=== PATIENT | female | born 1960 | race Caucasian/White ===

== ENCOUNTER 2016-06-26 20:40 | Emergency (ER) | payer OTHER ==
[2016-06-27] MEDS ORDERED: DIAZEPAM INJ 10 MG/2 ML DISP.SYRIN IM ONE (00:40)
[2016-06-27] MEDS ORDERED: HYDROMORPHONE HCL INJ/PF 2 MG/ML AMPULE IM ONE ×2 (00:40→01:46)
[2016-06-27] MEDS ORDERED: OXYCODONE-ACETAMINOPHEN 5-325 MG TABLET PO ONE (03:18)
--- NOTE | 2016-06-27 03:29 | ER Document Report ---
ED General - General Chief Complaint: Back Pain Stated Complaint: FALL,LOWER BACK PAIN Notes: Patient is a pleasant 56 show female presents with complaint of lower back pain. She says that she is a history of back surgeries and degenerative disc disease. Tonight she fell onto her back and hurt her tailbone. No weakness or numbness going into legs. No loss of bowel control. No urinary retention. No fevers or recent infections. No other complaints at this time. She is followed by a neurologist for her back pain. She says she usually receives physical therapy but was recently sick with colitis and therefore missed 2 weeks of physical therapy and therefore has been having increased pain in her back as well. TRAVEL OUTSIDE OF THE [place] IN LAST 30 DAYS: No - Related Data Allergies/Adverse Reactions: morphine [Morphine] Allergy (Verified 09/19/15 22:05) Past Medical History - General Information source: Patient - Social History Smoking Status: Unknown if Ever Smoked Frequency of alcohol use: None Drug Abuse: None Family History: Reviewed & Not Pertinent Patient has suicidal ideation: No Patient has homicidal ideation: No - Past Medical History Cardiac Medical History: Reports: Hx Hypercholesterolemia, Hx Hypertension Past Surgical History: Reports: Hx Orthopedic Surgery - back surgery Review of Systems - Review of Systems Notes: My Normal Review Basic REVIEW OF SYSTEMS: CONSTITUTIONAL : Denies fever, chills, or sweats. Denies recent illness. RESPIRATORY: Denies cough, cold, or chest congestion. Denies shortness of breath, difficulty breathing, or wheezing. GASTROINTESTINAL: Denies abdominal pain. Denies nausea, vomiting, or diarrhea. Denies constipation. Last BM: GENITOURINARY: Denies difficulty urinating, painful urination, burning, frequency, or blood in urine. MUSCULOSKELETAL: Lower back pain SKIN: Denies rash or skin lesions. NEUROLOGICAL: Denies altered mental status or loss of consciousness. Denies headache. Denies weakness or paralysis or loss of use of either side. Denies problems with gait or speech. Denies sensory or motor loss. ALL OTHER SYSTEMS REVIEWED AND NEGATIVE. Physical Exam - Vital signs Vitals: Temp Pulse Resp BP Pulse Ox 98.0 F 74 14 106/68 98 06/26/16 23:10 06/26/16 23:10 06/26/16 23:10 06/26/16 23:10 06/26/16 23:10 - Notes Notes: General Appearance: Well nourished, alert, cooperative, no acute distress, moderate obvious discomfort. Vitals: reviewed, See vital signs table. Abdomen: Normal BS, soft, No rigidity, No abdominal tenderness, No guarding, no rebound, no abdominal masses, no organomegaly Extremities: strength 5/5 in all extremities, good pulses in all extremities, no swelling or tenderness in the extremities, no edema. Back: Patient has pain is easily reproducible to palpation over the lower lumbar paraspinal musculature. No step-offs or deformities to lumbar spine. Thoracic spine is nontender. Skin: warm, dry, appropriate color, no rash Neuro: speech clear, oriented x 3, normal affect, responds appropriately to questions. Patient is good strength with plantar and dorsiflexion against resistance. Good strength with movement of her lower extremity is. Distal sensation intact. Patellar reflexes are 2 out of 4 and equal bilaterally. Course - Vital Signs Vital signs: Temp Pulse Resp BP Pulse Ox 97.3 F 70 14 140/88 H 96 06/27/16 03:44 06/27/16 03:44 06/26/16 23:13 06/27/16 03:44 06/27/16 03:44 - Transfer of Care Notes: 06/27/16 07:03 Patient's pain is not completely gone but we're able to improve the pain with medications here. Her x-ray was negative. At this time a she is safe to be discharged home. She has no evidence of spinal cord impingement. I did inform her to return to ER immediately if she develops leg weakness, leg numbness, inability to urinate, or loss of bowel control. Patient agrees with plan and will be discharged home. Dictation of this chart was performed using voice recognition software; therefore, there may be some unintended grammatical errors. Discharge - Discharge Clinical Impression: Back pain Qualifiers: Back pain location: low back pain Chronicity: acute Back pain laterality: midline Sciatica presence: without sciatica Qualified Code(s): M54.5 - Low back pain Condition: Good Disposition: HOME, SELF-CARE Additional Instructions: LOW BACK PAIN: Three out of every four people will have an episode of disabling back pain during their lifetime. Most commonly the pain is due to straining of the muscles and ligaments in the low back. Usual treatment includes: (1) Rest on a firm surface. Avoid lying on your stomach. (2) Ice pack the painful area. After a few days, gentle heat may be used intermittently to relax the area, or ice packs can be continued. (3) Medication may be needed -- muscle relaxers and antiinflammatory medicines are commonly used. (4) As the back improves, exercises are prescribed to strengthen the back and abdominal muscles. Your doctor will advise you on the proper care for your back at each stage in your recovery. You may be better in a few days -- or healing may take several weeks. If new symptoms of a "herniated disc" (radiation of pain, numbness, or tingling down the back of the leg or weakness in the leg) occur, you should be re-examined. Further testing may be necessary. PAIN MEDICATION INJECTION: You have received an injection of a pain medication. You should experience significant pain relief within 45 minutes. If this injection was a narcotic -- it will impair your judgement, slow your reaction time and make you sleepy (as well as relieve your pain). Narcotics also can cause nausea. You should not drive, work with machinery, or perform any task requiring mental alertness until all effects of the medication are gone -- six to eight hours. Do not take any alcohol, or sedatives, and do not take any other medication without checking with your physician. ORAL NARCOTIC MEDICATION: You have been given a prescription for pain control. This medication is a narcotic. It's best taken with food, as nausea can result if taken on an empty stomach. Don't operate machinery or drive within six hours of taking this medication. Do not combine this medicine with alcohol, or with any medication which can cause sedation (such as cold tablets or sleeping pills) unless you get permission from the physician. Narcotics tend to cause constipation. If possible, drink plenty of fluids and eat a diet high in fiber and fruits. Please be aware that prescription narcotics also have the potential for abuse. People become addicted to these medications because of the general sense of wellbeing that they induce. This feeling along with a significant reduction in tension, anxiety, and aggression provides a stimulating seductive quality to these drugs. Once your pain is under control, we encourage you to discard your unused narcotics. ICE PACKS: Apply ice packs frequently against the painful area. Many different schedules are recommended, such as "20 minutes on, 20 minutes off" or "one hour ice, two hours rest." If you need to work, you may need to go longer between ice treatments. You should plan to have the area ice packed AT LEAST one fourth of the time. The ice should be applied over the wrap, tape, or splint, or over a layer of cloth -- not directly against the skin. Some ice bags have a built-in cloth and can be put directly on the skin. WARM PACKS: After approximately two days, apply gentle heat (such as a heating pad or hot water bottle) for about 20 to 30 minutes about every two hours -- at least four times daily. Warmth and elevation will help you make a more rapid recovery , and will ease the pain considerably. Do not use HOT heat, and never apply heat for longer than 30 minutes. The continuous heat can invisibly damage skin and muscles -- even when no burn is seen on the surface. Damaged muscles can make you MORE sore. FOLLOW-UP CARE: If you have been referred to a physician for follow-up care, call the physician s office for an appointment as you were instructed or within the next two days. If you experience worsening or a significant change in your symptoms, notify the physician immediately or return to the Emergency Department at any time for re-evaluation. Please return to the ER immediately if you develop worsening pain, fevers, leg weakness, leg numbness, loss of control of your bowels, or inability to urinate. Please call your doctor for a close follow up appointment this week. Prescriptions: Oxycodone HCl/Acetaminophen [Percocet 5-325 mg Tablet] 1 - 2 tab PO Q4H PRN #25 tablet PRN Reason: Forms: Return to Work
[2016-06-27 04:04] VITALS: BP 140/88
== END 2016-06-27 03:45 | disposition home or self-care (01) ==
LOC: ER 20:40
DX: M54.5 Low back pain (principal); M54.9 Dorsalgia, unspecified
CPT/HCPCS: 99283; 96372; 72110; J3360; J1170

== ENCOUNTER 2016-08-16 08:45 | Day surgery (SDC) | payer OTHER ==
--- NOTE | 2016-08-10 12:01 | HISTORY AND PHYSICAL E ---
History and Physical NAME: PRASANTH CASSIDY : 1960 AGE: 56Y ADMITTED: 08/16/2016 ROOM: CHIEF COMPLAINT: Abdominal pain, rectal bleeding, ischemic colitis. HISTORY: This is a 56-year-old female who has had multiple colonoscopies. She was admitted recently at [facility] and she was scheduled for colonoscopy, but this was held for some improvement. Now she is stable and presented for colon exam. SOCIAL HISTORY: She smokes 1/2 pack daily. Drinks occasional beer. PAST SURGICAL HISTORY: 1. Appendectomy. 2. Three colonoscopies, the last 2014. 3. Back surgery L4-L5. REVIEW OF SYSTEMS: HEAD, EARS, EYES, NOSE AND THROAT: Negative. RESPIRATORY: Asthma on inhaler. CARDIAC: Hypertension. ENDOCRINE: Negative. GASTROINTESTINAL: Question ischemic colitis. HEMATOLOGY/ONCOLOGY: Negative. NEUROPSYCH: Depression and anxiety. FAMILY HISTORY: Father had aneurysm in brain. Mom old age. EXAM: VITAL SIGNS: Blood pressure 130/90, pulse 80, respirations 18, temperature 98. HEAD, EARS, EYES, NOSE AND THROAT: Negative. NECK: Supple. CARDIOVASCULAR: Normal. LUNGS: Clear. ABDOMEN: Soft. NEUROLOGIC EXAM: Negative. MEDICATIONS: 1. Lisinopril. 2. Metoprolol. 3. Amitriptyline. 4. Clonazepam. 5. Albuterol. 6. Symbicort. CONCLUSION: Rectal bleeding. PLAN: Colonoscopy. DICTATING PHYSICIAN: MAINE BALLARD M.D. [id number] PHY#: [id number] ID: [id number] JOB#: [id number] ACCT: [id number] cc:LOCAL, MD Yandel BALLARD, MAINE Harris >
[2016-08-16] MEDS ORDERED: GLYCOPYRROLATE INJ 0.4 MG/2 ML VIAL ONE (09:54)
[2016-08-16] MEDS ORDERED: ONDANSETRON HCL INJ/PF 4 MG/2 ML SDV ONE (09:54)
[2016-08-16] MEDS ORDERED: PROMETHAZINE HCL INJ 25 MG/1 ML VIAL ONE (09:54)
[2016-08-16] MEDS ORDERED: NALOXONE HCL INJ/PF 0.4 MG/1 ML SDV ONE (09:54)
[2016-08-16] MEDS ORDERED: LIDOCAINE 2% JELLY 30 ML TUBE ONE (09:54)
[2016-08-16] MEDS ORDERED: EPINEPHRINE INJ 1 MG/10 ML DISP.SYRIN ONE (09:55)
[2016-08-16] MEDS ORDERED: FLUMAZENIL INJ 0.5 MG/5 ML VIAL IV ONE (09:55)
[2016-08-16] MEDS ORDERED: GLUCAGON,HUMAN RECOMB 1 MG INJ ONE (09:55)
[2016-08-16] MEDS: MIDAZOLAM 2 MG/2 ML INJ ONE ×4 (10:01→10:19)
[2016-08-16] MEDS: FENTANYL CITRATE INJ/PF 100 MCG/2 ML AMPUL ONE ×4 (10:03→10:25)
[2016-08-16 11:26] LABS: ABSOLUTE EOSINOPHILS # (AUTO) 0.1 10^3/uL (0.0-0.6); ABSOLUTE LYMPHOCYTES (AUTO) 1.3 10^3/uL (0.5-4.7); ABSOLUTE MONOCYTES (AUTO) 0.7 10^3/uL (0.1-1.4); ABSOLUTE NEUT (AUTO) 6.5 10^3/uL (1.7-8.2); BASOPHILS % (AUTO) 0.6 % (0-2); HEMATOCRIT 36.7 % (36.0-47.0); HEMOGLOBIN 12.9 g/dL (12.0-15.5); LYMPHOCYTES % (AUTO) 14.5 % (13-45); MEAN CORPUSCULAR HEMOGLOBIN 33.8 pg (27.0-33.4); MEAN CORPUSCULAR HGB CONC 35.3 g/dL (32.0-36.0); MEAN CORPUSCULAR VOLUME 96 fl (80-97); MONOCYTES % (AUTO) 8.6 % (3-13); RED BLOOD COUNT 3.83 10^6/uL (3.72-5.28); RED CELL DISTRIBUTION WIDTH 12.3 % (11.5-14.0); SEGMENTED NEUTROPHILS % (AUTO) 75.3 % (42-78); WHITE BLOOD COUNT 8.7 10^3/uL (4.0-10.5)
[2016-08-16 11:47] LABS: ALANINE AMINOTRANSFERASE 22 U/L (9-52); ALBUMIN 3.6 g/dL (3.5-5.0); ALKALINE PHOSPHATASE 82 U/L (38-126); ANION GAP 7 (5-19); ASPARTATE AMINO TRANSFERASE 24 U/L (14-36); BILIRUBIN,TOTAL 0.8 mg/dL (0.2-1.3); BLOOD UREA NITROGEN 10 mg/dL (7-20); CARBON DIOXIDE 30 mmol/L (22-30); CHLORIDE 102 mmol/L (98-107); CREATININE RESULT 0.74 mg/dL (0.52-1.25); GLUCOSE 192 mg/dL (75-110); POTASSIUM 3.4 mmol/L (3.6-5.0); TOTAL PROTEIN 6.2 g/dL (6.3-8.2)
[2016-08-16 12:15] LABS: CARCINOEMBRYONIC ANTIGEN 7.7 ng/mL (<3.0)
[2016-08-16 13:07] VITALS: BP 146/92
--- NOTE | 2016-08-16 13:51 | OPERATIVE REPORT E ---
Operative Report NAME: PRASANTH CASSIDY : 1960 AGE: 56Y DATE OF SURGERY: ROOM: HISTORY: The patient is a 56-year-old female. PREOPERATIVE DIAGNOSIS: COLON SCREENING. POSTOPERATIVE DIAGNOSES: SEVERE SIGMOID DIVERTICULOSIS, POLYP AT THE RECTAL SIGMOID JUNCTION, SMALL TO BIOPSY. OPERATION: A trial of complete colonoscopy and because of sigmoid diverticulosis. Severe large amount of solid stool keeps coming compromising the lumen. I gave her adequate sedation but the stool was too frequent and the stool was like hard balls keep coming during the procedure so we elected to stop the colonoscopy and we converted the procedure into flexible sigmoidoscopy. Patient may need future colonoscopy in the OR with anesthesia standby . SURGEON: MAINE BALLARD M.D. TISSUE REMOVED OR ALTERED: None. PROCEDURE: Rectal exam normal. Rectal sigmoid shows of polyp 2-mm benign. Sigmoid descending colon; severe diverticulosis, large amount of formed stool. PLAN: Baseline CBC, CRP and CEA, Chem profile, a plain CT scan pelvic abdomen and patient to be discharged on full liquid. DICTATING PHYSICIAN: MAINE BALLARD M.D. [id number] PHY#: [id number] ID: [id number] JOB#: [id number] ACCT: [id number] cc:MAINE BALLARD M.D. >
--- NOTE | 2016-08-17 12:08 | DISCHARGE SUMMARY E ---
Discharge Summary NAME: PRASANTH DASILVA : 1960 AGE: 56Y ADMITTED: 08/16/2016 DISCHARGED: 08/16/2016 HISTORY: Mrs. Prasanth Dasilva is a 56 years old female, presented for colon screening. The patient's colonoscopy converted into flexible sigmoidoscopy. She was admitted to [facility] recently with a question ischemic colitis, abdominal pain, constipation. She does have a history of asthma, hypertension, bronchitis, degenerative arthritis, reflux. She did have appendectomy, back surgery, multiple hand surgeries, left hand. PLAN: Patient to be discharged on full liquids. She needs to have abdominopelvic CT with no contrast. The patient may need a future colonoscopy with better prep to be scheduled in the OR with anesthesia stand-by, and she needs better prep. She may need 1 week to 10 days low residue diet, and she needs to follow a low residue diet for 10 days, then the regular prep. FINAL DIAGNOSIS: Severe diverticulosis sigmoid descending colon. No evidence of malignancies. Small benign looking polyp at rectosigmoid junction. No biopsy obtained. DICTATING PHYSICIAN: MAINE BALLARD M.D. [id number] PHY#: [id number] ID: [id number] JOB#: [id number] ACCT: [id number] cc:MAINE BALLARD M.D. >
== END 2016-08-16 12:45 | disposition home or self-care (01) ==
LOC: END 08:45
PROVIDERS: ATTEND Specialist
PROC: 0DJD8ZZ Inspection of Lower Intestinal Tract, Via Natural or Artificial Opening Endoscopic (ICD-10-PCS; principal; 2016-08-16 09:00)
DX: Z12.11 Encounter for screening for malignant neoplasm of colon (principal); K57.30 Diverticulosis of large intestine without perforation or abscess without bleeding; K62.1 Rectal polyp; I10 Essential (primary) hypertension; J45.909 Unspecified asthma, uncomplicated; F32.9 Major depressive disorder, single episode, unspecified; F41.9 Anxiety disorder, unspecified; Z79.899 Other long term (current) drug therapy; F17.210 Nicotine dependence, cigarettes, uncomplicated
CPT/HCPCS: 36415; 82378; 85025; 86140; 80053; 74176; G0104; J2250; J3010; J1610; J2405; J0171; J2310; J2550; J3490

== ENCOUNTER → 2016-10-04 | Outpatient (CLI) | payer OTHER ==
[2016-10-04 14:50] LABS: ABSOLUTE LYMPHOCYTES (AUTO) 1.6 10^3/uL (0.5-4.7); ABSOLUTE MONOCYTES (AUTO) 0.7 10^3/uL (0.1-1.4); ABSOLUTE NEUT (AUTO) 5.2 10^3/uL (1.7-8.2); BASOPHILS % (AUTO) 0.4 % (0-2); EOSINOPHILS % (AUTO) 0.1 % (0-6); HEMATOCRIT 41.6 % (36.0-47.0); HEMOGLOBIN 14.6 g/dL (12.0-15.5); HGB HCT DIFFERENCE 2.2; LYMPHOCYTES % (AUTO) 21.1 % (13-45); MEAN CORPUSCULAR HEMOGLOBIN 33.5 pg (27.0-33.4); MEAN CORPUSCULAR HGB CONC 35.1 g/dL (32.0-36.0); MEAN CORPUSCULAR VOLUME 95 fl (80-97); MONOCYTES % (AUTO) 9.9 % (3-13); RED BLOOD COUNT 4.36 10^6/uL (3.72-5.28); RED CELL DISTRIBUTION WIDTH 12.5 % (11.5-14.0); SEGMENTED NEUTROPHILS % (AUTO) 68.5 % (42-78); WHITE BLOOD COUNT 7.6 10^3/uL (4.0-10.5)
[2016-10-04 15:18] LABS: ANION GAP 9 (5-19); BLOOD UREA NITROGEN 15 mg/dL (7-20); CALCIUM 9.8 mg/dL (8.4-10.2); CARBON DIOXIDE 29 mmol/L (22-30); CHLORIDE 104 mmol/L (98-107); CREATININE RESULT 0.85 mg/dL (0.52-1.25); GLUCOSE 130 mg/dL (75-110); POTASSIUM 5.1 mmol/L (3.6-5.0); SODIUM 142.1 mmol/L (137-145)
[2016-10-04 15:46] LABS: CARCINOEMBRYONIC ANTIGEN 10.4 ng/mL (<3.0)
== END ==
LOC: OD 14:09
PROVIDERS: ATTEND Specialist
DX: K55.9 Vascular disorder of intestine, unspecified (principal); R19.7 Diarrhea, unspecified
CPT/HCPCS: 36415; 80048; 82378; 85025

== ENCOUNTER 2017-01-09 14:42 | Inpatient (IN) | payer OTHER ==
[2017-01-09] MEDS ORDERED: ONDANSETRON HCL INJ/PF 4 MG/2 ML SDV IV ONE (15:05)
[2017-01-09] MEDS ORDERED: MORPHINE SULFATE 10 MG/ML INJ IV ONE (15:05)
[2017-01-09] MEDS ORDERED: NORMAL SALINE 1000 ML 1,000 ML IV ONE (15:05)
[2017-01-09] MEDS ORDERED: HYDROMORPHONE HCL INJ/PF 2 MG/ML AMPULE IV ONE ×3 (15:09→17:50)
--- NOTE | 2017-01-09 15:12 | ER Document Report ---
ED Medical Screen (RME) - General Chief Complaint: Abdominal Pain Stated Complaint: ABDOMINAL PAIN Time Seen by Provider: 01/09/17 15:02 Information source: Patient Notes: 56-year-old female with past medical history of appendicitis and colitis who presents today with progressive left lower quadrant pain over 1 week. She states nausea with vomiting. She denies any diarrhea, blood in the stool, blood in the vomit. She denies any dysuria flank pain or fevers. Appears slightly diaphoretic and acute pain she is moaning actively. Patient will be upgraded and taken back to the emergency department. I have ordered a stat portable x-ray of the abdomen, pain and medication, and a CT scan of the abdomen and pelvis. TRAVEL OUTSIDE OF THE [place] IN LAST 30 DAYS: No - Related Data Allergies/Adverse Reactions: morphine [Morphine] Allergy (Intermediate, Verified 01/09/17 14:44) UNCONTROLLED VOMITING Past Medical History - Past Medical History Cardiac Medical History: Reports: Hx Hypercholesterolemia, Hx Hypertension Denies: Hx Coronary Artery Disease, Hx Heart Attack Pulmonary Medical History: Reports: Hx Asthma, Hx Bronchitis Denies: Hx COPD, Hx Pneumonia Neurological Medical History: Denies: Hx Cerebrovascular Accident, Hx Seizures Renal/ Medical History: Denies: Hx Peritoneal Dialysis Musculoskeltal Medical History: Reports Hx Arthritis - DEGENERATIVE ARTHRITIS BACK/HANDS Past Surgical History: Reports: Hx Orthopedic Surgery - back surgery. Denies: Hx Hysterectomy - Immunizations Hx Diphtheria, Pertussis, Tetanus Vaccination: No Physical Exam - Vital signs Vitals: Temp Pulse Resp BP Pulse Ox 97.9 F 75 28 H 112/58 L 97 01/09/17 14:45 01/09/17 14:45 01/09/17 14:45 01/09/17 14:45 01/09/17 14:45 Course - Vital Signs Vital signs: Temp Pulse Resp BP Pulse Ox 97.9 F 75 28 H 112/58 L 97 01/09/17 14:45 01/09/17 14:45 01/09/17 14:45 01/09/17 14:45 01/09/17 14:45
[2017-01-09 15:39] LABS: ABSOLUTE LYMPHOCYTES (AUTO) 1.8 10^3/uL (0.5-4.7); ABSOLUTE MONOCYTES (AUTO) 0.6 10^3/uL (0.1-1.4); ABSOLUTE NEUT (AUTO) 7.6 10^3/uL (1.7-8.2); BASOPHILS % (AUTO) 0.3 % (0-2); EOSINOPHILS % (AUTO) 0.1 % (0-6); HEMATOCRIT 42.8 % (36.0-47.0); HEMOGLOBIN 14.8 g/dL (12.0-15.5); HGB HCT DIFFERENCE 1.6; LYMPHOCYTES % (AUTO) 18.2 % (13-45); MEAN CORPUSCULAR HEMOGLOBIN 32.6 pg (27.0-33.4); MEAN CORPUSCULAR HGB CONC 34.6 g/dL (32.0-36.0); MEAN CORPUSCULAR VOLUME 94 fl (80-97); MONOCYTES % (AUTO) 5.8 % (3-13); RED BLOOD COUNT 4.53 10^6/uL (3.72-5.28); RED CELL DISTRIBUTION WIDTH 12.9 % (11.5-14.0); SEGMENTED NEUTROPHILS % (AUTO) 75.6 % (42-78)
[2017-01-09 15:51] LABS: ALANINE AMINOTRANSFERASE 33 U/L (9-52); ALBUMIN 4.1 g/dL (3.5-5.0); ALKALINE PHOSPHATASE 93 U/L (38-126); ANION GAP 11 (5-19); ASPARTATE AMINO TRANSFERASE 20 U/L (14-36); BILIRUBIN,DIRECT 0.3 mg/dL (0.0-0.4); BILIRUBIN,TOTAL 0.7 mg/dL (0.2-1.3); BLOOD UREA NITROGEN 10 mg/dL (7-20); CALCIUM 9.5 mg/dL (8.4-10.2); CARBON DIOXIDE 27 mmol/L (22-30); CHLORIDE 102 mmol/L (98-107); CREATININE RESULT 0.77 mg/dL (0.52-1.25); GLUCOSE 135 mg/dL (75-110); LIPASE 86.4 U/L (23-300); POTASSIUM 4.1 mmol/L (3.6-5.0); SODIUM 139.6 mmol/L (137-145); TOTAL PROTEIN 7.2 g/dL (6.3-8.2)
[2017-01-09] MEDS ORDERED: METOCLOPRAMIDE HCL INJ/PF 10 MG/2 ML SDV IV ONE (16:20)
--- NOTE | 2017-01-09 16:43 | RADIOLOGY REPORT (SQ) ---
EXAM DESCRIPTION: CT ABD/PELVIS WITH IV ONLY COMPLETED DATE/TIME: 01/09/2017 4:17 pm REASON FOR STUDY: PIT; abdominal pain; h/o bleeding colitis COMPARISON: 08/16/2016 and 05/30/2016 TECHNIQUE: CT scan of the abdomen and pelvis performed using helical scanning technique with dynamic intravenous contrast injection. No oral contrast. Images reviewed with lung, soft tissue, and bone windows. Reconstructed coronal and sagittal MPR images reviewed. Delayed images for evaluation of the urinary system also acquired. All images stored on PACS. All CT scanners at this facility use dose modulation, iterative reconstruction, and/or weight based d osing when appropriate to reduce radiation dose to as low as reasonably achievable (ALARA). [facility]: Dose Right [facility]: CareDose [facility]: Dose Right [facility]: Teradose 4D [facility]: [employer] CONTRAST TYPE AND DOSE: contrast/concentration: Isovue 370.00 mg/ml; Total Contrast Delivered: 100.0 ml; Total Saline Delivered: 40.0 ml RENAL FUNCTION: Creatinine 0.77 RADIATION DOSE: Up-to-date CT equipment and radiation dose reduction techniques were employed. CTDIv ol: 15.4 - 18.8 mGy. DLP: 1859 mGy-cm.. LIMITATIONS: None. FINDINGS: LOWER CHEST: No significant findings. No nodules or infiltrates. Small hiatal hernia. LIVER: Normal size. No masses. No dilated ducts. Small amount of ascites adjacent to the liver. SPLEEN: Normal size. No focal lesions. PANCREAS: No masses. No significant calcifications. No adjacent inflammation or peripancreatic fluid collections. Pancreatic duct not dilated. GALLBLADDER: No identified stones by CT criteria. No inflammatory changes to suggest cholecystitis. ADRENAL GLANDS: No significant masses or asymmetry. RIGHT KIDNEY AND URETER: No solid masses. No significant calcifications. No hydronephrosis or hyd roureter. LEFT KIDNEY AND URETER: No solid masses. No significant calcifications. No hydronephrosis or hydr oureter. AORTA AND VESSELS: No aneurysm. No dissection. Renal arteries, SMA, celiac without stenosis. RETROPERITONEUM: No retroperitoneal adenopathy, hemorrhage or masses. BOWEL AND PERITONEAL CAVITY: Sigmoid diverticulosis with the area of bowel wall thickening and some i nflammatory stranding suggesting diverticulitis. Colitis would be additional consideration. There a re some possible thick walled loops of small bowel in the left mid abdomen raising the possibility of enteritis. Inflammatory bowel disease is a consideration. APPENDIX: Normal. PELVIS: Fibroid uterus. Minimal fluid. Normal bladder. ABDOMINAL WALL: No masses. No hernias. BONES: Postoperative changes at L5-S1. OTHER: No other significant finding. IMPRESSION: 1. Sigmoid diverticulosis with findings suggesting diverticulitis. Colitis would be ad ditional consideration. No abscess. 2. Possible thick walled loops of small bowel in left mid abdomen raising the possibility of enterit is. 3. Small amount of ascites. 4. Fibroid uterus TECHNICAL DOCUMENTATION: JOB ID: [id number] Quality ID # [id number]: Final reports with documentation of one or more dose reduction techniques (e.g., Au tomated exposure control, adjustment of the mA and/or kV according to patient size, use of iterative reconstruction technique) 2010 [employer]- All Rights Reserved
--- NOTE | 2017-01-09 16:44 | RADIOLOGY REPORT (SQ) ---
EXAM DESCRIPTION: KUB/ABDOMEN (SINGLE VIEW) COMPLETED DATE/TIME: 01/09/2017 4:23 pm REASON FOR STUDY: PIT; abdominal pain/vomiting COMPARISON: None. NUMBER OF VIEWS: One view. TECHNIQUE: Supine radiographic image of the abdomen acquired. LIMITATIONS: None. FINDINGS: BOWEL GAS PATTERN: Normal bowel gas pattern. No dilated loops. CALCIFICATIONS: No suspicious calcifications. SOFT TISSUES: No gross mass or suggestion of organomegaly. HARDWARE: Postoperative changes involving the lower lumbar spine. Bilateral fallopian tube clamps. BONES: No acute fracture. No worrisome bone lesions. OTHER: No other significant finding. IMPRESSION: NO RADIOGRAPHIC EVIDENCE FOR ACUTE ABDOMINAL DISEASE. TECHNICAL DOCUMENTATION: JOB ID: [id number] [employer]- All Rights Reserved
--- NOTE | 2017-01-09 16:45 | ER Document Report ---
ED GI/ - General Mode of Arrival: Ambulatory Information source: Patient TRAVEL OUTSIDE OF THE [place] IN LAST 30 DAYS: No - HPI Similar symptoms previously: Yes <QUIRINO WOOD - Last Filed: 01/09/17 18:19> <RIYA STEELE - Last Filed: 01/09/17 23:48> - General Chief Complaint: Abdominal Pain Stated Complaint: ABDOMINAL PAIN Time Seen by Provider: 01/09/17 15:02 Notes: Patient is a 56-year-old female that presents to the emergency department today with complaints of abdominal pain. Patient states she has a history of colitis and this pain feels like her normal colitis flares. Patient states that her pain began today at 1300. Patient complains of vomiting and chills. Patient denies any diarrhea or fevers. (QUIRINO WOOD) - Related Data Allergies/Adverse Reactions: morphine [Morphine] Allergy (Intermediate, Verified 01/09/17 14:44) UNCONTROLLED VOMITING Past Medical History - General Information source: Patient - Social History Smoking Status: Unknown if Ever Smoked Cigarette use (# per day): No Frequency of alcohol use: None Drug Abuse: None Lives with: Family Family History: Reviewed & Not Pertinent Patient has suicidal ideation: No Patient has homicidal ideation: No - Past Medical History Cardiac Medical History: Reports: Hx Hypercholesterolemia, Hx Hypertension Pulmonary Medical History: Reports: Hx Asthma, Hx Bronchitis Musculoskeltal Medical History: Reports Hx Arthritis - DEGENERATIVE ARTHRITIS BACK/HANDS Past Surgical History: Reports: Hx Orthopedic Surgery - back surgery - Immunizations Hx Diphtheria, Pertussis, Tetanus Vaccination: No <QUIRINO WOOD - Last Filed: 01/09/17 18:19> Review of Systems - Review of Systems Constitutional: See HPI, Chills. denies: Fever EENT: No symptoms reported Cardiovascular: No symptoms reported Respiratory: No symptoms reported Gastrointestinal: See HPI, Abdominal pain, Vomiting. denies: Diarrhea Genitourinary: No symptoms reported Female Genitourinary: No symptoms reported Musculoskeletal: No symptoms reported Skin: No symptoms reported Hematologic/Lymphatic: No symptoms reported Neurological/Psychological: No symptoms reported -: Yes All other systems reviewed and negative <QUIRINO WOOD - Last Filed: 01/09/17 18:19> Physical Exam <QUIRINO WOOD - Last Filed: 01/09/17 18:19> <RIYA STEELE - Last Filed: 01/09/17 23:48> - Vital signs Vitals: Temp Pulse Resp BP Pulse Ox 97.9 F 75 28 H 112/58 L 97 01/09/17 14:45 01/09/17 14:45 01/09/17 14:45 01/09/17 14:45 01/09/17 14:45 - Notes Notes: Physical Exam: General: Alert, appears well. HEENT: Normocephalic. Atraumatic. PERRL. Extraocular movements intact. Oropharynx clear. Dry mucous membranes. Neck: Supple. Non-tender. Respiratory: No respiratory distress. Clear and equal breath sounds bilaterally. Cardiovascular: Regular rate and rhythm. Abdominal: Diffuse abdominal tenderness with palpation, particularly in the left lower quadrant. No distension. Normal Bowel Sounds. Back: Non-tender. No deformity or step off. Extremities: Moves all four extremities. Upper extremities: Normal inspection. Normal ROM. Lower extremities: Normal inspection. No edema. Normal ROM. Neurological: Normal cognition. AAOx4. Normal speech. Psychological: Normal affect. Normal Mood. Skin: Warm. Dry. Normal color. (QUIRINO WOOD) Course - Laboratory Result Diagrams: 01/09/17 15:19 01/09/17 15:19 <QUIRINO WOOD - Last Filed: 01/09/17 18:19> - Laboratory Result Diagrams: 01/09/17 15:19 01/09/17 15:19 - Diagnostic Test Radiology reviewed: Reports reviewed <RIYA STEELE - Last Filed: 01/09/17 23:48> - Re-evaluation Re-evalutation: 01/09/17 Patient is a 56-year-old female who comes in complaining of abdominal pain. Symptoms and CT are consistent with colitis versus diverticulitis. Patient will be admitted to the hospitalist service. Patient will continue getting IV hydration, pain medication, Cipro and Flagyl. Agrees with plan. Stable time of admission. (RIYA STEELE) - Vital Signs Vital signs: Temp Pulse Resp BP Pulse Ox 99.1 F 111 H 20 156/72 H 96 01/09/17 20:38 01/09/17 20:38 01/09/17 20:38 01/09/17 20:38 01/09/17 20:38 - Laboratory Laboratory results interpreted by me: 01/09/17 01/09/17 15:19 15:19 Glucose 135 H LDL Cholesterol Direct 118 H Discharge <QUIRINO WOOD - Last Filed: 01/09/17 18:19> - Discharge Admitting Provider: [facility] Admitted: Medical Floor <RIYA STEELE - Last Filed: 01/09/17 23:48> - Discharge Clinical Impression: Colitis Diverticulitis Qualifiers: Diverticulitis site: large intestine Diverticulitis bleeding: without bleeding Diverticulitis complication: unspecified complication status Qualified Code(s): K57.32 - Diverticulitis of large intestine without perforation or abscess without bleeding Condition: Stable Disposition: ADMITTED INPATIENT Scribe Attestation: 01/09/17 23:48 I personally performed the services described in the documentation, reviewed and edited the documentation which was dictated to the scribe in my presence, and it accurately records my words and actions. (RIYA STEELE) Scribe Documentation - Scribe Written by Kymberlyibe:: Corey Bhat, 01/09/2017 1819 acting as scribe for :: Magaly <QUIRINO WOOD - Last Filed: 01/09/17 18:19>
--- NOTE | 2017-01-09 16:48 | RADIOLOGY REPORT (SQ) ---
EXAM DESCRIPTION: CHEST SINGLE VIEW COMPLETED DATE/TIME: 01/09/2017 4:23 pm REASON FOR STUDY: ABD PAIN/VOMITING COMPARISON: None. EXAM PARAMETERS: NUMBER OF VIEWS: One view. TECHNIQUE: Single frontal radiographic view of the chest acquired. RADIATION DOSE: NA LIMITATIONS: None. FINDINGS: LUNGS AND PLEURA: No opacities, masses or pneumothorax. No pleural effusion. MEDIASTINUM AND HILAR STRUCTURES: No masses. Contour normal. HEART AND VASCULAR STRUCTURES: Heart normal in size. Normal vasculature. BONES: No acute findings. HARDWARE: None in the chest. OTHER: No other significant finding. IMPRESSION: NO ACUTE RADIOGRAPHIC FINDING IN THE CHEST. TECHNICAL DOCUMENTATION: JOB ID: [id number]
[2017-01-09] MEDS ORDERED: METRONIDAZOLE 500 MG/NS RTU 100 ML IV ONE (17:05)
[2017-01-09] MEDS ORDERED: CIPROFLOXACIN 400 MG/D5W RTU 200 ML IV ONE (17:05)
[2017-01-09 17:56] LABS: APPEARANCE,URINE CLEAR; BILIRUBIN,URINE NEGATIVE (NEGATIVE); GLUCOSE, URINE NEGATIVE (NEGATIVE); KETONES,URINE NEGATIVE (NEGATIVE); LEUKOCYTE ESTERASE,URINE NEGATIVE (NEGATIVE); NITRITE,URINE NEGATIVE (NEGATIVE); PROTEIN,URINE NEGATIVE (NEGATIVE); UROBILINOGEN,URINE NEGATIVE mg/dL (<2.0)
[2017-01-09 18:00] LABS: URINE SPECIFIC GRAVITY > 1.060
[2017-01-09] MEDS ORDERED: ACETAMINOPHEN 325 MG TABLET PO PRN (18:19)
[2017-01-09] MEDS ORDERED: ONDANSETRON HCL INJ/PF 4 MG/2 ML SDV IV PRN (18:19)
[2017-01-09] MEDS ORDERED: NORMAL SALINE 1000 ML 2,000 ML IV ONE (18:23)
[2017-01-09] MEDS ORDERED: HYDRALAZINE HCL INJ/PF 20 MG/1 ML SDV IV PRN (18:25)
[2017-01-09 18:43] LABS: PROTHROMBIN TIME 13.2 SEC (11.4-15.4)
[2017-01-09 18:44] LABS: PARTIAL THROMBOPLASTIN TIME 28.6 SEC (23.5-35.8)
[2017-01-09 18:50] LABS: URINE BARBITURATES SCREEN NEGATIVE; URINE METHADONE SCREEN NEGATIVE; URINE OPIATES LOW UNCONFIRMED POSITIVE; URINE PHENCYCLIDINE SCREEN NEGATIVE
[2017-01-09] MEDS ORDERED: NORMAL SALINE 1000 ML 3,000 ML IV ONE (18:50)
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
[2017-01-09] MEDS: FENTANYL CITRATE INJ/PF 100 MCG/2 ML AMPUL IV PRN ×2 (19:05→23:39)
[2017-01-09 19:42] LABS: CHOLESTEROL 174.47 mg/dL (0-200); Direct HDL 46 mg/dL (>40); TRIGLYCERIDES 129 mg/dL (<150)
--- NOTE | 2017-01-09 19:50 | EKG REPORT ---
SEVERITY:- BORDERLINE ECG - SINUS TACHYCARDIA PROBABLE LEFT ATRIAL ABNORMALITY : Confirmed by: Jarvis Quezada 09-Jan-2017 19:50:08
[2017-01-09 19:56] LABS: DIRECT LDL 118 mg/dL (<100)
[2017-01-09] MEDS ORDERED: KETOROLAC TROMETHAMINE INJ/PF 30 MG/1 ML SDV ONE (21:58)
[2017-01-09] MEDS: NORMAL SALINE 1000 ML 1,000 ML IV PRN (22:03)
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
[2017-01-09] MEDS: KETOROLAC TROMETHAMINE INJ/PF 30 MG/1 ML SDV IV PRN (22:04)
[2017-01-09] MEDS: HEPARIN SOD (PORCINE) 5,000 UNIT/ML 1 ML SYRINGE SUBCUT SCH (23:57)
[2017-01-09] MEDS: CIPROFLOXACIN 400 MG/D5W RTU 200 ML IV SCH (23:57)
[2017-01-09] MEDS: PANTOPRAZOLE SODIUM 40 MG VIAL IV SCH (23:58)
[2017-01-10] MEDS: METRONIDAZOLE 500 MG/NS RTU 100 ML IV SCH ×3 (01:43→12:36)
[2017-01-10] MEDS ORDERED: LACTULOSE SYRUP 20 GM/30 ML UDCUP PO ONE (01:45)
[2017-01-10] MEDS: FENTANYL CITRATE INJ/PF 100 MCG/2 ML AMPUL IV PRN ×4 (03:45→22:57)
[2017-01-10] MEDS: NORMAL SALINE 1000 ML 1,000 ML IV PRN ×2 (03:46→13:28)
[2017-01-10] MEDS: HEPARIN SOD (PORCINE) 5,000 UNIT/ML 1 ML SYRINGE SUBCUT SCH ×3 (05:38→21:58)
[2017-01-10] MEDS: KETOROLAC TROMETHAMINE INJ/PF 30 MG/1 ML SDV IV PRN ×3 (06:17→19:51)
[2017-01-10 07:20] LABS: HEMATOCRIT 38.7 % (36.0-47.0); HEMOGLOBIN 13.1 g/dL (12.0-15.5); HGB HCT DIFFERENCE 0.6; MEAN CORPUSCULAR HEMOGLOBIN 31.9 pg (27.0-33.4); MEAN CORPUSCULAR HGB CONC 33.9 g/dL (32.0-36.0); MEAN CORPUSCULAR VOLUME 94 fl (80-97); RED BLOOD COUNT 4.11 10^6/uL (3.72-5.28); RED CELL DISTRIBUTION WIDTH 13.1 % (11.5-14.0); WHITE BLOOD COUNT 13.2 10^3/uL (4.0-10.5)
[2017-01-10 07:28] LABS: ANION GAP 11 (5-19); BLOOD UREA NITROGEN 15 mg/dL (7-20); CALCIUM 8.6 mg/dL (8.4-10.2); CARBON DIOXIDE 23 mmol/L (22-30); CHLORIDE 104 mmol/L (98-107); CHOLESTEROL 116.38 mg/dL (0-200); CREATININE RESULT 0.85 mg/dL (0.52-1.25); Direct HDL 42 mg/dL (>40); GLUCOSE 131 mg/dL (75-110); POTASSIUM 4.3 mmol/L (3.6-5.0); SODIUM 137.9 mmol/L (137-145); TRIGLYCERIDES 60 mg/dL (<150)
[2017-01-10 07:38] LABS: DIRECT LDL 58 mg/dL (<100)
[2017-01-10 07:47] LABS: MAGNESIUM 1.1 mg/dL (1.6-2.3)
[2017-01-10] MEDS ORDERED: DICYCLOMINE HCL 20 MG TABLET PO PRN (07:47)
[2017-01-10 08:00] LABS: BASOPHILS % (MANUAL) 0 % (0-2); EOSINOPHILS % (MANUAL) 0 % (0-6); LYMPHOCYTES % (MANUAL) 6 % (13-45); TOTAL CELLS COUNTED 100
[2017-01-10 08:01] LABS: BAND NEUTROPHILS % (MANUAL) 35 % (3-5)
[2017-01-10 08:03] LABS: POLYCHROMASIA SLIGHT; TOXIC GRANULATION SLIGHT; TOXIC VACUOLATION PRESENT
[2017-01-10] MEDS ORDERED: PEG 3350/NA SULF,BICARB,CL/KCL 4000 ML PO ONE (09:00)
[2017-01-10] MEDS: CIPROFLOXACIN 400 MG/D5W RTU 200 ML IV SCH (09:24)
[2017-01-10] MEDS ORDERED: OXYCODONE-ACETAMINOPHEN 5-325 MG TABLET PO PRN (10:48)
[2017-01-10 11:30] LABS: PATH REVIEW PATHOLOGIST REVIEWED
[2017-01-10] MEDS: MAGNESIUM SULFATE/D5W 100 ML IV SCH ×2 (12:35→17:28)
[2017-01-10] MEDS ORDERED: (PENDING PHARMACY ID) (Ondansetron Hcl [Zofran 4 Mg Tablet] 4 MG) PO PRN (12:58)
[2017-01-10] MEDS ORDERED: (PENDING PHARMACY ID) (Trazodone Hcl [Desyrel] 100 MG) PO PRN (12:58)
[2017-01-10] MEDS ORDERED: CLONAZEPAM 1 MG TABLET PO PRN (12:58)
[2017-01-10] MEDS ORDERED: TRAZODONE HCL 50 MG TABLET PO PRN (13:13)
[2017-01-10] MEDS ORDERED: ONDANSETRON 4 MG TAB.RAPDIS PO PRN (13:14)
[2017-01-10] MEDS: PANTOPRAZOLE SODIUM 40 MG VIAL IV SCH ×2 (13:21→21:59)
[2017-01-10] MEDS ORDERED: HYDROMORPHONE HCL INJ/PF 2 MG/ML AMPULE ONE (13:25)
[2017-01-10] MEDS ORDERED: NORMAL SALINE 1000 ML 1,000 ML IV ONE (14:30)
[2017-01-10] MEDS ORDERED: HYDROMORPHONE HCL INJ/PF 2 MG/ML AMPULE IV ONE (14:30)
[2017-01-10] MEDS ORDERED: NALOXONE HCL INJ/PF 0.4 MG/1 ML SDV ONE (14:44)
[2017-01-10] MEDS ORDERED: GLUCAGON,HUMAN RECOMB 1 MG INJ ONE (14:45)
[2017-01-10] MEDS ORDERED: EPINEPHRINE INJ 1 MG/10 ML DISP.SYRIN ONE (14:45)
[2017-01-10] MEDS ORDERED: FENTANYL CITRATE INJ/PF 100 MCG/2 ML AMPUL ONE (14:45)
[2017-01-10] MEDS ORDERED: MIDAZOLAM 2 MG/2 ML INJ ONE (14:45)
[2017-01-10] MEDS ORDERED: FLUMAZENIL INJ 0.5 MG/5 ML VIAL IV ONE (14:45)
[2017-01-10] MEDS ORDERED: DICYCLOMINE HCL INJ 20 MG/2 ML AMPULE IM ONE (15:00)
--- NOTE | 2017-01-10 16:55 | RADIOLOGY REPORT (SQ) ---
EXAM DESCRIPTION: CT ABD/PELVIS ORAL ONLY COMPLETED DATE/TIME: 01/10/2017 4:03 pm REASON FOR STUDY: diverticulitis concern for perf COMPARISON: CT abdomen and pelvis with IV contrast dated 01/09/2017 TECHNIQUE: CT scan of the abdomen and pelvis performed with oral contrast and no intravenous contras t. Images reviewed with lung, soft tissue, and bone windows. Reconstructed coronal and sagittal MPR i mages reviewed. All images stored on PACS. All CT scanners at this facility use dose modulation, iterative reconstruction, and/or weight based d osing when appropriate to reduce radiation dose to as low as reasonably achievable (ALARA). [facility]: Dose Right [facility]: CareDose [facility]: Dose Right [facility]: Teradose 4D [facility]: [employer] RADIATION DOSE: Up-to-date CT equipment and radiation dose reduction techniques were employed. CTDIv ol: 14.0 mGy. DLP: 789 mGy-cm. mGy. LIMITATIONS: None. FINDINGS: LOWER CHEST: No significant findings. No nodules or infiltrates. Small hiatal hernia is i dentified. NON-CONTRASTED LIVER, SPLEEN, ADRENALS: Evaluation limited by lack of IV contrast. No identified sign ificant masses. Perihepatic and perisplenic ascitic fluid is identified. PANCREAS: No masses. No peripancreatic inflammatory changes. GALLBLADDER: No identified stones by CT criteria. No inflammatory changes to suggest cholecystitis. There is relative increased density in the gallbladder lumen consistent with vicarious excretion of I V contrast from the previous CT scan. RIGHT KIDNEY AND URETER: No suspicious masses. Assessment limited by lack of IV contrast. No signif icant calcifications. No hydronephrosis or hydroureter. LEFT KIDNEY AND URETER: No suspicious masses. Assessment limited by lack of IV contrast. No signifi cant calcifications. No hydronephrosis or hydroureter. AORTA AND RETROPERITONEUM: No aneurysm. No retroperitoneal masses or adenopathy. BOWEL AND PERITONEAL CAVITY: Again there is thickening of the lindo of the sigmoid colon with [place] us or inflammatory changes in the adjacent mesenteric fat consistent with diverticulitis. Multiple s igmoid diverticula are identified. There are multiple prominent contrast air and fluid filled proxim al small bowel loops with more normal caliber distal small bowel loops being identified. The possibi lity of a developing small bowel obstruction should be considered. Fluid filled cecum and ascending colon is identified with a prominent air-fluid level. APPENDIX: Not identified PELVIS, BLADDER, AND ABDOMINAL WALL: No abnormal pelvic masses. No abdominal wall hernias. Bladder un remarkable. Small amount of pelvic ascitic fluid is identified. Again there is some prominence of t he uterus consistent with uterine fibroids. BONES: No significant findings. Orthopedic hardware is identified in the lower lumbar spine. OTHER: No other significant finding. IMPRESSION: Findings consistent with sigmoid diverticulitis. Fluid filled cecum and ascending colon is identified with a prominent air-fluid level. There are multiple prominent contrast air and fluid filled proximal small bowel loops with more normal caliber distal small bowel loops being identified . The possibility of a developing small bowel obstruction should be considered. Intra-abdominal and pelvic ascitic fluid is noted above. Other findings as noted above TECHNICAL DOCUMENTATION: JOB ID: [id number] Quality ID # [id number]: Final reports with documentation of one or more dose reduction techniques (e.g., Au tomated exposure control, adjustment of the mA and/or kV according to patient size, use of iterative reconstruction technique) 2010 [employer]- All Rights Reserved
[2017-01-10] MEDS ORDERED: PHARMACY COMMUNICATION ORDER MC NR (17:15)
[2017-01-10] MEDS: PIPERACILLIN SODIUM/TAZOBACTAM 4.5 GM in NORMAL SALINE 100 ML IV SCH ×2 (17:21→21:57)
[2017-01-10] MEDS ORDERED: MAGNESIUM SULFATE/D5W 0 GM/0 ML RTUPB IV ONE (17:27)
[2017-01-10] MEDS ORDERED: LACTOBACILLUS ACIDOPHILUS 250 MG TAB PO SCH (18:00)
[2017-01-10] MEDS ORDERED: (PENDING PHARMACY ID) (Lactobacillus Acidophilus [Probiotic Acidophilus] 1 TAB) PO SCH (18:00)
[2017-01-10] MEDS ORDERED: MAGNESIUM SULFATE/D5W 1 GM/100 ML RTUPB IV ONE (19:09)
--- NOTE | 2017-01-10 19:19 | PDOC PROGRESS REPORT ---
Subjective Progress Note for:: 01/10/17 Subjective:: Complains of worsening abdominal pain and reports that she has yet to have a bowel movement or to pass flatus. Patient has not had a bowel movement for a week. Patient denies chest pain, shortness of breath,nausea, vomiting, fevers, diarrhea, headache, new onset weakness. Physical Exam Vital Signs: Temp Pulse Resp BP Pulse Ox 97.8 F 103 H 12 143/83 H 103 H 01/10/17 08:00 01/10/17 08:00 01/10/17 08:00 01/10/17 08:00 01/10/17 08:00 Intake & Output 01/09/17 01/10/17 01/11/17 06:59 06:59 06:59 Intake Total 0 Balance 0 Weight 93.6 kg Exam: General: A+Ox3, acutely ill appearing HEENT: AT/NC, PERRL, EOMI, oropharynx is moist, pink, no scleral icterus, no conjunctival injection Neck: No JVD, trachea midline Chest: Clear to auscultation bilaterally, no wheezes rhonchi or rales CV: Tachycardic, Regular rate and rhythm, normal S1 and S2, no murmur, rub, or gallop Abdomen: Soft, Diffusely tender to palpation, mildly distended, hypoactive bowel sounds; no rebound, no rigidity; +voluntary guarding Extremities: No cyanosis, clubbing or edema Neuro: Cranial nerves II through XII are grossly intact without focal deficits; awake alert and oriented x3 Psych: Normal mood and affect Results Laboratory Results: 01/10/17 06:50 01/10/17 06:50 01/09/17 01/09/17 01/09/17 18:55 19:10 23:15 WBC RBC Hgb Hct MCV MCH MCHC RDW Plt Count Seg Neutrophils % Lymphocytes % Monocytes % Eosinophils % Basophils % Absolute Neutrophils Absolute Lymphocytes Absolute Monocytes Absolute Eosinophils Absolute Basophils Sodium Potassium Chloride Carbon Dioxide Anion Gap BUN Creatinine Est GFR ( Amer) Est GFR (Non-Af Amer) Glucose Lactic Acid 2.1 1.8 Calcium Magnesium Triglycerides Cholesterol LDL Cholesterol Direct VLDL Cholesterol HDL Cholesterol Blood Type AB POSITIVE Antibody Screen NEGATIVE 01/10/17 01/10/17 06:50 06:50 WBC 13.2 H RBC 4.11 Hgb 13.1 Hct 38.7 MCV 94 MCH 31.9 MCHC 33.9 RDW 13.1 Plt Count 238 Seg Neutrophils % Not Reportable Lymphocytes % Not Reportable Monocytes % Not Reportable Eosinophils % Not Reportable Basophils % Not Reportable Absolute Neutrophils Not Reportable Absolute Lymphocytes Not Reportable Absolute Monocytes Not Reportable Absolute Eosinophils Not Reportable Absolute Basophils Not Reportable Sodium 137.9 Potassium 4.3 Chloride 104 Carbon Dioxide 23 Anion Gap 11 BUN 15 Creatinine 0.85 Est GFR ( Amer) > 60 Est GFR (Non-Af Amer) > 60 Glucose 131 H Lactic Acid Calcium 8.6 Magnesium 1.1 L* Triglycerides 60 Cholesterol 116.38 LDL Cholesterol Direct 58 VLDL Cholesterol 12.0 HDL Cholesterol 42 Blood Type Antibody Screen Impressions: Chest X-Ray 01/09/17 00:00 IMPRESSION: NO ACUTE RADIOGRAPHIC FINDING IN THE CHEST. Abdomen/Pelvis CT 01/09/17 15:05 IMPRESSION: 1. Sigmoid diverticulosis with findings suggesting diverticulitis. Colitis would be additional consideration. No abscess. 2. Possible thick walled loops of small bowel in left mid abdomen raising the possibility of enteritis. 3. Small amount of ascites. 4. Fibroid uterus KUB X-Ray 01/09/17 15:10 IMPRESSION: NO RADIOGRAPHIC EVIDENCE FOR ACUTE ABDOMINAL DISEASE. Assessment & Plan - Diagnosis (1) Sepsis Is this a current diagnosis for this admission?: YesPlan: Diverticulitis. Advanced patient to Zosyn (2) Diverticulitis Qualifiers: Diverticulitis site: large intestine Diverticulitis bleeding: without bleeding Diverticulitis complication: unspecified complication status Qualified Code(s): K57.32 - Diverticulitis of large intestine without perforation or abscess without bleeding Is this a current diagnosis for this admission?: YesPlan: Time, I am concerned about developing perforation and will repeat patient's CAT scan. We will give one-time dose of Dilaudid and transition patient to Zosyn. Surgery has been consulted and we appreciate their input. We will continue to monitor this patient for any worsening developments. (3) Colitis Is this a current diagnosis for this admission?: YesPlan: GI input appreciated (4) Tobacco abuse Is this a current diagnosis for this admission?: Yes (5) Dehydration Is this a current diagnosis for this admission?: YesPlan: Have requested accurate I's and O's. Give 1 L of normal saline bolus and run IV fluids at 200 mL an hour. (6) Impaired fasting blood sugar Is this a current diagnosis for this admission?: YesPlan: A1c of 5 (7) Obesity (BMI 30.0-34.9) Is this a current diagnosis for this admission?: Yes - Time Time Spent with patient: 25-34 minutes Medications reviewed and adjusted accordingly: Yes
[2017-01-10] MEDS ORDERED: CLONAZEPAM 1 MG TABLET NG PRN (19:38)
[2017-01-10] MEDS ORDERED: ACETAMINOPHEN 325 MG TABLET NG PRN (19:38)
[2017-01-10] MEDS ORDERED: OXYCODONE-ACETAMINOPHEN 5-325 MG TABLET NG PRN (19:39)
[2017-01-10] MEDS ORDERED: ONDANSETRON 4 MG TAB.RAPDIS NG PRN (19:39)
[2017-01-10] MEDS ORDERED: TRAZODONE HCL 50 MG TABLET NG PRN (19:40)
--- NOTE | 2017-01-10 19:57 | PDOC CONSULTATION ---
Consultation Consult Date: 01/10/17 History of Present Illness Admission Date/PCP: 01/09/17 18:19 History of Present Illness: This is a 56-year-old patient who was admitted on 01/09/2017 with abdominal pain nausea and vomiting. She has been having some abdominal pain for the last 1 week but it became worse on the day of admission. The pain is in the lower abdomen, constant with occasional exacerbation. She has been having a lot of nausea and occasional vomiting. She denies fever. An initial CAT scan of her abdomen showed sigmoid diverticulosis with findings suggestive of diverticulitis. There were also possible thick lindo of small bowel in the left midabdomen. A repeat CAT scan was performed today and this again showed thickening of the sigmoid colon wall with multiple diverticuli and multiple prominent air and fluid filled proximal small bowel with normal distal small bowel. She also has ascites. She was evaluated by the surgeon earlier today and no active intervention is planned. She has not had a bowel movement in 1 week though she does have irregular bowel movements even before this illness. She has a chronic history of recurrent abdominal pain that has been going on since the . She was admitted back in May 2016 with abdominal pain and a CAT scan at that time showed inflammatory changes involving the sigmoid, descending and the transverse colon. She had an attempted colonoscopy in July of this year by Dr. Price but this was incomplete due to large amount of stool and difficulty with sedation. She has been waiting for the [place] to approve a repeat colonoscopy Past Medical History Cardiac Medical History: Reports: Hyperlipidema, Hypertension Denies: Coronary Artery Disease, Myocardial Infarction Pulmonary Medical History: Reports: Asthma, Bronchitis Denies: Chronic Obstructive Pulmonary Disease (COPD), Pneumonia Neurological Medical History: Denies: Seizures Musculoskeltal Medical History: Reports: Arthritis - DEGENERATIVE ARTHRITIS BACK /HANDS Psychiatric Medical History: Reports: Depression Hematology: Denies: Anemia Past Surgical History Past Surgical History: Reports: Appendectomy, Orthopedic Surgery - back surgery , Tubal Ligation Denies: Hysterectomy Social History Lives with: Family Smoking Status: Current Every Day Smoker Cigarettes Packs Per Day: 0.5 Frequency of Alcohol Use: Occasional Hx Recreational Drug Use: No Drugs: None Hx Prescription Drug Abuse: No - Advance Directive Resuscitation Status: Full Code Family History Family History: Malignancy, Other - brain aneurysm, parkinsons Parental Family History Reviewed: No Children Family History Reviewed: NA Sibling(s) Family History Reviewed.: NA Medication/Allergy Home Medications: Albuterol Sulfate [Proair Hfa Inhalation Aerosol 8.5 gm Mdi] 2 puff IH Q6HP PRN 01/10/17 Amlodipine Besylate [Norvasc 5 mg Tablet] 5 mg PO DAILY 01/10/17 Budesonide/Formoterol Fumarate [Symbicort Hfa 160-4.5 Mcg Inhaler 6 gm] 2 puff IH Q12 01/10/17 Clonazepam [Klonopin 1 mg Tablet] 0.5 mg PO DAILY 01/10/17 Duloxetine HCl 60 mg PO DAILY 01/10/17 Lactobacillus Acidophilus [Probiotic Acidophilus] 1 tab PO BID 01/10/17 Lisinopril [Prinivil 40 mg Tablet] 40 mg PO DAILY 01/10/17 Metoprolol Tartrate [Lopressor 25 mg Tablet] 25 mg PO DAILY 01/10/17 Omeprazole 40 mg PO QHS 01/10/17 Ondansetron HCl [Zofran 4 mg Tablet] 4 mg PO Q6HP PRN 01/10/17 Trazodone HCl [Desyrel] 100 mg PO HSP PRN 01/10/17 Allergies/Adverse Reactions: morphine [Morphine] Allergy (Intermediate, Verified 01/09/17 14:44) UNCONTROLLED VOMITING Review of Systems All systems: reviewed and no additional remarkable complaints except as stated Physical Exam Vital Signs: Temp Pulse Resp BP Pulse Ox 97.8 F 94 16 125/75 90 L 01/10/17 16:13 01/10/17 16:13 01/10/17 16:13 01/10/17 16:13 01/10/17 16:13 Intake & Output 01/09/17 01/10/17 01/11/17 06:59 06:59 06:59 Intake Total 0 2400 Balance 0 2400 Weight 93.6 kg Exam: General: Patient is alert and is in some distress from nausea and abdominal pain HEENT: There is no pallor or jaundice. PERRLA. Oropharynx normal Respiratory: No chest deformity. No respiratory distress. Chest wall palpitation was unremarkable. Breath sounds were normal Cardiovascular: Heart sounds 1 and 2 normal with no murmurs. Abdominal: Not distended. Soft and some tenderness in the lower abdomen with no rebound. Liver and spleen not palpable. No ascites demonstrated. Bowel sounds active. Rectal examination was deferred. Extremities: No edema Neurological: Alert and oriented x4. Grossly nonfocal. Normal speech Skin: No significant rash Psychological: Normal affect Results Laboratory Results: 01/10/17 06:50 01/10/17 06:50 01/09/17 01/09/17 01/10/17 19:10 23:15 06:50 WBC 13.2 H RBC 4.11 Hgb 13.1 Hct 38.7 MCV 94 MCH 31.9 MCHC 33.9 RDW 13.1 Plt Count 238 Seg Neutrophils % Not Reportable Lymphocytes % Not Reportable Monocytes % Not Reportable Eosinophils % Not Reportable Basophils % Not Reportable Absolute Neutrophils Not Reportable Absolute Lymphocytes Not Reportable Absolute Monocytes Not Reportable Absolute Eosinophils Not Reportable Absolute Basophils Not Reportable Sodium Potassium Chloride Carbon Dioxide Anion Gap BUN Creatinine Est GFR ( Amer) Est GFR (Non-Af Amer) Glucose Lactic Acid 1.8 Calcium Magnesium Triglycerides Cholesterol LDL Cholesterol Direct VLDL Cholesterol HDL Cholesterol Blood Type AB POSITIVE Antibody Screen NEGATIVE 01/10/17 06:50 WBC RBC Hgb Hct MCV MCH MCHC RDW Plt Count Seg Neutrophils % Lymphocytes % Monocytes % Eosinophils % Basophils % Absolute Neutrophils Absolute Lymphocytes Absolute Monocytes Absolute Eosinophils Absolute Basophils Sodium 137.9 Potassium 4.3 Chloride 104 Carbon Dioxide 23 Anion Gap 11 BUN 15 Creatinine 0.85 Est GFR ( Amer) > 60 Est GFR (Non-Af Amer) > 60 Glucose 131 H Lactic Acid Calcium 8.6 Magnesium 1.1 L* Triglycerides 60 Cholesterol 116.38 LDL Cholesterol Direct 58 VLDL Cholesterol 12.0 HDL Cholesterol 42 Blood Type Antibody Screen Impressions: Chest X-Ray 01/09/17 00:00 IMPRESSION: NO ACUTE RADIOGRAPHIC FINDING IN THE CHEST. KUB X-Ray 01/09/17 15:10 IMPRESSION: NO RADIOGRAPHIC EVIDENCE FOR ACUTE ABDOMINAL DISEASE. Abdomen/Pelvis CT 01/10/17 00:00 IMPRESSION: Findings consistent with sigmoid diverticulitis. Fluid filled cecum and ascending colon is identified with a prominent air-fluid level. There are multiple prominent contrast air and fluid filled proximal small bowel loops with more normal caliber distal small bowel loops being identified. The possibility of a developing small bowel obstruction should be considered. Intra -abdominal and pelvic ascitic fluid is noted above. Other findings as noted above Assessment & Plan - Diagnosis (1) Abnormal abdominal CT scan Is this a current diagnosis for this admission?: YesPlan: Differential diagnosis for her abdominal pain include ischemic colitis, diverticulitis, or gastroenteritis. She is currently on antibiotics and is n.p.o. An NG tube was ordered earlier due to the distended small bowels noted on CAT scan. She should be followed up by the surgeon. She will need a colonoscopy at some point in the near future but this would be arranged as outpatient. (2) Abdominal pain in female Is this a current diagnosis for this admission?: Yes (3) Ischemic colitis Is this a current diagnosis for this admission?: Yes (4) Diverticulosis large intestine w/o perforation or abscess w/o bleeding Is this a current diagnosis for this admission?: Yes (5) Colitis Is this a current diagnosis for this admission?: Yes
[2017-01-10] MEDS: BUDESONIDE/FORMOTEROL 160-4.5 MCG 60 PUFF/6 GM MDI IH SCH (21:59)
--- NOTE | 2017-01-10 22:28 | RADIOLOGY REPORT (SQ) ---
EXAM DESCRIPTION: KUB/ABDOMEN (SINGLE VIEW) COMPLETED DATE/TIME: 01/10/2017 8:46 pm REASON FOR STUDY: Check Placement of NG Tube COMPARISON: 01/09/2017 NUMBER OF VIEWS: One view. TECHNIQUE: Supine radiographic image of the abdomen acquired. LIMITATIONS: None. FINDINGS: BOWEL GAS PATTERN: There gaseous distention of multiple loops of small and large bowel thr oughout the abdomen suggestive of obstruction versus ileus. CALCIFICATIONS: No suspicious calcifications. SOFT TISSUES: No gross mass or suggestion of organomegaly. HARDWARE: Nasogastric tube tip in subtle project over the left upper quadrant. Prior posterior lower lumbar fusion. BONES: No acute fracture. No worrisome bone lesions. OTHER: No other significant finding. IMPRESSION: Gaseous distention of multiple loops of small and large bowel throughout the abdomen sug gestive of small bowel obstruction and/or ileus. Nasogastric tube appears to be in proper location. TECHNICAL DOCUMENTATION: JOB ID: [id number]- All Rights Reserved
[2017-01-11] MEDS: PIPERACILLIN SODIUM/TAZOBACTAM 4.5 GM in NORMAL SALINE 100 ML IV SCH ×4 (02:44→22:09)
[2017-01-11] MEDS: FENTANYL CITRATE INJ/PF 100 MCG/2 ML AMPUL IV PRN ×2 (03:00→09:01)
[2017-01-11 03:01] LABS: APPEARANCE,URINE SLIGHTLY-CLOUDY; BILIRUBIN,URINE NEGATIVE (NEGATIVE); GLUCOSE, URINE NEGATIVE (NEGATIVE); KETONES,URINE NEGATIVE (NEGATIVE); LEUKOCYTE ESTERASE,URINE TRACE (NEGATIVE); NITRITE,URINE NEGATIVE (NEGATIVE); PROTEIN,URINE NEGATIVE (NEGATIVE); URINE SPECIFIC GRAVITY 1.029; UROBILINOGEN,URINE NEGATIVE mg/dL (<2.0)
[2017-01-11] MEDS: NORMAL SALINE 1000 ML 1,000 ML IV PRN (05:13)
[2017-01-11] MEDS: HEPARIN SOD (PORCINE) 5,000 UNIT/ML 1 ML SYRINGE SUBCUT SCH ×3 (05:14→22:16)
[2017-01-11 06:29] LABS: ANION GAP 9 (5-19); BLOOD UREA NITROGEN 19 mg/dL (7-20); CALCIUM 7.8 mg/dL (8.4-10.2); CARBON DIOXIDE 24 mmol/L (22-30); CHLORIDE 104 mmol/L (98-107); CREATININE RESULT 0.91 mg/dL (0.52-1.25); GLUCOSE 106 mg/dL (75-110); PHOSPHORUS 4.4 mg/dL (2.5-4.5); SODIUM 136.8 mmol/L (137-145)
[2017-01-11 06:37] LABS: HEMATOCRIT 34.7 % (36.0-47.0); HEMOGLOBIN 11.6 g/dL (12.0-15.5); HGB HCT DIFFERENCE 0.1; MEAN CORPUSCULAR HEMOGLOBIN 31.9 pg (27.0-33.4); MEAN CORPUSCULAR HGB CONC 33.3 g/dL (32.0-36.0); MEAN CORPUSCULAR VOLUME 96 fl (80-97); RED BLOOD COUNT 3.62 10^6/uL (3.72-5.28); RED CELL DISTRIBUTION WIDTH 13.1 % (11.5-14.0); WHITE BLOOD COUNT 12.6 10^3/uL (4.0-10.5)
[2017-01-11 06:49] LABS: BAND NEUTROPHILS % (MANUAL) 10 % (3-5); BASOPHILS % (MANUAL) 0 % (0-2); EOSINOPHILS % (MANUAL) 0 % (0-6); LYMPHOCYTES % (MANUAL) 5 % (13-45); RBC MORPHOLOGY COMMENT NORMO-CYTIC/CHROMIC; TOTAL CELLS COUNTED 100
[2017-01-11 07:09] LABS: MAGNESIUM 2.2 mg/dL (1.6-2.3)
[2017-01-11] MEDS ORDERED: DULOXETINE HCL 30 MG CAPSULE.DR PO SCH (10:00)
[2017-01-11] MEDS ORDERED: METOPROLOL TARTRATE 25 MG TABLET NG SCH (10:00)
--- NOTE | 2017-01-11 10:08 | Physician Advisory Note ---
Physician Advisor ProgressNote .: Pursuant to the plan for [facility], I have reviewed the medical record for this patient. Physician Advisor Statement: Please consider documentin. If attending believes pt likely has had sepsis this stay, please document the criteria by which this dx was made and whether pt likely had this at time of admission or developed it after adm. Otherwise, please document this dx was considered but has been ruled out. Details: - On day of adm, pt was afebrile, with WBC 10.0, though tachycardic & sometimes tachypneic, with lowest BP 112/58, nl plts & Cr & Bili, no AMS. Lactate was 2.1, then shortly thereafter 1.8. - On day after adm, 01/10, pt developed fever 101.3, w/tachycardia & tachypnea , mostly HTN-claude, pain level 5/5 early on then 0/5. She did have sat 90% on 2L O2 on 01/10 PM, giving P/F ratio 207, which could possibly qualify her for sepsis (or acute respiratory failure, w/increased work of breathing/somnolence? ) depending on what the cause of dropped O2 sat was felt to be. Thanks! CK
[2017-01-11] MEDS ORDERED: ONDANSETRON HCL INJ/PF 4 MG/2 ML SDV IV PRN (11:06)
[2017-01-11] MEDS ORDERED: CLONAZEPAM 1 MG TABLET NG PRN (11:10)
[2017-01-11] MEDS ORDERED: NORMAL SALINE 1000 ML 1,000 ML IV PRN (11:41)
[2017-01-11] MEDS ORDERED: LORAZEPAM INJ 2 MG/1 ML VIAL IV PRN (11:41)
--- NOTE | 2017-01-11 12:08 | RADIOLOGY REPORT (SQ) ---
EXAM DESCRIPTION: KUB/ABDOMEN (SINGLE VIEW) COMPLETED DATE/TIME: 01/11/2017 11:37 am REASON FOR STUDY: sbo v ileus COMPARISON: Plain films dated 01/10/[address] abdomen pelvis dated 01/10/2017 NUMBER OF VIEWS: One view. TECHNIQUE: Supine radiographic image of the abdomen acquired. LIMITATIONS: None. FINDINGS: BOWEL GAS PATTERN: On the current study there is some mild gaseous distension of the colon . The previously described gaseous distension of small bowel loops appears improved. Oral contrast is identified in the right colon related to the previous CT scan with oral contrast. The appearance is most consistent with an ileus. CALCIFICATIONS: No suspicious calcifications. SOFT TISSUES: No gross mass or suggestion of organomegaly. HARDWARE: NG tube is identified with its tip in the right upper quadrant presumably in the distal sto mach. Orthopedic hardware is identified in the lower lumbar spine. BONES: No acute fracture. No worrisome bone lesions. OTHER: No other significant finding. IMPRESSION: There is mild gaseous distension of the colon as noted above. Oral contrast is identifi ed in the right colon related to the previous CT scan with oral contrast. The appearance is most con sistent with an ileus. Other findings as noted above TECHNICAL DOCUMENTATION: JOB ID: [id number] [employer] All Rights Reserved
[2017-01-11] MEDS: HYDROMORPHONE HCL INJ/PF 2 MG/ML AMPULE IV PRN (12:41)
[2017-01-11] MEDS: LACTOBACILLUS ACIDOPHILUS 250 MG TAB NG SCH ×2 (12:41→18:28)
[2017-01-11] MEDS: PANTOPRAZOLE SODIUM 40 MG VIAL IV SCH ×2 (12:42→22:21)
[2017-01-11] MEDS: BUDESONIDE/FORMOTEROL 160-4.5 MCG 60 PUFF/6 GM MDI IH SCH ×2 (12:42→22:16)
--- NOTE | 2017-01-11 16:34 | PDOC PROGRESS REPORT ---
Subjective Progress Note for:: 01/11/17 Subjective:: Patient reports some flatus. Patient has not had a bowel movement for a week. Patient denies chest pain, shortness of breath,nausea, vomiting, fevers, diarrhea, headache, new onset weakness. Patient has asked that I speak with her gasket supervisor Vlad Bui and permits me to share medical information with him. He reports to me that patient has been struggling with alcoholism for the five years he has known her. Physical Exam Vital Signs: Temp Pulse Resp BP Pulse Ox 97.9 F 89 17 117/71 98 01/11/17 07:56 01/11/17 07:56 01/11/17 07:56 01/11/17 07:56 01/11/17 07:56 Intake & Output 01/10/17 01/11/17 01/12/17 06:59 06:59 06:59 Intake Total 0 4950 Output Total 200 Balance 0 4750 Weight 93.6 kg 98.7 kg Exam: General: A+Ox3, ill appearing HEENT: AT/NC, PERRL, EOMI, oropharynx is moist, pink, no scleral icterus, no conjunctival injection Neck: No JVD, trachea midline Chest: Clear to auscultation bilaterally, no wheezes rhonchi or rales CV: Tachycardic, Regular rate and rhythm, normal S1 and S2, no murmur, rub, or gallop Abdomen: Soft, Diffusely tender to palpation, non distended, hypoactive bowel sounds; no rebound, no rigidity; +voluntary guarding Extremities: No cyanosis, clubbing or edema Neuro: Cranial nerves II through XII are grossly intact without focal deficits; awake alert and oriented x3 Psych: tearful and anxious Results Laboratory Results: 01/11/17 03:54 01/11/17 03:54 01/10/17 01/10/17 01/11/17 02:45 06:50 03:54 WBC 13.2 H 12.6 H RBC 4.11 3.62 L Hgb 13.1 11.6 L Hct 38.7 34.7 L MCV 94 96 MCH 31.9 31.9 MCHC 33.9 33.3 RDW 13.1 13.1 Plt Count 238 225 Seg Neutrophils % Not Reportable Lymphocytes % Not Reportable Monocytes % Not Reportable Eosinophils % Not Reportable Basophils % Not Reportable Absolute Neutrophils Not Reportable Absolute Lymphocytes Not Reportable Absolute Monocytes Not Reportable Absolute Eosinophils Not Reportable Absolute Basophils Not Reportable Sodium Potassium Chloride Carbon Dioxide Anion Gap BUN Creatinine Est GFR ( Amer) Est GFR (Non-Af Amer) Glucose Calcium Phosphorus Magnesium Urine Color KAT Urine Appearance SLIGHTLY-CLOUDY Urine pH 5.0 Ur Specific [place] 1.029 Urine Protein NEGATIVE Urine Glucose (UA) NEGATIVE Urine Ketones NEGATIVE Urine Blood NEGATIVE Urine Nitrite NEGATIVE Ur Leukocyte Esterase TRACE H Urine WBC (Auto) 3 Urine RBC (Auto) 1 01/11/17 03:54 WBC RBC Hgb Hct MCV MCH MCHC RDW Plt Count Seg Neutrophils % Lymphocytes % Monocytes % Eosinophils % Basophils % Absolute Neutrophils Absolute Lymphocytes Absolute Monocytes Absolute Eosinophils Absolute Basophils Sodium 136.8 L Potassium 4.0 Chloride 104 Carbon Dioxide 24 Anion Gap 9 BUN 19 Creatinine 0.91 Est GFR ( Amer) > 60 Est GFR (Non-Af Amer) > 60 Glucose 106 Calcium 7.8 L Phosphorus 4.4 Magnesium 2.2 D Urine Color Urine Appearance Urine pH Ur Specific [place] Urine Protein Urine Glucose (UA) Urine Ketones Urine Blood Urine Nitrite Ur Leukocyte Esterase Urine WBC (Auto) Urine RBC (Auto) Impressions: Chest X-Ray 01/09/17 00:00 IMPRESSION: NO ACUTE RADIOGRAPHIC FINDING IN THE CHEST. Abdomen/Pelvis CT 01/10/17 00:00 IMPRESSION: Findings consistent with sigmoid diverticulitis. Fluid filled cecum and ascending colon is identified with a prominent air-fluid level. There are multiple prominent contrast air and fluid filled proximal small bowel loops with more normal caliber distal small bowel loops being identified. The possibility of a developing small bowel obstruction should be considered. Intra -abdominal and pelvic ascitic fluid is noted above. Other findings as noted above KUB X-Ray 01/10/17 17:13 IMPRESSION: Gaseous distention of multiple loops of small and large bowel throughout the abdomen suggestive of small bowel obstruction and/or ileus. Nasogastric tube appears to be in proper location. Assessment & Plan - Diagnosis (1) Sepsis Qualifiers: Sepsis type: sepsis due to unspecified organism Qualified Code(s): A41.9 - Sepsis, unspecified organism Is this a current diagnosis for this admission?: YesPlan: Patient with sepsis present on admission. 2/2 Diverticulitis. Patient on Zosyn day #2. Criteria tachycardia, 35% bands, source, and fever 101.3. (2) Diverticulitis Qualifiers: Diverticulitis site: large intestine Diverticulitis bleeding: without bleeding Diverticulitis complication: unspecified complication status Qualified Code(s): K57.32 - Diverticulitis of large intestine without perforation or abscess without bleeding Is this a current diagnosis for this admission?: YesPlan: Surgery has been consulted and we appreciate their input. We will continue to monitor this patient for any worsening developments. Continue Zosyn (3) Colitis Is this a current diagnosis for this admission?: Yes (4) Tobacco abuse Is this a current diagnosis for this admission?: YesPlan: Offer nicotine replacement Councelled less than 3 min (5) Dehydration Is this a current diagnosis for this admission?: YesPlan: Have requested accurate I's and O's. Improving (6) Impaired fasting blood sugar Is this a current diagnosis for this admission?: YesPlan: A1c of 5 (7) Obesity (BMI 30.0-34.9) Is this a current diagnosis for this admission?: Yes (8) Alcoholism /alcohol abuse Is this a current diagnosis for this admission?: YesPlan: Begin patient on banana bag daily. Continue to monitor on telemetry for arrhythmia. Ativan prn withdrawal. - Time Time Spent with patient: 25-34 minutes Medications reviewed and adjusted accordingly: Yes
--- NOTE | 2017-01-11 16:52 | PDOC CONSULTATION ---
Consultation Consult Date: 01/11/17 Consult reason:: Abdominal pain History of Present Illness Admission Date/PCP: 01/09/17 18:19 Patient complains of: Abdominal pain History of Present Illness: 56-year-old female presenting with 1 week history of intermittent nausea and vomiting followed by lower abdominal pain that began about 3 days ago the pain has progressively worsened and now it is diffuse. She has been in the hospital since Sunday on IV antibiotics with worsening of her symptoms. Patient notes that she had a small bowel movement on Sunday. She notes that she had no bowel habit changes in the last several weeks preceding the current illness. She has a history of an undefined colitis several months ago. She had an attempted colonoscopy which was aborted due to a poor prep. She has not had her follow-up colonoscopy. She does note that she has been having normal bowel movements in the several weeks preceding this current problem. Past Medical History Cardiac Medical History: Reports: Hyperlipidema, Hypertension Denies: Coronary Artery Disease, Myocardial Infarction Pulmonary Medical History: Reports: Asthma, Bronchitis Denies: Chronic Obstructive Pulmonary Disease (COPD), Pneumonia Neurological Medical History: Denies: Seizures Musculoskeltal Medical History: Reports: Arthritis - DEGENERATIVE ARTHRITIS BACK /HANDS Psychiatric Medical History: Reports: Depression Hematology: Denies: Anemia Past Surgical History Past Surgical History: Reports: Appendectomy, Orthopedic Surgery - back surgery , Tubal Ligation Denies: Hysterectomy Social History Lives with: Family Smoking Status: Current Every Day Smoker Cigarettes Packs Per Day: 0.5 Frequency of Alcohol Use: Heavy - Heavy alcohol use in the past currently down to drinking on a weekly basis. Hx Recreational Drug Use: No Drugs: None Hx Prescription Drug Abuse: No - Advance Directive Resuscitation Status: Full Code Family History Family History: Malignancy, Other - brain aneurysm, parkinsons Parental Family History Reviewed: No Children Family History Reviewed: No Sibling(s) Family History Reviewed.: No Medication/Allergy Home Medications: Albuterol Sulfate [Proair Hfa Inhalation Aerosol 8.5 gm Mdi] 2 puff IH Q6HP PRN 01/10/17 Amlodipine Besylate [Norvasc 5 mg Tablet] 5 mg PO DAILY 01/10/17 Budesonide/Formoterol Fumarate [Symbicort Hfa 160-4.5 Mcg Inhaler 6 gm] 2 puff IH Q12 01/10/17 Clonazepam [Klonopin 1 mg Tablet] 0.5 mg PO DAILY 01/10/17 Duloxetine HCl 60 mg PO DAILY 01/10/17 Lactobacillus Acidophilus [Probiotic Acidophilus] 1 tab PO BID 01/10/17 Lisinopril [Prinivil 40 mg Tablet] 40 mg PO DAILY 01/10/17 Metoprolol Tartrate [Lopressor 25 mg Tablet] 25 mg PO DAILY 01/10/17 Omeprazole 40 mg PO QHS 01/10/17 Ondansetron HCl [Zofran 4 mg Tablet] 4 mg PO Q6HP PRN 01/10/17 Trazodone HCl [Desyrel] 100 mg PO HSP PRN 01/10/17 Allergies/Adverse Reactions: morphine [Morphine] Allergy (Intermediate, Verified 01/09/17 14:44) UNCONTROLLED VOMITING Physical Exam Vital Signs: Temp Pulse Resp BP Pulse Ox 98.2 F 100 15 126/87 H 100 01/11/17 16:04 01/11/17 16:04 01/11/17 16:04 01/11/17 16:04 01/11/17 16:04 Intake & Output 01/10/17 01/11/17 01/12/17 06:59 06:59 06:59 Intake Total 0 4950 900 Output Total 200 200 Balance 0 4750 700 Weight 93.6 kg 98.7 kg General appearance: PRESENT: cooperative, mild distress Respiratory exam: PRESENT: clear to auscultation elvira Cardiovascular exam: PRESENT: tachycardia GI/Abdominal exam: PRESENT: other - Distended, diffuse abdominal tenderness with guarding and rebound especially lower abdomen. Extremities exam: PRESENT: other - No swelling. Results Laboratory Results: 01/11/17 03:54 01/11/17 03:54 01/10/17 01/11/17 01/11/17 02:45 03:54 03:54 WBC 12.6 H RBC 3.62 L Hgb 11.6 L Hct 34.7 L MCV 96 MCH 31.9 MCHC 33.3 RDW 13.1 Plt Count 225 Seg Neutrophils % Not Reportable Lymphocytes % Not Reportable Monocytes % Not Reportable Eosinophils % Not Reportable Basophils % Not Reportable Absolute Neutrophils Not Reportable Absolute Lymphocytes Not Reportable Absolute Monocytes Not Reportable Absolute Eosinophils Not Reportable Absolute Basophils Not Reportable Sodium 136.8 L Potassium 4.0 Chloride 104 Carbon Dioxide 24 Anion Gap 9 BUN 19 Creatinine 0.91 Est GFR ( Amer) > 60 Est GFR (Non-Af Amer) > 60 Glucose 106 Calcium 7.8 L Phosphorus 4.4 Magnesium 2.2 D Urine Color KAT Urine Appearance SLIGHTLY-CLOUDY Urine pH 5.0 Ur Specific [place] 1.029 Urine Protein NEGATIVE Urine Glucose (UA) NEGATIVE Urine Ketones NEGATIVE Urine Blood NEGATIVE Urine Nitrite NEGATIVE Ur Leukocyte Esterase TRACE H Urine WBC (Auto) 3 Urine RBC (Auto) 1 Impressions: Chest X-Ray 01/09/17 00:00 IMPRESSION: NO ACUTE RADIOGRAPHIC FINDING IN THE CHEST. Abdomen/Pelvis CT 01/10/17 00:00 IMPRESSION: Findings consistent with sigmoid diverticulitis. Fluid filled cecum and ascending colon is identified with a prominent air-fluid level. There are multiple prominent contrast air and fluid filled proximal small bowel loops with more normal caliber distal small bowel loops being identified. The possibility of a developing small bowel obstruction should be considered. Intra -abdominal and pelvic ascitic fluid is noted above. Other findings as noted above KUB X-Ray 01/11/17 00:00 IMPRESSION: There is mild gaseous distension of the colon as noted above. Oral contrast is identified in the right colon related to the previous CT scan with oral contrast. The appearance is most consistent with an ileus. Other findings as noted above Assessment & Plan - Diagnosis (1) Diverticulitis Qualifiers: Diverticulitis site: large intestine Diverticulitis bleeding: without bleeding Diverticulitis complication: unspecified complication status Qualified Code(s): K57.32 - Diverticulitis of large intestine without perforation or abscess without bleeding Is this a current diagnosis for this admission?: YesPlan: refractory diverticulitis of the sigmoid colon with now diffuse peritoneal signs. Patient not responding with conservative measures with worsening of her symptoms and signs. I have had a long discussion with the patient concerning continuation of conservative management versus surgery. In light of her worsening and now peritoneal signs I do recommend surgery. Will plan sigmoid colon resection with probable end colostomy. I have discussed with patient the risk and benefits of the procedure including risk of infection, bleeding, adjacent organ injury, sepsis, cardiopulmonary complications, intestinal leak. Patient understands and wishes to proceed with surgery.
[2017-01-11] MEDS ORDERED: BUPIVACAINE HCL 0.25 % INJ/PF (2.5 MG/1 ML) 30 ML VIAL ONE (17:40)
[2017-01-11] MEDS ORDERED: NORMAL SALINE 1000 ML 1,000 ML with POTASSIUM CHLORIDE 20 MEQ, MAGNESIUM SULFATE 8 MEQ,... IV SCH ×5 (18:00)
[2017-01-11] MEDS ORDERED: FENTANYL CITRATE INJ/PF 250 MCG/5 ML AMPULE ONE ×2 (18:05)
[2017-01-11] MEDS ORDERED: ACETAMINOPHEN 100 ML IV ONE (18:06)
[2017-01-11] MEDS ORDERED: HYDROMORPHONE HCL INJ/PF 2 MG/ML AMPULE ONE (18:06)
[2017-01-11] MEDS ORDERED: PROPOFOL INJ 200 MG/20 ML VIAL IV ONE (18:06)
[2017-01-11] MEDS ORDERED: MIDAZOLAM 2 MG/2 ML INJ ONE (18:06)
[2017-01-11] MEDS ORDERED: IPRATROPIUM/ALBUTEROL 0.5-2.5 MG/3 ML AMPUL NEB ONE (18:18)
[2017-01-11] MEDS ORDERED: GLUCAGON,HUMAN RECOMB 1 MG INJ ONE (19:05)
[2017-01-11] MEDS ORDERED: PROPOFOL 100 ML IV ONE (21:57)
[2017-01-11 22:10] LABS: ARTERIAL BLOOD BASE EXCESS -3.4 mmol/L; ARTERIAL BLOOD O2 SATURATION 97.5 % (94-98)
--- NOTE | 2017-01-11 22:26 | PDOC PROGRESS REPORT ---
Subjective Progress Note for:: 01/11/17 Subjective:: Intubated and sedated Physical Exam Vital Signs: Temp Pulse Resp BP Pulse Ox 98.2 F 96 15 126/87 H 99 01/11/17 17:34 01/11/17 17:34 01/11/17 17:34 01/11/17 17:34 01/11/17 17:34 Intake & Output 01/10/17 01/11/17 01/12/17 06:59 06:59 06:59 Intake Total 0 4950 3400 Output Total 200 2700 Balance 0 4750 700 Weight 93.6 kg 98.7 kg General appearance: PRESENT: no acute distress Respiratory exam: PRESENT: clear to auscultation elvira Cardiovascular exam: PRESENT: RRR GI/Abdominal exam: PRESENT: other - Soft, we distended. Ostomy viable. MATEUSZ drain output is blood-tinged. Results Laboratory Results: 01/11/17 03:54 01/11/17 03:54 01/10/17 01/11/17 01/11/17 02:45 03:54 03:54 WBC 12.6 H RBC 3.62 L Hgb 11.6 L Hct 34.7 L MCV 96 MCH 31.9 MCHC 33.3 RDW 13.1 Plt Count 225 Seg Neutrophils % Not Reportable Lymphocytes % Not Reportable Monocytes % Not Reportable Eosinophils % Not Reportable Basophils % Not Reportable Absolute Neutrophils Not Reportable Absolute Lymphocytes Not Reportable Absolute Monocytes Not Reportable Absolute Eosinophils Not Reportable Absolute Basophils Not Reportable Carbonic Acid HCO3/H2CO3 Ratio ABG pH ABG pCO2 ABG pO2 ABG HCO3 ABG O2 Saturation ABG Base Excess FiO2 Sodium 136.8 L Potassium 4.0 Chloride 104 Carbon Dioxide 24 Anion Gap 9 BUN 19 Creatinine 0.91 Est GFR ( Amer) > 60 Est GFR (Non-Af Amer) > 60 Glucose 106 Calcium 7.8 L Phosphorus 4.4 Magnesium 2.2 D Urine Color KAT Urine Appearance SLIGHTLY-CLOUDY Urine pH 5.0 Ur Specific [place] 1.029 Urine Protein NEGATIVE Urine Glucose (UA) NEGATIVE Urine Ketones NEGATIVE Urine Blood NEGATIVE Urine Nitrite NEGATIVE Ur Leukocyte Esterase TRACE H Urine WBC (Auto) 3 Urine RBC (Auto) 1 01/11/17 21:58 WBC RBC Hgb Hct MCV MCH MCHC RDW Plt Count Seg Neutrophils % Lymphocytes % Monocytes % Eosinophils % Basophils % Absolute Neutrophils Absolute Lymphocytes Absolute Monocytes Absolute Eosinophils Absolute Basophils Carbonic Acid 1.55 H HCO3/H2CO3 Ratio 15:1 ABG pH 7.28 L ABG pCO2 51.4 H ABG pO2 112.0 H ABG HCO3 23.8 ABG O2 Saturation 97.5 ABG Base Excess -3.4 FiO2 50% Sodium Potassium Chloride Carbon Dioxide Anion Gap BUN Creatinine Est GFR ( Amer) Est GFR (Non-Af Amer) Glucose Calcium Phosphorus Magnesium Urine Color Urine Appearance Urine pH Ur Specific [place] Urine Protein Urine Glucose (UA) Urine Ketones Urine Blood Urine Nitrite Ur Leukocyte Esterase Urine WBC (Auto) Urine RBC (Auto) Impressions: Chest X-Ray 01/09/17 00:00 IMPRESSION: NO ACUTE RADIOGRAPHIC FINDING IN THE CHEST. Abdomen/Pelvis CT 01/10/17 00:00 IMPRESSION: Findings consistent with sigmoid diverticulitis. Fluid filled cecum and ascending colon is identified with a prominent air-fluid level. There are multiple prominent contrast air and fluid filled proximal small bowel loops with more normal caliber distal small bowel loops being identified. The possibility of a developing small bowel obstruction should be considered. Intra -abdominal and pelvic ascitic fluid is noted above. Other findings as noted above KUB X-Ray 01/11/17 00:00 IMPRESSION: There is mild gaseous distension of the colon as noted above. Oral contrast is identified in the right colon related to the previous CT scan with oral contrast. The appearance is most consistent with an ileus. Other findings as noted above Assessment & Plan - Diagnosis (1) Diverticulitis Qualifiers: Diverticulitis site: large intestine Diverticulitis bleeding: without bleeding Diverticulitis complication: unspecified complication status Qualified Code(s): K57.32 - Diverticulitis of large intestine without perforation or abscess without bleeding Is this a current diagnosis for this admission?: Yes (2) Diverticulitis Qualifiers: Diverticulitis site: large intestine Diverticulitis complication: with perforation Is this a current diagnosis for this admission?: YesPlan: Status post abdominal cavity washout and sigmoid colectomy with end colostomy. Patient looks reasonably well postoperatively. Will keep intubated overnight. Keep patient sedated.
--- NOTE | 2017-01-11 22:27 | Operative Report ---
Operative Report DATE OF SURGERY: 01/11/17 PREOPERATIVE DIAGNOSIS: Sigmoid diverticulitis. Peritonitis. POSTOPERATIVE DIAGNOSIS: Perforated sigmoid diverticulitis. Peritonitis. Sepsis. OPERATION: Exploratory laparotomy with sigmoid colon resection with end colostomy and abdominal cavity washout. SURGEON: DANETTE BUNCH ANESTHESIA: GA TISSUE REMOVED OR ALTERED: Sigmoid colon, peritoneal cavity fluid sent for Gram stain and culture COMPLICATIONS: None ESTIMATED BLOOD LOSS: 200 cc INTRAOPERATIVE FINDINGS: Turbid fluid throughout the peritoneal cavity. Marked sigmoid colon wall thickening and inflammation consistent with diverticulitis. PROCEDURE: Informed consent was obtained. Patient was brought to the operating room and placed on the operating room table in the supine position. After satisfactory induction of general anesthesia patient's abdomen was prepped and draped in usual sterile fashion. A midline incision was made and dissection was carried down through the fascia and the peritoneal cavity entered without difficulty. There was copious amount of turbid fluid throughout the entire peritoneal cavity. Some of the fluid was swabbed for Gram stain and culture. The fluid was aspirated out. Exploratory laparotomy was performed. The liver felt smooth. The gallbladder was distended but it appeared noninflamed. The stomach wall felt normal. NG tube placement was confirmed. The small bowel had some exudate at certain portions but otherwise appeared grossly normal. The right colon appeared distended but appear grossly normal as did the transverse colon. Ascending colon appeared normal as well until the sigmoid colon was reached where the colon was markedly thickened and inflamed with thickened mesentery all consistent with diverticulitis. The amount of turbid fluid throughout the peritoneal cavity indicated perforated diverticulitis. The sigmoid colon was mobilized. the left ureter was clearly identified and protected during the dissection. At a pliable area of colon at the descending colon and the bowel was divided with a BECKI stapling device. Dissection was carried down toward the pelvis where there was a lot of inflammatory changes the dissection difficult. A posterior plane was created dissecting down to the rectum. The sigmoid colon mesentery was taken with the LigaSure along with the mesorectum using a LigaSure device. The rectum was divided just on the intraperitoneal side of the rectum using a contour stapling device. The rectal stump was marked with a short stitch on the left side and a very loosely tied longer stitch placed on the right side of this edge. The specimen was passed off the table. Pelvic bleeding points were controlled with electrocautery. Hemostasis appeared excellent at the end of the case. The left colon was mobilized to allow creation of an end colostomy in the left lower abdomen. The colostomy was matured at the very end of the case. The colostomy appeared pink. Sponge needle and instrument counts are correct. The peritoneal cavity was copiously irrigated and irrigant aspirated out. Denny-Lew drain was placed into the pelvis and brought out through separate stab incision in the patient's right lower quadrant and sutured in place. Fascia was closed with running PDS suture. Skin was loosely approximated with beth and packed in between with gauze. Patient tolerated procedure well with no apparent complications and was taken to the intensive care unit in critical condition.
--- NOTE | 2017-01-11 22:31 | RADIOLOGY REPORT (SQ) ---
EXAM DESCRIPTION: CHEST SINGLE VIEW COMPLETED DATE/TIME: 01/11/2017 10:19 pm REASON FOR STUDY: ETT placement COMPARISON: 01/09/2017 EXAM PARAMETERS: NUMBER OF VIEWS: One view TECHNIQUE: Single frontal radiograph of the chest. RADIATION DOSE: N/A LIMITATIONS: None. FINDINGS: TEMPORARY SUPPORT DEVICES:Endotracheal tube is approximately 5.2 cm from the iker. Naso gastric tube is identified with tip in side hole below the level of the diaphragm in the right left u pper quadrant. EKG leads overlie the chest. LUNGS AND PLEURA: Decreased lung volumes. There is mild atelectatic changes noted left lung base. No significant effusions. No pneumothorax. No mass lesions. No focal infiltrates. MEDIASTINUM AND HILAR STRUCTURES: No masses. Contour normal. HEART AND VASCULAR STRUCTURES: Heart normal in size. normal vascularity. Aorta normal for age. BONES: No acute findings. OTHER: No other significant finding. IMPRESSION: 1. Support tubes and lines as above. 2. Mild left lung base atelectasis. No Focal infiltrate. No pneumothorax. TECHNICAL DOCUMENTATION: JOB ID: [id number] [employer]- All Rights Reserved
[2017-01-11] MEDS ORDERED: PROPOFOL 100 ML IV PRN (22:50)
[2017-01-12] MEDS: METRONIDAZOLE 500 MG/NS RTU 100 ML IV SCH ×4 (00:06→20:57)
[2017-01-12] MEDS ORDERED: DEXTROSE 5%-WATER 250 ML with NOREPINEPHRINE BITARTRATE 4 MG IV PRN ×2 (00:54)
[2017-01-12] MEDS ORDERED: NOREPINEPHRINE BITARTRATE INJ/PF 4 MG/4 ML SDV IV ONE (00:55)
[2017-01-12] MEDS ORDERED: NOREPINEPHRINE BITARTRATE INJ/PF 4 MG/4 ML SDV IV PRN (01:00)
[2017-01-12] MEDS ORDERED: NORMAL SALINE 1000 ML 1,000 ML IV ONE ×2 (01:00→06:15)
[2017-01-12] MEDS: PROPOFOL 100 ML IV PRN ×6 (03:44→21:47)
[2017-01-12] MEDS: PIPERACILLIN SODIUM/TAZOBACTAM 4.5 GM in NORMAL SALINE 100 ML IV SCH ×4 (03:50→20:16)
[2017-01-12] MEDS: HYDROMORPHONE HCL INJ/PF 2 MG/ML AMPULE IV PRN (03:51)
[2017-01-12 04:43] LABS: HEMATOCRIT 35.7 % (36.0-47.0); HEMOGLOBIN 11.9 g/dL (12.0-15.5); MEAN CORPUSCULAR HEMOGLOBIN 32.4 pg (27.0-33.4); MEAN CORPUSCULAR HGB CONC 33.3 g/dL (32.0-36.0); MEAN CORPUSCULAR VOLUME 97 fl (80-97); RED BLOOD COUNT 3.68 10^6/uL (3.72-5.28); RED CELL DISTRIBUTION WIDTH 13.7 % (11.5-14.0); WHITE BLOOD COUNT 19.1 10^3/uL (4.0-10.5)
[2017-01-12 04:58] LABS: ANION GAP 7 (5-19); BLOOD UREA NITROGEN 16 mg/dL (7-20); CALCIUM 7.2 mg/dL (8.4-10.2); CARBON DIOXIDE 23 mmol/L (22-30); CHLORIDE 108 mmol/L (98-107); CREATININE RESULT 0.83 mg/dL (0.52-1.25); GLUCOSE 116 mg/dL (75-110); PHOSPHORUS 3.8 mg/dL (2.5-4.5); POTASSIUM 3.8 mmol/L (3.6-5.0); SODIUM 137.6 mmol/L (137-145)
[2017-01-12 04:59] LABS: BAND NEUTROPHILS % (MANUAL) 5 % (3-5); BASOPHILS % (MANUAL) 0 % (0-2); EOSINOPHILS % (MANUAL) 0 % (0-6); LYMPHOCYTES % (MANUAL) 8 % (13-45); TOTAL CELLS COUNTED 100
[2017-01-12 05:03] LABS: OVALOCYTES SLIGHT; POIKILOCYTOSIS SLIGHT; TEAR DROP CELLS SLIGHT; TOXIC GRANULATION 1+; TOXIC VACUOLATION PRESENT
[2017-01-12] MEDS: HEPARIN SOD (PORCINE) 5,000 UNIT/ML 1 ML SYRINGE SUBCUT SCH ×3 (06:00→21:00)
[2017-01-12 06:13] LABS: ARTERIAL BLOOD BASE EXCESS -3.6 mmol/L; ARTERIAL BLOOD O2 SATURATION 98.4 % (94-98)
--- NOTE | 2017-01-12 07:02 | RADIOLOGY REPORT (SQ) ---
EXAM DESCRIPTION: CHEST SINGLE VIEW COMPLETED DATE/TIME: 01/12/2017 6:53 am REASON FOR STUDY: ETT COMPARISON: 01/11/2017. EXAM PARAMETERS: NUMBER OF VIEWS: One view. TECHNIQUE: Single frontal radiographic view of the chest acquired. RADIATION DOSE: NA LIMITATIONS: None. FINDINGS: LUNGS AND PLEURA: Mild atelectasis. No infiltrates, masses or pneumothorax. No pleural ef fusion. MEDIASTINUM AND HILAR STRUCTURES: No masses. Contour normal. HEART AND VASCULAR STRUCTURES: Heart normal in size. Normal vasculature. BONES: No acute findings. HARDWARE: Stable endotracheal tube and nasogastric tube. OTHER: No other significant finding. IMPRESSION: NO CHANGE IN APPEARANCE OF THE CHEST. TECHNICAL DOCUMENTATION: JOB ID: [id number]
[2017-01-12] MEDS ORDERED: PHARMACY COMMUNICATION ORDER MC NR (07:45)
[2017-01-12] MEDS ORDERED: ACETAMINOPHEN 650 MG SUPP.RECT PR PRN (07:58)
[2017-01-12] MEDS: IPRATROPIUM/ALBUTEROL 0.5-2.5 MG/3 ML AMPUL NEB PRN (08:45)
[2017-01-12] MEDS: PANTOPRAZOLE SODIUM 40 MG VIAL IV SCH (09:44)
[2017-01-12] MEDS: BUDESONIDE/FORMOTEROL 160-4.5 MCG 60 PUFF/6 GM MDI IH SCH ×2 (09:46→20:57)
[2017-01-12] MEDS: LORAZEPAM INJ 2 MG/1 ML VIAL IV PRN ×2 (10:08→21:58)
--- NOTE | 2017-01-12 15:42 | PDOC PROGRESS REPORT ---
Subjective Progress Note for:: 01/12/17 Subjective:: Intubated and sedated. Unable to obtain review of systems secondary to this. Patient went to the OR last night for sigmoid colectomy and initiation of levophed. Physical Exam Vital Signs: Temp Pulse Resp BP Pulse Ox 98.8 F 104 H 16 93/58 L 100 01/12/17 04:00 01/11/17 21:40 01/12/17 06:04 01/12/17 06:04 01/12/17 06:04 Intake & Output 01/11/17 01/12/17 01/13/17 06:59 06:59 06:59 Intake Total 4950 6513 Output Total 200 3340 Balance 4750 3173 Weight 98.7 kg 105.4 kg Exam: General: intubated and sedated HEENT: AT/NC, PERRL, NG in place, oropharynx is moist, ETT in place, pink, no scleral icterus, no conjunctival injection Neck: No JVD, trachea midline Chest: Clear to auscultation bilaterally, no wheezes rhonchi or rales CV: Regular rate and rhythm, normal S1 and S2, no murmur, rub, or gallop Abdomen: firm, distended, absent bowel sounds;no rigidity;midline incision with packing in place colostomy in LLQ, MATEUSZ drain in RLQ with sanguinous drainage, ostomy beefy red Extremities: No cyanosis, clubbing; slight generalized edema Results Laboratory Results: 01/12/17 04:15 01/12/17 04:15 01/11/17 01/12/17 01/12/17 21:58 04:15 04:15 WBC 19.1 H RBC 3.68 L Hgb 11.9 L Hct 35.7 L MCV 97 MCH 32.4 MCHC 33.3 RDW 13.7 Plt Count 289 Seg Neutrophils % Not Reportable Lymphocytes % Not Reportable Monocytes % Not Reportable Eosinophils % Not Reportable Basophils % Not Reportable Absolute Neutrophils Not Reportable Absolute Lymphocytes Not Reportable Absolute Monocytes Not Reportable Absolute Eosinophils Not Reportable Absolute Basophils Not Reportable Carbonic Acid 1.55 H HCO3/H2CO3 Ratio 15:1 ABG pH 7.28 L ABG pCO2 51.4 H ABG pO2 112.0 H ABG HCO3 23.8 ABG O2 Saturation 97.5 ABG Base Excess -3.4 FiO2 50% Sodium 137.6 Potassium 3.8 Chloride 108 H Carbon Dioxide 23 Anion Gap 7 BUN 16 Creatinine 0.83 Est GFR ( Amer) > 60 Est GFR (Non-Af Amer) > 60 Glucose 116 H Calcium 7.2 L Phosphorus 3.8 Magnesium 2.0 01/12/17 06:02 WBC RBC Hgb Hct MCV MCH MCHC RDW Plt Count Seg Neutrophils % Lymphocytes % Monocytes % Eosinophils % Basophils % Absolute Neutrophils Absolute Lymphocytes Absolute Monocytes Absolute Eosinophils Absolute Basophils Carbonic Acid 1.28 HCO3/H2CO3 Ratio 17:1 ABG pH 7.33 L ABG pCO2 42.6 ABG pO2 128.5 H ABG HCO3 22.1 ABG O2 Saturation 98.4 H ABG Base Excess -3.6 FiO2 40% Sodium Potassium Chloride Carbon Dioxide Anion Gap BUN Creatinine Est GFR ( Amer) Est GFR (Non-Af Amer) Glucose Calcium Phosphorus Magnesium Impressions: Abdomen/Pelvis CT 01/10/17 00:00 IMPRESSION: Findings consistent with sigmoid diverticulitis. Fluid filled cecum and ascending colon is identified with a prominent air-fluid level. There are multiple prominent contrast air and fluid filled proximal small bowel loops with more normal caliber distal small bowel loops being identified. The possibility of a developing small bowel obstruction should be considered. Intra -abdominal and pelvic ascitic fluid is noted above. Other findings as noted above KUB X-Ray 01/11/17 00:00 IMPRESSION: There is mild gaseous distension of the colon as noted above. Oral contrast is identified in the right colon related to the previous CT scan with oral contrast. The appearance is most consistent with an ileus. Other findings as noted above Chest X-Ray 01/11/17 23:45 IMPRESSION: NO CHANGE IN APPEARANCE OF THE CHEST. Assessment & Plan - Diagnosis (1) Septic shock Is this a current diagnosis for this admission?: YesPlan: Secondary to perforated diverticulum. Continue levophed for a MAP of 65 or better and systolic of [address] central line and monitor CVP q4h. Continue IVF and Zosyn (2) Sepsis Qualifiers: Sepsis type: sepsis due to unspecified organism Qualified Code(s): A41.9 - Sepsis, unspecified organism Is this a current diagnosis for this admission?: YesPlan: Patient with sepsis present on admission. 2/2 Diverticulitis. Patient on Zosyn day #3 s/p partial colectomy. Criteria tachycardia, 35% bands, source, and fever 101.3. (3) Diverticulitis Qualifiers: Diverticulitis site: large intestine Diverticulitis bleeding: without bleeding Diverticulitis complication: with perforation Qualified Code (s): K57.20 - Diverticulitis of large intestine with perforation and abscess without bleeding Is this a current diagnosis for this admission?: YesPlan: Thank surgery for their participation. Continue Zosyn (4) Tobacco abuse Is this a current diagnosis for this admission?: YesPlan: Offer nicotine replacement Councelled less than 3 min (5) Dehydration Is this a current diagnosis for this admission?: YesPlan: Continues to be positive. check cvp (6) Impaired fasting blood sugar Is this a current diagnosis for this admission?: YesPlan: A1c of 5 (7) Obesity (BMI 30.0-34.9) Is this a current diagnosis for this admission?: Yes (8) Alcoholism /alcohol abuse Is this a current diagnosis for this admission?: YesPlan: Begin patient on banana bag daily. Continue to monitor on telemetry for arrhythmia. Ativan prn withdrawal. - Time Critical Time spent with patient: 35 or more minutes Medications reviewed and adjusted accordingly: Yes
[2017-01-12] MEDS ORDERED: METRONIDAZOLE 500 MG/NS RTU 100 ML IV SCH (18:00)
--- NOTE | 2017-01-12 18:47 | RADIOLOGY REPORT (SQ) ---
EXAM DESCRIPTION: CHEST SINGLE VIEW COMPLETED DATE/TIME: 01/12/2017 6:30 pm REASON FOR STUDY: central line placement COMPARISON: 01/12/2017 EXAM PARAMETERS: NUMBER OF VIEWS: One view. TECHNIQUE: Single frontal radiographic view of the chest acquired. RADIATION DOSE: NA LIMITATIONS: None. FINDINGS: LUNGS AND PLEURA: No new opacities, masses or pneumothorax. No pleural effusion. MEDIASTINUM AND HILAR STRUCTURES: No masses. Contour normal. HEART AND VASCULAR STRUCTURES: Heart stable in size. Normal vasculature. BONES: No acute findings. HARDWARE: Stable position endotracheal tube and nasogastric tube. Interval placement of left central venous catheter terminating within the upper SVC. OTHER: No other significant finding. IMPRESSION: SATISFACTORY PLACEMENT CENTRAL VENOUS CATHETER WITHOUT GROSS COMPLICATION. OTHERWISE ST ABLE APPEARANCE THE CHEST. TECHNICAL DOCUMENTATION: JOB ID: [id number]
[2017-01-12] MEDS: NORMAL SALINE 1000 ML 1,000 ML with POTASSIUM CHLORIDE 20 MEQ, MAGNESIUM SULFATE 8 MEQ,... IV SCH ×5 (18:50)
--- NOTE | 2017-01-12 20:18 | OPERATIVE REPORT E ---
Operative Report NAME: PRASANTH CASSIDY : 1960 AGE: 56Y DATE OF SURGERY: 01/12/2017 ROOM: [facility] PREOPERATIVE DIAGNOSIS: Poor veins for IV access. POSTOPERATIVE DIAGNOSIS: Poor veins for IV access. OPERATION: Placement of left subclavian vein triple-lumen catheter. SURGEON: KRISTINA WHELAN M.D. ANESTHESIA: IV sedation, local MAC. INDICATION: This is a 56-year-old female who had a previous colon resection, noted to have poor veins for IV access. DESCRIPTION OF PROCEDURE: The patient placed in Trendelenburg position while intubated and the left chest prepped and draped in the usual sterile fashion. Local anesthesia infiltrated at the left infraclavicular area. The patient also given extra propofol at this time. Next, the left subclavian vein was then punctured and guidewire passed through the needle into the superior vena cava. The needle was removed and the entry site then dilated. Next, a triple-lumen catheter was inserted through the guidewire into the superior vena cava. About 17 cm of the catheter was inserted. It was then anchored to the skin with 3-0 silk. All the 3 ports were then aspirated venous blood easily and injected saline easily. Next, a Biopatch was placed at the entry site and a sterile transparent dressing placed over the catheter. The patient tolerated the procedure well. A chest x-ray will be obtained for placement. DICTATING PHYSICIAN: KRISTINA WHELAN M.D. [id number] PHY#: [id number] ID: [id number] JOB#: [id number] ACCT: [id number] cc:KRISTINA WHELAN M.D. >
[2017-01-12] MEDS: NORMAL SALINE 1000 ML 1,000 ML IV PRN (23:26)
[2017-01-13] MEDS: PROPOFOL 100 ML IV PRN ×4 (00:32→08:53)
[2017-01-13] MEDS: PIPERACILLIN SODIUM/TAZOBACTAM 4.5 GM in NORMAL SALINE 100 ML IV SCH ×4 (02:11→20:42)
[2017-01-13] MEDS: METRONIDAZOLE 500 MG/NS RTU 100 ML IV SCH ×4 (02:43→21:22)
[2017-01-13] MEDS: NORMAL SALINE 1000 ML 1,000 ML IV PRN ×2 (04:32→12:01)
[2017-01-13 05:31] LABS: ARTERIAL BLOOD BASE EXCESS -3.9 mmol/L; ARTERIAL BLOOD O2 SATURATION 93.9 % (94-98)
[2017-01-13 05:36] LABS: HEMATOCRIT 32.2 % (36.0-47.0); HEMOGLOBIN 11.2 g/dL (12.0-15.5); HGB HCT DIFFERENCE 1.4; MEAN CORPUSCULAR HEMOGLOBIN 33.3 pg (27.0-33.4); MEAN CORPUSCULAR HGB CONC 34.6 g/dL (32.0-36.0); MEAN CORPUSCULAR VOLUME 96 fl (80-97); RED BLOOD COUNT 3.35 10^6/uL (3.72-5.28); RED CELL DISTRIBUTION WIDTH 13.3 % (11.5-14.0); WHITE BLOOD COUNT 11.4 10^3/uL (4.0-10.5)
[2017-01-13 05:50] LABS: ANION GAP 6 (5-19); BLOOD UREA NITROGEN 12 mg/dL (7-20); CALCIUM 7.2 mg/dL (8.4-10.2); CARBON DIOXIDE 19 mmol/L (22-30); CHLORIDE 113 mmol/L (98-107); CREATININE RESULT 0.71 mg/dL (0.52-1.25); GLUCOSE 75 mg/dL (75-110); MAGNESIUM 2.2 mg/dL (1.6-2.3); PHOSPHORUS 2.3 mg/dL (2.5-4.5); POTASSIUM 3.3 mmol/L (3.6-5.0); SODIUM 137.7 mmol/L (137-145); TRIGLYCERIDES 289 mg/dL (<150)
[2017-01-13 05:58] LABS: BAND NEUTROPHILS % (MANUAL) 1 % (3-5); BASOPHILS % (MANUAL) 0 % (0-2); EOSINOPHILS % (MANUAL) 2 % (0-6); LYMPHOCYTES % (MANUAL) 9 % (13-45); TOTAL CELLS COUNTED 100
[2017-01-13 05:59] LABS: RBC MORPHOLOGY COMMENT NORMO-CYTIC/CHROMIC; TOXIC GRANULATION 1+; TOXIC VACUOLATION PRESENT
[2017-01-13] MEDS: HEPARIN SOD (PORCINE) 5,000 UNIT/ML 1 ML SYRINGE SUBCUT SCH ×3 (06:30→21:24)
--- NOTE | 2017-01-13 07:00 | RADIOLOGY REPORT (SQ) ---
EXAM DESCRIPTION: CHEST SINGLE VIEW COMPLETED DATE/TIME: 01/13/2017 6:47 am REASON FOR STUDY: resp failure COMPARISON: 01/12/2017 EXAM PARAMETERS: NUMBER OF VIEWS: One view TECHNIQUE: Single frontal radiograph of the chest. RADIATION DOSE: N/A LIMITATIONS: None. FINDINGS: TEMPORARY SUPPORT DEVICES:The endotracheal tube remains in adequate position. Nasogastric tube is identified with tip in side hole below the level of the diaphragm. EKG leads overlie the ch est. Unchanged left subclavian central venous catheter. LUNGS AND PLEURA: There is increased retrocardiac opacity which could represent atelectasis, infiltra te, edema, or aspiration. Overall lung volumes are decreased. There is mild right basilar atelectas is. No pneumothorax is present. MEDIASTINUM AND HILAR STRUCTURES: No masses. Contour normal. HEART AND VASCULAR STRUCTURES: Cardiac size is stable. No significant pulmonary vascular congestion. BONES: No acute findings. OTHER: No other significant finding. IMPRESSION: 1. Support tubes and lines as above. 2. Interval development of retrocardiac opacity on the left which could represent atelectasis, infil trate, aspiration, or it edema. Correlate clinically. Mild right lung base atelectasis. Decreased lung volumes. SUPPORT DEVICE(S) IN EXPECTED LOCATIONS. TECHNICAL DOCUMENTATION: JOB ID: [id number] [employer]- All Rights Reserved
[2017-01-13] MEDS ORDERED: POTASSIUM CHLORIDE 20 MEQ/15 ML UDCUP NG ONE (07:44)
[2017-01-13] MEDS ORDERED: POTASSIUM PHOS,M-BASIC-D-BASIC 30 MMOL in NORMAL SALINE 500 ML IV ONE ×2 (07:45→09:15)
[2017-01-13] MEDS ORDERED: FUROSEMIDE INJ/PF 20 MG/2 ML SDV IV ONE (07:46)
[2017-01-13] MEDS ORDERED: LORAZEPAM INJ 2 MG/1 ML VIAL IV PRN (07:46)
[2017-01-13] MEDS ORDERED: MIDAZOLAM HCL 100 ML IV PRN (07:47)
[2017-01-13] MEDS: POTASSI CL 20 MEQ/50 ML RIDER 20 MEQ/50 ML RTUPB IV SCH ×3 (08:13→11:53)
[2017-01-13] MEDS: HYDROMORPHONE HCL INJ/PF 2 MG/ML AMPULE IV PRN ×4 (08:14→23:17)
[2017-01-13] MEDS: IPRATROPIUM/ALBUTEROL 0.5-2.5 MG/3 ML AMPUL NEB PRN ×2 (08:23→23:08)
--- NOTE | 2017-01-13 10:39 | PDOC PROGRESS REPORT ---
Subjective Progress Note for:: 01/13/17 Subjective:: Patient sedated; hemodynamically stable one on the ventilator; adequate urine output. Physical Exam Vital Signs: Temp Pulse Resp BP Pulse Ox 98.2 F 96 11 L 116/61 99 01/13/17 10:00 01/13/17 10:00 01/13/17 10:00 01/13/17 10:00 01/13/17 10:00 Intake & Output 01/12/17 01/13/17 01/14/17 06:59 06:59 06:59 Intake Total 6513 7010 Output Total 3340 7273 151 Balance 0375 5479 -620 Weight 105.4 kg 109.8 kg General appearance: PRESENT: obese, other - Dated on dipper Van and intubated GI/Abdominal exam: PRESENT: other - Pain right lower quadrant removed. Between beth removed; repacked after irrigating Ostomy examined. Somewhat receded but viable. Minimal output. Results Laboratory Results: 01/13/17 05:15 01/13/17 05:15 01/13/17 01/13/17 01/13/17 05:10 05:15 05:15 WBC 11.4 H RBC 3.35 L Hgb 11.2 L Hct 32.2 L MCV 96 MCH 33.3 MCHC 34.6 RDW 13.3 Plt Count 263 Seg Neutrophils % Not Reportable Lymphocytes % Not Reportable Monocytes % Not Reportable Eosinophils % Not Reportable Basophils % Not Reportable Absolute Neutrophils Not Reportable Absolute Lymphocytes Not Reportable Absolute Monocytes Not Reportable Absolute Eosinophils Not Reportable Absolute Basophils Not Reportable Carbonic Acid 1.07 HCO3/H2CO3 Ratio 19:1 ABG pH 7.38 ABG pCO2 35.4 ABG pO2 69.6 L ABG HCO3 20.6 ABG O2 Saturation 93.9 L ABG Base Excess -3.9 FiO2 30% Sodium 137.7 Potassium 3.3 L Chloride 113 H Carbon Dioxide 19 L Anion Gap 6 BUN 12 Creatinine 0.71 Est GFR ( Amer) > 60 Est GFR (Non-Af Amer) > 60 Glucose 75 Calcium 7.2 L Phosphorus 2.3 L Magnesium 2.2 Triglycerides 289 H Impressions: Abdomen/Pelvis CT 01/10/17 00:00 IMPRESSION: Findings consistent with sigmoid diverticulitis. Fluid filled cecum and ascending colon is identified with a prominent air-fluid level. There are multiple prominent contrast air and fluid filled proximal small bowel loops with more normal caliber distal small bowel loops being identified. The possibility of a developing small bowel obstruction should be considered. Intra -abdominal and pelvic ascitic fluid is noted above. Other findings as noted above KUB X-Ray 01/11/17 00:00 IMPRESSION: There is mild gaseous distension of the colon as noted above. Oral contrast is identified in the right colon related to the previous CT scan with oral contrast. The appearance is most consistent with an ileus. Other findings as noted above Chest X-Ray 01/13/17 06:00 IMPRESSION: 1. Support tubes and lines as above. 2. Interval development of retrocardiac opacity on the left which could represent atelectasis, infiltrate, aspiration, or it edema. Correlate clinically. Mild right lung base atelectasis. Decreased lung volumes. SUPPORT DEVICE(S) IN EXPECTED LOCATIONS. Assessment & Plan - Diagnosis (1) Diverticulosis large intestine w/o perforation or abscess w/o bleeding Is this a current diagnosis for this admission?: YesPlan: The patient is 2 days status post exploratory laparotomy, sigmoid colectomy, colostomy, Hooks's procedure for Hinchey classification 2 diverticulitis, doing better sepsis resolving, hemodynamically stable. Plan: 1. Wean; anticipate extubation 2. Start dressing changes to midline wound 3. Remove right lower quadrant drain.
[2017-01-13] MEDS: BUDESONIDE/FORMOTEROL 160-4.5 MCG 60 PUFF/6 GM MDI IH SCH ×2 (11:05→21:24)
[2017-01-13] MEDS: KETOROLAC TROMETHAMINE INJ/PF 30 MG/1 ML SDV IV PRN ×2 (12:02→17:59)
[2017-01-13] MEDS ORDERED: NORMAL SALINE 1000 ML 1,000 ML IV PRN (12:45)
[2017-01-13 15:39] LABS: PHOSPHORUS 3.6 mg/dL (2.5-4.5)
--- NOTE | 2017-01-13 15:57 | PDOC PROGRESS REPORT ---
Subjective Progress Note for:: 01/13/17 Subjective:: Intubated and sedated. Unable to obtain review of systems secondary to this. Patient has been off of pressors since yesterday. Physical Exam Vital Signs: Temp Pulse Resp BP Pulse Ox 98.5 F 84 21 H 150/81 H 97 01/13/17 07:00 01/13/17 07:00 01/13/17 07:00 01/13/17 07:00 01/13/17 07:00 Intake & Output 01/12/17 01/13/17 01/14/17 06:59 06:59 06:59 Intake Total 6513 7010 Output Total 3340 2055 30 Balance 3173 4955 -30 Weight 105.4 kg 109.8 kg Exam: General: intubated and sedated HEENT: AT/NC, PERRL, NG in place, oropharynx is moist, ETT in place, pink, no scleral icterus, no conjunctival injection Neck: No JVD, trachea midline Chest: Coarse bilaterally CV: Regular rate and rhythm, normal S1 and S2, no murmur, rub, or gallop Abdomen: soft,mildly distended, hypoactive bowel sounds;no rigidity;midline incision with packing in place colostomy in LLQ, ostomy beefy red Extremities: No cyanosis, clubbing; slight generalized edema Results Laboratory Results: 01/13/17 05:15 01/13/17 05:15 01/13/17 01/13/17 01/13/17 05:10 05:15 05:15 WBC 11.4 H RBC 3.35 L Hgb 11.2 L Hct 32.2 L MCV 96 MCH 33.3 MCHC 34.6 RDW 13.3 Plt Count 263 Seg Neutrophils % Not Reportable Lymphocytes % Not Reportable Monocytes % Not Reportable Eosinophils % Not Reportable Basophils % Not Reportable Absolute Neutrophils Not Reportable Absolute Lymphocytes Not Reportable Absolute Monocytes Not Reportable Absolute Eosinophils Not Reportable Absolute Basophils Not Reportable Carbonic Acid 1.07 HCO3/H2CO3 Ratio 19:1 ABG pH 7.38 ABG pCO2 35.4 ABG pO2 69.6 L ABG HCO3 20.6 ABG O2 Saturation 93.9 L ABG Base Excess -3.9 FiO2 30% Sodium 137.7 Potassium 3.3 L Chloride 113 H Carbon Dioxide 19 L Anion Gap 6 BUN 12 Creatinine 0.71 Est GFR ( Amer) > 60 Est GFR (Non-Af Amer) > 60 Glucose 75 Calcium 7.2 L Phosphorus 2.3 L Magnesium 2.2 Triglycerides 289 H Impressions: Abdomen/Pelvis CT 01/10/17 00:00 IMPRESSION: Findings consistent with sigmoid diverticulitis. Fluid filled cecum and ascending colon is identified with a prominent air-fluid level. There are multiple prominent contrast air and fluid filled proximal small bowel loops with more normal caliber distal small bowel loops being identified. The possibility of a developing small bowel obstruction should be considered. Intra -abdominal and pelvic ascitic fluid is noted above. Other findings as noted above KUB X-Ray 01/11/17 00:00 IMPRESSION: There is mild gaseous distension of the colon as noted above. Oral contrast is identified in the right colon related to the previous CT scan with oral contrast. The appearance is most consistent with an ileus. Other findings as noted above Chest X-Ray 01/13/17 06:00 IMPRESSION: 1. Support tubes and lines as above. 2. Interval development of retrocardiac opacity on the left which could represent atelectasis, infiltrate, aspiration, or it edema. Correlate clinically. Mild right lung base atelectasis. Decreased lung volumes. SUPPORT DEVICE(S) IN EXPECTED LOCATIONS. Assessment & Plan - Diagnosis (1) Septic shock Is this a current diagnosis for this admission?: YesPlan: Secondary to perforated diverticulum. Maintain a MAP of 65 or better and systolic of 90 of more. Off levophed Monitor CVP q4h. Continue IVF and Zosyn day #4 (2) Sepsis Qualifiers: Sepsis type: sepsis due to unspecified organism Qualified Code(s): A41.9 - Sepsis, unspecified organism Is this a current diagnosis for this admission?: YesPlan: Patient with sepsis present on admission. 2/2 Diverticulitis. Patient on Zosyn day #4 s/p partial colectomy. Criteria tachycardia, 35% bands, source, and fever 101.3. Plan for extubation today (3) Diverticulitis Qualifiers: Diverticulitis site: large intestine Diverticulitis bleeding: without bleeding Diverticulitis complication: with perforation Qualified Code (s): K57.20 - Diverticulitis of large intestine with perforation and abscess without bleeding Is this a current diagnosis for this admission?: Yes (4) Tobacco abuse Is this a current diagnosis for this admission?: YesPlan: nicotine replacement (5) Dehydration Is this a current diagnosis for this admission?: Yes (6) Impaired fasting blood sugar Is this a current diagnosis for this admission?: Yes (7) Obesity (BMI 30.0-34.9) Is this a current diagnosis for this admission?: Yes (8) Alcoholism /alcohol abuse Is this a current diagnosis for this admission?: YesPlan: Begin patient on banana bag daily. Continue to monitor on telemetry for arrhythmia. Ativan prn withdrawal. (9) Hypokalemia Is this a current diagnosis for this admission?: YesPlan: replete and recheck (10) Hypophosphatemia Is this a current diagnosis for this admission?: YesPlan: replete and recheck - Time Critical Time spent with patient: 25-34 minutes Medications reviewed and adjusted accordingly: Yes
--- NOTE | 2017-01-13 17:53 | PDOC CONSULTATION ---
Consultation Consult Date: 01/12/17 Attending physician:: FRANK BAUTISTA Consult reason:: acute resp failure History of Present Illness Admission Date/PCP: 01/09/17 18:19 History of Present Illness: 56-year-old female presenting with abdominal pain ,nausea and vomiting,she has a history of colitis and alcohol use use ,she is currently intubated and sedated after have abdominal surgery. Past Medical History Cardiac Medical History: Reports: Hyperlipidema, Hypertension Denies: Coronary Artery Disease, Myocardial Infarction Pulmonary Medical History: Reports: Asthma, Bronchitis Denies: Chronic Obstructive Pulmonary Disease (COPD), Pneumonia Neurological Medical History: Denies: Seizures Musculoskeltal Medical History: Reports: Arthritis - DEGENERATIVE ARTHRITIS BACK /HANDS Psychiatric Medical History: Reports: Depression Hematology: Denies: Anemia Past Surgical History Past Surgical History: Reports: Appendectomy, Orthopedic Surgery - back surgery , Tubal Ligation Denies: Hysterectomy Social History Information Source: [facility] Records Lives with: Family Smoking Status: Current Every Day Smoker Cigarettes Packs Per Day: 0.5 Frequency of Alcohol Use: Heavy - Heavy alcohol use in the past currently down to drinking on a weekly basis. Hx Recreational Drug Use: No Drugs: None Hx Prescription Drug Abuse: No - Advance Directive Resuscitation Status: Full Code Family History Family History: Malignancy, Other - brain aneurysm, parkinsons Parental Family History Reviewed: No Children Family History Reviewed: No Sibling(s) Family History Reviewed.: No Medication/Allergy Home Medications: Albuterol Sulfate [Proair Hfa Inhalation Aerosol 8.5 gm Mdi] 2 puff IH Q6HP PRN 01/10/17 Amlodipine Besylate [Norvasc 5 mg Tablet] 5 mg PO DAILY 01/10/17 Budesonide/Formoterol Fumarate [Symbicort Hfa 160-4.5 Mcg Inhaler 6 gm] 2 puff IH Q12 01/10/17 Clonazepam [Klonopin 1 mg Tablet] 0.5 mg PO DAILY 01/10/17 Duloxetine HCl 60 mg PO DAILY 01/10/17 Lactobacillus Acidophilus [Probiotic Acidophilus] 1 tab PO BID 01/10/17 Lisinopril [Prinivil 40 mg Tablet] 40 mg PO DAILY 01/10/17 Metoprolol Tartrate [Lopressor 25 mg Tablet] 25 mg PO DAILY 01/10/17 Omeprazole 40 mg PO QHS 01/10/17 Ondansetron HCl [Zofran 4 mg Tablet] 4 mg PO Q6HP PRN 01/10/17 Trazodone HCl [Desyrel] 100 mg PO HSP PRN 01/10/17 Allergies/Adverse Reactions: morphine [Morphine] Allergy (Intermediate, Verified 01/09/17 14:44) UNCONTROLLED VOMITING Review of Systems ROS unobtainable: Due to endotracheal tube Physical Exam Vital Signs: Temp Pulse Resp BP Pulse Ox 98.8 F 104 H 16 93/58 L 100 01/12/17 04:00 01/11/17 21:40 01/12/17 06:04 01/12/17 06:04 01/12/17 06:04 Intake & Output 01/11/17 01/12/17 01/13/17 06:59 06:59 06:59 Intake Total 4950 6513 Output Total 200 3340 Balance 4750 3173 Weight 98.7 kg 105.4 kg General appearance: PRESENT: no acute distress, disheveled, obese, well- developed Head exam: PRESENT: atraumatic, normocephalic Eye exam: PRESENT: conjunctiva pale Mouth exam: PRESENT: dry mucosa, neck supple, tongue midline, other - ET tube Neck exam: ABSENT: carotid bruit, JVD, lymphadenopathy, thyromegaly Respiratory exam: PRESENT: decreased breath sounds, prolonged expiratory phas, rhonchi, unlabored Cardiovascular exam: PRESENT: RRR, +S1, +S2 Pulses: PRESENT: normal radial pulses GI/Abdominal exam: PRESENT: other - s/p surgery Rectal exam: PRESENT: deferred Gentrourinary exam: PRESENT: indwelling catheter Musculoskeletal exam: PRESENT: normal inspection Skin exam: PRESENT: dry, warm, other - Absent index finger left hand Results Laboratory Results: 01/12/17 04:15 01/12/17 04:15 01/11/17 01/12/17 01/12/17 21:58 04:15 04:15 WBC 19.1 H RBC 3.68 L Hgb 11.9 L Hct 35.7 L MCV 97 MCH 32.4 MCHC 33.3 RDW 13.7 Plt Count 289 Seg Neutrophils % Not Reportable Lymphocytes % Not Reportable Monocytes % Not Reportable Eosinophils % Not Reportable Basophils % Not Reportable Absolute Neutrophils Not Reportable Absolute Lymphocytes Not Reportable Absolute Monocytes Not Reportable Absolute Eosinophils Not Reportable Absolute Basophils Not Reportable Carbonic Acid 1.55 H HCO3/H2CO3 Ratio 15:1 ABG pH 7.28 L ABG pCO2 51.4 H ABG pO2 112.0 H ABG HCO3 23.8 ABG O2 Saturation 97.5 ABG Base Excess -3.4 FiO2 50% Sodium 137.6 Potassium 3.8 Chloride 108 H Carbon Dioxide 23 Anion Gap 7 BUN 16 Creatinine 0.83 Est GFR ( Amer) > 60 Est GFR (Non-Af Amer) > 60 Glucose 116 H Calcium 7.2 L Phosphorus 3.8 Magnesium 2.0 01/12/17 06:02 WBC RBC Hgb Hct MCV MCH MCHC RDW Plt Count Seg Neutrophils % Lymphocytes % Monocytes % Eosinophils % Basophils % Absolute Neutrophils Absolute Lymphocytes Absolute Monocytes Absolute Eosinophils Absolute Basophils Carbonic Acid 1.28 HCO3/H2CO3 Ratio 17:1 ABG pH 7.33 L ABG pCO2 42.6 ABG pO2 128.5 H ABG HCO3 22.1 ABG O2 Saturation 98.4 H ABG Base Excess -3.6 FiO2 40% Sodium Potassium Chloride Carbon Dioxide Anion Gap BUN Creatinine Est GFR ( Amer) Est GFR (Non-Af Amer) Glucose Calcium Phosphorus Magnesium Impressions: Abdomen/Pelvis CT 01/10/17 00:00 IMPRESSION: Findings consistent with sigmoid diverticulitis. Fluid filled cecum and ascending colon is identified with a prominent air-fluid level. There are multiple prominent contrast air and fluid filled proximal small bowel loops with more normal caliber distal small bowel loops being identified. The possibility of a developing small bowel obstruction should be considered. Intra -abdominal and pelvic ascitic fluid is noted above. Other findings as noted above KUB X-Ray 01/11/17 00:00 IMPRESSION: There is mild gaseous distension of the colon as noted above. Oral contrast is identified in the right colon related to the previous CT scan with oral contrast. The appearance is most consistent with an ileus. Other findings as noted above Chest X-Ray 01/11/17 23:45 IMPRESSION: NO CHANGE IN APPEARANCE OF THE CHEST. Assessment & Plan - Diagnosis (1) Diverticulosis large intestine w/o perforation or abscess w/o bleeding Is this a current diagnosis for this admission?: Yes (2) Obesity (BMI 30.0-34.9) Is this a current diagnosis for this admission?: Yes (3) Sepsis Qualifiers: Sepsis type: Escherichia coli Qualified Code(s): A41.51 - Sepsis due to Escherichia coli [E. coli] Is this a current diagnosis for this admission?: YesPlan: gpc 2/2 blood cultures (4) Septic shock Is this a current diagnosis for this admission?: Yes - Time Critical Time spent with patient: 35 or more minutes
[2017-01-13] MEDS: NORMAL SALINE 1000 ML 1,000 ML with POTASSIUM CHLORIDE 20 MEQ, MAGNESIUM SULFATE 8 MEQ,... IV SCH ×5 (17:58)
--- NOTE | 2017-01-13 18:00 | PDOC PROGRESS REPORT ---
Subjective Progress Note for:: 01/13/17 Subjective:: intubated Physical Exam Vital Signs: Temp Pulse Resp BP Pulse Ox 98.5 F 84 21 H 150/81 H 97 01/13/17 07:00 01/13/17 07:00 01/13/17 07:00 01/13/17 07:00 01/13/17 07:00 Intake & Output 01/12/17 01/13/17 01/14/17 06:59 06:59 06:59 Intake Total 6513 7010 Output Total 3340 2055 30 Balance 3173 4955 -30 Weight 105.4 kg 109.8 kg General appearance: PRESENT: no acute distress, disheveled, obese Head exam: PRESENT: atraumatic, normocephalic Eye exam: PRESENT: conjunctiva pale Mouth exam: PRESENT: dry mucosa, neck supple, tongue midline, other Neck exam: ABSENT: carotid bruit, JVD, lymphadenopathy, thyromegaly Respiratory exam: PRESENT: decreased breath sounds, prolonged expiratory phas, rales, unlabored Cardiovascular exam: PRESENT: RRR, +S1, +S2 Pulses: PRESENT: normal radial pulses Rectal exam: PRESENT: deferred Gentrourinary exam: PRESENT: indwelling catheter Musculoskeletal exam: PRESENT: normal inspection Skin exam: PRESENT: dry, warm, other - Absent index finger left hand Results Laboratory Results: 01/13/17 05:15 01/13/17 05:15 01/13/17 01/13/17 01/13/17 05:10 05:15 05:15 WBC 11.4 H RBC 3.35 L Hgb 11.2 L Hct 32.2 L MCV 96 MCH 33.3 MCHC 34.6 RDW 13.3 Plt Count 263 Seg Neutrophils % Not Reportable Lymphocytes % Not Reportable Monocytes % Not Reportable Eosinophils % Not Reportable Basophils % Not Reportable Absolute Neutrophils Not Reportable Absolute Lymphocytes Not Reportable Absolute Monocytes Not Reportable Absolute Eosinophils Not Reportable Absolute Basophils Not Reportable Carbonic Acid 1.07 HCO3/H2CO3 Ratio 19:1 ABG pH 7.38 ABG pCO2 35.4 ABG pO2 69.6 L ABG HCO3 20.6 ABG O2 Saturation 93.9 L ABG Base Excess -3.9 FiO2 30% Sodium 137.7 Potassium 3.3 L Chloride 113 H Carbon Dioxide 19 L Anion Gap 6 BUN 12 Creatinine 0.71 Est GFR ( Amer) > 60 Est GFR (Non-Af Amer) > 60 Glucose 75 Calcium 7.2 L Phosphorus 2.3 L Magnesium 2.2 Triglycerides 289 H Impressions: Abdomen/Pelvis CT 01/10/17 00:00 IMPRESSION: Findings consistent with sigmoid diverticulitis. Fluid filled cecum and ascending colon is identified with a prominent air-fluid level. There are multiple prominent contrast air and fluid filled proximal small bowel loops with more normal caliber distal small bowel loops being identified. The possibility of a developing small bowel obstruction should be considered. Intra -abdominal and pelvic ascitic fluid is noted above. Other findings as noted above KUB X-Ray 01/11/17 00:00 IMPRESSION: There is mild gaseous distension of the colon as noted above. Oral contrast is identified in the right colon related to the previous CT scan with oral contrast. The appearance is most consistent with an ileus. Other findings as noted above Chest X-Ray 01/13/17 06:00 IMPRESSION: 1. Support tubes and lines as above. 2. Interval development of retrocardiac opacity on the left which could represent atelectasis, infiltrate, aspiration, or it edema. Correlate clinically. Mild right lung base atelectasis. Decreased lung volumes. SUPPORT DEVICE(S) IN EXPECTED LOCATIONS. Assessment & Plan - Diagnosis (1) Alcoholism /alcohol abuse Is this a current diagnosis for this admission?: YesPlan: no evidence of DT's (2) Diverticulosis large intestine w/o perforation or abscess w/o bleeding Is this a current diagnosis for this admission?: Yes (3) Obesity (BMI 30.0-34.9) Is this a current diagnosis for this admission?: Yes (4) Sepsis Qualifiers: Sepsis type: Escherichia coli Qualified Code(s): A41.51 - Sepsis due to Escherichia coli [E. coli] Is this a current diagnosis for this admission?: Yes (5) Septic shock Is this a current diagnosis for this admission?: Yes (6) Tobacco abuse Is this a current diagnosis for this admission?: Yes - Time Critical Time spent with patient: 35 or more minutes
[2017-01-13] MEDS ORDERED: METOPROLOL TARTRATE PF/INJ 5 MG/5 ML SDV IV SCH (22:00)
[2017-01-13] MEDS: LORAZEPAM INJ 2 MG/1 ML VIAL IV PRN (22:28)
[2017-01-13] MEDS: HYDRALAZINE HCL INJ/PF 20 MG/1 ML SDV IV PRN (22:41)
[2017-01-13] MEDS ORDERED: GLUCAGON,HUMAN RECOMB 1 MG INJ IM PRN (23:35)
[2017-01-13] MEDS ORDERED: DEXTROSE 40% GEL 15 GM TUBE PO PRN (23:35)
[2017-01-13] MEDS ORDERED: DEXTROSE 50%-WATER SYRINGE 25 GM/50 ML DOSE IV PRN (23:35)
[2017-01-13] MEDS ORDERED: DEXTROSE 50%-WATER SYRINGE 12.5 GM/25 ML DOSE IV PRN (23:35)
[2017-01-13] MEDS ORDERED: DEXTROSE 40% GEL 15 GM TUBE X 2 PO PRN (23:35)
[2017-01-14] MEDS: KETOROLAC TROMETHAMINE INJ/PF 30 MG/1 ML SDV IV PRN ×2 (01:40→12:57)
[2017-01-14] MEDS: LORAZEPAM INJ 2 MG/1 ML VIAL IV PRN ×6 (01:56→22:36)
[2017-01-14] MEDS: PIPERACILLIN SODIUM/TAZOBACTAM 4.5 GM in NORMAL SALINE 100 ML IV SCH ×4 (02:03→20:18)
[2017-01-14] MEDS: METRONIDAZOLE 500 MG/NS RTU 100 ML IV SCH (02:55)
[2017-01-14] MEDS: HYDRALAZINE HCL INJ/PF 20 MG/1 ML SDV IV PRN ×5 (02:56→22:35)
[2017-01-14] MEDS: HYDROMORPHONE HCL INJ/PF 2 MG/ML AMPULE IV PRN ×2 (03:26→07:24)
[2017-01-14 05:25] LABS: ARTERIAL BLOOD BASE EXCESS -6.3 mmol/L; ARTERIAL BLOOD O2 SATURATION 94.1 % (94-98)
[2017-01-14 05:34] LABS: HEMATOCRIT 32.8 % (36.0-47.0); HEMOGLOBIN 11.1 g/dL (12.0-15.5); HGB HCT DIFFERENCE 0.5; MEAN CORPUSCULAR HEMOGLOBIN 32.7 pg (27.0-33.4); MEAN CORPUSCULAR HGB CONC 33.8 g/dL (32.0-36.0); MEAN CORPUSCULAR VOLUME 97 fl (80-97); RED BLOOD COUNT 3.39 10^6/uL (3.72-5.28); RED CELL DISTRIBUTION WIDTH 13.6 % (11.5-14.0); WHITE BLOOD COUNT 12.3 10^3/uL (4.0-10.5)
[2017-01-14 05:45] LABS: ANION GAP 8 (5-19); BLOOD UREA NITROGEN 12 mg/dL (7-20); CALCIUM 7.5 mg/dL (8.4-10.2); CARBON DIOXIDE 19 mmol/L (22-30); CHLORIDE 118 mmol/L (98-107); CREATININE RESULT 0.72 mg/dL (0.52-1.25); GLUCOSE 71 mg/dL (75-110); MAGNESIUM 2.1 mg/dL (1.6-2.3); POTASSIUM 3.7 mmol/L (3.6-5.0); SODIUM 144.5 mmol/L (137-145)
[2017-01-14] MEDS: HEPARIN SOD (PORCINE) 5,000 UNIT/ML 1 ML SYRINGE SUBCUT SCH ×3 (05:50→21:43)
[2017-01-14 06:00] LABS: BAND NEUTROPHILS % (MANUAL) 4 % (3-5); BASOPHILS % (MANUAL) 0 % (0-2); EOSINOPHILS % (MANUAL) 1 % (0-6); LYMPHOCYTES % (MANUAL) 7 % (13-45); TOTAL CELLS COUNTED 100; TOXIC GRANULATION 1+
[2017-01-14 06:01] LABS: TOXIC VACUOLATION PRESENT
[2017-01-14 06:02] LABS: POIKILOCYTOSIS SLIGHT
--- NOTE | 2017-01-14 06:30 | RADIOLOGY REPORT (SQ) ---
EXAM DESCRIPTION: CHEST SINGLE VIEW COMPLETED DATE/TIME: 01/14/2017 6:19 am REASON FOR STUDY: resp failure COMPARISON: 01/13/2017 EXAM PARAMETERS: NUMBER OF VIEWS: One view. TECHNIQUE: Single frontal radiographic view of the chest acquired. RADIATION DOSE: NA LIMITATIONS: None. FINDINGS: LUNGS AND PLEURA: Patchy parenchymal opacities in both lungs of increased over the previou s study. Small effusions. MEDIASTINUM AND HILAR STRUCTURES: No masses. Contour normal. HEART AND VASCULAR STRUCTURES: Heart normal in size. Normal vasculature. BONES: No acute findings. HARDWARE: ET tube is been removed. Venous access catheter unchanged. Nasogastric tube present. OTHER: No other significant finding. IMPRESSION: Deterioration the chest with increasing bilateral parenchymal opacities. Residual support devices in expected locations. TECHNICAL DOCUMENTATION: JOB ID: [id number]
[2017-01-14] MEDS: METOPROLOL TARTRATE PF/INJ 5 MG/5 ML SDV IV PRN (07:24)
[2017-01-14] MEDS ORDERED: FUROSEMIDE INJ/PF 40 MG/4 ML SDV IV ONE (07:50)
[2017-01-14] MEDS ORDERED: NORMAL SALINE 1000 ML 1,000 ML IV PRN (07:51)
[2017-01-14] MEDS ORDERED: FENTANYL CITRATE INJ/PF 100 MCG/2 ML AMPUL IV PRN (08:46)
[2017-01-14] MEDS ORDERED: VANCOMYCIN HCL 0 MG in DEXTROSE 5%-WATER 250 ML IV NR (09:00)
[2017-01-14] MEDS: BUDESONIDE/FORMOTEROL 160-4.5 MCG 60 PUFF/6 GM MDI IH SCH ×2 (09:39→21:45)
[2017-01-14] MEDS: POTASSI CL 20 MEQ/D5-1/2NS 1L 1,000 ML IV PRN (09:47)
[2017-01-14] MEDS ORDERED: VANCOMYCIN HCL 1,000 MG in DEXTROSE 5%-WATER 250 ML IV ONE (10:30)
--- NOTE | 2017-01-14 10:39 | PDOC PROGRESS REPORT ---
Subjective Progress Note for:: 01/14/17 Subjective:: Patient is a hospital day 5, postoperative day 3, remains in the ICU, tolerated extubation, altered mentation likely due to elements of alcohol withdrawal, and multiple medications. No hemodynamic events overnight. Nasogastric drainage minimal Physical Exam Vital Signs: Temp Pulse Resp BP Pulse Ox 100.1 F 104 H 21 H 177/96 H 97 01/14/17 07:46 01/14/17 08:00 01/14/17 10:00 01/14/17 09:36 01/14/17 10:00 Intake & Output 01/13/17 01/14/17 01/15/17 06:59 06:59 06:59 Intake Total 7010 4125 Output Total 2055 2520 415 Balance 4955 1605 -415 Weight 109.8 kg 111.5 kg General appearance: PRESENT: other - Very drowsy follows limited commands eyes closed. GI/Abdominal exam: PRESENT: other - Abdomen a little less distended, ileostomy appliance bag removed, ileostomy viable but receded; digitalized with pinky finger and the aperture is snug but I was able to get past the fascia. Midline incision with open areas repacked no foul smell. Results Laboratory Results: 01/14/17 05:10 01/14/17 05:10 01/13/17 01/14/17 01/14/17 14:50 05:05 05:10 WBC RBC Hgb Hct MCV MCH MCHC RDW Plt Count Seg Neutrophils % Lymphocytes % Monocytes % Eosinophils % Basophils % Absolute Neutrophils Absolute Lymphocytes Absolute Monocytes Absolute Eosinophils Absolute Basophils Carbonic Acid 1.04 L HCO3/H2CO3 Ratio 17:1 ABG pH 7.35 ABG pCO2 34.6 L ABG pO2 72.7 L ABG HCO3 18.5 L ABG O2 Saturation 94.1 ABG Base Excess -6.3 FiO2 2 LITERS Sodium 144.5 Potassium 4.0 3.7 Chloride 118 H Carbon Dioxide 19 L Anion Gap 8 BUN 12 Creatinine 0.72 Est GFR ( Amer) > 60 Est GFR (Non-Af Amer) > 60 Glucose 71 L Lactic Acid Calcium 7.5 L Phosphorus 3.6 Magnesium 2.1 01/14/17 01/14/17 05:10 08:58 WBC 12.3 H RBC 3.39 L Hgb 11.1 L Hct 32.8 L MCV 97 MCH 32.7 MCHC 33.8 RDW 13.6 Plt Count 290 Seg Neutrophils % Not Reportable Lymphocytes % Not Reportable Monocytes % Not Reportable Eosinophils % Not Reportable Basophils % Not Reportable Absolute Neutrophils Not Reportable Absolute Lymphocytes Not Reportable Absolute Monocytes Not Reportable Absolute Eosinophils Not Reportable Absolute Basophils Not Reportable Carbonic Acid HCO3/H2CO3 Ratio ABG pH ABG pCO2 ABG pO2 ABG HCO3 ABG O2 Saturation ABG Base Excess FiO2 Sodium Potassium Chloride Carbon Dioxide Anion Gap BUN Creatinine Est GFR ( Amer) Est GFR (Non-Af Amer) Glucose Lactic Acid 0.5 L Calcium Phosphorus Magnesium 01/14/17 05:10 NT-Pro-B Natriuret Pep 550 Impressions: Abdomen/Pelvis CT 01/10/17 00:00 IMPRESSION: Findings consistent with sigmoid diverticulitis. Fluid filled cecum and ascending colon is identified with a prominent air-fluid level. There are multiple prominent contrast air and fluid filled proximal small bowel loops with more normal caliber distal small bowel loops being identified. The possibility of a developing small bowel obstruction should be considered. Intra -abdominal and pelvic ascitic fluid is noted above. Other findings as noted above KUB X-Ray 01/11/17 00:00 IMPRESSION: There is mild gaseous distension of the colon as noted above. Oral contrast is identified in the right colon related to the previous CT scan with oral contrast. The appearance is most consistent with an ileus. Other findings as noted above Chest X-Ray 01/14/17 06:00 IMPRESSION: Deterioration the chest with increasing bilateral parenchymal opacities. Residual support devices in expected locations. Assessment & Plan - Diagnosis (1) Diverticulosis large intestine w/o perforation or abscess w/o bleeding Is this a current diagnosis for this admission?: YesPlan: Postoperative day 3 exploratory laparotomy, sigmoid colectomy, diverting colostomy Hooks's procedure for perforated diverticulitis disease, path pathology report pending, status post extubation, doing well hemodynamically Plan: 1. Need to improve level of awakeness. May need Narcan 2. Anticipate getting up and out of bed if patient stable; also consider removing nasogastric tube. Await resolution of ileus 3. Need to stimulate pulmonary toilet. Will need to stay in the unit until prior to her neurologic function improved.
[2017-01-14] MEDS: METOPROLOL TARTRATE PF/INJ 5 MG/5 ML SDV IV SCH ×3 (11:58→23:36)
[2017-01-14] MEDS: METOCLOPRAMIDE HCL INJ/PF 10 MG/2 ML SDV IV SCH ×3 (12:03→23:37)
--- NOTE | 2017-01-14 13:00 | PDOC PROGRESS REPORT ---
Subjective Progress Note for:: 01/14/17 Subjective:: iCONFUSED Physical Exam Vital Signs: Temp Pulse Resp BP Pulse Ox 100.1 F 104 H 21 H 177/96 H 97 01/14/17 07:46 01/14/17 08:00 01/14/17 10:00 01/14/17 09:36 01/14/17 10:00 Intake & Output 01/13/17 01/14/17 01/15/17 06:59 06:59 06:59 Intake Total 7010 4125 Output Total 2055 2520 2250 Balance 4955 1605 -2250 Weight 109.8 kg 111.5 kg General appearance: PRESENT: no acute distress, disheveled, morbidly obese, well -developed Head exam: PRESENT: atraumatic, normocephalic Eye exam: PRESENT: conjunctiva pale, EOMI Mouth exam: PRESENT: dry mucosa, neck supple, tongue midline Neck exam: ABSENT: carotid bruit, JVD, lymphadenopathy, thyromegaly Respiratory exam: PRESENT: decreased breath sounds, prolonged expiratory phas, rales, rhonchi, unlabored Cardiovascular exam: PRESENT: RRR, +S1, +S2 Pulses: PRESENT: normal radial pulses GI/Abdominal exam: PRESENT: normal bowel sounds, soft. ABSENT: distended, guarding, mass, organolmegaly, rebound, tenderness Rectal exam: PRESENT: deferred Gentrourinary exam: PRESENT: indwelling catheter Neurological exam: PRESENT: awake Focused psych exam: PRESENT: delusional Skin exam: PRESENT: dry, warm, other - Absent index finger left hand Results Laboratory Results: 01/14/17 05:10 01/14/17 05:10 01/13/17 01/14/17 01/14/17 14:50 05:05 05:10 WBC RBC Hgb Hct MCV MCH MCHC RDW Plt Count Seg Neutrophils % Lymphocytes % Monocytes % Eosinophils % Basophils % Absolute Neutrophils Absolute Lymphocytes Absolute Monocytes Absolute Eosinophils Absolute Basophils Carbonic Acid 1.04 L HCO3/H2CO3 Ratio 17:1 ABG pH 7.35 ABG pCO2 34.6 L ABG pO2 72.7 L ABG HCO3 18.5 L ABG O2 Saturation 94.1 ABG Base Excess -6.3 FiO2 2 LITERS Sodium 144.5 Potassium 4.0 3.7 Chloride 118 H Carbon Dioxide 19 L Anion Gap 8 BUN 12 Creatinine 0.72 Est GFR ( Amer) > 60 Est GFR (Non-Af Amer) > 60 Glucose 71 L Lactic Acid Calcium 7.5 L Phosphorus 3.6 Magnesium 2.1 01/14/17 01/14/17 05:10 08:58 WBC 12.3 H RBC 3.39 L Hgb 11.1 L Hct 32.8 L MCV 97 MCH 32.7 MCHC 33.8 RDW 13.6 Plt Count 290 Seg Neutrophils % Not Reportable Lymphocytes % Not Reportable Monocytes % Not Reportable Eosinophils % Not Reportable Basophils % Not Reportable Absolute Neutrophils Not Reportable Absolute Lymphocytes Not Reportable Absolute Monocytes Not Reportable Absolute Eosinophils Not Reportable Absolute Basophils Not Reportable Carbonic Acid HCO3/H2CO3 Ratio ABG pH ABG pCO2 ABG pO2 ABG HCO3 ABG O2 Saturation ABG Base Excess FiO2 Sodium Potassium Chloride Carbon Dioxide Anion Gap BUN Creatinine Est GFR ( Amer) Est GFR (Non-Af Amer) Glucose Lactic Acid 0.5 L Calcium Phosphorus Magnesium 01/14/17 05:10 NT-Pro-B Natriuret Pep 550 Impressions: Abdomen/Pelvis CT 01/10/17 00:00 IMPRESSION: Findings consistent with sigmoid diverticulitis. Fluid filled cecum and ascending colon is identified with a prominent air-fluid level. There are multiple prominent contrast air and fluid filled proximal small bowel loops with more normal caliber distal small bowel loops being identified. The possibility of a developing small bowel obstruction should be considered. Intra -abdominal and pelvic ascitic fluid is noted above. Other findings as noted above KUB X-Ray 01/11/17 00:00 IMPRESSION: There is mild gaseous distension of the colon as noted above. Oral contrast is identified in the right colon related to the previous CT scan with oral contrast. The appearance is most consistent with an ileus. Other findings as noted above Chest X-Ray 01/14/17 06:00 IMPRESSION: Deterioration the chest with increasing bilateral parenchymal opacities. Residual support devices in expected locations. Assessment & Plan - Diagnosis (1) Alcoholism /alcohol abuse Is this a current diagnosis for this admission?: Yes (2) Diverticulosis large intestine w/o perforation or abscess w/o bleeding Is this a current diagnosis for this admission?: Yes (3) Obesity (BMI 30.0-34.9) Is this a current diagnosis for this admission?: Yes (4) Sepsis Qualifiers: Sepsis type: Escherichia coli Qualified Code(s): A41.51 - Sepsis due to Escherichia coli [E. coli] Is this a current diagnosis for this admission?: No (5) Septic shock Is this a current diagnosis for this admission?: No (6) Tobacco abuse Is this a current diagnosis for this admission?: Yes - Plan Summary Plan Summary: C/W 14.5L POS FLUID BALANCE/72HRS LASIX INITIATED PER PCP
[2017-01-14] MEDS: FUROSEMIDE INJ/PF 40 MG/4 ML SDV IV SCH ×2 (13:44→21:42)
[2017-01-14] MEDS: IPRATROPIUM/ALBUTEROL 0.5-2.5 MG/3 ML AMPUL NEB SCH ×2 (13:51→20:46)
--- NOTE | 2017-01-14 14:47 | PDOC PROGRESS REPORT ---
Subjective Progress Note for:: 01/14/17 Subjective:: Patient seen earlier today on morning rounds. Patient is confused. Unable to obtain review of systems secondary to encephalopathy. Physical Exam Vital Signs: Temp Pulse Resp BP Pulse Ox 99.1 F 101 H 20 177/96 H 98 01/14/17 12:00 01/14/17 13:51 01/14/17 13:51 01/14/17 09:36 01/14/17 13:51 Intake & Output 01/13/17 01/14/17 01/15/17 06:59 06:59 06:59 Intake Total 7010 4125 Output Total 2055 2520 2425 Balance 4955 1605 -2425 Weight 109.8 kg 111.5 kg Exam: General: withdraws to painful stimuli and localizes to pain, but simply moans and writhes HEENT: AT/NC, PERRL, NG in place, oropharynx is moist, pink, no scleral icterus , no conjunctival injection Neck: No JVD, trachea midline Chest: Rales and rhonchi bilaterally CV: Regular rate and rhythm, normal S1 and S2, no murmur, rub, or gallop Abdomen: soft,mildly distended, active bowel sounds;no rigidity;midline incision with packing in place colostomy in LLQ, ostomy pink and well perfused Extremities: No cyanosis, clubbing; generalized edema Neuro: Withdraws to and localizes painful stimuli, moves all extremities 1 Results Laboratory Results: 01/14/17 05:10 01/14/17 05:10 01/13/17 01/14/17 01/14/17 14:50 05:05 05:10 WBC RBC Hgb Hct MCV MCH MCHC RDW Plt Count Seg Neutrophils % Lymphocytes % Monocytes % Eosinophils % Basophils % Absolute Neutrophils Absolute Lymphocytes Absolute Monocytes Absolute Eosinophils Absolute Basophils Carbonic Acid 1.04 L HCO3/H2CO3 Ratio 17:1 ABG pH 7.35 ABG pCO2 34.6 L ABG pO2 72.7 L ABG HCO3 18.5 L ABG O2 Saturation 94.1 ABG Base Excess -6.3 FiO2 2 LITERS Sodium 144.5 Potassium 4.0 3.7 Chloride 118 H Carbon Dioxide 19 L Anion Gap 8 BUN 12 Creatinine 0.72 Est GFR ( Amer) > 60 Est GFR (Non-Af Amer) > 60 Glucose 71 L Lactic Acid Calcium 7.5 L Phosphorus 3.6 Magnesium 2.1 01/14/17 01/14/17 05:10 08:58 WBC 12.3 H RBC 3.39 L Hgb 11.1 L Hct 32.8 L MCV 97 MCH 32.7 MCHC 33.8 RDW 13.6 Plt Count 290 Seg Neutrophils % Not Reportable Lymphocytes % Not Reportable Monocytes % Not Reportable Eosinophils % Not Reportable Basophils % Not Reportable Absolute Neutrophils Not Reportable Absolute Lymphocytes Not Reportable Absolute Monocytes Not Reportable Absolute Eosinophils Not Reportable Absolute Basophils Not Reportable Carbonic Acid HCO3/H2CO3 Ratio ABG pH ABG pCO2 ABG pO2 ABG HCO3 ABG O2 Saturation ABG Base Excess FiO2 Sodium Potassium Chloride Carbon Dioxide Anion Gap BUN Creatinine Est GFR ( Amer) Est GFR (Non-Af Amer) Glucose Lactic Acid 0.5 L Calcium Phosphorus Magnesium 01/14/17 05:10 NT-Pro-B Natriuret Pep 550 Impressions: Abdomen/Pelvis CT 01/10/17 00:00 IMPRESSION: Findings consistent with sigmoid diverticulitis. Fluid filled cecum and ascending colon is identified with a prominent air-fluid level. There are multiple prominent contrast air and fluid filled proximal small bowel loops with more normal caliber distal small bowel loops being identified. The possibility of a developing small bowel obstruction should be considered. Intra -abdominal and pelvic ascitic fluid is noted above. Other findings as noted above KUB X-Ray 01/11/17 00:00 IMPRESSION: There is mild gaseous distension of the colon as noted above. Oral contrast is identified in the right colon related to the previous CT scan with oral contrast. The appearance is most consistent with an ileus. Other findings as noted above Chest X-Ray 01/14/17 06:00 IMPRESSION: Deterioration the chest with increasing bilateral parenchymal opacities. Residual support devices in expected locations. Assessment & Plan - Diagnosis (1) Septic shock Is this a current diagnosis for this admission?: YesPlan: Improved. Secondary to perforated diverticulum. Maintain a MAP of 65 or better and systolic of 90 of more. Off levophed Monitor CVP q4h. Continue IVF and Zosyn day #5 (2) Sepsis Qualifiers: Sepsis type: sepsis due to unspecified organism Qualified Code(s): A41.9 - Sepsis, unspecified organism Is this a current diagnosis for this admission?: NoPlan: Patient with sepsis present on admission. 2/2 Diverticulitis. Patient on day #4 s/p partial colectomy. Criteria tachycardia, 35% bands, source, and fever 101.3. Patient with GNR in peritoneal fluid (3) Diverticulitis Qualifiers: Diverticulitis site: large intestine Diverticulitis bleeding: without bleeding Diverticulitis complication: with perforation Qualified Code (s): K57.20 - Diverticulitis of large intestine with perforation and abscess without bleeding Is this a current diagnosis for this admission?: Yes (4) Tobacco abuse Is this a current diagnosis for this admission?: YesPlan: nicotine replacement (5) Impaired fasting blood sugar Is this a current diagnosis for this admission?: Yes (6) Alcoholism /alcohol abuse Is this a current diagnosis for this admission?: Yes (7) Hypokalemia Is this a current diagnosis for this admission?: Yes (8) Hypophosphatemia Is this a current diagnosis for this admission?: Yes (9) Obesity (BMI 30.0-34.9) Is this a current diagnosis for this admission?: Yes (10) Volume overload Qualifiers: Hypervolemia type: other Qualified Code(s): E87.79 - Other fluid overload Is this a current diagnosis for this admission?: YesPlan: Iatrogenic volume overload. Patient has received over 14 L in the last 72 hours. Begin Lasix 40 mg IV every 8. (11) Encephalopathy acute Is this a current diagnosis for this admission?: YesPlan: Obtain CT of the head. Most likely secondary to sepsis and possibly also alcohol withdrawal. - Time Time Spent with patient: 35 or more minutes Medications reviewed and adjusted accordingly: Yes - Plan Summary Plan Summary: Total time spent with patient including patient education, physical examination , discussion with consultants, and formulation of plan was 42 minutes of critical care time.
--- NOTE | 2017-01-14 15:37 | RADIOLOGY REPORT (SQ) ---
EXAM DESCRIPTION: CT HEAD WITHOUT COMPLETED DATE/TIME: 01/14/2017 3:24 pm REASON FOR STUDY: acute encephalopathy COMPARISON: None. TECHNIQUE: Axial images acquired through the brain without intravenous contrast. Images reviewed wi th bone, brain and subdural windows. Images stored on PACS. All CT scanners at this facility use dose modulation, iterative reconstruction, and/or weight based d osing when appropriate to reduce radiation dose to as low as reasonably achievable (ALARA). [facility]: Dose Right [facility]: CareDose [facility]: Dose Right [facility]: Teradose 4D [facility]: Smart BackType RADIATION DOSE: Up-to-date CT equipment and radiation dose reduction techniques were employed. CTDIv ol: 59.9 mGy. DLP: 2326 mGy-cm. mGy. LIMITATIONS: None. FINDINGS: VENTRICLES: Normal size and contour. CEREBRUM: No masses. No hemorrhage. No midline shift. Normal coombs/white matter differentiation. N o evidence for acute infarction. CEREBELLUM: There is a 3.4 x 3.1 cm extra-axial mass right parietal lobe which as minimal associated mass effect and adjacent vasogenic edema presumably representing a meningioma. No additional masses identified. No hemorrhage. No additional alteration of density. No evidence for acute infarction. EXTRAAXIAL SPACES: No fluid collections. No masses. ORBITS AND GLOBE: No intra- or extraconal masses. Normal contour of globe without masses. CALVARIUM: No fracture. PARANASAL SINUSES: No fluid or mucosal thickening. SOFT TISSUES: No mass or hematoma. OTHER: No other significant finding. IMPRESSION: 3.4 CM PARTIALLY CALCIFIED EXTRA-AXIAL MASS RIGHT PARIETAL LOBE WITH ADJACENT VASOGENIC EDEMA. THIS PRESUMABLY REPRESENTS A MENINGIOMA AND IS LIKELY CHRONIC. CORRELATE WITH CLINICAL HISTO RY ANY PRIOR BRAIN IMAGING IF AVAILABLE. NEUROSURGICAL CONSULTATION IS RECOMMENDED. NO HEMORRHAGE OR LARGE TERRITORY INFARCTION IDENTIFIED. TECHNICAL DOCUMENTATION: JOB ID: [id number] Quality ID # [id number]: Final reports with documentation of one or more dose reduction techniques (e.g., Au tomated exposure control, adjustment of the mA and/or kV according to patient size, use of iterative reconstruction technique) 2010 [employer]- All Rights Reserved
[2017-01-14] MEDS ORDERED: DEXAMETHASONE SOD PHOS INJ 10 MG/1 ML VIAL IV ONE (16:30)
[2017-01-14] MEDS: LABETALOL HCL INJ 20 MG/4 ML DISP.SYRIN IV PRN (16:32)
[2017-01-14] MEDS ORDERED: LORAZEPAM INJ 2 MG/1 ML VIAL IV ONE ×2 (17:00→18:30)
[2017-01-14] MEDS: NORMAL SALINE 1000 ML 1,000 ML with POTASSIUM CHLORIDE 20 MEQ, MAGNESIUM SULFATE 8 MEQ,... IV SCH ×5 (17:34)
[2017-01-14] MEDS: VANCOMYCIN HCL 1,000 MG in DEXTROSE 5%-WATER 250 ML IV SCH (17:46)
[2017-01-14] MEDS ORDERED: HALOPERIDOL LACTATE INJ 5 MG/1 ML VIAL IV PRN (18:18)
[2017-01-14] MEDS ORDERED: LEVALBUTEROL HCL NEB 1.25 MG/3 ML AMPUL NEB PRN (18:18)
[2017-01-14] MEDS ORDERED: HYDROMORPHONE HCL INJ/PF 2 MG/ML AMPULE IV ONE (18:18)
[2017-01-14] MEDS ORDERED: HYDROMORPHONE HCL INJ/PF 2 MG/ML AMPULE ONE (18:26)
[2017-01-14] MEDS ORDERED: LEVALBUTEROL HCL NEB 1.25 MG/3 ML AMPUL NEB ONE (18:32)
--- NOTE | 2017-01-14 18:34 | Progress Note ---
Provider Note Provider Note: Discussed patient with [facility] neurosurgery MAL Childers who agrees with decadron and repeat CT scan. Will follow clinically. Labetolol added for sbp>180.
[2017-01-14] MEDS: FENTANYL CITRATE INJ/PF 100 MCG/2 ML AMPUL IV PRN ×2 (20:17→23:54)
[2017-01-14] MEDS: DEXAMETHASONE SOD PHOS INJ 10 MG/1 ML VIAL IV SCH (21:44)
[2017-01-15] MEDS: VANCOMYCIN HCL 1,000 MG in DEXTROSE 5%-WATER 250 ML IV SCH ×3 (01:02→17:21)
[2017-01-15] MEDS ORDERED: HYDROMORPHONE HCL INJ/PF 2 MG/ML AMPULE IV ONE ×2 (01:15→09:00)
[2017-01-15] MEDS: IPRATROPIUM/ALBUTEROL 0.5-2.5 MG/3 ML AMPUL NEB SCH ×4 (02:29→20:42)
[2017-01-15] MEDS: PIPERACILLIN SODIUM/TAZOBACTAM 4.5 GM in NORMAL SALINE 100 ML IV SCH ×4 (02:44→20:33)
[2017-01-15] MEDS: HYDRALAZINE HCL INJ/PF 20 MG/1 ML SDV IV PRN ×4 (03:16→20:34)
[2017-01-15] MEDS: LORAZEPAM INJ 2 MG/1 ML VIAL IV PRN ×7 (03:35→20:34)
[2017-01-15 05:31] LABS: HEMATOCRIT 32.8 % (36.0-47.0); HEMOGLOBIN 11.2 g/dL (12.0-15.5); HGB HCT DIFFERENCE 0.8; MEAN CORPUSCULAR HEMOGLOBIN 32.6 pg (27.0-33.4); MEAN CORPUSCULAR VOLUME 96 fl (80-97); RED BLOOD COUNT 3.43 10^6/uL (3.72-5.28); RED CELL DISTRIBUTION WIDTH 13.6 % (11.5-14.0); WHITE BLOOD COUNT 10.2 10^3/uL (4.0-10.5)
[2017-01-15 05:32] LABS: ARTERIAL BLOOD BASE EXCESS -1.5 mmol/L; ARTERIAL BLOOD O2 SATURATION 93.6 % (94-98)
[2017-01-15 05:54] LABS: ANION GAP 9 (5-19); BAND NEUTROPHILS % (MANUAL) 3 % (3-5); BASOPHILS % (MANUAL) 0 % (0-2); BLOOD UREA NITROGEN 16 mg/dL (7-20); CALCIUM 7.5 mg/dL (8.4-10.2); CARBON DIOXIDE 22 mmol/L (22-30); CHLORIDE 114 mmol/L (98-107); CREATININE RESULT 0.71 mg/dL (0.52-1.25); EOSINOPHILS % (MANUAL) 0 % (0-6); GLUCOSE 136 mg/dL (75-110); LYMPHOCYTES % (MANUAL) 4 % (13-45); MAGNESIUM 1.8 mg/dL (1.6-2.3); POTASSIUM 3.9 mmol/L (3.6-5.0); SODIUM 145.2 mmol/L (137-145); TOTAL CELLS COUNTED 100
[2017-01-15 05:55] LABS: RBC MORPHOLOGY COMMENT NORMO-CYTIC/CHROMIC
[2017-01-15] MEDS: METOCLOPRAMIDE HCL INJ/PF 10 MG/2 ML SDV IV SCH ×3 (06:03→17:22)
[2017-01-15] MEDS: FUROSEMIDE INJ/PF 40 MG/4 ML SDV IV SCH (06:03)
[2017-01-15] MEDS: METOPROLOL TARTRATE PF/INJ 5 MG/5 ML SDV IV SCH ×3 (06:03→17:25)
[2017-01-15] MEDS: DEXAMETHASONE SOD PHOS INJ 10 MG/1 ML VIAL IV SCH (06:03)
[2017-01-15] MEDS: HEPARIN SOD (PORCINE) 5,000 UNIT/ML 1 ML SYRINGE SUBCUT SCH ×3 (06:04→22:32)
[2017-01-15] MEDS: FENTANYL CITRATE INJ/PF 100 MCG/2 ML AMPUL IV PRN (06:22)
[2017-01-15] MEDS: POTASSI CL 20 MEQ/D5-1/2NS 1L 1,000 ML IV PRN (06:54)
--- NOTE | 2017-01-15 07:02 | RADIOLOGY REPORT (SQ) ---
EXAM DESCRIPTION: CT HEAD WITHOUT COMPLETED DATE/TIME: 01/15/2017 5:43 am REASON FOR STUDY: f/u edema COMPARISON: 01/14/2017 TECHNIQUE: Axial images acquired through the brain without intravenous contrast. Images reviewed wi th bone, brain and subdural windows. Images stored on PACS. All CT scanners at this facility use dose modulation, iterative reconstruction, and/or weight based d osing when appropriate to reduce radiation dose to as low as reasonably achievable (ALARA). [facility]: Dose Right [facility]: CareDose [facility]: Dose Right [facility]: Teradose 4D [facility]: Smart [employer] RADIATION DOSE: Up-to-date CT equipment and radiation dose reduction techniques were employed. CTDIv ol: 64.6 mGy. DLP: 2535 mGy-cm. mGy. LIMITATIONS: Excessive patient motion in the scanner. FINDINGS: There is no evidence of acute infarct, hemorrhage or extra-axial fluid collection. Partia lly calcified right parietal extra-axial mass is unchanged. IMPRESSION: Technical limitations. Right parietal meningioma. No obvious significant interval zabala ge. TECHNICAL DOCUMENTATION: JOB ID: [id number] Quality ID # [id number]: Final reports with documentation of one or more dose reduction techniques (e.g., Au tomated exposure control, adjustment of the mA and/or kV according to patient size, use of iterative reconstruction technique) 2010 [employer]- All Rights Reserved
--- NOTE | 2017-01-15 07:08 | RADIOLOGY REPORT (SQ) ---
EXAM DESCRIPTION: CHEST SINGLE VIEW COMPLETED DATE/TIME: 01/15/2017 5:54 am REASON FOR STUDY: resp failure COMPARISON: 01/14/2017 NUMBER OF VIEWS: One view. TECHNIQUE: Single frontal radiographic image of the chest acquired. LIMITATIONS: None. FINDINGS: LUNGS AND PLEURA: Improved aeration in the right lower lobe. Persistent primarily interst itial pattern in the upper lobes. No large effusions. MEDIASTINUM AND HEART: Stable heart size and mediastinal structures. BONY STRUCTURES: No acute findings. HARDWARE: Unchanged position of left-sided central line. Interval removal of nasogastric tube. OTHER: No other significant finding. IMPRESSION: Both interval removal of nasogastric tube. Improved aeration right lower lobe. TECHNICAL DOCUMENTATION: JOB ID: [id number]
[2017-01-15] MEDS: LABETALOL HCL INJ 20 MG/4 ML DISP.SYRIN IV PRN ×3 (08:23→18:36)
[2017-01-15] MEDS ORDERED: PHARMACY COMMUNICATION ORDER MC NR (08:30)
[2017-01-15] MEDS ORDERED: LORAZEPAM INJ 2 MG/1 ML VIAL ONE (08:36)
[2017-01-15] MEDS: DIPHENHYDRAMINE HCL 50 MG/ML VIAL IV PRN ×3 (08:46→20:34)
[2017-01-15] MEDS ORDERED: HALOPERIDOL LACTATE INJ 5 MG/1 ML VIAL IV ONE (09:00)
[2017-01-15] MEDS ORDERED: LORAZEPAM INJ 2 MG/1 ML VIAL IV ONE (09:00)
[2017-01-15] MEDS ORDERED: OLANZAPINE INJ/PF 10 MG SDV IM ONE (09:30)
[2017-01-15 09:35] LABS: CREATININE RESULT 0.66 mg/dL (0.52-1.25)
[2017-01-15] MEDS: FENTANYL 25 MCG/HR PATCH.TD72 TD SCH (09:36)
[2017-01-15] MEDS: BUDESONIDE/FORMOTEROL 160-4.5 MCG 60 PUFF/6 GM MDI IH SCH ×2 (10:29→22:33)
--- NOTE | 2017-01-15 11:08 | RADIOLOGY REPORT (SQ) ---
EXAM DESCRIPTION: KUB/ABDOMEN (SINGLE VIEW) COMPLETED DATE/TIME: 01/15/2017 10:42 am REASON FOR STUDY: NG placement COMPARISON: 01/11/2017. NUMBER OF VIEWS: One view. TECHNIQUE: Supine radiographic image of the abdomen acquired. LIMITATIONS: None. FINDINGS: BOWEL GAS PATTERN: Mild bowel dilation, incompletely visualized residual contrast. CALCIFICATIONS: No suspicious calcifications. SOFT TISSUES: No gross mass or suggestion of organomegaly. HARDWARE: Tip of the nasogastric tube in the stomach. Hardware in the lumbar spine. Midline skin st aples. BONES: No acute fracture. No worrisome bone lesions. OTHER: No other significant finding. IMPRESSION: TIP OF THE NASOGASTRIC TUBE IN THE STOMACH. TECHNICAL DOCUMENTATION: JOB ID: [id number] [employer]- All Rights Reserved
--- NOTE | 2017-01-15 12:27 | PDOC PROGRESS REPORT ---
Subjective Progress Note for:: 01/15/17 Subjective:: No acute events overnight. Patient continues to moan and writhe when touched anywhere, but localizes to pain. She is able to answer some simple questions appropriately. Admits to pain in her abdomen. Physical Exam Vital Signs: Temp Pulse Resp BP Pulse Ox 99.0 F 106 H 21 H 156/92 H 94 01/15/17 05:54 01/15/17 05:54 01/15/17 06:00 01/15/17 05:54 01/15/17 06:00 Intake & Output 01/14/17 01/15/17 01/16/17 06:59 06:59 06:59 Intake Total 4125 2630 Output Total 2520 6980 Balance 1605 -4350 Weight 111.5 kg 106 kg Exam: General: moans and writhes HEENT: AT/NC, PERRL, oropharynx is dry, pink, no scleral icterus, no conjunctival injection Neck: No JVD, trachea midline Chest: CTAB CV: Regular rate and rhythm, normal S1 and S2, no murmur, rub, or gallop Abdomen: soft,mildly distended, diffusely TTP, active bowel sounds;no rigidity; midline incision with packing in place colostomy in LLQ, ostomy pink and well perfused Extremities: No cyanosis, clubbing; generalized edema Neuro: Withdraws to and localizes painful stimuli, moves all extremities; follows some commands Results Laboratory Results: 01/15/17 05:15 01/15/17 05:15 01/14/17 01/15/17 01/15/17 08:58 05:10 05:15 WBC RBC Hgb Hct MCV MCH MCHC RDW Plt Count Seg Neutrophils % Lymphocytes % Monocytes % Eosinophils % Basophils % Absolute Neutrophils Absolute Lymphocytes Absolute Monocytes Absolute Eosinophils Absolute Basophils Carbonic Acid 0.92 L HCO3/H2CO3 Ratio 23:1 ABG pH 7.46 H ABG pCO2 30.7 L ABG pO2 63.1 L ABG HCO3 21.5 ABG O2 Saturation 93.6 L ABG Base Excess -1.5 FiO2 ROOM AIR Sodium 145.2 H Potassium 3.9 Chloride 114 H Carbon Dioxide 22 Anion Gap 9 BUN 16 Creatinine 0.71 Est GFR ( Amer) > 60 Est GFR (Non-Af Amer) > 60 Glucose 136 H Lactic Acid 0.5 L Calcium 7.5 L Magnesium 1.8 01/15/17 05:15 WBC 10.2 RBC 3.43 L Hgb 11.2 L Hct 32.8 L MCV 96 MCH 32.6 MCHC 34.0 RDW 13.6 Plt Count 353 Seg Neutrophils % Not Reportable Lymphocytes % Not Reportable Monocytes % Not Reportable Eosinophils % Not Reportable Basophils % Not Reportable Absolute Neutrophils Not Reportable Absolute Lymphocytes Not Reportable Absolute Monocytes Not Reportable Absolute Eosinophils Not Reportable Absolute Basophils Not Reportable Carbonic Acid HCO3/H2CO3 Ratio ABG pH ABG pCO2 ABG pO2 ABG HCO3 ABG O2 Saturation ABG Base Excess FiO2 Sodium Potassium Chloride Carbon Dioxide Anion Gap BUN Creatinine Est GFR ( Amer) Est GFR (Non-Af Amer) Glucose Lactic Acid Calcium Magnesium 01/14/17 05:10 NT-Pro-B Natriuret Pep 550 Impressions: Abdomen/Pelvis CT 01/10/17 00:00 IMPRESSION: Findings consistent with sigmoid diverticulitis. Fluid filled cecum and ascending colon is identified with a prominent air-fluid level. There are multiple prominent contrast air and fluid filled proximal small bowel loops with more normal caliber distal small bowel loops being identified. The possibility of a developing small bowel obstruction should be considered. Intra -abdominal and pelvic ascitic fluid is noted above. Other findings as noted above KUB X-Ray 01/11/17 00:00 IMPRESSION: There is mild gaseous distension of the colon as noted above. Oral contrast is identified in the right colon related to the previous CT scan with oral contrast. The appearance is most consistent with an ileus. Other findings as noted above Chest X-Ray 01/15/17 06:00 IMPRESSION: Both interval removal of nasogastric tube. Improved aeration right lower lobe. Head CT 01/15/17 06:00 IMPRESSION: Technical limitations. Right parietal meningioma. No obvious significant interval change. Assessment & Plan - Diagnosis (1) Encephalopathy acute Is this a current diagnosis for this admission?: YesPlan: CT of the head reveals meningioma with mild associated edema. Do not believe this is because of the patient's encephalopathy. Patient has suffered with this meningioma for so long that it is now calcified. Most likely secondary to sepsis, alcohol withdrawal, and underlying untreated bipolar. (2) Alcohol withdrawal delirium Is this a current diagnosis for this admission?: YesPlan: Patient suffering from alcohol withrawal with likely underlying bipolar depression. Continue prn Ativan and banana bag. (3) Septic shock Is this a current diagnosis for this admission?: YesPlan: Improved. Secondary to perforated diverticulum. Maintain a MAP of 65 or better and systolic of 90 of more. Off levophed Monitor CVP q4h. Continue IVF and Zosyn day #6 (4) Sepsis Qualifiers: Sepsis type: Escherichia coli Qualified Code(s): A41.51 - Sepsis due to Escherichia coli [E. coli] Is this a current diagnosis for this admission?: NoPlan: Patient with sepsis present on admission. 2/2 Diverticulitis. Patient on Zosyn day #6 s/p partial colectomy. Criteria tachycardia, 35% bands, source, and fever 101.3. Patient with E.Coli in peritoneal fluid. On Zosyn day #6. Patient also has bacteremia with gram positive cocci. Continue vancomycin until this has been identified. (5) Diverticulitis Qualifiers: Diverticulitis site: large intestine Diverticulitis bleeding: without bleeding Diverticulitis complication: with perforation Qualified Code (s): K57.20 - Diverticulitis of large intestine with perforation and abscess without bleeding Is this a current diagnosis for this admission?: Yes (6) Impaired fasting blood sugar Is this a current diagnosis for this admission?: Yes (7) Alcoholism /alcohol abuse Is this a current diagnosis for this admission?: YesPlan: Begin patient on banana bag daily. Continue to monitor on telemetry for arrhythmia. Ativan prn withdrawal. (8) Hypokalemia Is this a current diagnosis for this admission?: YesPlan: Improved (9) Hypophosphatemia Is this a current diagnosis for this admission?: Yes (10) Obesity (BMI 30.0-34.9) Is this a current diagnosis for this admission?: Yes (11) Volume overload Qualifiers: Hypervolemia type: other Qualified Code(s): E87.79 - Other fluid overload Is this a current diagnosis for this admission?: YesPlan: improved (12) Meningioma Is this a current diagnosis for this admission?: YesPlan: Stop Decadron. Patient will need to follow as an outpatient with neurosurgery if this is felt to be symptomatic. (13) Tobacco abuse Is this a current diagnosis for this admission?: YesPlan: nicotine replacement - Time Time Spent with patient: 25-34 minutes Medications reviewed and adjusted accordingly: Yes - Inpatient Certification Based on my medical assessment, after consideration of the patient's comorbidities, presenting symptoms, or acuity I expect that the services needed warrant INPATIENT care.: Yes I certify that my determination is in accordance with my understanding of Medicare's requirements for reasonable and necessary INPATIENT services [42 CFR 412.3e].: Yes Medical Necessity: Need for IV Antibiotics Post Hospital Care: D/C Shank Threader Documentation
[2017-01-15] MEDS: HALOPERIDOL LACTATE INJ 5 MG/1 ML VIAL IV PRN ×2 (13:06→18:10)
--- NOTE | 2017-01-15 14:27 | RADIOLOGY REPORT (SQ) ---
EXAM DESCRIPTION: CT ABD/PELVIS ORAL ONLY COMPLETED DATE/TIME: 01/15/2017 2:00 pm REASON FOR STUDY: increased abdominal pain COMPARISON: 01/10/2017 TECHNIQUE: CT scan of the abdomen and pelvis performed with oral contrast and no intravenous contras t. Images reviewed with lung, soft tissue, and bone windows. Reconstructed coronal and sagittal MPR i mages reviewed. All images stored on PACS. All CT scanners at this facility use dose modulation, iterative reconstruction, and/or weight based d osing when appropriate to reduce radiation dose to as low as reasonably achievable (ALARA). [facility]: Dose Right [facility]: CareDose [facility]: Dose Right [facility]: Teradose 4D [facility]: [employer] RADIATION DOSE: Up-to-date CT equipment and radiation dose reduction techniques were employed. CTDIv ol: 26.4 mGy. DLP: 1540 mGy-cm.mGy. LIMITATIONS: Motion. Patient positioning. Artifact lower lumbar surgery. FINDINGS: Since the study 5 days prior, there has been ventral laparotomy and diverting colostomy in the left lower quadrant. Sigmoid staple line appears intact. Small amount of free fluid in the pel vis measuring less than 10 HU. No organized fluid collection. Gas fluid levels within loops of smal l bowel to left of midline upper limits normal in caliber. There is contrast throughout the colon. There is a nasogastric tube in the stomach. There is a Robert catheter in the urinary bladder. Small bilateral pleural effusions. Appearance is otherwise unchanged. IMPRESSION: Postoperative ileus. Small-bowel obstruction considered less likely. Follow-up is vijay mmended. TECHNICAL DOCUMENTATION: JOB ID: [id number] Quality ID # [id number]: Final reports with documentation of one or more dose reduction techniques (e.g., Au tomated exposure control, adjustment of the mA and/or kV according to patient size, use of iterative reconstruction technique) 2010 [employer]- All Rights Reserved
--- NOTE | 2017-01-15 14:49 | PDOC PROGRESS REPORT ---
Subjective Progress Note for:: 01/15/17 Subjective:: CONFUSED Physical Exam Vital Signs: Temp Pulse Resp BP Pulse Ox 99.0 F 106 H 21 H 156/92 H 94 01/15/17 05:54 01/15/17 05:54 01/15/17 06:00 01/15/17 05:54 01/15/17 06:00 Intake & Output 01/14/17 01/15/17 01/16/17 06:59 06:59 06:59 Intake Total 4125 2630 Output Total 2527 6980 375 Balance 9235 -4350 -375 Weight 111.5 kg 106 kg General appearance: PRESENT: disheveled, mild distress, morbidly obese, well- developed Head exam: PRESENT: atraumatic, normocephalic Eye exam: PRESENT: conjunctiva pale, EOMI Mouth exam: PRESENT: dry mucosa, neck supple, tongue midline Neck exam: ABSENT: carotid bruit, JVD, lymphadenopathy, thyromegaly Respiratory exam: PRESENT: decreased breath sounds, prolonged expiratory phas, rhonchi, symmetrical, unlabored Cardiovascular exam: PRESENT: RRR, +S1, +S2 Pulses: PRESENT: normal radial pulses GI/Abdominal exam: PRESENT: other - ostomy Rectal exam: PRESENT: deferred Gentrourinary exam: PRESENT: indwelling catheter Musculoskeletal exam: PRESENT: normal inspection Neurological exam: PRESENT: awake Psychiatric exam: PRESENT: agitated, anxious Skin exam: PRESENT: dry, warm, other - Absent index finger left hand Results Laboratory Results: 01/15/17 05:15 01/15/17 05:15 01/14/17 01/15/17 01/15/17 08:58 05:10 05:15 WBC RBC Hgb Hct MCV MCH MCHC RDW Plt Count Seg Neutrophils % Lymphocytes % Monocytes % Eosinophils % Basophils % Absolute Neutrophils Absolute Lymphocytes Absolute Monocytes Absolute Eosinophils Absolute Basophils Carbonic Acid 0.92 L HCO3/H2CO3 Ratio 23:1 ABG pH 7.46 H ABG pCO2 30.7 L ABG pO2 63.1 L ABG HCO3 21.5 ABG O2 Saturation 93.6 L ABG Base Excess -1.5 FiO2 ROOM AIR Sodium 145.2 H Potassium 3.9 Chloride 114 H Carbon Dioxide 22 Anion Gap 9 BUN 16 Creatinine 0.71 Est GFR ( Amer) > 60 Est GFR (Non-Af Amer) > 60 Glucose 136 H Lactic Acid 0.5 L Calcium 7.5 L Magnesium 1.8 01/15/17 05:15 WBC 10.2 RBC 3.43 L Hgb 11.2 L Hct 32.8 L MCV 96 MCH 32.6 MCHC 34.0 RDW 13.6 Plt Count 353 Seg Neutrophils % Not Reportable Lymphocytes % Not Reportable Monocytes % Not Reportable Eosinophils % Not Reportable Basophils % Not Reportable Absolute Neutrophils Not Reportable Absolute Lymphocytes Not Reportable Absolute Monocytes Not Reportable Absolute Eosinophils Not Reportable Absolute Basophils Not Reportable Carbonic Acid HCO3/H2CO3 Ratio ABG pH ABG pCO2 ABG pO2 ABG HCO3 ABG O2 Saturation ABG Base Excess FiO2 Sodium Potassium Chloride Carbon Dioxide Anion Gap BUN Creatinine Est GFR ( Amer) Est GFR (Non-Af Amer) Glucose Lactic Acid Calcium Magnesium 01/14/17 05:10 NT-Pro-B Natriuret Pep 550 Impressions: Abdomen/Pelvis CT 01/10/17 00:00 IMPRESSION: Findings consistent with sigmoid diverticulitis. Fluid filled cecum and ascending colon is identified with a prominent air-fluid level. There are multiple prominent contrast air and fluid filled proximal small bowel loops with more normal caliber distal small bowel loops being identified. The possibility of a developing small bowel obstruction should be considered. Intra -abdominal and pelvic ascitic fluid is noted above. Other findings as noted above KUB X-Ray 01/11/17 00:00 IMPRESSION: There is mild gaseous distension of the colon as noted above. Oral contrast is identified in the right colon related to the previous CT scan with oral contrast. The appearance is most consistent with an ileus. Other findings as noted above Chest X-Ray 01/15/17 06:00 IMPRESSION: Both interval removal of nasogastric tube. Improved aeration right lower lobe. Head CT 01/15/17 06:00 IMPRESSION: Technical limitations. Right parietal meningioma. No obvious significant interval change. Assessment & Plan - Diagnosis (1) Alcoholism /alcohol abuse Is this a current diagnosis for this admission?: Yes (2) Diverticulosis large intestine w/o perforation or abscess w/o bleeding Is this a current diagnosis for this admission?: Yes (3) Obesity (BMI 30.0-34.9) Is this a current diagnosis for this admission?: Yes (4) Sepsis Qualifiers: Sepsis type: Escherichia coli Qualified Code(s): A41.51 - Sepsis due to Escherichia coli [E. coli] Is this a current diagnosis for this admission?: No (5) Tobacco abuse Is this a current diagnosis for this admission?: Yes (6) Septic shock Is this a current diagnosis for this admission?: No - Time Critical Time spent with patient: 25-34 minutes
[2017-01-15] MEDS: NORMAL SALINE 1000 ML 1,000 ML with POTASSIUM CHLORIDE 20 MEQ, MAGNESIUM SULFATE 8 MEQ,... IV SCH ×5 (17:20)
[2017-01-15] MEDS ORDERED: LACTULOSE SYRUP 20 GM/30 ML UDCUP NG ONE (18:14)
[2017-01-15] MEDS ORDERED: FUROSEMIDE INJ/PF 20 MG/2 ML SDV IV ONE (18:14)
--- NOTE | 2017-01-15 19:46 | PDOC PROGRESS REPORT ---
Subjective Subjective:: Patient is awake, restrained and confused, non responsive Physical Exam Vital Signs: Temp Pulse Resp BP Pulse Ox 100.4 F 96 25 H 187/99 H 93 01/15/17 18:00 01/15/17 14:14 01/15/17 19:03 01/15/17 19:03 01/15/17 19:03 Intake & Output 01/14/17 01/15/17 01/16/17 06:59 06:59 06:59 Intake Total 4125 2630 1910 Output Total 2523 9693 1675 Balance 1605 -4350 235 Weight 111.5 kg 106 kg Respiratory exam: PRESENT: wheezes Cardiovascular exam: PRESENT: tachycardia GI/Abdominal exam: PRESENT: distended, soft, other - colostomy is pink with stools in colostomy bag; midline incision is clean, dry, and intact Results Laboratory Results: 01/15/17 05:15 01/15/17 09:15 01/15/17 01/15/17 01/15/17 05:10 05:15 05:15 WBC 10.2 RBC 3.43 L Hgb 11.2 L Hct 32.8 L MCV 96 MCH 32.6 MCHC 34.0 RDW 13.6 Plt Count 353 Seg Neutrophils % Not Reportable Lymphocytes % Not Reportable Monocytes % Not Reportable Eosinophils % Not Reportable Basophils % Not Reportable Absolute Neutrophils Not Reportable Absolute Lymphocytes Not Reportable Absolute Monocytes Not Reportable Absolute Eosinophils Not Reportable Absolute Basophils Not Reportable Carbonic Acid 0.92 L HCO3/H2CO3 Ratio 23:1 ABG pH 7.46 H ABG pCO2 30.7 L ABG pO2 63.1 L ABG HCO3 21.5 ABG O2 Saturation 93.6 L ABG Base Excess -1.5 FiO2 ROOM AIR Sodium 145.2 H Potassium 3.9 Chloride 114 H Carbon Dioxide 22 Anion Gap 9 BUN 16 Creatinine 0.71 Est GFR ( Amer) > 60 Est GFR (Non-Af Amer) > 60 Glucose 136 H Calcium 7.5 L Magnesium 1.8 01/15/17 09:15 WBC RBC Hgb Hct MCV MCH MCHC RDW Plt Count Seg Neutrophils % Lymphocytes % Monocytes % Eosinophils % Basophils % Absolute Neutrophils Absolute Lymphocytes Absolute Monocytes Absolute Eosinophils Absolute Basophils Carbonic Acid HCO3/H2CO3 Ratio ABG pH ABG pCO2 ABG pO2 ABG HCO3 ABG O2 Saturation ABG Base Excess FiO2 Sodium Potassium Chloride Carbon Dioxide Anion Gap BUN Creatinine 0.66 Est GFR ( Amer) > 60 Est GFR (Non-Af Amer) > 60 Glucose Calcium Magnesium 01/11/17 19:12 Peritoneum Gram Stain - Final 01/11/17 19:12 Peritoneum Wound Culture - Final Escherichia Coli Bacteroides Fragilis Strep Constel(Viridans Strep) 01/14/17 05:10 NT-Pro-B Natriuret Pep 550 Impressions: Abdomen/Pelvis CT 01/15/17 00:00 IMPRESSION: Postoperative ileus. Small-bowel obstruction considered less likely. Follow-up is recommended. Chest X-Ray 01/15/17 06:00 IMPRESSION: Both interval removal of nasogastric tube. Improved aeration right lower lobe. Head CT 01/15/17 06:00 IMPRESSION: Technical limitations. Right parietal meningioma. No obvious significant interval change. KUB X-Ray 01/15/17 10:25 IMPRESSION: TIP OF THE NASOGASTRIC TUBE IN THE STOMACH. Assessment & Plan - Diagnosis (2) Diverticulitis Qualifiers: Diverticulitis site: large intestine Diverticulitis bleeding: without bleeding Diverticulitis complication: with perforation Qualified Code (s): K57.20 - Diverticulitis of large intestine with perforation and abscess without bleeding Is this a current diagnosis for this admission?: Yes - Plan Summary Plan Summary: Assessment: POD #4 after exploratory laparotomy, Hooks's pouch Colostomy working with stools and gas in the bag CT scan A/P shows contrast throughout the colon as per return of bowel function after surgery Plan: remove NGT advance diet to clear liquids tonight and regular diet in AM Primary service can change to oral all suitable medications
[2017-01-15] MEDS: METOPROLOL TARTRATE PF/INJ 5 MG/5 ML SDV IV PRN (20:33)
[2017-01-15 21:23] LABS: ANION GAP 7 (5-19); BLOOD UREA NITROGEN 17 mg/dL (7-20); CALCIUM 7.5 mg/dL (8.4-10.2); CARBON DIOXIDE 25 mmol/L (22-30); CHLORIDE 111 mmol/L (98-107); CREATININE RESULT 0.67 mg/dL (0.52-1.25); GLUCOSE 126 mg/dL (75-110); POTASSIUM 3.4 mmol/L (3.6-5.0); SODIUM 143.4 mmol/L (137-145)
[2017-01-15] MEDS ORDERED: ENALAPRILAT DIHYDRATE INJ/PF 2.5 MG/2 ML SDV IV ONE (21:24)
--- NOTE | 2017-01-15 21:30 | RADIOLOGY REPORT (SQ) ---
EXAM DESCRIPTION: CHEST SINGLE VIEW COMPLETED DATE/TIME: 01/15/2017 9:13 pm REASON FOR STUDY: Respiratory Distress COMPARISON: 01/15/2017 EXAM PARAMETERS: NUMBER OF VIEWS: One view. TECHNIQUE: Single frontal radiographic view of the chest acquired. RADIATION DOSE: NA LIMITATIONS: None. FINDINGS: LUNGS AND PLEURA: Parenchymal opacities predominantly upper lobe without improvement. MEDIASTINUM AND HILAR STRUCTURES: No masses. Contour normal. HEART AND VASCULAR STRUCTURES: Heart normal in size. Normal vasculature. BONES: No acute findings. HARDWARE: Nasogastric tube tip below the hemidiaphragm. Venous access catheter unchanged. OTHER: No other significant finding. IMPRESSION: Stable appearance of the parenchymal opacities. No further improvement. TECHNICAL DOCUMENTATION: JOB ID: [id number]
[2017-01-15 21:31] LABS: ARTERIAL BLOOD BASE EXCESS 4.7 mmol/L; ARTERIAL BLOOD O2 SATURATION 94.4 % (94-98)
[2017-01-15 22:56] LABS: CREATINE KINASE MB 0.6 ng/mL (<4.55); TROPONIN I 0.09 ng/mL
[2017-01-16] MEDS: METOPROLOL TARTRATE PF/INJ 5 MG/5 ML SDV IV SCH ×4 (00:14→17:30)
[2017-01-16] MEDS: METOCLOPRAMIDE HCL INJ/PF 10 MG/2 ML SDV IV SCH ×2 (00:14→06:01)
[2017-01-16] MEDS: LABETALOL HCL INJ 20 MG/4 ML DISP.SYRIN IV PRN ×2 (00:15→20:31)
[2017-01-16] MEDS: HYDRALAZINE HCL INJ/PF 20 MG/1 ML SDV IV PRN ×3 (00:15→20:33)
[2017-01-16] MEDS: POTASSI CL 20 MEQ/D5-1/2NS 1L 1,000 ML IV PRN ×2 (01:45→15:42)
[2017-01-16] MEDS: VANCOMYCIN HCL 1,000 MG in DEXTROSE 5%-WATER 250 ML IV SCH ×3 (01:47→17:30)
[2017-01-16] MEDS: IPRATROPIUM/ALBUTEROL 0.5-2.5 MG/3 ML AMPUL NEB SCH ×2 (02:07→08:34)
[2017-01-16] MEDS ORDERED: HYDROMORPHONE HCL INJ/PF 2 MG/ML AMPULE IV ONE (02:15)
[2017-01-16] MEDS: PIPERACILLIN SODIUM/TAZOBACTAM 4.5 GM in NORMAL SALINE 100 ML IV SCH ×4 (04:00→20:31)
[2017-01-16 04:32] LABS: HEMATOCRIT 31.9 % (36.0-47.0); HGB HCT DIFFERENCE 1.1; MEAN CORPUSCULAR HEMOGLOBIN 32.8 pg (27.0-33.4); MEAN CORPUSCULAR HGB CONC 34.4 g/dL (32.0-36.0); MEAN CORPUSCULAR VOLUME 95 fl (80-97); RED BLOOD COUNT 3.34 10^6/uL (3.72-5.28); RED CELL DISTRIBUTION WIDTH 13.8 % (11.5-14.0); WHITE BLOOD COUNT 14.1 10^3/uL (4.0-10.5)
[2017-01-16 04:38] LABS: ANION GAP 6 (5-19); BLOOD UREA NITROGEN 17 mg/dL (7-20); CALCIUM 7.5 mg/dL (8.4-10.2); CARBON DIOXIDE 26 mmol/L (22-30); CHLORIDE 111 mmol/L (98-107); CREATINE KINASE 160 U/L (30-135); CREATININE RESULT 0.77 mg/dL (0.52-1.25); GLUCOSE 144 mg/dL (75-110); MAGNESIUM 1.8 mg/dL (1.6-2.3); PHOSPHORUS 3.1 mg/dL (2.5-4.5); POTASSIUM 3.4 mmol/L (3.6-5.0); SODIUM 143.3 mmol/L (137-145)
[2017-01-16 04:45] LABS: PREALBUMIN 8.2 mg/dL (17.6-36.0)
[2017-01-16 04:46] LABS: CREATINE KINASE MB 0.49 ng/mL (<4.55); TROPONIN I 0.082 ng/mL
[2017-01-16 04:50] LABS: BAND NEUTROPHILS % (MANUAL) 4 % (3-5); BASOPHILS % (MANUAL) 0 % (0-2); EOSINOPHILS % (MANUAL) 1 % (0-6); LYMPHOCYTES % (MANUAL) 14 % (13-45); TOTAL CELLS COUNTED 100
[2017-01-16 04:51] LABS: RBC MORPHOLOGY COMMENT NORMO-CYTIC/CHROMIC
[2017-01-16 04:53] LABS: TOXIC GRANULATION 1+; TOXIC VACUOLATION PRESENT
[2017-01-16] MEDS: HEPARIN SOD (PORCINE) 5,000 UNIT/ML 1 ML SYRINGE SUBCUT SCH ×3 (06:01→21:31)
--- NOTE | 2017-01-16 06:39 | RADIOLOGY REPORT (SQ) ---
EXAM DESCRIPTION: CHEST SINGLE VIEW COMPLETED DATE/TIME: 01/16/2017 6:23 am REASON FOR STUDY: pna COMPARISON: Chest x-ray 01/15/2017 EXAM PARAMETERS: NUMBER OF VIEWS: One view TECHNIQUE: Single frontal radiograph of the chest. RADIATION DOSE: N/A LIMITATIONS: None. FINDINGS: TEMPORARY SUPPORT DEVICES: NG tube courses below the left gilmar-diaphragm in to the stomac h. Central venous access catheter tip is in expected location. LUNGS AND PLEURA: Persistent bilateral airspace opacities. There are small bilateral pleural effusio ns. No pneumothorax. MEDIASTINUM AND HILAR STRUCTURES: Stable. HEART AND VASCULAR STRUCTURES: The heart is upper normal limit in size. No overt vascular congestion . BONES: No acute findings. IMPRESSION: Persistent bilateral airspace opacities. Small bilateral pleural effusions. TECHNICAL DOCUMENTATION: JOB ID: [id number] [place]-[id number] 2010 [employer]- All Rights Reserved
[2017-01-16] MEDS: POTASSIUM CHLORIDE 20 MEQ/50 ML RTU IV SCH ×2 (07:46→09:05)
[2017-01-16] MEDS ORDERED: ACETAMINOPHEN 325 MG TABLET PO PRN (08:47)
--- NOTE | 2017-01-16 09:02 | PDOC PROGRESS REPORT ---
Subjective Progress Note for:: 01/16/17 Subjective:: Nursing reports the patient has had complaints of abdominal pain and elevated blood pressures overnight. Patient has been encephalopathic per nursing staff and has not been able to pass bedside swallow evaluation. Patient is very slow to answer questions for me as well and when she does has poor vocal quality. She denies pain at the time of my visit. She denies shortness of breath. Physical Exam Vital Signs: Temp Pulse Resp BP Pulse Ox 98.4 F 90 23 H 175/107 H 96 01/16/17 00:00 01/16/17 07:43 01/16/17 08:34 01/16/17 08:34 01/16/17 08:34 Intake & Output 01/15/17 01/16/17 01/17/17 06:59 06:59 06:59 Intake Total 2630 3462 Output Total 6980 3960 75 Balance -4350 -498 -75 Weight 106 kg 106.5 kg GENERAL: No acute distress, somnolent but arousable HEENT: Conjunctiva clear, nonicteric, moist mucous membranes, no JVD, midline trachea RESPIRATORY: Faint wheezes in right lung field, good air excursion CARDIAC: Regular rate and rhythm, no murmurs/gallops/rubs ABDOMEN: Soft, left lower quadrant ostomy with good output EXTREMETIES: No edema, cyanosis, clubbing NEUROLOGIC: Oriented to person only, CN's grossly intact, no focal deficits SKIN: midline abdominal incision with some beth intact and some removed with partial wound dehiscence Results Laboratory Results: 01/16/17 04:05 01/16/17 04:05 01/15/17 01/15/17 01/15/17 09:15 20:53 21:01 WBC RBC Hgb Hct MCV MCH MCHC RDW Plt Count Seg Neutrophils % Lymphocytes % Monocytes % Eosinophils % Basophils % Absolute Neutrophils Absolute Lymphocytes Absolute Monocytes Absolute Eosinophils Absolute Basophils Carbonic Acid 1.01 L HCO3/H2CO3 Ratio 26:1 ABG pH 7.53 H ABG pCO2 33.5 L ABG pO2 63.0 L ABG HCO3 27.2 H ABG O2 Saturation 94.4 ABG Base Excess 4.7 FiO2 ROOM AIR Sodium 143.4 Potassium 3.4 L Chloride 111 H Carbon Dioxide 25 Anion Gap 7 BUN 17 Creatinine 0.66 0.67 Est GFR ( Amer) > 60 > 60 Est GFR (Non-Af Amer) > 60 > 60 Glucose 126 H Calcium 7.5 L Phosphorus Magnesium Ammonia Prealbumin 01/16/17 01/16/17 01/16/17 04:05 04:05 04:05 WBC 14.1 H RBC 3.34 L Hgb 11.0 L Hct 31.9 L MCV 95 MCH 32.8 MCHC 34.4 RDW 13.8 Plt Count 385 Seg Neutrophils % Not Reportable Lymphocytes % Not Reportable Monocytes % Not Reportable Eosinophils % Not Reportable Basophils % Not Reportable Absolute Neutrophils Not Reportable Absolute Lymphocytes Not Reportable Absolute Monocytes Not Reportable Absolute Eosinophils Not Reportable Absolute Basophils Not Reportable Carbonic Acid HCO3/H2CO3 Ratio ABG pH ABG pCO2 ABG pO2 ABG HCO3 ABG O2 Saturation ABG Base Excess FiO2 Sodium 143.3 Potassium 3.4 L Chloride 111 H Carbon Dioxide 26 Anion Gap 6 BUN 17 Creatinine 0.77 Est GFR ( Amer) > 60 Est GFR (Non-Af Amer) > 60 Glucose 144 H Calcium 7.5 L Phosphorus 3.1 Magnesium 1.8 Ammonia 11.2 Prealbumin 8.2 L 01/11/17 19:12 Peritoneum Gram Stain - Final 01/11/17 19:12 Peritoneum Wound Culture - Final Escherichia Coli Bacteroides Fragilis Strep Constel(Viridans Strep) 01/14/17 01/15/17 01/15/17 05:10 22:07 22:07 Creatine Kinase 171 H CK-MB (CK-2) 0.60 Troponin I 0.090 NT-Pro-B Natriuret Pep 550 01/16/17 01/16/17 04:05 04:05 Creatine Kinase 160 H CK-MB (CK-2) 0.49 Troponin I 0.082 NT-Pro-B Natriuret Pep 4470 H Impressions: Abdomen/Pelvis CT 01/15/17 00:00 IMPRESSION: Postoperative ileus. Small-bowel obstruction considered less likely. Follow-up is recommended. Head CT 01/15/17 06:00 IMPRESSION: Technical limitations. Right parietal meningioma. No obvious significant interval change. KUB X-Ray 01/15/17 10:25 IMPRESSION: TIP OF THE NASOGASTRIC TUBE IN THE STOMACH. Chest X-Ray 01/16/17 06:00 IMPRESSION: Persistent bilateral airspace opacities. Small bilateral pleural effusions. Assessment & Plan - Diagnosis (1) Septic shock Is this a current diagnosis for this admission?: YesPlan: Blood pressure stable off pressors. Afebrile. Persistent mild leukocytosis. Continue empiric IV Zosyn and IV vancomycin. (2) Pneumonia Qualifiers: Laterality: bilateral Is this a current diagnosis for this admission?: YesPlan: Likely bacterial. High probability of gram-negative organism. Continue IV Zosyn and IV vancomycin. Sputum culture not obtained. (3) Diverticulosis large intestine w/o perforation or abscess w/o bleeding Is this a current diagnosis for this admission?: YesPlan: Status post exploratory laparotomy with sigmoid colon resection and end colostomy on 01/11/2017. Surgery managing. Clear liquid diet ordered yesterday however patient has not been able to pass swallow evaluation. Continue IV fluids. (4) Hypertension Is this a current diagnosis for this admission?: YesPlan: Continue scheduled IV Lopressor. As needed IV hydralazine and as needed IV labetalol. Resume outpatient medications once patient able to take oral intake (5) Alcoholism /alcohol abuse Is this a current diagnosis for this admission?: YesPlan: Patient is out of acute alcohol withdrawal at this time. Start IV thiamine given encephalopathy. (6) Encephalopathy acute Is this a current diagnosis for this admission?: YesPlan: Start IV thiamine. Speech therapy to evaluate prior to initiating oral intake. Minimize neuroactive medications (discontinue Benadryl, ipratropium, Haldol. Decrease Ativan to 1 mg every 4 hours as needed). N.p.o. for now. IV fluids. (7) Hypokalemia Is this a current diagnosis for this admission?: YesPlan: Replace as needed. (8) Volume overload Qualifiers: Hypervolemia type: other Qualified Code(s): E87.79 - Other fluid overload Is this a current diagnosis for this admission?: YesPlan: Patient now euvolemic. (9) Generalized weakness Is this a current diagnosis for this admission?: YesPlan: Likely secondary to acute illness. Head CT negative for acute process. Physical therapy to evaluate. Patient will likely need rehab. (10) Respiratory failure Is this a current diagnosis for this admission?: YesPlan: Now stable on nasal cannula oxygen. Wean off as tolerated. (11) COPD (chronic obstructive pulmonary disease) Is this a current diagnosis for this admission?: YesPlan: Continue Symbicort. Scheduled and as needed albuterol. - Time Time Spent with patient: 35 or more minutes Anticipated discharge: Acute Rehab
[2017-01-16] MEDS: BUDESONIDE/FORMOTEROL 160-4.5 MCG 60 PUFF/6 GM MDI IH SCH ×2 (09:07→21:32)
[2017-01-16] MEDS: THIAMINE HCL 100 MG in NORMAL SALINE 50 ML IV SCH (10:40)
[2017-01-16 11:00] LABS: CREATINE KINASE MB 1.45 ng/mL (<4.55); TROPONIN I 0.043 ng/mL
[2017-01-16] MEDS: KETOROLAC TROMETHAMINE INJ/PF 30 MG/1 ML SDV IV PRN ×2 (11:11→20:32)
[2017-01-16] MEDS ORDERED: AMLODIPINE BESYLATE 5 MG TABLET PO ONE (12:00)
[2017-01-16] MEDS: ALBUTEROL SULFATE 0.083% NEB 2.5 MG/3 ML AMPUL NEB PRN (12:10)
[2017-01-16] MEDS: ALBUTEROL SULFATE 0.083% NEB 2.5 MG/3 ML AMPUL NEB SCH ×2 (14:18→20:14)
[2017-01-16] MEDS: HYDROMORPHONE HCL INJ/PF 2 MG/ML AMPULE IV PRN ×3 (14:27→21:32)
--- NOTE | 2017-01-16 19:14 | PDOC PROGRESS REPORT ---
Subjective Progress Note for:: 01/16/17 Subjective:: Patient is awake, less confused, responsive Physical Exam Vital Signs: Temp Pulse Resp BP Pulse Ox 98.2 F 108 H 20 175/99 H 93 01/16/17 16:00 01/16/17 14:18 01/16/17 18:00 01/16/17 17:34 01/16/17 18:00 Intake & Output 01/15/17 01/16/17 01/17/17 06:59 06:59 06:59 Intake Total 2630 3462 1623 Output Total 6912 3960 1215 Balance -4350 -798 408 Weight 106 kg 106.5 kg GI/Abdominal exam: PRESENT: normal bowel sounds, soft, other - wound clean, packing present in between beth; colostomy pink, working with stools in the colostomy bag Results Laboratory Results: 01/16/17 04:05 01/16/17 04:05 01/15/17 01/15/17 01/15/17 05:15 20:53 21:01 WBC 10.2 RBC 3.43 L Hgb 11.2 L Hct 32.8 L MCV 96 MCH 32.6 MCHC 34.0 RDW 13.6 Plt Count 353 Seg Neutrophils % Lymphocytes % Monocytes % Eosinophils % Basophils % Absolute Neutrophils Absolute Lymphocytes Absolute Monocytes Absolute Eosinophils Absolute Basophils Carbonic Acid 1.01 L HCO3/H2CO3 Ratio 26:1 ABG pH 7.53 H ABG pCO2 33.5 L ABG pO2 63.0 L ABG HCO3 27.2 H ABG O2 Saturation 94.4 ABG Base Excess 4.7 FiO2 ROOM AIR Sodium 143.4 Potassium 3.4 L Chloride 111 H Carbon Dioxide 25 Anion Gap 7 BUN 17 Creatinine 0.67 Est GFR ( Amer) > 60 Est GFR (Non-Af Amer) > 60 Glucose 126 H Calcium 7.5 L Phosphorus Magnesium Ammonia Prealbumin 01/16/17 01/16/17 01/16/17 04:05 04:05 04:05 WBC 14.1 H RBC 3.34 L Hgb 11.0 L Hct 31.9 L MCV 95 MCH 32.8 MCHC 34.4 RDW 13.8 Plt Count 385 Seg Neutrophils % Not Reportable Lymphocytes % Not Reportable Monocytes % Not Reportable Eosinophils % Not Reportable Basophils % Not Reportable Absolute Neutrophils Not Reportable Absolute Lymphocytes Not Reportable Absolute Monocytes Not Reportable Absolute Eosinophils Not Reportable Absolute Basophils Not Reportable Carbonic Acid HCO3/H2CO3 Ratio ABG pH ABG pCO2 ABG pO2 ABG HCO3 ABG O2 Saturation ABG Base Excess FiO2 Sodium 143.3 Potassium 3.4 L Chloride 111 H Carbon Dioxide 26 Anion Gap 6 BUN 17 Creatinine 0.77 Est GFR ( Amer) > 60 Est GFR (Non-Af Amer) > 60 Glucose 144 H Calcium 7.5 L Phosphorus 3.1 Magnesium 1.8 Ammonia 11.2 Prealbumin 8.2 L 01/14/17 01/15/17 01/15/17 05:10 22:07 22:07 Creatine Kinase 171 H CK-MB (CK-2) 0.60 Troponin I 0.090 NT-Pro-B Natriuret Pep 550 01/16/17 01/16/17 01/16/17 04:05 04:05 10:10 Creatine Kinase 160 H 277 H CK-MB (CK-2) 0.49 Troponin I 0.082 NT-Pro-B Natriuret Pep 4470 H 01/16/17 10:10 Creatine Kinase CK-MB (CK-2) 1.45 Troponin I 0.043 NT-Pro-B Natriuret Pep Impressions: Abdomen/Pelvis CT 01/15/17 00:00 IMPRESSION: Postoperative ileus. Small-bowel obstruction considered less likely. Follow-up is recommended. Head CT 01/15/17 06:00 IMPRESSION: Technical limitations. Right parietal meningioma. No obvious significant interval change. KUB X-Ray 01/15/17 10:25 IMPRESSION: TIP OF THE NASOGASTRIC TUBE IN THE STOMACH. Chest X-Ray 01/16/17 06:00 IMPRESSION: Persistent bilateral airspace opacities. Small bilateral pleural effusions. Assessment & Plan - Diagnosis (2) Diverticulitis Qualifiers: Diverticulitis site: large intestine Diverticulitis bleeding: without bleeding Diverticulitis complication: with perforation Qualified Code (s): K57.20 - Diverticulitis of large intestine with perforation and abscess without bleeding Is this a current diagnosis for this admission?: Yes - Plan Summary Plan Summary: A/ POD#5 after sigmoidectomy, colostomy for perforated sigmoid diverticulitis Mental status improved Patient has passed the swallowing test Abdomen soft, colostomy working P/ No General Surgery issues identified Advance diet as tolerated by our viewpoint wet-to-dry dressing changes of abdominal wound
[2017-01-17] MEDS: METOPROLOL TARTRATE PF/INJ 5 MG/5 ML SDV IV SCH ×2 (00:43→06:06)
[2017-01-17] MEDS: VANCOMYCIN HCL 1,000 MG in DEXTROSE 5%-WATER 250 ML IV SCH ×3 (01:41→17:13)
[2017-01-17] MEDS: HYDROMORPHONE HCL INJ/PF 2 MG/ML AMPULE IV PRN ×6 (01:41→23:38)
[2017-01-17] MEDS: PIPERACILLIN SODIUM/TAZOBACTAM 4.5 GM in NORMAL SALINE 100 ML IV SCH ×2 (03:22→08:44)
[2017-01-17] MEDS: POTASSI CL 20 MEQ/D5-1/2NS 1L 1,000 ML IV PRN (03:22)
[2017-01-17 04:47] LABS: HEMATOCRIT 32.1 % (36.0-47.0); HEMOGLOBIN 10.7 g/dL (12.0-15.5); MEAN CORPUSCULAR HEMOGLOBIN 31.7 pg (27.0-33.4); MEAN CORPUSCULAR HGB CONC 33.2 g/dL (32.0-36.0); MEAN CORPUSCULAR VOLUME 96 fl (80-97); RED BLOOD COUNT 3.36 10^6/uL (3.72-5.28); RED CELL DISTRIBUTION WIDTH 13.8 % (11.5-14.0); WHITE BLOOD COUNT 15.5 10^3/uL (4.0-10.5)
[2017-01-17 05:07] LABS: ANION GAP 7 (5-19); BLOOD UREA NITROGEN 14 mg/dL (7-20); CALCIUM 7.6 mg/dL (8.4-10.2); CARBON DIOXIDE 25 mmol/L (22-30); CHLORIDE 108 mmol/L (98-107); CREATININE RESULT 0.67 mg/dL (0.52-1.25); GLUCOSE 120 mg/dL (75-110); MAGNESIUM 1.6 mg/dL (1.6-2.3); POTASSIUM 3.7 mmol/L (3.6-5.0); SODIUM 139.5 mmol/L (137-145)
[2017-01-17 05:08] LABS: BAND NEUTROPHILS % (MANUAL) 4 % (3-5); BASOPHILS % (MANUAL) 0 % (0-2); EOSINOPHILS % (MANUAL) 3 % (0-6); LYMPHOCYTES % (MANUAL) 12 % (13-45); TOTAL CELLS COUNTED 100
[2017-01-17 05:09] LABS: RBC MORPHOLOGY COMMENT NORMO-CYTIC/CHROMIC; TOXIC GRANULATION 1+; TOXIC VACUOLATION PRESENT
[2017-01-17 05:25] LABS: ARTERIAL BLOOD BASE EXCESS 2.8 mmol/L; ARTERIAL BLOOD O2 SATURATION 96.5 % (94-98)
[2017-01-17] MEDS: HEPARIN SOD (PORCINE) 5,000 UNIT/ML 1 ML SYRINGE SUBCUT SCH ×3 (06:05→22:03)
--- NOTE | 2017-01-17 06:51 | RADIOLOGY REPORT (SQ) ---
EXAM DESCRIPTION: CHEST SINGLE VIEW COMPLETED DATE/TIME: 01/17/2017 4:45 am REASON FOR STUDY: pna COMPARISON: 01/16/2017. EXAM PARAMETERS: NUMBER OF VIEWS: One view. TECHNIQUE: Single frontal radiographic view of the chest acquired. RADIATION DOSE: NA LIMITATIONS: None. FINDINGS: LUNGS AND PLEURA: Moderate mixed interstitial and airspace opacities of both lung rhoades, left more than right with upper lobe predominance. MEDIASTINUM AND HILAR STRUCTURES: No masses. Contour normal. HEART AND VASCULAR STRUCTURES: Heart normal in size. Normal vasculature. BONES: No acute findings. HARDWARE: Left subclavian central line tip at the cavoatrial junction. OTHER: No other significant finding. IMPRESSION: No significant interval change. TECHNICAL DOCUMENTATION: JOB ID: [id number]
[2017-01-17] MEDS ORDERED: POTASSI CL 20 MEQ/D5-1/2NS 1L 1,000 ML IV PRN (08:26)
--- NOTE | 2017-01-17 08:32 | PDOC PROGRESS REPORT ---
Subjective Progress Note for:: 01/17/17 Subjective:: Patient is more alert and responsive today. She is oriented to person and place but not year. She has chronic back pain and has had prior back surgeries. Her blood pressure remains elevated. She denies abdominal pain. She has had low-grade fevers. Physical Exam Vital Signs: Temp Pulse Resp BP Pulse Ox 98.1 F 91 22 H 174/104 H 95 01/17/17 04:00 01/17/17 07:41 01/17/17 07:35 01/17/17 07:35 01/17/17 07:35 Intake & Output 01/16/17 01/17/17 01/18/17 06:59 06:59 06:59 Intake Total 3462 3358 Output Total 3960 1775 Balance -498 1583 Weight 106.5 kg 107.2 kg GENERAL: No acute distress, somnolent but arousable HEENT: Conjunctiva clear, nonicteric, moist mucous membranes, no JVD, midline trachea RESPIRATORY: Faint wheezes in right lung field, good air excursion CARDIAC: Regular rate and rhythm, no murmurs/gallops/rubs ABDOMEN: Soft, left lower quadrant ostomy with good output EXTREMETIES: No edema, cyanosis, clubbing NEUROLOGIC: Oriented to person and place only, CN's grossly intact, no focal deficits SKIN: midline abdominal incision with some beth intact and some removed with partial wound dehiscence Results Laboratory Results: 01/17/17 04:30 01/17/17 04:30 01/15/17 01/17/17 01/17/17 05:15 04:30 04:30 WBC 10.2 15.5 H RBC 3.43 L 3.36 L Hgb 11.2 L 10.7 L Hct 32.8 L 32.1 L MCV 96 96 MCH 32.6 31.7 MCHC 34.0 33.2 RDW 13.6 13.8 Plt Count 353 362 Seg Neutrophils % Not Reportable Lymphocytes % Not Reportable Monocytes % Not Reportable Eosinophils % Not Reportable Basophils % Not Reportable Absolute Neutrophils Not Reportable Absolute Lymphocytes Not Reportable Absolute Monocytes Not Reportable Absolute Eosinophils Not Reportable Absolute Basophils Not Reportable Carbonic Acid HCO3/H2CO3 Ratio ABG pH ABG pCO2 ABG pO2 ABG HCO3 ABG O2 Saturation ABG Base Excess FiO2 Sodium 139.5 Potassium 3.7 Chloride 108 H Carbon Dioxide 25 Anion Gap 7 BUN 14 Creatinine 0.67 Est GFR ( Amer) > 60 Est GFR (Non-Af Amer) > 60 Glucose 120 H Calcium 7.6 L Magnesium 1.6 01/17/17 05:15 WBC RBC Hgb Hct MCV MCH MCHC RDW Plt Count Seg Neutrophils % Lymphocytes % Monocytes % Eosinophils % Basophils % Absolute Neutrophils Absolute Lymphocytes Absolute Monocytes Absolute Eosinophils Absolute Basophils Carbonic Acid 1.24 HCO3/H2CO3 Ratio 21:1 ABG pH 7.44 ABG pCO2 41.1 ABG pO2 83.1 ABG HCO3 27.2 H ABG O2 Saturation 96.5 ABG Base Excess 2.8 FiO2 4LNC Sodium Potassium Chloride Carbon Dioxide Anion Gap BUN Creatinine Est GFR ( Amer) Est GFR (Non-Af Amer) Glucose Calcium Magnesium 01/14/17 01/15/17 01/15/17 05:10 22:07 22:07 Creatine Kinase 171 H CK-MB (CK-2) 0.60 Troponin I 0.090 NT-Pro-B Natriuret Pep 550 01/16/17 01/16/17 01/16/17 04:05 04:05 10:10 Creatine Kinase 160 H 277 H CK-MB (CK-2) 0.49 Troponin I 0.082 NT-Pro-B Natriuret Pep 4470 H 01/16/17 10:10 Creatine Kinase CK-MB (CK-2) 1.45 Troponin I 0.043 NT-Pro-B Natriuret Pep Impressions: Abdomen/Pelvis CT 01/15/17 00:00 IMPRESSION: Postoperative ileus. Small-bowel obstruction considered less likely. Follow-up is recommended. Head CT 01/15/17 06:00 IMPRESSION: Technical limitations. Right parietal meningioma. No obvious significant interval change. KUB X-Ray 01/15/17 10:25 IMPRESSION: TIP OF THE NASOGASTRIC TUBE IN THE STOMACH. Chest X-Ray 01/17/17 06:00 IMPRESSION: No significant interval change. Assessment & Plan - Diagnosis (1) Septic shock Is this a current diagnosis for this admission?: YesPlan: Blood pressure stable off pressors. White blood count increasing. Low-grade fevers. Continue empiric IV Zosyn and IV vancomycin. Start IV Levaquin for atypical coverage of bilateral pneumonia. (2) Pneumonia Qualifiers: Laterality: bilateral Is this a current diagnosis for this admission?: YesPlan: Likely bacterial. High probability of gram-negative organism. Continue IV Zosyn and IV vancomycin. And IV Levaquin. Check Legionella antigen. Sputum culture not obtained. (3) Diverticulosis large intestine w/o perforation or abscess w/o bleeding Is this a current diagnosis for this admission?: YesPlan: Status post exploratory laparotomy with sigmoid colon resection and end colostomy on 01/11/2017. Surgery managing. Liquid diet. Decrease IV fluids. (4) Hypertension Is this a current diagnosis for this admission?: YesPlan: As needed IV hydralazine and as needed IV labetalol. Restarted outpatient doses of Norvasc 5 mg daily and lisinopril 40 mg daily. Pain contributing. (5) Alcoholism /alcohol abuse Is this a current diagnosis for this admission?: YesPlan: Patient is out of acute alcohol withdrawal at this time. Continue IV thiamine given encephalopathy. (6) Encephalopathy acute Is this a current diagnosis for this admission?: YesPlan: Improved. Continue IV thiamine. Minimize neuroactive medications ( discontinued Benadryl, ipratropium, Haldol. Decreased Ativan to 1 mg every 4 hours as needed). (7) Hypokalemia Is this a current diagnosis for this admission?: Yes (8) Volume overload Qualifiers: Hypervolemia type: other Qualified Code(s): E87.79 - Other fluid overload Is this a current diagnosis for this admission?: Yes (9) Generalized weakness Is this a current diagnosis for this admission?: YesPlan: Likely secondary to acute illness. Head CT negative for acute process. Physical therapy to evaluate. Patient will likely need rehab. (10) Respiratory failure Is this a current diagnosis for this admission?: YesPlan: Now stable on nasal cannula oxygen. Wean off as tolerated. (11) COPD (chronic obstructive pulmonary disease) Is this a current diagnosis for this admission?: YesPlan: Continue Symbicort. Scheduled and as needed albuterol. - Time Time Spent with patient: 35 or more minutes Anticipated discharge: Acute Rehab
[2017-01-17] MEDS: ALBUTEROL SULFATE 0.083% NEB 2.5 MG/3 ML AMPUL NEB SCH ×3 (08:37→20:42)
[2017-01-17] MEDS: LABETALOL HCL INJ 20 MG/4 ML DISP.SYRIN IV PRN ×2 (08:43→18:11)
[2017-01-17] MEDS ORDERED: AMLODIPINE BESYLATE 5 MG TABLET PO SCH (10:00)
[2017-01-17] MEDS ORDERED: LISINOPRIL 10 MG TABLET PO SCH (10:00)
[2017-01-17] MEDS: THIAMINE HCL 100 MG in NORMAL SALINE 50 ML IV SCH (10:07)
[2017-01-17] MEDS: LEVOFLOXACIN 750 MG/D5W RTU 750 MG/150 ML RTUPB IV SCH (10:07)
[2017-01-17] MEDS: BUDESONIDE/FORMOTEROL 160-4.5 MCG 60 PUFF/6 GM MDI IH SCH ×2 (10:09→22:04)
--- NOTE | 2017-01-17 15:51 | PDOC PROGRESS REPORT ---
Subjective Progress Note for:: 01/17/17 Subjective:: Patient is awake, better responsive, denies appetite or abdominal pain Physical Exam Vital Signs: Temp Pulse Resp BP Pulse Ox 98.3 F 118 H 22 H 143/82 H 99 01/17/17 12:00 01/17/17 13:44 01/17/17 13:44 01/17/17 12:00 01/17/17 12:00 Intake & Output 01/16/17 01/17/17 01/18/17 06:59 06:59 06:59 Intake Total 3462 3358 Output Total 3960 1775 225 Balance -498 1583 -225 Weight 106.5 kg 107.2 kg Respiratory exam: PRESENT: clear to auscultation elvira Cardiovascular exam: PRESENT: RRR GI/Abdominal exam: PRESENT: normal bowel sounds, soft, other - wound clean, granulating Results Laboratory Results: 01/17/17 04:30 01/17/17 04:30 01/17/17 01/17/17 01/17/17 04:30 04:30 05:15 WBC 15.5 H RBC 3.36 L Hgb 10.7 L Hct 32.1 L MCV 96 MCH 31.7 MCHC 33.2 RDW 13.8 Plt Count 362 Seg Neutrophils % Not Reportable Lymphocytes % Not Reportable Monocytes % Not Reportable Eosinophils % Not Reportable Basophils % Not Reportable Absolute Neutrophils Not Reportable Absolute Lymphocytes Not Reportable Absolute Monocytes Not Reportable Absolute Eosinophils Not Reportable Absolute Basophils Not Reportable Carbonic Acid 1.24 HCO3/H2CO3 Ratio 21:1 ABG pH 7.44 ABG pCO2 41.1 ABG pO2 83.1 ABG HCO3 27.2 H ABG O2 Saturation 96.5 ABG Base Excess 2.8 FiO2 4LNC Sodium 139.5 Potassium 3.7 Chloride 108 H Carbon Dioxide 25 Anion Gap 7 BUN 14 Creatinine 0.67 Est GFR ( Amer) > 60 Est GFR (Non-Af Amer) > 60 Glucose 120 H Calcium 7.6 L Magnesium 1.6 01/14/17 01/15/17 01/15/17 05:10 22:07 22:07 Creatine Kinase 171 H CK-MB (CK-2) 0.60 Troponin I 0.090 NT-Pro-B Natriuret Pep 550 01/16/17 01/16/17 01/16/17 04:05 04:05 10:10 Creatine Kinase 160 H 277 H CK-MB (CK-2) 0.49 Troponin I 0.082 NT-Pro-B Natriuret Pep 4470 H 01/16/17 10:10 Creatine Kinase CK-MB (CK-2) 1.45 Troponin I 0.043 NT-Pro-B Natriuret Pep Impressions: Abdomen/Pelvis CT 01/15/17 00:00 IMPRESSION: Postoperative ileus. Small-bowel obstruction considered less likely. Follow-up is recommended. Head CT 01/15/17 06:00 IMPRESSION: Technical limitations. Right parietal meningioma. No obvious significant interval change. KUB X-Ray 01/15/17 10:25 IMPRESSION: TIP OF THE NASOGASTRIC TUBE IN THE STOMACH. Chest X-Ray 01/17/17 06:00 IMPRESSION: No significant interval change. Assessment & Plan - Diagnosis (2) Diverticulitis Qualifiers: Diverticulitis site: large intestine Diverticulitis bleeding: without bleeding Diverticulitis complication: with perforation Qualified Code (s): K57.20 - Diverticulitis of large intestine with perforation and abscess without bleeding Is this a current diagnosis for this admission?: Yes - Plan Summary Plan Summary: A/ s/p colostomy and sigmoidectomy for perforated diverticulitis, POD #6 improved mental status Poor appetite Abdominal wound clean P/ No General Surgery issues identified. CPM
[2017-01-17] MEDS: HYDRALAZINE HCL INJ/PF 20 MG/1 ML SDV IV PRN (17:13)
[2017-01-17] MEDS: KETOROLAC TROMETHAMINE INJ/PF 30 MG/1 ML SDV IV PRN (17:15)
[2017-01-17] MEDS: ALBUTEROL SULFATE 0.083% NEB 2.5 MG/3 ML AMPUL NEB PRN (17:35)
--- NOTE | 2017-01-17 18:18 | PDOC PROGRESS REPORT ---
Subjective Progress Note for:: 01/16/17 Subjective:: Lethargic Physical Exam Vital Signs: Temp Pulse Resp BP Pulse Ox 98.4 F 90 19 125/83 98 01/16/17 00:00 01/16/17 07:43 01/16/17 06:04 01/16/17 06:04 01/16/17 06:04 Intake & Output 01/15/17 01/16/17 01/17/17 06:59 06:59 06:59 Intake Total 2630 3462 Output Total 6909 3960 Balance -4350 -498 Weight 106 kg 106.5 kg General appearance: PRESENT: disheveled, mild distress, morbidly obese, well- developed Head exam: PRESENT: atraumatic, normocephalic Eye exam: PRESENT: conjunctiva pale, EOMI Mouth exam: PRESENT: dry mucosa, neck supple Neck exam: ABSENT: carotid bruit, JVD, lymphadenopathy, thyromegaly Respiratory exam: PRESENT: decreased breath sounds, prolonged expiratory phas, rales, rhonchi, symmetrical, unlabored Cardiovascular exam: PRESENT: RRR, +S1, +S2 Pulses: PRESENT: normal radial pulses GI/Abdominal exam: PRESENT: normal bowel sounds, soft. ABSENT: distended, guarding, mass, organolmegaly, rebound, tenderness Rectal exam: PRESENT: deferred Gentrourinary exam: PRESENT: indwelling catheter Extremities exam: PRESENT: +1 edema Skin exam: PRESENT: dry, warm, other - Absent index finger left hand Results Laboratory Results: 01/16/17 04:05 01/16/17 04:05 01/15/17 01/15/17 01/15/17 09:15 20:53 21:01 WBC RBC Hgb Hct MCV MCH MCHC RDW Plt Count Seg Neutrophils % Lymphocytes % Monocytes % Eosinophils % Basophils % Absolute Neutrophils Absolute Lymphocytes Absolute Monocytes Absolute Eosinophils Absolute Basophils Carbonic Acid 1.01 L HCO3/H2CO3 Ratio 26:1 ABG pH 7.53 H ABG pCO2 33.5 L ABG pO2 63.0 L ABG HCO3 27.2 H ABG O2 Saturation 94.4 ABG Base Excess 4.7 FiO2 ROOM AIR Sodium 143.4 Potassium 3.4 L Chloride 111 H Carbon Dioxide 25 Anion Gap 7 BUN 17 Creatinine 0.66 0.67 Est GFR ( Amer) > 60 > 60 Est GFR (Non-Af Amer) > 60 > 60 Glucose 126 H Calcium 7.5 L Phosphorus Magnesium Ammonia Prealbumin 01/16/17 01/16/17 01/16/17 04:05 04:05 04:05 WBC 14.1 H RBC 3.34 L Hgb 11.0 L Hct 31.9 L MCV 95 MCH 32.8 MCHC 34.4 RDW 13.8 Plt Count 385 Seg Neutrophils % Not Reportable Lymphocytes % Not Reportable Monocytes % Not Reportable Eosinophils % Not Reportable Basophils % Not Reportable Absolute Neutrophils Not Reportable Absolute Lymphocytes Not Reportable Absolute Monocytes Not Reportable Absolute Eosinophils Not Reportable Absolute Basophils Not Reportable Carbonic Acid HCO3/H2CO3 Ratio ABG pH ABG pCO2 ABG pO2 ABG HCO3 ABG O2 Saturation ABG Base Excess FiO2 Sodium 143.3 Potassium 3.4 L Chloride 111 H Carbon Dioxide 26 Anion Gap 6 BUN 17 Creatinine 0.77 Est GFR ( Amer) > 60 Est GFR (Non-Af Amer) > 60 Glucose 144 H Calcium 7.5 L Phosphorus 3.1 Magnesium 1.8 Ammonia 11.2 Prealbumin 8.2 L 01/11/17 19:12 Peritoneum Gram Stain - Final 01/11/17 19:12 Peritoneum Wound Culture - Final Escherichia Coli Bacteroides Fragilis Strep Constel(Viridans Strep) 01/14/17 01/15/17 01/15/17 05:10 22:07 22:07 Creatine Kinase 171 H CK-MB (CK-2) 0.60 Troponin I 0.090 NT-Pro-B Natriuret Pep 550 01/16/17 01/16/17 04:05 04:05 Creatine Kinase 160 H CK-MB (CK-2) 0.49 Troponin I 0.082 NT-Pro-B Natriuret Pep 4470 H Impressions: Abdomen/Pelvis CT 01/15/17 00:00 IMPRESSION: Postoperative ileus. Small-bowel obstruction considered less likely. Follow-up is recommended. Head CT 01/15/17 06:00 IMPRESSION: Technical limitations. Right parietal meningioma. No obvious significant interval change. KUB X-Ray 01/15/17 10:25 IMPRESSION: TIP OF THE NASOGASTRIC TUBE IN THE STOMACH. Chest X-Ray 01/16/17 06:00 IMPRESSION: Persistent bilateral airspace opacities. Small bilateral pleural effusions. Assessment & Plan - Diagnosis (1) Alcoholism /alcohol abuse Is this a current diagnosis for this admission?: Yes (2) Diverticulosis large intestine w/o perforation or abscess w/o bleeding Is this a current diagnosis for this admission?: Yes (3) Obesity (BMI 30.0-34.9) Is this a current diagnosis for this admission?: Yes (4) Sepsis Qualifiers: Sepsis type: Escherichia coli Qualified Code(s): A41.51 - Sepsis due to Escherichia coli [E. coli] Is this a current diagnosis for this admission?: No (5) Tobacco abuse Is this a current diagnosis for this admission?: Yes (6) Septic shock Is this a current diagnosis for this admission?: No - Time Critical Time spent with patient: 25-34 minutes
--- NOTE | 2017-01-17 18:20 | PDOC PROGRESS REPORT ---
Subjective Progress Note for:: 01/17/17 Subjective:: Unchanged,Lethargic Physical Exam Vital Signs: Temp Pulse Resp BP Pulse Ox 98.1 F 91 22 H 174/104 H 95 01/17/17 04:00 01/17/17 07:41 01/17/17 07:35 01/17/17 07:35 01/17/17 07:35 Intake & Output 01/16/17 01/17/17 01/18/17 06:59 06:59 06:59 Intake Total 3462 3358 Output Total 3960 1775 Balance -498 1583 Weight 106.5 kg 107.2 kg General appearance: PRESENT: no acute distress, disheveled, morbidly obese, well -developed Head exam: PRESENT: atraumatic, normocephalic Eye exam: PRESENT: conjunctiva pale, EOMI Mouth exam: PRESENT: dry mucosa, neck supple, tongue midline Neck exam: ABSENT: carotid bruit, JVD, lymphadenopathy, thyromegaly Respiratory exam: PRESENT: decreased breath sounds, prolonged expiratory phas, rales, rhonchi, symmetrical, unlabored Cardiovascular exam: PRESENT: RRR, +S1, +S2 Pulses: PRESENT: normal radial pulses GI/Abdominal exam: PRESENT: normal bowel sounds, soft. ABSENT: distended, guarding, mass, organolmegaly, rebound, tenderness Rectal exam: PRESENT: deferred Gentrourinary exam: PRESENT: indwelling catheter Extremities exam: PRESENT: +1 edema Neurological exam: PRESENT: awake Skin exam: PRESENT: dry, warm, other - Absent index finger left hand Results Laboratory Results: 01/17/17 04:30 01/17/17 04:30 01/15/17 01/17/17 01/17/17 05:15 04:30 04:30 WBC 10.2 15.5 H RBC 3.43 L 3.36 L Hgb 11.2 L 10.7 L Hct 32.8 L 32.1 L MCV 96 96 MCH 32.6 31.7 MCHC 34.0 33.2 RDW 13.6 13.8 Plt Count 353 362 Seg Neutrophils % Not Reportable Lymphocytes % Not Reportable Monocytes % Not Reportable Eosinophils % Not Reportable Basophils % Not Reportable Absolute Neutrophils Not Reportable Absolute Lymphocytes Not Reportable Absolute Monocytes Not Reportable Absolute Eosinophils Not Reportable Absolute Basophils Not Reportable Carbonic Acid HCO3/H2CO3 Ratio ABG pH ABG pCO2 ABG pO2 ABG HCO3 ABG O2 Saturation ABG Base Excess FiO2 Sodium 139.5 Potassium 3.7 Chloride 108 H Carbon Dioxide 25 Anion Gap 7 BUN 14 Creatinine 0.67 Est GFR ( Amer) > 60 Est GFR (Non-Af Amer) > 60 Glucose 120 H Calcium 7.6 L Magnesium 1.6 01/17/17 05:15 WBC RBC Hgb Hct MCV MCH MCHC RDW Plt Count Seg Neutrophils % Lymphocytes % Monocytes % Eosinophils % Basophils % Absolute Neutrophils Absolute Lymphocytes Absolute Monocytes Absolute Eosinophils Absolute Basophils Carbonic Acid 1.24 HCO3/H2CO3 Ratio 21:1 ABG pH 7.44 ABG pCO2 41.1 ABG pO2 83.1 ABG HCO3 27.2 H ABG O2 Saturation 96.5 ABG Base Excess 2.8 FiO2 4LNC Sodium Potassium Chloride Carbon Dioxide Anion Gap BUN Creatinine Est GFR ( Amer) Est GFR (Non-Af Amer) Glucose Calcium Magnesium 01/14/17 01/15/17 01/15/17 05:10 22:07 22:07 Creatine Kinase 171 H CK-MB (CK-2) 0.60 Troponin I 0.090 NT-Pro-B Natriuret Pep 550 01/16/17 01/16/17 01/16/17 04:05 04:05 10:10 Creatine Kinase 160 H 277 H CK-MB (CK-2) 0.49 Troponin I 0.082 NT-Pro-B Natriuret Pep 4470 H 01/16/17 10:10 Creatine Kinase CK-MB (CK-2) 1.45 Troponin I 0.043 NT-Pro-B Natriuret Pep Impressions: Abdomen/Pelvis CT 01/15/17 00:00 IMPRESSION: Postoperative ileus. Small-bowel obstruction considered less likely. Follow-up is recommended. Head CT 01/15/17 06:00 IMPRESSION: Technical limitations. Right parietal meningioma. No obvious significant interval change. KUB X-Ray 01/15/17 10:25 IMPRESSION: TIP OF THE NASOGASTRIC TUBE IN THE STOMACH. Chest X-Ray 01/17/17 06:00 IMPRESSION: No significant interval change. Assessment & Plan - Diagnosis (1) Alcoholism /alcohol abuse Is this a current diagnosis for this admission?: Yes (2) Diverticulosis large intestine w/o perforation or abscess w/o bleeding Is this a current diagnosis for this admission?: Yes (3) Obesity (BMI 30.0-34.9) Is this a current diagnosis for this admission?: Yes (4) Sepsis Qualifiers: Sepsis type: Escherichia coli Qualified Code(s): A41.51 - Sepsis due to Escherichia coli [E. coli] Is this a current diagnosis for this admission?: No (5) Tobacco abuse Is this a current diagnosis for this admission?: Yes (6) Septic shock Is this a current diagnosis for this admission?: Yes - Time Critical Time spent with patient: 25-34 minutes
[2017-01-17] MEDS: LORAZEPAM INJ 2 MG/1 ML VIAL IV PRN (22:03)
[2017-01-18] MEDS: VANCOMYCIN HCL 1,000 MG in DEXTROSE 5%-WATER 250 ML IV SCH (02:06)
[2017-01-18 04:13] LABS: ARTERIAL BLOOD O2 SATURATION 96.7 % (94-98)
[2017-01-18 04:25] LABS: ANION GAP 7 (5-19); BLOOD UREA NITROGEN 15 mg/dL (7-20); CALCIUM 7.7 mg/dL (8.4-10.2); CARBON DIOXIDE 26 mmol/L (22-30); CHLORIDE 104 mmol/L (98-107); CREATININE RESULT 1.27 mg/dL (0.52-1.25); GLUCOSE 112 mg/dL (75-110); MAGNESIUM 1.4 mg/dL (1.6-2.3); POTASSIUM 3.5 mmol/L (3.6-5.0); SODIUM 137.4 mmol/L (137-145)
[2017-01-18 04:30] LABS: HEMATOCRIT 29.5 % (36.0-47.0); HEMOGLOBIN 9.8 g/dL (12.0-15.5); HGB HCT DIFFERENCE -0.1; MEAN CORPUSCULAR HEMOGLOBIN 31.6 pg (27.0-33.4); MEAN CORPUSCULAR HGB CONC 33.2 g/dL (32.0-36.0); MEAN CORPUSCULAR VOLUME 95 fl (80-97); RED CELL DISTRIBUTION WIDTH 13.6 % (11.5-14.0); WHITE BLOOD COUNT 14.7 10^3/uL (4.0-10.5)
[2017-01-18] MEDS: KETOROLAC TROMETHAMINE INJ/PF 30 MG/1 ML SDV IV PRN ×3 (04:44→23:21)
[2017-01-18 04:49] LABS: BASOPHILS % (MANUAL) 0 % (0-2); EOSINOPHILS % (MANUAL) 3 % (0-6); LYMPHOCYTES % (MANUAL) 7 % (13-45); TOTAL CELLS COUNTED 100
[2017-01-18 04:51] LABS: BURR CELLS SLIGHT; OVALOCYTES SLIGHT; POIKILOCYTOSIS SLIGHT; TOXIC GRANULATION SLIGHT; TOXIC VACUOLATION PRESENT
[2017-01-18] MEDS: HEPARIN SOD (PORCINE) 5,000 UNIT/ML 1 ML SYRINGE SUBCUT SCH ×3 (05:11→21:15)
[2017-01-18] MEDS: HYDRALAZINE HCL INJ/PF 20 MG/1 ML SDV IV PRN (06:05)
[2017-01-18] MEDS: HYDROMORPHONE HCL INJ/PF 2 MG/ML AMPULE IV PRN ×3 (06:49→21:09)
--- NOTE | 2017-01-18 07:22 | RADIOLOGY REPORT (SQ) ---
EXAM DESCRIPTION: CHEST SINGLE VIEW COMPLETED DATE/TIME: 01/18/2017 6:30 am REASON FOR STUDY: PNA COMPARISON: 01/17/2017. EXAM PARAMETERS: NUMBER OF VIEWS: One view. TECHNIQUE: Single frontal radiographic view of the chest acquired. RADIATION DOSE: NA LIMITATIONS: None. FINDINGS: LUNGS AND PLEURA: Moderate interstitial markings. MEDIASTINUM AND HILAR STRUCTURES: No masses. Contour normal. HEART AND VASCULAR STRUCTURES: Heart normal in size. Normal vasculature. BONES: No acute findings. HARDWARE: Adequate appearing left subclavian central line. OTHER: No other significant finding. IMPRESSION: No significant interval change. TECHNICAL DOCUMENTATION: JOB ID: [id number]
[2017-01-18] MEDS ORDERED: POTASSI CL 20 MEQ/D5-1/2NS 1L 1,000 ML IV PRN (07:29)
[2017-01-18] MEDS: ALBUTEROL SULFATE 0.083% NEB 2.5 MG/3 ML AMPUL NEB SCH (07:56)
[2017-01-18] MEDS ORDERED: MAGNESIUM SULFATE/D5W 100 ML IV ONE (08:00)
[2017-01-18] MEDS ORDERED: POTASSI CL 20 MEQ/50 ML RIDER 50 ML IV ONE (08:00)
[2017-01-18] MEDS ORDERED: ACETAMINOPHEN SOLN 325 MG/10.15 ML UDCUP NG PRN (08:14)
[2017-01-18] MEDS ORDERED: ACETAMINOPHEN 325 MG TABLET PO PRN (08:28)
--- NOTE | 2017-01-18 08:30 | PDOC PROGRESS REPORT ---
Subjective Progress Note for:: 01/18/17 Subjective:: Patient is completely alert and appropriate today. She wants something to drink. She is having some mild abdominal pain. She denies fever, chills, chest pain, shortness of breath, nausea, vomiting. Physical Exam Vital Signs: Temp Pulse Resp BP Pulse Ox 97.5 F 112 H 20 149/79 H 97 01/18/17 08:00 01/18/17 08:00 01/18/17 08:00 01/18/17 08:00 01/18/17 08:00 Intake & Output 01/17/17 01/18/17 01/19/17 06:59 06:59 06:59 Intake Total 3358 2514 Output Total 1775 1430 Balance 1583 1084 Weight 107.2 kg 106.6 kg GENERAL: No acute distress HEENT: Conjunctiva clear, nonicteric, moist mucous membranes, no JVD, midline trachea RESPIRATORY: Clear to auscultation bilaterally CARDIAC: Regular rate and rhythm, no murmurs/gallops/rubs ABDOMEN: Soft, left lower quadrant ostomy with good output EXTREMETIES: No edema, cyanosis, clubbing NEUROLOGIC: Alert, oriented to person, place, time, CN's grossly intact, no focal deficits SKIN: midline abdominal incision with some beth intact and some removed with partial wound dehiscence Results Laboratory Results: 01/18/17 04:05 01/18/17 04:05 01/18/17 01/18/17 01/18/17 04:05 04:05 04:05 WBC 14.7 H RBC 3.10 L Hgb 9.8 L Hct 29.5 L MCV 95 MCH 31.6 MCHC 33.2 RDW 13.6 Plt Count 311 Seg Neutrophils % Not Reportable Lymphocytes % Not Reportable Monocytes % Not Reportable Eosinophils % Not Reportable Basophils % Not Reportable Absolute Neutrophils Not Reportable Absolute Lymphocytes Not Reportable Absolute Monocytes Not Reportable Absolute Eosinophils Not Reportable Absolute Basophils Not Reportable Carbonic Acid 1.09 HCO3/H2CO3 Ratio 24:1 ABG pH 7.48 H ABG pCO2 36.1 ABG pO2 80.8 ABG HCO3 26.5 H ABG O2 Saturation 96.7 ABG Base Excess 3.0 FiO2 2L Sodium 137.4 Potassium 3.5 L Chloride 104 Carbon Dioxide 26 Anion Gap 7 BUN 15 Creatinine 1.27 H Est GFR ( Amer) 53 L Est GFR (Non-Af Amer) 44 L Glucose 112 H Calcium 7.7 L Magnesium 1.4 L 01/14/17 01/15/17 01/15/17 05:10 22:07 22:07 Creatine Kinase 171 H CK-MB (CK-2) 0.60 Troponin I 0.090 NT-Pro-B Natriuret Pep 550 01/16/17 01/16/17 01/16/17 04:05 04:05 10:10 Creatine Kinase 160 H 277 H CK-MB (CK-2) 0.49 Troponin I 0.082 NT-Pro-B Natriuret Pep 4470 H 01/16/17 10:10 Creatine Kinase CK-MB (CK-2) 1.45 Troponin I 0.043 NT-Pro-B Natriuret Pep Impressions: Abdomen/Pelvis CT 01/15/17 00:00 IMPRESSION: Postoperative ileus. Small-bowel obstruction considered less likely. Follow-up is recommended. Head CT 01/15/17 06:00 IMPRESSION: Technical limitations. Right parietal meningioma. No obvious significant interval change. KUB X-Ray 01/15/17 10:25 IMPRESSION: TIP OF THE NASOGASTRIC TUBE IN THE STOMACH. Chest X-Ray 01/18/17 06:00 IMPRESSION: No significant interval change. Assessment & Plan - Diagnosis (1) Septic shock Is this a current diagnosis for this admission?: YesPlan: Blood pressure stable off pressors. White blood count increasing. Low-grade fevers. Continue empiric IV Zosyn, IV vancomycin, IV Levaquin for atypical coverage of bilateral pneumonia. (2) Pneumonia Qualifiers: Laterality: bilateral Is this a current diagnosis for this admission?: YesPlan: Likely bacterial. High probability of gram-negative organism. Continue IV Zosyn, IV vancomycin, IV Levaquin. Check Legionella antigen. Sputum culture not obtained. (3) Diverticulosis large intestine w/o perforation or abscess w/o bleeding Is this a current diagnosis for this admission?: YesPlan: Status post exploratory laparotomy with sigmoid colon resection and end colostomy on 01/11/2017. Surgery managing. Full liquid diet. IV fluids. (4) Hypertension Is this a current diagnosis for this admission?: YesPlan: As needed IV hydralazine and as needed IV labetalol. Discontinue lisinopril secondary to acute kidney injury. Increase Norvasc to 5 mg twice daily. (5) Alcoholism /alcohol abuse Is this a current diagnosis for this admission?: YesPlan: Patient is out of acute alcohol withdrawal at this time. Continue thiamine given encephalopathy. (6) Encephalopathy acute Is this a current diagnosis for this admission?: YesPlan: Resolved. (7) Hypokalemia Is this a current diagnosis for this admission?: YesPlan: Replace as needed. (8) Volume overload Qualifiers: Hypervolemia type: other Qualified Code(s): E87.79 - Other fluid overload Is this a current diagnosis for this admission?: Yes (9) Generalized weakness Is this a current diagnosis for this admission?: YesPlan: Likely secondary to acute illness. Head CT negative for acute process. Physical therapy to evaluate. Patient will likely need rehab. (10) Respiratory failure Is this a current diagnosis for this admission?: YesPlan: Now stable on nasal cannula oxygen. Wean off as tolerated. Dr. Obando of pulmonary medicine following. (11) COPD (chronic obstructive pulmonary disease) Is this a current diagnosis for this admission?: YesPlan: Continue Symbicort. As needed albuterol. (12) Acute kidney injury Is this a current diagnosis for this admission?: YesPlan: Discontinue lisinopril. Increase IV fluid to 100 mL/h. - Time Time Spent with patient: 35 or more minutes
[2017-01-18] MEDS: MAGNESIUM SULFATE/D5W 100 ML IV SCH ×2 (08:58→09:40)
--- NOTE | 2017-01-18 09:33 | PDOC PROGRESS REPORT ---
Subjective Progress Note for:: 01/18/17 Subjective:: Awake, alert, responds appropriately. Physical Exam Vital Signs: Temp Pulse Resp BP Pulse Ox 97.5 F 102 H 20 149/79 H 97 01/18/17 08:00 01/18/17 08:00 01/18/17 08:00 01/18/17 08:00 01/18/17 08:00 Intake & Output 01/17/17 01/18/17 01/19/17 06:59 06:59 06:59 Intake Total 3358 2514 Output Total 1775 1430 Balance 1583 1084 Weight 107.2 kg 106.6 kg General appearance: PRESENT: no acute distress, cooperative Respiratory exam: PRESENT: clear to auscultation elvira Cardiovascular exam: PRESENT: tachycardia - 100 GI/Abdominal exam: PRESENT: other - Soft, nondistended, minimal tenderness. Ostomy slightly congested. No output in the bag. Ostomy digitalized and a stool palpable. Skin exam: PRESENT: other - anasarca Results Laboratory Results: 01/18/17 04:05 01/18/17 04:05 01/18/17 01/18/17 01/18/17 04:05 04:05 04:05 WBC 14.7 H RBC 3.10 L Hgb 9.8 L Hct 29.5 L MCV 95 MCH 31.6 MCHC 33.2 RDW 13.6 Plt Count 311 Seg Neutrophils % Not Reportable Lymphocytes % Not Reportable Monocytes % Not Reportable Eosinophils % Not Reportable Basophils % Not Reportable Absolute Neutrophils Not Reportable Absolute Lymphocytes Not Reportable Absolute Monocytes Not Reportable Absolute Eosinophils Not Reportable Absolute Basophils Not Reportable Carbonic Acid 1.09 HCO3/H2CO3 Ratio 24:1 ABG pH 7.48 H ABG pCO2 36.1 ABG pO2 80.8 ABG HCO3 26.5 H ABG O2 Saturation 96.7 ABG Base Excess 3.0 FiO2 2L Sodium 137.4 Potassium 3.5 L Chloride 104 Carbon Dioxide 26 Anion Gap 7 BUN 15 Creatinine 1.27 H Est GFR ( Amer) 53 L Est GFR (Non-Af Amer) 44 L Glucose 112 H Calcium 7.7 L Magnesium 1.4 L 01/14/17 01/15/17 01/15/17 05:10 22:07 22:07 Creatine Kinase 171 H CK-MB (CK-2) 0.60 Troponin I 0.090 NT-Pro-B Natriuret Pep 550 01/16/17 01/16/17 01/16/17 04:05 04:05 10:10 Creatine Kinase 160 H 277 H CK-MB (CK-2) 0.49 Troponin I 0.082 NT-Pro-B Natriuret Pep 4470 H 01/16/17 10:10 Creatine Kinase CK-MB (CK-2) 1.45 Troponin I 0.043 NT-Pro-B Natriuret Pep Impressions: Abdomen/Pelvis CT 01/15/17 00:00 IMPRESSION: Postoperative ileus. Small-bowel obstruction considered less likely. Follow-up is recommended. Head CT 01/15/17 06:00 IMPRESSION: Technical limitations. Right parietal meningioma. No obvious significant interval change. KUB X-Ray 01/15/17 10:25 IMPRESSION: TIP OF THE NASOGASTRIC TUBE IN THE STOMACH. Chest X-Ray 01/18/17 06:00 IMPRESSION: No significant interval change. Assessment & Plan - Diagnosis (1) Diverticulitis Qualifiers: Diverticulitis site: large intestine Diverticulitis bleeding: without bleeding Diverticulitis complication: with perforation Qualified Code (s): K57.20 - Diverticulitis of large intestine with perforation and abscess without bleeding Is this a current diagnosis for this admission?: YesPlan: Status post sigmoid colectomy with end colostomy. Mental status appears improved. Would be appropriate time for her diuresis however she has doubled her creatinine from yesterday. We will stop her vancomycin. She was started on NORMA inhibitor yesterday which has been stopped. Will get nephrology consultation. Will get patient out of bed. Await bowel function. (2) Diverticulitis Qualifiers: Diverticulitis site: large intestine Diverticulitis complication: with perforation Is this a current diagnosis for this admission?: Yes
[2017-01-18] MEDS ORDERED: NORMAL SALINE 1000 ML 1,000 ML IV PRN (09:35)
[2017-01-18] MEDS ORDERED: AMLODIPINE BESYLATE 5 MG TABLET NG SCH (10:00)
[2017-01-18] MEDS: LEVOFLOXACIN 750 MG/D5W RTU 750 MG/150 ML RTUPB IV SCH (10:09)
[2017-01-18] MEDS: BUDESONIDE/FORMOTEROL 160-4.5 MCG 60 PUFF/6 GM MDI IH SCH ×2 (10:18→21:21)
[2017-01-18] MEDS: THIAMINE HCL 100 MG TABLET PO SCH (10:18)
[2017-01-18] MEDS: FENTANYL 25 MCG/HR PATCH.TD72 TD SCH (10:27)
[2017-01-18] MEDS: PIPERACILLIN SODIUM/TAZOBACTAM 3.375 GM in NORMAL SALINE 100 ML IV SCH ×3 (12:04→23:21)
--- NOTE | 2017-01-18 14:40 | PDOC PROGRESS REPORT ---
Subjective Progress Note for:: 01/18/17 Subjective:: Lethargic but far more lucid than she has been in the recent past Physical Exam Vital Signs: Temp Pulse Resp BP Pulse Ox 97.5 F 112 H 20 149/79 H 97 01/18/17 08:00 01/18/17 08:00 01/18/17 08:00 01/18/17 08:00 01/18/17 08:00 Intake & Output 01/17/17 01/18/17 01/19/17 06:59 06:59 06:59 Intake Total 3358 2514 Output Total 1775 1430 Balance 1583 1084 Weight 107.2 kg 106.6 kg General appearance: PRESENT: no acute distress, cooperative, disheveled, morbidly obese, well-developed Head exam: PRESENT: atraumatic, normocephalic Eye exam: PRESENT: conjunctiva pale, EOMI Mouth exam: PRESENT: dry mucosa, neck supple, tongue midline Neck exam: ABSENT: carotid bruit, JVD, lymphadenopathy, thyromegaly Respiratory exam: PRESENT: decreased breath sounds, prolonged expiratory phas, rales, rhonchi, symmetrical - Both bases, unlabored Cardiovascular exam: PRESENT: RRR, +S1, +S2 Pulses: PRESENT: normal radial pulses GI/Abdominal exam: PRESENT: diminished bowel sounds, other - Status post surgery , ostomy Neurological exam: PRESENT: awake Psychiatric exam: PRESENT: flat affect Skin exam: PRESENT: dry, warm, other - Absent index finger left hand Results Laboratory Results: 01/18/17 04:05 01/18/17 04:05 01/18/17 01/18/17 01/18/17 04:05 04:05 04:05 WBC 14.7 H RBC 3.10 L Hgb 9.8 L Hct 29.5 L MCV 95 MCH 31.6 MCHC 33.2 RDW 13.6 Plt Count 311 Seg Neutrophils % Not Reportable Lymphocytes % Not Reportable Monocytes % Not Reportable Eosinophils % Not Reportable Basophils % Not Reportable Absolute Neutrophils Not Reportable Absolute Lymphocytes Not Reportable Absolute Monocytes Not Reportable Absolute Eosinophils Not Reportable Absolute Basophils Not Reportable Carbonic Acid 1.09 HCO3/H2CO3 Ratio 24:1 ABG pH 7.48 H ABG pCO2 36.1 ABG pO2 80.8 ABG HCO3 26.5 H ABG O2 Saturation 96.7 ABG Base Excess 3.0 FiO2 2L Sodium 137.4 Potassium 3.5 L Chloride 104 Carbon Dioxide 26 Anion Gap 7 BUN 15 Creatinine 1.27 H Est GFR ( Amer) 53 L Est GFR (Non-Af Amer) 44 L Glucose 112 H Calcium 7.7 L Magnesium 1.4 L 01/14/17 01/15/17 01/15/17 05:10 22:07 22:07 Creatine Kinase 171 H CK-MB (CK-2) 0.60 Troponin I 0.090 NT-Pro-B Natriuret Pep 550 01/16/17 01/16/17 01/16/17 04:05 04:05 10:10 Creatine Kinase 160 H 277 H CK-MB (CK-2) 0.49 Troponin I 0.082 NT-Pro-B Natriuret Pep 4470 H 01/16/17 10:10 Creatine Kinase CK-MB (CK-2) 1.45 Troponin I 0.043 NT-Pro-B Natriuret Pep Impressions: Abdomen/Pelvis CT 01/15/17 00:00 IMPRESSION: Postoperative ileus. Small-bowel obstruction considered less likely. Follow-up is recommended. Head CT 01/15/17 06:00 IMPRESSION: Technical limitations. Right parietal meningioma. No obvious significant interval change. KUB X-Ray 01/15/17 10:25 IMPRESSION: TIP OF THE NASOGASTRIC TUBE IN THE STOMACH. Chest X-Ray 01/18/17 06:00 IMPRESSION: No significant interval change. Assessment & Plan - Diagnosis (1) Alcoholism /alcohol abuse Is this a current diagnosis for this admission?: Yes (2) Diverticulosis large intestine w/o perforation or abscess w/o bleeding Is this a current diagnosis for this admission?: Yes (3) Obesity (BMI 30.0-34.9) Is this a current diagnosis for this admission?: Yes (4) Sepsis Qualifiers: Sepsis type: Escherichia coli Qualified Code(s): A41.51 - Sepsis due to Escherichia coli [E. coli] Is this a current diagnosis for this admission?: No (5) Tobacco abuse Is this a current diagnosis for this admission?: Yes (6) Septic shock Is this a current diagnosis for this admission?: No - Time Critical Time spent with patient: 25-34 minutes
[2017-01-18] MEDS: MAG HYDROX/AL HYDROX/SIMETH SUSP 30 ML UDCUP PO PRN (15:19)
--- NOTE | 2017-01-18 21:07 | PDOC CONSULTATION ---
Consultation Consult Date: 01/18/17 Consult reason:: SWATI History of Present Illness Admission Date/PCP: 01/09/17 18:19 History of Present Illness: 56-year-old female presenting with abdominal pain ,nausea and vomiting, diagnosed with perforated diverticulitis and underwent Sigmoid colectomy with colostomy, on the . Noted to have doubling creatinine as of today. Non oliguric with high colostomy output. Taking in liquids. Had fever with chills yesterday and apparently no more today. Note current antibiotics and also note that Vanc,Lisinopril was stopped. Patient has noted increasing edema, And shortness of breath with exertion. She denies any history of chest pains.No preceding history of CKD. Past Medical History Cardiac Medical History: Reports: Hyperlipidemia, Hypertension-primary Denies: Coronary Artery Disease, Myocardial Infarction Pulmonary Medical History: Reports: Asthma, Bronchitis Denies: Chronic Obstructive Pulmonary Disease (COPD), Pneumonia Neurological Medical History: Denies: Seizures GI Medical History: Reports: Gastroesophageal Reflux Disease Musculoskeltal Medical History: Reports: Arthritis - DEGENERATIVE ARTHRITIS BACK /HANDS Psychiatric Medical History: Reports: Depression, Tobacco Dependency Past Surgical History Past Surgical History: Reports: Appendectomy, Orthopedic Surgery - back surgery , Tubal Ligation Denies: Hysterectomy Social History Lives with: Family Smoking Status: Current Every Day Smoker Cigarettes Packs Per Day: 0.5 Frequency of Alcohol Use: Heavy - Heavy alcohol use in the past currently down to drinking on a weekly basis. Hx Recreational Drug Use: No Drugs: None Hx Prescription Drug Abuse: No - Advance Directive Resuscitation Status: Full Code Family History Parental Family History Reviewed: Yes - negative for ckd Children Family History Reviewed: Yes Sibling(s) Family History Reviewed.: Yes Medication/Allergy Home Medications: Albuterol Sulfate [Proair Hfa Inhalation Aerosol 8.5 gm Mdi] 2 puff IH Q6HP PRN 01/10/17 Amlodipine Besylate [Norvasc 5 mg Tablet] 5 mg PO DAILY 01/10/17 Budesonide/Formoterol Fumarate [Symbicort Hfa 160-4.5 Mcg Inhaler 6 gm] 2 puff IH Q12 01/10/17 Clonazepam [Klonopin 1 mg Tablet] 0.5 mg PO DAILY 01/10/17 Duloxetine HCl 60 mg PO DAILY 01/10/17 Lactobacillus Acidophilus [Probiotic Acidophilus] 1 tab PO BID 01/10/17 Lisinopril [Prinivil 40 mg Tablet] 40 mg PO DAILY 01/10/17 Metoprolol Tartrate [Lopressor 25 mg Tablet] 25 mg PO DAILY 01/10/17 Omeprazole 40 mg PO QHS 01/10/17 Ondansetron HCl [Zofran 4 mg Tablet] 4 mg PO Q6HP PRN 01/10/17 Trazodone HCl [Desyrel] 100 mg PO HSP PRN 01/10/17 Allergies/Adverse Reactions: morphine [Morphine] Allergy (Intermediate, Verified 01/09/17 14:44) UNCONTROLLED VOMITING Review of Systems Constitutional: PRESENT: fatigue, fever(s), weakness. ABSENT: headache(s), night sweats Nose, Mouth, and Throat: ABSENT: mouth pain, sore throat Cardiovascular: PRESENT: dyspnea on exertion, edema. ABSENT: chest pain, orthropnea, palpitations Respiratory: PRESENT: dyspnea. ABSENT: hemoptysis Gastrointestinal: PRESENT: abdominal pain, diarrhea. ABSENT: coffee ground emesis, constipation, dysphagia, heartburn, hematemesis, hematochezia, melena, nausea, vomiting Genitourinary: ABSENT: difficulty urinating, dysuria, hematuria Integumentary: ABSENT: lesions, pruritus, rash Neurological: ABSENT: abnormal speech, confusion, convulsions, focal weakness, frequent falls Psychiatric: PRESENT: anxiety. ABSENT: depression Hematologic/Lymphatic: ABSENT: easy bruising, lymphadenopathy Physical Exam Vital Signs: Temp Pulse Resp BP Pulse Ox 97.4 F 93 17 131/72 H 100 01/18/17 20:00 01/18/17 20:00 01/18/17 20:00 01/18/17 20:00 01/18/17 20:00 Intake & Output 01/17/17 01/18/17 01/19/17 06:59 06:59 06:59 Intake Total 3358 8694 260 Output Total 1775 1430 Balance 1583 1084 260 Weight 107.2 kg 106.6 kg 109.4 kg General appearance: PRESENT: no acute distress Eye exam: PRESENT: conjunctiva pink, EOMI, PERRLA Ear exam: PRESENT: normal external ear exam Mouth exam: PRESENT: moist, neck supple Respiratory exam: PRESENT: clear to auscultation elvira, crackles. ABSENT: rhonchi Cardiovascular exam: PRESENT: +S1, +S2 GI/Abdominal exam: PRESENT: hypoactive bowel sounds, soft, tenderness Extremities exam: PRESENT: +2 edema Neurological exam: PRESENT: alert, awake, oriented to person, oriented to place Skin exam: ABSENT: erythema, mottled, rash Results Laboratory Results: 01/18/17 04:05 01/18/17 04:05 01/18/17 01/18/17 01/18/17 04:05 04:05 04:05 WBC 14.7 H RBC 3.10 L Hgb 9.8 L Hct 29.5 L MCV 95 MCH 31.6 MCHC 33.2 RDW 13.6 Plt Count 311 Seg Neutrophils % Not Reportable Lymphocytes % Not Reportable Monocytes % Not Reportable Eosinophils % Not Reportable Basophils % Not Reportable Absolute Neutrophils Not Reportable Absolute Lymphocytes Not Reportable Absolute Monocytes Not Reportable Absolute Eosinophils Not Reportable Absolute Basophils Not Reportable Carbonic Acid 1.09 HCO3/H2CO3 Ratio 24:1 ABG pH 7.48 H ABG pCO2 36.1 ABG pO2 80.8 ABG HCO3 26.5 H ABG O2 Saturation 96.7 ABG Base Excess 3.0 FiO2 2L Sodium 137.4 Potassium 3.5 L Chloride 104 Carbon Dioxide 26 Anion Gap 7 BUN 15 Creatinine 1.27 H Est GFR ( Amer) 53 L Est GFR (Non-Af Amer) 44 L Glucose 112 H Calcium 7.7 L Magnesium 1.4 L 01/17/17 09:00 Catheterized Urine Legionella Urinary Antigen - Final 01/14/17 01/15/17 01/15/17 05:10 22:07 22:07 Creatine Kinase 171 H CK-MB (CK-2) 0.60 Troponin I 0.090 NT-Pro-B Natriuret Pep 550 01/16/17 01/16/17 01/16/17 04:05 04:05 10:10 Creatine Kinase 160 H 277 H CK-MB (CK-2) 0.49 Troponin I 0.082 NT-Pro-B Natriuret Pep 4470 H 01/16/17 10:10 Creatine Kinase CK-MB (CK-2) 1.45 Troponin I 0.043 NT-Pro-B Natriuret Pep Impressions: Abdomen/Pelvis CT 01/15/17 00:00 IMPRESSION: Postoperative ileus. Small-bowel obstruction considered less likely. Follow-up is recommended. Head CT 01/15/17 06:00 IMPRESSION: Technical limitations. Right parietal meningioma. No obvious significant interval change. KUB X-Ray 01/15/17 10:25 IMPRESSION: TIP OF THE NASOGASTRIC TUBE IN THE STOMACH. Chest X-Ray 01/18/17 06:00 IMPRESSION: No significant interval change. Assessment & Plan - Diagnosis (1) Acute kidney injury Is this a current diagnosis for this admission?: YesPlan: Nonoliguric currently. Differentials includes possibly early sepsis, early heart failure, drug-induced including possible interstitial nephritis.Patient is got fluid overload both peripheral and central. Discontinue IV fluids and start Lasix. Discussed with patient and the treating nurse. Get renal ultrasound and follow-up. (2) Diverticulosis large intestine w/o perforation or abscess w/o bleeding Is this a current diagnosis for this admission?: YesPlan: Status post sigmoid colectomy with colostomy. High output colostomy. (3) Hypertension Is this a current diagnosis for this admission?: YesPlan: Stable at the moment. However noted earlier drop. Watch carefully. (4) Hypokalemia Is this a current diagnosis for this admission?: YesPlan: On replacements. Currently stable. Monitor. (5) Sepsis Qualifiers: Sepsis type: Escherichia coli Qualified Code(s): A41.51 - Sepsis due to Escherichia coli [E. coli] Is this a current diagnosis for this admission?: YesPlan: Status post surgery for diverticulitis with perforation/abscess.Hemodynamically stable. (6) Anemia Plan: Monitor. (7) Hypomagnesemia Plan: Monitor as low normal.
[2017-01-18] MEDS ORDERED: AMLODIPINE BESYLATE 5 MG TABLET PO SCH (22:00)
[2017-01-18] MEDS ORDERED: FUROSEMIDE INJ/PF 20 MG/2 ML SDV IV SCH (22:00)
[2017-01-18] MEDS: HYDRALAZINE HCL 25 MG TABLET PO SCH (23:21)
[2017-01-19] MEDS: HYDROMORPHONE HCL INJ/PF 2 MG/ML AMPULE IV PRN ×4 (04:00→20:51)
[2017-01-19 05:04] LABS: ALANINE AMINOTRANSFERASE 45 U/L (9-52); ALKALINE PHOSPHATASE 79 U/L (38-126); ANION GAP 7 (5-19); ASPARTATE AMINO TRANSFERASE 54 U/L (14-36); BILIRUBIN,DIRECT 0.6 mg/dL (0.0-0.4); BILIRUBIN,TOTAL 0.7 mg/dL (0.2-1.3); BLOOD UREA NITROGEN 22 mg/dL (7-20); CALCIUM 7.5 mg/dL (8.4-10.2); CARBON DIOXIDE 24 mmol/L (22-30); CHLORIDE 105 mmol/L (98-107); GLUCOSE 91 mg/dL (75-110); MAGNESIUM 1.9 mg/dL (1.6-2.3); POTASSIUM 3.6 mmol/L (3.6-5.0); SODIUM 135.9 mmol/L (137-145); TOTAL PROTEIN 4.6 g/dL (6.3-8.2)
[2017-01-19 05:46] LABS: HEMATOCRIT 26.7 % (36.0-47.0); HEMOGLOBIN 9.1 g/dL (12.0-15.5); HGB HCT DIFFERENCE 0.6; MEAN CORPUSCULAR HEMOGLOBIN 32.6 pg (27.0-33.4); MEAN CORPUSCULAR HGB CONC 34.1 g/dL (32.0-36.0); MEAN CORPUSCULAR VOLUME 96 fl (80-97); RED BLOOD COUNT 2.79 10^6/uL (3.72-5.28); RED CELL DISTRIBUTION WIDTH 13.5 % (11.5-14.0); WHITE BLOOD COUNT 10.6 10^3/uL (4.0-10.5)
[2017-01-19] MEDS: PIPERACILLIN SODIUM/TAZOBACTAM 3.375 GM in NORMAL SALINE 100 ML IV SCH (05:59)
[2017-01-19] MEDS: HYDRALAZINE HCL 25 MG TABLET PO SCH ×3 (05:59→21:56)
[2017-01-19] MEDS: HEPARIN SOD (PORCINE) 5,000 UNIT/ML 1 ML SYRINGE SUBCUT SCH ×3 (05:59→21:56)
[2017-01-19 06:17] LABS: ARTERIAL BLOOD BASE EXCESS -0.8 mmol/L; ARTERIAL BLOOD O2 SATURATION 97.6 % (94-98)
[2017-01-19 06:22] LABS: BASOPHILS % (MANUAL) 0 % (0-2); EOSINOPHILS % (MANUAL) 1 % (0-6); LYMPHOCYTES % (MANUAL) 8 % (13-45); TOTAL CELLS COUNTED 100
[2017-01-19 06:25] LABS: ANISOCYTOSIS SLIGHT; TOXIC GRANULATION 1+; TOXIC VACUOLATION PRESENT
[2017-01-19] MEDS: ALBUTEROL SULFATE HFA (90 MCG/PUFF) 200 PUFF/8.5 GM MDI IH PRN ×2 (07:28→17:03)
--- NOTE | 2017-01-19 08:24 | RADIOLOGY REPORT (SQ) ---
EXAM DESCRIPTION: CHEST SINGLE VIEW COMPLETED DATE/TIME: 01/19/2017 7:47 am REASON FOR STUDY: pna COMPARISON: 01/18/2017. EXAM PARAMETERS: NUMBER OF VIEWS: One view. TECHNIQUE: Single frontal radiographic view of the chest acquired. RADIATION DOSE: NA LIMITATIONS: None. FINDINGS: LUNGS AND PLEURA: Diffuse parenchymal opacities unchanged. No pleural effusion. No pneum othorax. MEDIASTINUM AND HILAR STRUCTURES: No masses. Contour normal. HEART AND VASCULAR STRUCTURES: Heart normal in size. Normal vasculature. BONES: No acute findings. HARDWARE: Central line. OTHER: No other significant finding. IMPRESSION: NO CHANGE IN APPEARANCE OF THE CHEST. TECHNICAL DOCUMENTATION: JOB ID: [id number]
[2017-01-19] MEDS: THIAMINE HCL 100 MG TABLET PO SCH (09:19)
[2017-01-19] MEDS: LEVOFLOXACIN 750 MG/D5W RTU 750 MG/150 ML RTUPB IV SCH (09:20)
[2017-01-19] MEDS: BUDESONIDE/FORMOTEROL 160-4.5 MCG 60 PUFF/6 GM MDI IH SCH ×2 (09:42→21:56)
--- NOTE | 2017-01-19 09:57 | RADIOLOGY REPORT (SQ) ---
EXAM DESCRIPTION: U/S RETROPERITON LTD COMPLETED DATE/TIME: 01/19/2017 9:04 am REASON FOR STUDY: veronique COMPARISON: None. TECHNIQUE: Dynamic and static grayscale images acquired of the kidneys and recorded on PACS. Additio nal selected color Doppler and spectral images recorded. LIMITATIONS: None. FINDINGS: RIGHT KIDNEY: Normal size. Normal echogenicity. No solid or suspicious masses. No h ydronephrosis. No calcifications. LEFT KIDNEY: Normal size. Normal echogenicity. No solid or suspicious masses. No hydronephrosi s. No calcifications. BLADDER: Unable to evaluate due to surgical bandages. OTHER FINDINGS: No other significant finding. IMPRESSION: NORMAL RENAL ULTRASOUND. TECHNICAL DOCUMENTATION: JOB ID: [id number] [employer]- All Rights Reserved
[2017-01-19] MEDS: FUROSEMIDE INJ/PF 20 MG/2 ML SDV IV SCH ×2 (10:44→21:56)
[2017-01-19] MEDS ORDERED: FERROUS SULFATE 325 MG TABLET PO ONE (12:00)
--- NOTE | 2017-01-19 12:22 | PROGRESS NOTE E ---
Progress Note NAME: PRASANTH CASSIDY : 1960 AGE: 56Y DATE: 01/19/2017 ROOM: 409 SUBJECTIVE: The patient is status post colon resection with end sigmoid colostomy. Colostomy appears to be functioning well. However, patient's renal function appears to be getting worse. Her creatinine this morning is 2.90 from 1.27 yesterday, BUN 22 to 15 from yesterday. Her white count is down to 10.6 from 14.7 yesterday. OBJECTIVE: Her abdomen is soft and nontender, and the incision site is healing well. PLAN: We will advance her diet to soft as tolerated as discussed with Dr. De La Torre. Patient was just seen by Nephrology. DICTATING PHYSICIAN: KRISTINA WHELAN M.D. [id number] BETYY#: [id number] ID: [id number] JOB#: [id number] ACCT: [id number] cc: > MTDD
[2017-01-19 12:44] LABS: APPEARANCE,URINE CLOUDY; BILIRUBIN,URINE NEGATIVE (NEGATIVE); GLUCOSE, URINE 50 mg/dL (NEGATIVE); KETONES,URINE NEGATIVE (NEGATIVE); LEUKOCYTE ESTERASE,URINE TRACE (NEGATIVE); NITRITE,URINE NEGATIVE (NEGATIVE); PROTEIN,URINE 100 mg/dL (NEGATIVE); URINE SPECIFIC GRAVITY 1.009; UROBILINOGEN,URINE NEGATIVE mg/dL (<2.0)
--- NOTE | 2017-01-19 13:17 | RADIOLOGY REPORT (SQ) ---
EXAM DESCRIPTION: VENOUS UNILATERAL LOWER COMPLETED DATE/TIME: 01/19/2017 12:32 pm REASON FOR STUDY: right leg swelling more than left. COMPARISON: None. TECHNIQUE: Dynamic and static coombs scale and color images acquired of the right leg venous system. S elected spectral images acquired with additional compression and augmentation maneuvers. The contrala teral common femoral vein and saphenofemoral junction were also imaged. Images stored on PACS. LIMITATIONS: None. FINDINGS: COMMON FEMORAL: Normal phasicity, compression and augmentation. No visualized echogenic ma terial on coombs scale. No defects on color images. FEMORAL: Normal compression and augmentation. No visualized echogenic material on coombs scale. No defe cts on color images. POPLITEAL: Normal compression, augmentation. No visualized echogenic material on coombs scale. No defec ts on color images. CALF VESSELS: Normal compression, augmentation. No visualized echogenic material on coombs scale. No de fects on color images. GSV and SSV: Normal compression, augmentation. No visualized echogenic material on coombs scale. No def ects on color images. ANY DEEP VENOUS INSUFFICIENCY: Not evaluated. ANY EVIDENCE OF POPLITEAL CYST: No. OTHER: No other significant finding. CONTRALATERAL COMMON FEMORAL VEIN AND SAPHENOFEMORAL JUNCTION: Normal phasicity, compression and augmentation. No visualized echogenic material on coombs scale. No de fects on color images. IMPRESSION: NO EVIDENCE DVT OR SVT IN THE RIGHT LEG. TECHNICAL DOCUMENTATION: JOB ID: [id number] [employer]- All Rights Reserved
[2017-01-20] MEDS: HYDROMORPHONE HCL INJ/PF 2 MG/ML AMPULE IV PRN ×5 (00:24→20:42)
[2017-01-20] MEDS: HEPARIN SOD (PORCINE) 5,000 UNIT/ML 1 ML SYRINGE SUBCUT SCH ×3 (05:23→21:10)
[2017-01-20] MEDS: HYDRALAZINE HCL 25 MG TABLET PO SCH ×3 (05:23→21:10)
[2017-01-20 06:57] LABS: HEMATOCRIT 25.8 % (36.0-47.0); HEMOGLOBIN 8.9 g/dL (12.0-15.5); HGB HCT DIFFERENCE 0.9; MEAN CORPUSCULAR HEMOGLOBIN 32.5 pg (27.0-33.4); MEAN CORPUSCULAR HGB CONC 34.3 g/dL (32.0-36.0); MEAN CORPUSCULAR VOLUME 95 fl (80-97); RED BLOOD COUNT 2.72 10^6/uL (3.72-5.28); RED CELL DISTRIBUTION WIDTH 13.9 % (11.5-14.0); WHITE BLOOD COUNT 11.1 10^3/uL (4.0-10.5)
[2017-01-20 07:14] LABS: ANION GAP 9 (5-19); BLOOD UREA NITROGEN 26 mg/dL (7-20); CALCIUM 7.9 mg/dL (8.4-10.2); CARBON DIOXIDE 21 mmol/L (22-30); CHLORIDE 103 mmol/L (98-107); GLUCOSE 83 mg/dL (75-110); POTASSIUM 4.3 mmol/L (3.6-5.0); SODIUM 133.3 mmol/L (137-145)
[2017-01-20 07:22] LABS: BASOPHILS % (MANUAL) 0 % (0-2); EOSINOPHILS % (MANUAL) 0 % (0-6); LYMPHOCYTES % (MANUAL) 10 % (13-45); TOTAL CELLS COUNTED 100
[2017-01-20 07:23] LABS: POLYCHROMASIA SLIGHT
--- NOTE | 2017-01-20 08:57 | PDOC PROGRESS REPORT ---
Subjective Progress Note for:: 01/20/17 Subjective:: fEELING BETTER Physical Exam Vital Signs: Temp Pulse Resp BP Pulse Ox 98.8 F 112 H 20 145/72 H 96 01/20/17 03:35 01/20/17 03:35 01/20/17 03:35 01/20/17 03:35 01/20/17 03:35 Intake & Output 01/19/17 01/20/17 01/21/17 06:59 06:59 06:59 Intake Total 1240 690 Output Total 200 300 Balance 1040 390 Weight 110.4 kg 110.4 kg GI/Abdominal exam: PRESENT: tenderness Results Laboratory Results: 01/20/17 06:00 01/20/17 06:00 01/19/17 01/19/17 01/19/17 04:34 04:34 12:04 WBC RBC Hgb Hct MCV MCH MCHC RDW Plt Count Seg Neutrophils % Lymphocytes % Monocytes % Eosinophils % Basophils % Absolute Neutrophils Absolute Lymphocytes Absolute Monocytes Absolute Eosinophils Absolute Basophils Sodium Potassium Chloride Carbon Dioxide Anion Gap BUN Creatinine Est GFR ( Amer) Est GFR (Non-Af Amer) Glucose Calcium Iron 24.5 L TIBC 177 L % Saturation 14 Transferrin 100 L Ferritin 184.00 Vitamin B12 900.0 Folate 17.70 Urine Color YELLOW Urine Appearance CLOUDY Urine pH 6.0 Ur Specific [place] 1.009 Urine Protein 100 H Urine Glucose (UA) 50 H Urine Ketones NEGATIVE Urine Blood MODERATE H Urine Nitrite NEGATIVE Ur Leukocyte Esterase TRACE H Urine WBC (Auto) 28 Urine RBC (Auto) >182 01/20/17 01/20/17 06:00 06:00 WBC 11.1 H RBC 2.72 L Hgb 8.9 L Hct 25.8 L MCV 95 MCH 32.5 MCHC 34.3 RDW 13.9 Plt Count 334 Seg Neutrophils % Not Reportable Lymphocytes % Not Reportable Monocytes % Not Reportable Eosinophils % Not Reportable Basophils % Not Reportable Absolute Neutrophils Not Reportable Absolute Lymphocytes Not Reportable Absolute Monocytes Not Reportable Absolute Eosinophils Not Reportable Absolute Basophils Not Reportable Sodium 133.3 L Potassium 4.3 Chloride 103 Carbon Dioxide 21 L Anion Gap 9 BUN 26 H Creatinine 4.40 H Est GFR ( Amer) 13 L Est GFR (Non-Af Amer) 10 L Glucose 83 Calcium 7.9 L Iron TIBC % Saturation Transferrin Ferritin Vitamin B12 Folate Urine Color Urine Appearance Urine pH Ur Specific [place] Urine Protein Urine Glucose (UA) Urine Ketones Urine Blood Urine Nitrite Ur Leukocyte Esterase Urine WBC (Auto) Urine RBC (Auto) 01/14/17 01/15/17 01/15/17 05:10 22:07 22:07 Creatine Kinase 171 H CK-MB (CK-2) 0.60 Troponin I 0.090 NT-Pro-B Natriuret Pep 550 01/16/17 01/16/17 01/16/17 04:05 04:05 10:10 Creatine Kinase 160 H 277 H CK-MB (CK-2) 0.49 Troponin I 0.082 NT-Pro-B Natriuret Pep 4470 H 01/16/17 10:10 Creatine Kinase CK-MB (CK-2) 1.45 Troponin I 0.043 NT-Pro-B Natriuret Pep Impressions: Abdomen/Pelvis CT 01/15/17 00:00 IMPRESSION: Postoperative ileus. Small-bowel obstruction considered less likely. Follow-up is recommended. Head CT 01/15/17 06:00 IMPRESSION: Technical limitations. Right parietal meningioma. No obvious significant interval change. KUB X-Ray 01/15/17 10:25 IMPRESSION: TIP OF THE NASOGASTRIC TUBE IN THE STOMACH. Renal Ultrasound 01/19/17 00:00 IMPRESSION: NORMAL RENAL ULTRASOUND. Venous Doppler Study 01/19/17 00:00 IMPRESSION: NO EVIDENCE DVT OR SVT IN THE RIGHT LEG. Chest X-Ray 01/19/17 06:00 IMPRESSION: NO CHANGE IN APPEARANCE OF THE CHEST. Assessment & Plan - Plan Summary Plan Summary: S/P LEFT COLON RESECTION Ilesus resolving Advance diet
--- NOTE | 2017-01-20 10:09 | PDOC PROGRESS REPORT ---
Subjective Progress Note for:: 01/19/17 Subjective:: awake responsive Physical Exam Vital Signs: Temp Pulse Resp BP Pulse Ox 98.6 F 105 H 18 142/77 H 100 01/20/17 07:26 01/20/17 07:26 01/20/17 07:26 01/20/17 07:26 01/20/17 07:26 Intake & Output 01/19/17 01/20/17 01/21/17 06:59 06:59 06:59 Intake Total 1240 690 Output Total 200 300 Balance 1040 390 Weight 110.4 kg 110.4 kg General appearance: PRESENT: no acute distress, cooperative, disheveled, obese Head exam: PRESENT: atraumatic, normocephalic Eye exam: PRESENT: conjunctiva pale, EOMI Mouth exam: PRESENT: dry mucosa, neck supple, tongue midline Neck exam: ABSENT: carotid bruit, JVD, lymphadenopathy, thyromegaly Respiratory exam: PRESENT: decreased breath sounds, prolonged expiratory phas, rhonchi Cardiovascular exam: PRESENT: RRR, +S1, +S2 Pulses: PRESENT: normal radial pulses GI/Abdominal exam: PRESENT: other - s/p surgery,ostomy Rectal exam: PRESENT: deferred Musculoskeletal exam: PRESENT: normal inspection Neurological exam: PRESENT: alert, awake Psychiatric exam: PRESENT: anxious, normal mood Skin exam: PRESENT: dry, warm Results Laboratory Results: 01/20/17 06:00 01/20/17 06:00 01/19/17 01/19/17 01/20/17 04:34 12:04 06:00 WBC RBC Hgb Hct MCV MCH MCHC RDW Plt Count Seg Neutrophils % Lymphocytes % Monocytes % Eosinophils % Basophils % Absolute Neutrophils Absolute Lymphocytes Absolute Monocytes Absolute Eosinophils Absolute Basophils Sodium 133.3 L Potassium 4.3 Chloride 103 Carbon Dioxide 21 L Anion Gap 9 BUN 26 H Creatinine 4.40 H Est GFR ( Amer) 13 L Est GFR (Non-Af Amer) 10 L Glucose 83 Calcium 7.9 L Transferrin 100 L Urine Color YELLOW Urine Appearance CLOUDY Urine pH 6.0 Ur Specific [place] 1.009 Urine Protein 100 H Urine Glucose (UA) 50 H Urine Ketones NEGATIVE Urine Blood MODERATE H Urine Nitrite NEGATIVE Ur Leukocyte Esterase TRACE H Urine WBC (Auto) 28 Urine RBC (Auto) >182 01/20/17 06:00 WBC 11.1 H RBC 2.72 L Hgb 8.9 L Hct 25.8 L MCV 95 MCH 32.5 MCHC 34.3 RDW 13.9 Plt Count 334 Seg Neutrophils % Not Reportable Lymphocytes % Not Reportable Monocytes % Not Reportable Eosinophils % Not Reportable Basophils % Not Reportable Absolute Neutrophils Not Reportable Absolute Lymphocytes Not Reportable Absolute Monocytes Not Reportable Absolute Eosinophils Not Reportable Absolute Basophils Not Reportable Sodium Potassium Chloride Carbon Dioxide Anion Gap BUN Creatinine Est GFR ( Amer) Est GFR (Non-Af Amer) Glucose Calcium Transferrin Urine Color Urine Appearance Urine pH Ur Specific [place] Urine Protein Urine Glucose (UA) Urine Ketones Urine Blood Urine Nitrite Ur Leukocyte Esterase Urine WBC (Auto) Urine RBC (Auto) 01/14/17 01/15/17 01/15/17 05:10 22:07 22:07 Creatine Kinase 171 H CK-MB (CK-2) 0.60 Troponin I 0.090 NT-Pro-B Natriuret Pep 550 01/16/17 01/16/17 01/16/17 04:05 04:05 10:10 Creatine Kinase 160 H 277 H CK-MB (CK-2) 0.49 Troponin I 0.082 NT-Pro-B Natriuret Pep 4470 H 01/16/17 10:10 Creatine Kinase CK-MB (CK-2) 1.45 Troponin I 0.043 NT-Pro-B Natriuret Pep Impressions: Abdomen/Pelvis CT 01/15/17 00:00 IMPRESSION: Postoperative ileus. Small-bowel obstruction considered less likely. Follow-up is recommended. Head CT 01/15/17 06:00 IMPRESSION: Technical limitations. Right parietal meningioma. No obvious significant interval change. KUB X-Ray 01/15/17 10:25 IMPRESSION: TIP OF THE NASOGASTRIC TUBE IN THE STOMACH. Renal Ultrasound 01/19/17 00:00 IMPRESSION: NORMAL RENAL ULTRASOUND. Venous Doppler Study 01/19/17 00:00 IMPRESSION: NO EVIDENCE DVT OR SVT IN THE RIGHT LEG. Chest X-Ray 01/19/17 06:00 IMPRESSION: NO CHANGE IN APPEARANCE OF THE CHEST. Assessment & Plan - Diagnosis (1) Diverticulosis large intestine w/o perforation or abscess w/o bleeding Is this a current diagnosis for this admission?: Yes (2) Obesity (BMI 30.0-34.9) Is this a current diagnosis for this admission?: Yes (3) Sepsis Qualifiers: Sepsis type: Escherichia coli Qualified Code(s): A41.51 - Sepsis due to Escherichia coli [E. coli] Is this a current diagnosis for this admission?: Yes (4) Septic shock Is this a current diagnosis for this admission?: Yes
[2017-01-20] MEDS: FERROUS SULFATE 325 MG TABLET PO SCH (10:22)
[2017-01-20] MEDS: THIAMINE HCL 100 MG TABLET PO SCH (10:23)
[2017-01-20] MEDS: LEVOFLOXACIN 750 MG/D5W RTU 750 MG/150 ML RTUPB IV SCH (10:23)
[2017-01-20] MEDS: FUROSEMIDE INJ/PF 20 MG/2 ML SDV IV SCH ×3 (10:24→22:48)
[2017-01-20] MEDS: BUDESONIDE/FORMOTEROL 160-4.5 MCG 60 PUFF/6 GM MDI IH SCH ×2 (10:28→21:10)
--- NOTE | 2017-01-20 13:43 | PDOC PROGRESS REPORT ---
Subjective Progress Note for:: 01/19/17 Subjective:: Patient is completely alert and appropriate today. She has no particular complaints. She denies fever, chills, chest pain, shortness of breath, nausea, vomiting. Physical Exam Vital Signs: Temp Pulse Resp BP Pulse Ox 98.2 F 95 16 133/72 H 99 01/19/17 07:43 01/19/17 09:47 01/19/17 09:47 01/19/17 07:43 01/19/17 09:47 Intake & Output 01/18/17 01/19/17 01/20/17 06:59 06:59 06:59 Intake Total 2514 1240 Output Total 1430 200 Balance 1084 1040 Weight 106.6 kg 110.4 kg GENERAL: No acute distress HEENT: Conjunctiva clear, nonicteric, moist mucous membranes, no JVD, midline trachea RESPIRATORY: Clear to auscultation bilaterally CARDIAC: Regular rate and rhythm, no murmurs/gallops/rubs ABDOMEN: Soft, left lower quadrant ostomy with good output EXTREMETIES: 2+ edema NEUROLOGIC: Alert, oriented to person, place, time, CN's grossly intact, no focal deficits Results Laboratory Results: 01/19/17 04:34 01/19/17 04:34 01/19/17 01/19/17 01/19/17 04:34 04:34 04:34 WBC 10.6 H RBC 2.79 L Hgb 9.1 L Hct 26.7 L MCV 96 MCH 32.6 MCHC 34.1 RDW 13.5 Plt Count 287 Seg Neutrophils % Not Reportable Lymphocytes % Not Reportable Monocytes % Not Reportable Eosinophils % Not Reportable Basophils % Not Reportable Absolute Neutrophils Not Reportable Absolute Lymphocytes Not Reportable Absolute Monocytes Not Reportable Absolute Eosinophils Not Reportable Absolute Basophils Not Reportable Retic Count (auto) 1.57 Absolute Retic 0.041 Carbonic Acid HCO3/H2CO3 Ratio ABG pH ABG pCO2 ABG pO2 ABG HCO3 ABG O2 Saturation ABG Base Excess FiO2 Sodium 135.9 L Potassium 3.6 Chloride 105 Carbon Dioxide 24 Anion Gap 7 BUN 22 H Creatinine 2.90 H Est GFR ( Amer) 20 L Est GFR (Non-Af Amer) 17 L Glucose 91 Calcium 7.5 L Magnesium 1.9 Iron TIBC % Saturation Ferritin Total Bilirubin 0.7 AST 54 H ALT 45 Alkaline Phosphatase 79 Total Protein 4.6 L Albumin 2.0 L Vitamin B12 Folate 01/19/17 01/19/17 04:34 06:03 WBC RBC Hgb Hct MCV MCH MCHC RDW Plt Count Seg Neutrophils % Lymphocytes % Monocytes % Eosinophils % Basophils % Absolute Neutrophils Absolute Lymphocytes Absolute Monocytes Absolute Eosinophils Absolute Basophils Retic Count (auto) Absolute Retic Carbonic Acid 1.18 HCO3/H2CO3 Ratio 20:1 ABG pH 7.40 ABG pCO2 39.2 ABG pO2 99.5 ABG HCO3 23.8 ABG O2 Saturation 97.6 ABG Base Excess -0.8 FiO2 28% Sodium Potassium Chloride Carbon Dioxide Anion Gap BUN Creatinine Est GFR ( Amer) Est GFR (Non-Af Amer) Glucose Calcium Magnesium Iron 24.5 L TIBC 177 L % Saturation 14 Ferritin 184.00 Total Bilirubin AST ALT Alkaline Phosphatase Total Protein Albumin Vitamin B12 900.0 Folate 17.70 01/17/17 09:00 Catheterized Urine Legionella Urinary Antigen - Final 01/14/17 01/15/17 01/15/17 05:10 22:07 22:07 Creatine Kinase 171 H CK-MB (CK-2) 0.60 Troponin I 0.090 NT-Pro-B Natriuret Pep 550 01/16/17 01/16/17 01/16/17 04:05 04:05 10:10 Creatine Kinase 160 H 277 H CK-MB (CK-2) 0.49 Troponin I 0.082 NT-Pro-B Natriuret Pep 4470 H 01/16/17 10:10 Creatine Kinase CK-MB (CK-2) 1.45 Troponin I 0.043 NT-Pro-B Natriuret Pep Impressions: Abdomen/Pelvis CT 01/15/17 00:00 IMPRESSION: Postoperative ileus. Small-bowel obstruction considered less likely. Follow-up is recommended. Head CT 01/15/17 06:00 IMPRESSION: Technical limitations. Right parietal meningioma. No obvious significant interval change. KUB X-Ray 01/15/17 10:25 IMPRESSION: TIP OF THE NASOGASTRIC TUBE IN THE STOMACH. Renal Ultrasound 01/19/17 00:00 IMPRESSION: NORMAL RENAL ULTRASOUND. Chest X-Ray 01/19/17 06:00 IMPRESSION: NO CHANGE IN APPEARANCE OF THE CHEST. Assessment & Plan - Diagnosis (1) Acute kidney injury Is this a current diagnosis for this admission?: YesPlan: Discontinued lisinopril and vancomycin. Discontinue Zosyn. Renal ultrasound unremarkable. Nephrology following and started IV Lasix. (2) Septic shock Is this a current diagnosis for this admission?: YesPlan: Blood pressure stable. Afebrile. Continue IV Levaquin for atypical coverage of bilateral pneumonia. (3) Pneumonia Qualifiers: Laterality: bilateral Is this a current diagnosis for this admission?: YesPlan: Likely bacterial. High probability of gram-negative organism. Continue IV Levaquin. Legionella antigen negative. Zosyn and vancomycin discontinued secondary to worsening renal function. (4) Diverticulosis large intestine w/o perforation or abscess w/o bleeding Is this a current diagnosis for this admission?: YesPlan: Status post exploratory laparotomy with sigmoid colon resection and end colostomy on 01/11/2017. Surgery managing. Diet advanced to regular consistency. (5) Hypertension Is this a current diagnosis for this admission?: YesPlan: As needed IV hydralazine and as needed IV labetalol. Discontinued lisinopril secondary to acute kidney injury. Increased Norvasc to 5 mg twice daily. Started on hydralazine 25 mg every [address] Cohen of nephrology. (6) Alcoholism /alcohol abuse Is this a current diagnosis for this admission?: YesPlan: Patient is out of acute alcohol withdrawal at this time. Continue thiamine given encephalopathy. (7) Encephalopathy acute Is this a current diagnosis for this admission?: YesPlan: Resolved. (8) Hypokalemia Is this a current diagnosis for this admission?: Yes (9) Volume overload Qualifiers: Hypervolemia type: other Qualified Code(s): E87.79 - Other fluid overload Is this a current diagnosis for this admission?: YesPlan: Started on Lasix 10 mg every 12 hours by nephrology. (10) Generalized weakness Is this a current diagnosis for this admission?: YesPlan: Likely secondary to acute illness. Head CT negative for acute process. Physical therapy to evaluate. Patient will likely need rehab however she is [facility] and this will have to be approved by the [place] first. (11) Respiratory failure Is this a current diagnosis for this admission?: YesPlan: Now stable on nasal cannula oxygen. Wean off as tolerated. Dr. Obando of pulmonary medicine following. (12) COPD (chronic obstructive pulmonary disease) Is this a current diagnosis for this admission?: YesPlan: Continue Symbicort. As needed albuterol. (13) Iron deficiency anemia Is this a current diagnosis for this admission?: YesPlan: Start iron supplementation. - Time Time Spent with patient: 35 or more minutes
--- NOTE | 2017-01-20 13:48 | PDOC PROGRESS REPORT ---
Subjective Progress Note for:: 01/20/17 Subjective:: Patient has no specific complaints and is feeling generally better every day. Unfortunately she has only had 400 mL of urine output over the past 24 hours. She denies fever, chills, chest pain, shortness of breath, nausea, vomiting, abdominal pain. Physical Exam Vital Signs: Temp Pulse Resp BP Pulse Ox 98.6 F 105 H 18 142/77 H 100 01/20/17 07:26 01/20/17 07:26 01/20/17 07:26 01/20/17 07:26 01/20/17 07:26 Intake & Output 01/19/17 01/20/17 01/21/17 06:59 06:59 06:59 Intake Total 1240 690 Output Total 200 300 Balance 1040 390 Weight 110.4 kg 110.4 kg GENERAL: No acute distress HEENT: Conjunctiva clear, nonicteric, moist mucous membranes, no JVD, midline trachea RESPIRATORY: Clear to auscultation bilaterally CARDIAC: Regular rate and rhythm, no murmurs/gallops/rubs ABDOMEN: Soft, left lower quadrant ostomy with good output EXTREMETIES: 2+ edema NEUROLOGIC: Alert, oriented to person, place, time, CN's grossly intact, no focal deficits Results Laboratory Results: 01/20/17 06:00 01/20/17 06:00 01/19/17 01/20/17 01/20/17 04:34 06:00 06:00 WBC 11.1 H RBC 2.72 L Hgb 8.9 L Hct 25.8 L MCV 95 MCH 32.5 MCHC 34.3 RDW 13.9 Plt Count 334 Seg Neutrophils % Not Reportable Lymphocytes % Not Reportable Monocytes % Not Reportable Eosinophils % Not Reportable Basophils % Not Reportable Absolute Neutrophils Not Reportable Absolute Lymphocytes Not Reportable Absolute Monocytes Not Reportable Absolute Eosinophils Not Reportable Absolute Basophils Not Reportable Sodium 133.3 L Potassium 4.3 Chloride 103 Carbon Dioxide 21 L Anion Gap 9 BUN 26 H Creatinine 4.40 H Est GFR ( Amer) 13 L Est GFR (Non-Af Amer) 10 L Glucose 83 Calcium 7.9 L Transferrin 100 L 01/14/17 01/15/17 01/15/17 05:10 22:07 22:07 Creatine Kinase 171 H CK-MB (CK-2) 0.60 Troponin I 0.090 NT-Pro-B Natriuret Pep 550 01/16/17 01/16/17 01/16/17 04:05 04:05 10:10 Creatine Kinase 160 H 277 H CK-MB (CK-2) 0.49 Troponin I 0.082 NT-Pro-B Natriuret Pep 4470 H 01/16/17 10:10 Creatine Kinase CK-MB (CK-2) 1.45 Troponin I 0.043 NT-Pro-B Natriuret Pep Impressions: Abdomen/Pelvis CT 01/15/17 00:00 IMPRESSION: Postoperative ileus. Small-bowel obstruction considered less likely. Follow-up is recommended. Head CT 01/15/17 06:00 IMPRESSION: Technical limitations. Right parietal meningioma. No obvious significant interval change. KUB X-Ray 01/15/17 10:25 IMPRESSION: TIP OF THE NASOGASTRIC TUBE IN THE STOMACH. Renal Ultrasound 01/19/17 00:00 IMPRESSION: NORMAL RENAL ULTRASOUND. Venous Doppler Study 01/19/17 00:00 IMPRESSION: NO EVIDENCE DVT OR SVT IN THE RIGHT LEG. Chest X-Ray 01/19/17 06:00 IMPRESSION: NO CHANGE IN APPEARANCE OF THE CHEST. Assessment & Plan - Diagnosis (1) Acute kidney injury Is this a current diagnosis for this admission?: YesPlan: Discontinued lisinopril, vancomycin, and Zosyn. Renal ultrasound unremarkable. Nephrology following and started IV Lasix. Patient is quite edematous and has worsening renal function so I would like to increase Lasix to 40 mg IV every 12 hours. (2) Septic shock Is this a current diagnosis for this admission?: YesPlan: Blood pressure stable. Afebrile. Discontinue IV Levaquin secondary to worsening renal function. (3) Pneumonia Qualifiers: Laterality: bilateral Is this a current diagnosis for this admission?: YesPlan: Likely bacterial. High probability of gram-negative organism. Discontinue IV Levaquin secondary to worsening renal function. Start doxycycline 100 mg twice daily. Legionella antigen negative. Zosyn and vancomycin discontinued secondary to worsening renal function. (4) Diverticulosis large intestine w/o perforation or abscess w/o bleeding Is this a current diagnosis for this admission?: YesPlan: Status post exploratory laparotomy with sigmoid colon resection and end colostomy on 01/11/2017. Surgery managing. Diet advanced to regular consistency. (5) Hypertension Is this a current diagnosis for this admission?: YesPlan: As needed IV hydralazine and as needed IV labetalol. Discontinued lisinopril secondary to acute kidney injury. Increased Norvasc to 5 mg twice daily. Started on hydralazine 25 mg every [address] Cohen of nephrology. (6) Alcoholism /alcohol abuse Is this a current diagnosis for this admission?: YesPlan: Patient is out of acute alcohol withdrawal at this time. Continue thiamine given encephalopathy. (7) Encephalopathy acute Is this a current diagnosis for this admission?: YesPlan: Resolved. (8) Hypokalemia Is this a current diagnosis for this admission?: Yes (9) Volume overload Qualifiers: Hypervolemia type: other Qualified Code(s): E87.79 - Other fluid overload Is this a current diagnosis for this admission?: YesPlan: Increase Lasix (10) Generalized weakness Is this a current diagnosis for this admission?: YesPlan: Likely secondary to acute illness. Head CT negative for acute process. Physical therapy to evaluate. Patient will likely need rehab however she is a [place] patient and this will have to be approved by the [place] first. (11) Respiratory failure Is this a current diagnosis for this admission?: Yes (12) COPD (chronic obstructive pulmonary disease) Is this a current diagnosis for this admission?: Yes (13) Iron deficiency anemia Is this a current diagnosis for this admission?: Yes - Time Time Spent with patient: 35 or more minutes
[2017-01-20] MEDS: DOXYCYCLINE HYCLATE 100 MG TABLET PO SCH (21:10)
[2017-01-21] MEDS: HYDROMORPHONE HCL INJ/PF 2 MG/ML AMPULE IV PRN ×5 (01:19→23:21)
[2017-01-21] MEDS: LORAZEPAM INJ 2 MG/1 ML VIAL IV PRN (02:20)
[2017-01-21] MEDS: HEPARIN SOD (PORCINE) 5,000 UNIT/ML 1 ML SYRINGE SUBCUT SCH ×3 (06:10→22:56)
[2017-01-21] MEDS: HYDRALAZINE HCL 25 MG TABLET PO SCH ×3 (06:10→22:56)
[2017-01-21 06:16] LABS: HEMATOCRIT 24.5 % (36.0-47.0); HEMOGLOBIN 8.6 g/dL (12.0-15.5); HGB HCT DIFFERENCE 1.3; MEAN CORPUSCULAR HEMOGLOBIN 32.9 pg (27.0-33.4); MEAN CORPUSCULAR HGB CONC 35.1 g/dL (32.0-36.0); MEAN CORPUSCULAR VOLUME 94 fl (80-97); RED BLOOD COUNT 2.61 10^6/uL (3.72-5.28); RED CELL DISTRIBUTION WIDTH 13.7 % (11.5-14.0); WHITE BLOOD COUNT 9.9 10^3/uL (4.0-10.5)
[2017-01-21 06:20] LABS: ANION GAP 10 (5-19); BLOOD UREA NITROGEN 32 mg/dL (7-20); CARBON DIOXIDE 21 mmol/L (22-30); CHLORIDE 102 mmol/L (98-107); CREATININE RESULT 5.69 mg/dL (0.52-1.25); GLUCOSE 88 mg/dL (75-110); POTASSIUM 3.9 mmol/L (3.6-5.0)
[2017-01-21 06:37] LABS: BAND NEUTROPHILS % (MANUAL) 2 % (3-5); BASOPHILS % (MANUAL) 0 % (0-2); EOSINOPHILS % (MANUAL) 1 % (0-6); LYMPHOCYTES % (MANUAL) 7 % (13-45); TOTAL CELLS COUNTED 100
[2017-01-21 06:39] LABS: TOXIC GRANULATION SLIGHT; TOXIC VACUOLATION PRESENT
[2017-01-21 06:41] LABS: POLYCHROMASIA SLIGHT
--- NOTE | 2017-01-21 08:01 | RADIOLOGY REPORT (SQ) ---
EXAM DESCRIPTION: CHEST SINGLE VIEW COMPLETED DATE/TIME: 01/21/2017 7:39 am REASON FOR STUDY: PNA COMPARISON: 01/19/2017. EXAM PARAMETERS: NUMBER OF VIEWS: One view. TECHNIQUE: Single frontal radiographic view of the chest acquired. RADIATION DOSE: NA LIMITATIONS: None. FINDINGS: LUNGS AND PLEURA: Mild -moderate mixed interstitial and airspace opacity with lower lobe p redominance. MEDIASTINUM AND HILAR STRUCTURES: No masses. Contour normal. HEART AND VASCULAR STRUCTURES: Heart normal in size. Normal vasculature. BONES: No acute findings. HARDWARE: Left subclavian central line tip at the junction of the proximal left brachiocephalic vein and SVC. OTHER: No other significant finding. IMPRESSION: No significant interval change. TECHNICAL DOCUMENTATION: JOB ID: [id number]
[2017-01-21] MEDS ORDERED: FUROSEMIDE INJ/PF 20 MG/2 ML SDV IV SCH (08:10)
--- NOTE | 2017-01-21 08:24 | PDOC PROGRESS REPORT ---
Subjective Progress Note for:: 01/21/17 Subjective:: Patient has no specific complaints and is feeling generally better every day. Unfortunately she has only had 500 mL of urine output over the past 24 hours. She would like a NicoDerm patch as she is having cravings to smoke. She denies fever, chills, chest pain, shortness of breath, nausea, vomiting, abdominal pain. Physical Exam Vital Signs: Temp Pulse Resp BP Pulse Ox 98.5 F 107 H 21 H 145/81 H 97 01/21/17 00:00 01/21/17 06:00 01/21/17 00:00 01/21/17 06:00 01/21/17 00:00 Intake & Output 01/20/17 01/21/17 01/22/17 06:59 06:59 06:59 Intake Total 690 990 Output Total 300 550 Balance 390 440 Weight 110.4 kg GENERAL: No acute distress HEENT: Conjunctiva clear, nonicteric, moist mucous membranes, no JVD, midline trachea RESPIRATORY: Clear to auscultation bilaterally CARDIAC: Regular rate and rhythm, no murmurs/gallops/rubs ABDOMEN: Soft, left lower quadrant ostomy with good output EXTREMETIES: 2+ edema NEUROLOGIC: Alert, oriented to person, place, time, CN's grossly intact, no focal deficits Results Laboratory Results: 01/21/17 06:00 01/21/17 06:00 01/21/17 01/21/17 06:00 06:00 WBC 9.9 RBC 2.61 L Hgb 8.6 L Hct 24.5 L MCV 94 MCH 32.9 MCHC 35.1 RDW 13.7 Plt Count 386 Seg Neutrophils % Not Reportable Lymphocytes % Not Reportable Monocytes % Not Reportable Eosinophils % Not Reportable Basophils % Not Reportable Absolute Neutrophils Not Reportable Absolute Lymphocytes Not Reportable Absolute Monocytes Not Reportable Absolute Eosinophils Not Reportable Absolute Basophils Not Reportable Sodium 133.0 L Potassium 3.9 Chloride 102 Carbon Dioxide 21 L Anion Gap 10 BUN 32 H Creatinine 5.69 H Est GFR ( Amer) 9 L Est GFR (Non-Af Amer) 8 L Glucose 88 Calcium 8.0 L 01/14/17 01/15/17 01/15/17 05:10 22:07 22:07 Creatine Kinase 171 H CK-MB (CK-2) 0.60 Troponin I 0.090 NT-Pro-B Natriuret Pep 550 01/16/17 01/16/17 01/16/17 04:05 04:05 10:10 Creatine Kinase 160 H 277 H CK-MB (CK-2) 0.49 Troponin I 0.082 NT-Pro-B Natriuret Pep 4470 H 01/16/17 10:10 Creatine Kinase CK-MB (CK-2) 1.45 Troponin I 0.043 NT-Pro-B Natriuret Pep Impressions: Abdomen/Pelvis CT 01/15/17 00:00 IMPRESSION: Postoperative ileus. Small-bowel obstruction considered less likely. Follow-up is recommended. Head CT 01/15/17 06:00 IMPRESSION: Technical limitations. Right parietal meningioma. No obvious significant interval change. KUB X-Ray 01/15/17 10:25 IMPRESSION: TIP OF THE NASOGASTRIC TUBE IN THE STOMACH. Renal Ultrasound 01/19/17 00:00 IMPRESSION: NORMAL RENAL ULTRASOUND. Venous Doppler Study 01/19/17 00:00 IMPRESSION: NO EVIDENCE DVT OR SVT IN THE RIGHT LEG. Chest X-Ray 01/21/17 06:00 IMPRESSION: No significant interval change. Assessment & Plan - Diagnosis (1) Acute kidney injury Is this a current diagnosis for this admission?: YesPlan: Discontinued lisinopril, vancomycin, and Zosyn. Renal ultrasound unremarkable. Dr. Cohen of nephrology following. He is not complaint evaluation officer this weekend so I have discussed the case with Dr. Sotero Cannon of nephrology at [facility]. He states that there is no need for emergent hemodialysis today. He has advised increasing Lasix to 160 mg IV every [address] Cohen will be back tomorrow for reevaluation. (2) Septic shock Is this a current diagnosis for this admission?: Yes (3) Pneumonia Qualifiers: Laterality: bilateral Is this a current diagnosis for this admission?: YesPlan: Likely bacterial. High probability of gram-negative organism. Discontinued IV Levaquin secondary to worsening renal function. Continue doxycycline 100 mg twice daily. Legionella antigen negative. Zosyn and vancomycin discontinued secondary to worsening renal function. (4) Diverticulosis large intestine w/o perforation or abscess w/o bleeding Is this a current diagnosis for this admission?: YesPlan: Status post exploratory laparotomy with sigmoid colon resection and end colostomy on 01/11/2017. Surgery managing. Diet advanced to regular consistency. (5) Hypertension Is this a current diagnosis for this admission?: YesPlan: As needed IV hydralazine and as needed IV labetalol. Discontinued lisinopril secondary to acute kidney injury. Increased Norvasc to 5 mg twice daily. Started on hydralazine 25 mg every [address] Cohen of nephrology. (6) Alcoholism /alcohol abuse Is this a current diagnosis for this admission?: YesPlan: Patient is out of acute alcohol withdrawal at this time. Continue thiamine given encephalopathy. (7) Encephalopathy acute Is this a current diagnosis for this admission?: YesPlan: Resolved. (8) Hypokalemia Is this a current diagnosis for this admission?: Yes (9) Volume overload Qualifiers: Hypervolemia type: other Qualified Code(s): E87.79 - Other fluid overload Is this a current diagnosis for this admission?: Yes (10) Generalized weakness Is this a current diagnosis for this admission?: YesPlan: Likely secondary to acute illness. Head CT negative for acute process. Physical therapy to evaluate. Patient will likely need rehab however she [facility] and this will have to be approved by the [place] first. (11) Respiratory failure Is this a current diagnosis for this admission?: Yes (12) COPD (chronic obstructive pulmonary disease) Is this a current diagnosis for this admission?: YesPlan: Continue Symbicort. As needed albuterol. (13) Iron deficiency anemia Is this a current diagnosis for this admission?: YesPlan: Continue iron supplementation. (14) Tobacco abuse Is this a current diagnosis for this admission?: YesPlan: Start nicotine patch - Time Time Spent with patient: 35 or more minutes
[2017-01-21] MEDS: FERROUS SULFATE 325 MG TABLET PO SCH (09:13)
[2017-01-21] MEDS: DOXYCYCLINE HYCLATE 100 MG TABLET PO SCH ×2 (09:14→22:55)
[2017-01-21] MEDS: FENTANYL 25 MCG/HR PATCH.TD72 TD SCH (09:14)
[2017-01-21] MEDS: THIAMINE HCL 100 MG TABLET PO SCH (09:14)
[2017-01-21] MEDS: BUDESONIDE/FORMOTEROL 160-4.5 MCG 60 PUFF/6 GM MDI IH SCH ×2 (09:16→22:55)
[2017-01-21] MEDS: NICOTINE 14 MG/24 HR PATCH.TD24 TD SCH (11:44)
[2017-01-21] MEDS: FUROSEMIDE INJ/PF 100 MG/10 ML SDV IV SCH ×2 (11:45→17:16)
--- NOTE | 2017-01-21 13:50 | PDOC PROGRESS REPORT ---
Subjective Progress Note for:: 01/21/17 Subjective:: feeling better Physical Exam Vital Signs: Temp Pulse Resp BP Pulse Ox 98.3 F 104 H 16 147/77 H 99 01/21/17 12:00 01/21/17 12:00 01/21/17 12:00 01/21/17 12:00 01/21/17 12:00 Intake & Output 01/20/17 01/21/17 01/22/17 06:59 06:59 06:59 Intake Total 690 990 Output Total 300 550 Balance 390 440 Weight 110.4 kg Results Laboratory Results: 01/21/17 06:00 01/21/17 06:00 01/21/17 01/21/17 06:00 06:00 WBC 9.9 RBC 2.61 L Hgb 8.6 L Hct 24.5 L MCV 94 MCH 32.9 MCHC 35.1 RDW 13.7 Plt Count 386 Seg Neutrophils % Not Reportable Lymphocytes % Not Reportable Monocytes % Not Reportable Eosinophils % Not Reportable Basophils % Not Reportable Absolute Neutrophils Not Reportable Absolute Lymphocytes Not Reportable Absolute Monocytes Not Reportable Absolute Eosinophils Not Reportable Absolute Basophils Not Reportable Sodium 133.0 L Potassium 3.9 Chloride 102 Carbon Dioxide 21 L Anion Gap 10 BUN 32 H Creatinine 5.69 H Est GFR ( Amer) 9 L Est GFR (Non-Af Amer) 8 L Glucose 88 Calcium 8.0 L 01/19/17 12:04 Robert Catheter Urine Culture - Final NO GROWTH 2 DAYS 01/14/17 01/15/17 01/15/17 05:10 22:07 22:07 Creatine Kinase 171 H CK-MB (CK-2) 0.60 Troponin I 0.090 NT-Pro-B Natriuret Pep 550 01/16/17 01/16/17 01/16/17 04:05 04:05 10:10 Creatine Kinase 160 H 277 H CK-MB (CK-2) 0.49 Troponin I 0.082 NT-Pro-B Natriuret Pep 4470 H 01/16/17 10:10 Creatine Kinase CK-MB (CK-2) 1.45 Troponin I 0.043 NT-Pro-B Natriuret Pep Impressions: Abdomen/Pelvis CT 01/15/17 00:00 IMPRESSION: Postoperative ileus. Small-bowel obstruction considered less likely. Follow-up is recommended. Head CT 01/15/17 06:00 IMPRESSION: Technical limitations. Right parietal meningioma. No obvious significant interval change. KUB X-Ray 01/15/17 10:25 IMPRESSION: TIP OF THE NASOGASTRIC TUBE IN THE STOMACH. Renal Ultrasound 01/19/17 00:00 IMPRESSION: NORMAL RENAL ULTRASOUND. Venous Doppler Study 01/19/17 00:00 IMPRESSION: NO EVIDENCE DVT OR SVT IN THE RIGHT LEG. Chest X-Ray 01/21/17 06:00 IMPRESSION: No significant interval change. Assessment & Plan - Plan Summary Plan Summary: Ileus resolving diet as tolerated Ambulate
[2017-01-22] MEDS: HYDRALAZINE HCL 25 MG TABLET PO SCH ×2 (05:28→16:21)
[2017-01-22] MEDS: HEPARIN SOD (PORCINE) 5,000 UNIT/ML 1 ML SYRINGE SUBCUT SCH ×2 (05:28→16:28)
[2017-01-22 05:50] LABS: HEMATOCRIT 25.3 % (36.0-47.0); HEMOGLOBIN 8.8 g/dL (12.0-15.5); HGB HCT DIFFERENCE 1.1; MEAN CORPUSCULAR HEMOGLOBIN 32.9 pg (27.0-33.4); MEAN CORPUSCULAR HGB CONC 34.6 g/dL (32.0-36.0); MEAN CORPUSCULAR VOLUME 95 fl (80-97); RED BLOOD COUNT 2.66 10^6/uL (3.72-5.28); RED CELL DISTRIBUTION WIDTH 13.6 % (11.5-14.0)
[2017-01-22 05:55] LABS: ANION GAP 10 (5-19); BLOOD UREA NITROGEN 33 mg/dL (7-20); CALCIUM 7.9 mg/dL (8.4-10.2); CARBON DIOXIDE 21 mmol/L (22-30); CHLORIDE 101 mmol/L (98-107); CREATININE RESULT 7.02 mg/dL (0.52-1.25); GLUCOSE 85 mg/dL (75-110); PHOSPHORUS 6.3 mg/dL (2.5-4.5); POTASSIUM 4.2 mmol/L (3.6-5.0); SODIUM 132.1 mmol/L (137-145)
[2017-01-22 06:35] LABS: BAND NEUTROPHILS % (MANUAL) 2 % (3-5); BASOPHILS % (MANUAL) 0 % (0-2); EOSINOPHILS % (MANUAL) 0 % (0-6); LYMPHOCYTES % (MANUAL) 14 % (13-45); TOTAL CELLS COUNTED 100
[2017-01-22 06:37] LABS: HYPOCHROMASIA SLIGHT; TOXIC GRANULATION 1+
[2017-01-22] MEDS: HYDROMORPHONE HCL INJ/PF 2 MG/ML AMPULE IV PRN ×3 (06:51→16:22)
--- NOTE | 2017-01-22 08:52 | PDOC PROGRESS REPORT ---
Subjective Progress Note for:: 01/22/17 Subjective:: Patient feels somewhat tired but does not have shortness of breath. Denies fever, chills, chest pain, nausea, vomiting. Physical Exam Vital Signs: Temp Pulse Resp BP Pulse Ox 98.1 F 98 17 139/65 H 100 01/22/17 04:00 01/22/17 04:00 01/22/17 04:00 01/22/17 04:00 01/22/17 04:00 Intake & Output 01/21/17 01/22/17 01/23/17 06:59 06:59 06:59 Intake Total 990 149 Output Total 550 800 Balance 440 -651 Weight 114.5 kg GENERAL: No acute distress HEENT: Conjunctiva clear, nonicteric, moist mucous membranes, no JVD, midline trachea RESPIRATORY: Clear to auscultation bilaterally CARDIAC: Regular rate and rhythm, no murmurs/gallops/rubs ABDOMEN: Soft, left lower quadrant ostomy with good output EXTREMETIES: 2+ edema NEUROLOGIC: Alert, oriented to person, place, time, CN's grossly intact, no focal deficits Results Laboratory Results: 01/22/17 05:28 01/22/17 05:28 01/22/17 01/22/17 05:28 05:28 WBC 8.0 RBC 2.66 L Hgb 8.8 L Hct 25.3 L MCV 95 MCH 32.9 MCHC 34.6 RDW 13.6 Plt Count 405 Seg Neutrophils % Not Reportable Lymphocytes % Not Reportable Monocytes % Not Reportable Eosinophils % Not Reportable Basophils % Not Reportable Absolute Neutrophils Not Reportable Absolute Lymphocytes Not Reportable Absolute Monocytes Not Reportable Absolute Eosinophils Not Reportable Absolute Basophils Not Reportable Sodium 132.1 L Potassium 4.2 Chloride 101 Carbon Dioxide 21 L Anion Gap 10 BUN 33 H Creatinine 7.02 H Est GFR ( Amer) 7 L Est GFR (Non-Af Amer) 6 L Glucose 85 Calcium 7.9 L Phosphorus 6.3 H 01/19/17 12:04 Robert Catheter Urine Culture - Final NO GROWTH 2 DAYS 01/14/17 01/15/17 01/15/17 05:10 22:07 22:07 Creatine Kinase 171 H CK-MB (CK-2) 0.60 Troponin I 0.090 NT-Pro-B Natriuret Pep 550 01/16/17 01/16/17 01/16/17 04:05 04:05 10:10 Creatine Kinase 160 H 277 H CK-MB (CK-2) 0.49 Troponin I 0.082 NT-Pro-B Natriuret Pep 4470 H 01/16/17 10:10 Creatine Kinase CK-MB (CK-2) 1.45 Troponin I 0.043 NT-Pro-B Natriuret Pep Impressions: Abdomen/Pelvis CT 01/15/17 00:00 IMPRESSION: Postoperative ileus. Small-bowel obstruction considered less likely. Follow-up is recommended. Head CT 01/15/17 06:00 IMPRESSION: Technical limitations. Right parietal meningioma. No obvious significant interval change. KUB X-Ray 01/15/17 10:25 IMPRESSION: TIP OF THE NASOGASTRIC TUBE IN THE STOMACH. Renal Ultrasound 01/19/17 00:00 IMPRESSION: NORMAL RENAL ULTRASOUND. Venous Doppler Study 01/19/17 00:00 IMPRESSION: NO EVIDENCE DVT OR SVT IN THE RIGHT LEG. Chest X-Ray 01/21/17 06:00 IMPRESSION: No significant interval change. Assessment & Plan - Diagnosis (1) Acute kidney injury Is this a current diagnosis for this admission?: YesPlan: Discontinued lisinopril, vancomycin, and Zosyn. Renal ultrasound unremarkable. Dr. oChen of nephrology following. Continue Lasix to 160 mg IV every 12 hours. Case discussed with Dr. Cohen of nephrology. We will consult surgery to place dialysis catheter. Dr. Cohen will evaluate patient and consider Lasix drip. (2) Septic shock Is this a current diagnosis for this admission?: Yes (3) Pneumonia Qualifiers: Laterality: bilateral Is this a current diagnosis for this admission?: YesPlan: Likely bacterial. High probability of gram-negative organism. Discontinued IV Levaquin secondary to worsening renal function. Continue doxycycline 100 mg twice daily. Legionella antigen negative. Zosyn and vancomycin discontinued secondary to worsening renal function. (4) Diverticulosis large intestine w/o perforation or abscess w/o bleeding Is this a current diagnosis for this admission?: YesPlan: Status post exploratory laparotomy with sigmoid colon resection and end colostomy on 01/11/2017. Surgery managing. Diet advanced to regular consistency. (5) Hypertension Is this a current diagnosis for this admission?: Yes (6) Alcoholism /alcohol abuse Is this a current diagnosis for this admission?: Yes (7) Encephalopathy acute Is this a current diagnosis for this admission?: Yes (8) Hypokalemia Is this a current diagnosis for this admission?: Yes (9) Volume overload Qualifiers: Hypervolemia type: other Qualified Code(s): E87.79 - Other fluid overload Is this a current diagnosis for this admission?: Yes (10) Generalized weakness Is this a current diagnosis for this admission?: Yes (11) Respiratory failure Is this a current diagnosis for this admission?: Yes (12) COPD (chronic obstructive pulmonary disease) Is this a current diagnosis for this admission?: Yes (13) Iron deficiency anemia Is this a current diagnosis for this admission?: Yes (14) Tobacco abuse Is this a current diagnosis for this admission?: Yes - Time Time Spent with patient: 35 or more minutes
[2017-01-22] MEDS: NICOTINE 14 MG/24 HR PATCH.TD24 TD SCH (09:10)
[2017-01-22] MEDS: FERROUS SULFATE 325 MG TABLET PO SCH (09:10)
[2017-01-22] MEDS: THIAMINE HCL 100 MG TABLET PO SCH (09:11)
[2017-01-22] MEDS: DOXYCYCLINE HYCLATE 100 MG TABLET PO SCH (09:11)
[2017-01-22] MEDS: BUDESONIDE/FORMOTEROL 160-4.5 MCG 60 PUFF/6 GM MDI IH SCH (09:11)
[2017-01-22] MEDS: FUROSEMIDE INJ/PF 100 MG/10 ML SDV IV SCH (09:12)
[2017-01-22] MEDS: MAG HYDROX/AL HYDROX/SIMETH SUSP 30 ML UDCUP PO PRN (11:35)
[2017-01-22] MEDS ORDERED: NORMAL SALINE 250 ML with FUROSEMIDE 250 MG IV PRN ×2 (13:12)
--- NOTE | 2017-01-22 13:53 | PDOC PROGRESS REPORT ---
Subjective Progress Note for:: 01/22/17 Subjective:: Patient is now 11 days status post border laparotomy sigmoid colectomy colostomy for complicated diverticulitis. She is on the floor, tolerating a diet, so awake alert and oriented. Physical Exam Vital Signs: Temp Pulse Resp BP Pulse Ox 98.1 F 105 H 18 149/84 H 97 01/22/17 07:33 01/22/17 07:33 01/22/17 07:33 01/22/17 07:33 01/22/17 07:33 Intake & Output 01/21/17 01/22/17 01/23/17 06:59 06:59 06:59 Intake Total 990 149 Output Total 550 800 Balance 440 -651 Weight 114.5 kg General appearance: PRESENT: no acute distress GI/Abdominal exam: PRESENT: other - All dressings removed. Midline open areas between beth clean with minimal granulation tissue. Drains out. Ostomy putting out a fair amount of stool. Subclavian central line erythema Results Laboratory Results: 01/22/17 05:28 01/22/17 05:28 01/22/17 01/22/17 05:28 05:28 WBC 8.0 RBC 2.66 L Hgb 8.8 L Hct 25.3 L MCV 95 MCH 32.9 MCHC 34.6 RDW 13.6 Plt Count 405 Seg Neutrophils % Not Reportable Lymphocytes % Not Reportable Monocytes % Not Reportable Eosinophils % Not Reportable Basophils % Not Reportable Absolute Neutrophils Not Reportable Absolute Lymphocytes Not Reportable Absolute Monocytes Not Reportable Absolute Eosinophils Not Reportable Absolute Basophils Not Reportable Sodium 132.1 L Potassium 4.2 Chloride 101 Carbon Dioxide 21 L Anion Gap 10 BUN 33 H Creatinine 7.02 H Est GFR ( Amer) 7 L Est GFR (Non-Af Amer) 6 L Glucose 85 Calcium 7.9 L Phosphorus 6.3 H 01/19/17 12:04 Robert Catheter Urine Culture - Final NO GROWTH 2 DAYS 01/14/17 01/15/17 01/15/17 05:10 22:07 22:07 Creatine Kinase 171 H CK-MB (CK-2) 0.60 Troponin I 0.090 NT-Pro-B Natriuret Pep 550 01/16/17 01/16/17 01/16/17 04:05 04:05 10:10 Creatine Kinase 160 H 277 H CK-MB (CK-2) 0.49 Troponin I 0.082 NT-Pro-B Natriuret Pep 4470 H 01/16/17 10:10 Creatine Kinase CK-MB (CK-2) 1.45 Troponin I 0.043 NT-Pro-B Natriuret Pep Impressions: Abdomen/Pelvis CT 01/15/17 00:00 IMPRESSION: Postoperative ileus. Small-bowel obstruction considered less likely. Follow-up is recommended. Head CT 01/15/17 06:00 IMPRESSION: Technical limitations. Right parietal meningioma. No obvious significant interval change. KUB X-Ray 01/15/17 10:25 IMPRESSION: TIP OF THE NASOGASTRIC TUBE IN THE STOMACH. Renal Ultrasound 01/19/17 00:00 IMPRESSION: NORMAL RENAL ULTRASOUND. Venous Doppler Study 01/19/17 00:00 IMPRESSION: NO EVIDENCE DVT OR SVT IN THE RIGHT LEG. Chest X-Ray 01/21/17 06:00 IMPRESSION: No significant interval change. Assessment & Plan - Diagnosis (1) Diverticulosis large intestine w/o perforation or abscess w/o bleeding Is this a current diagnosis for this admission?: YesPlan: Patient is 11 days status post exploratory laparotomy, sigmoid colectomy colostomy Hooks's procedure for complicated diverticulitis. Patient recovering nicely tolerating a diet, with good ostomy function Recommendations plan: 1. Suggest getting rid of left subclavian central line as it is been 10 days. 2. We will plan to place a try analysis catheter right neck for intravenous access and dialysis access as well 3. We will switch her to pain medication.
--- NOTE | 2017-01-22 14:37 | PDOC PROGRESS REPORT ---
Subjective Progress Note for:: 01/22/17 Subjective:: awake responsive c/o pain from catherter Physical Exam Vital Signs: Temp Pulse Resp BP Pulse Ox 98.1 F 98 17 139/65 H 100 01/22/17 04:00 01/22/17 04:00 01/22/17 04:00 01/22/17 04:00 01/22/17 04:00 Intake & Output 01/21/17 01/22/17 01/23/17 06:59 06:59 06:59 Intake Total 990 149 Output Total 550 800 Balance 440 -651 Weight 114.5 kg General appearance: PRESENT: no acute distress, cooperative, disheveled, obese, well-developed Head exam: PRESENT: atraumatic, normocephalic Eye exam: PRESENT: conjunctiva pale, EOMI Mouth exam: PRESENT: dry mucosa, neck supple, tongue midline Neck exam: ABSENT: carotid bruit, JVD, lymphadenopathy, thyromegaly Respiratory exam: PRESENT: decreased breath sounds, prolonged expiratory phas, rhonchi, symmetrical, unlabored Cardiovascular exam: PRESENT: RRR, +S1, +S2 Pulses: PRESENT: normal radial pulses GI/Abdominal exam: PRESENT: normal bowel sounds, soft. ABSENT: distended, guarding, mass, organolmegaly, rebound, tenderness Rectal exam: PRESENT: deferred Gentrourinary exam: PRESENT: indwelling catheter Musculoskeletal exam: PRESENT: normal inspection Neurological exam: PRESENT: alert, awake Psychiatric exam: PRESENT: normal mood Skin exam: PRESENT: dry, warm Results Laboratory Results: 01/22/17 05:28 01/22/17 05:28 01/22/17 01/22/17 05:28 05:28 WBC 8.0 RBC 2.66 L Hgb 8.8 L Hct 25.3 L MCV 95 MCH 32.9 MCHC 34.6 RDW 13.6 Plt Count 405 Seg Neutrophils % Not Reportable Lymphocytes % Not Reportable Monocytes % Not Reportable Eosinophils % Not Reportable Basophils % Not Reportable Absolute Neutrophils Not Reportable Absolute Lymphocytes Not Reportable Absolute Monocytes Not Reportable Absolute Eosinophils Not Reportable Absolute Basophils Not Reportable Sodium 132.1 L Potassium 4.2 Chloride 101 Carbon Dioxide 21 L Anion Gap 10 BUN 33 H Creatinine 7.02 H Est GFR ( Amer) 7 L Est GFR (Non-Af Amer) 6 L Glucose 85 Calcium 7.9 L Phosphorus 6.3 H 01/19/17 12:04 Robert Catheter Urine Culture - Final NO GROWTH 2 DAYS 01/14/17 01/15/17 01/15/17 05:10 22:07 22:07 Creatine Kinase 171 H CK-MB (CK-2) 0.60 Troponin I 0.090 NT-Pro-B Natriuret Pep 550 01/16/17 01/16/17 01/16/17 04:05 04:05 10:10 Creatine Kinase 160 H 277 H CK-MB (CK-2) 0.49 Troponin I 0.082 NT-Pro-B Natriuret Pep 4470 H 01/16/17 10:10 Creatine Kinase CK-MB (CK-2) 1.45 Troponin I 0.043 NT-Pro-B Natriuret Pep Impressions: Abdomen/Pelvis CT 01/15/17 00:00 IMPRESSION: Postoperative ileus. Small-bowel obstruction considered less likely. Follow-up is recommended. Head CT 01/15/17 06:00 IMPRESSION: Technical limitations. Right parietal meningioma. No obvious significant interval change. KUB X-Ray 01/15/17 10:25 IMPRESSION: TIP OF THE NASOGASTRIC TUBE IN THE STOMACH. Renal Ultrasound 01/19/17 00:00 IMPRESSION: NORMAL RENAL ULTRASOUND. Venous Doppler Study 01/19/17 00:00 IMPRESSION: NO EVIDENCE DVT OR SVT IN THE RIGHT LEG. Chest X-Ray 01/21/17 06:00 IMPRESSION: No significant interval change. Assessment & Plan - Diagnosis (1) Diverticulosis large intestine w/o perforation or abscess w/o bleeding Is this a current diagnosis for this admission?: Yes (2) Obesity (BMI 30.0-34.9) Is this a current diagnosis for this admission?: Yes (3) Sepsis Qualifiers: Sepsis type: Escherichia coli Qualified Code(s): A41.51 - Sepsis due to Escherichia coli [E. coli] Is this a current diagnosis for this admission?: Yes (4) Septic shock Is this a current diagnosis for this admission?: Yes (5) COPD (chronic obstructive pulmonary disease) Is this a current diagnosis for this admission?: Yes (6) Tobacco abuse Is this a current diagnosis for this admission?: Yes
[2017-01-22] MEDS ORDERED: LIDOCAINE 1% INJ-PF (10 MG/ML) 30 ML SDV INJ PRN (16:00)
[2017-01-22] MEDS ORDERED: HEPARIN SOD (PORCINE) 1,000 UNIT/ML 10 ML VIAL IV PRN (16:00)
--- NOTE | 2017-01-22 16:01 | PDOC PROGRESS REPORT ---
Subjective Progress Note for:: 01/22/17 Subjective:: Patient was seen earlier today.She mentions that she had some shortness of breath and worsening edema couple of days ago but seems to have improved overnight. She has had a Robert catheter removed and she walks to the bathroom.Denies any severe shortness of breath or chest pains.She has had dropping urine output over the last couple of days. Accordingly Lasix dose has been increased with partial benefit.She denies any history of nausea vomiting. No complaints of any fever chills. Physical Exam Vital Signs: Temp Pulse Resp BP Pulse Ox 98.8 F 104 H 18 157/80 H 100 01/22/17 11:27 01/22/17 11:27 01/22/17 11:27 01/22/17 11:27 01/22/17 11:27 Intake & Output 01/21/17 01/22/17 01/23/17 06:59 06:59 06:59 Intake Total 990 149 Output Total 550 800 Balance 440 -651 Weight 114.5 kg General appearance: PRESENT: no acute distress Respiratory exam: PRESENT: clear to auscultation levira. ABSENT: crackles, rhonchi Cardiovascular exam: PRESENT: +S1, +S2 GI/Abdominal exam: PRESENT: hypoactive bowel sounds, normal bowel sounds, soft, tenderness. ABSENT: distended Extremities exam: PRESENT: +1 edema Neurological exam: PRESENT: alert, awake, oriented to person, oriented to place , oriented to time Skin exam: ABSENT: erythema, mottled, rash Results Laboratory Results: 01/22/17 05:28 01/22/17 05:28 01/22/17 01/22/17 05:28 05:28 WBC 8.0 RBC 2.66 L Hgb 8.8 L Hct 25.3 L MCV 95 MCH 32.9 MCHC 34.6 RDW 13.6 Plt Count 405 Seg Neutrophils % Not Reportable Lymphocytes % Not Reportable Monocytes % Not Reportable Eosinophils % Not Reportable Basophils % Not Reportable Absolute Neutrophils Not Reportable Absolute Lymphocytes Not Reportable Absolute Monocytes Not Reportable Absolute Eosinophils Not Reportable Absolute Basophils Not Reportable Sodium 132.1 L Potassium 4.2 Chloride 101 Carbon Dioxide 21 L Anion Gap 10 BUN 33 H Creatinine 7.02 H Est GFR ( Amer) 7 L Est GFR (Non-Af Amer) 6 L Glucose 85 Calcium 7.9 L Phosphorus 6.3 H 01/14/17 01/15/17 01/15/17 05:10 22:07 22:07 Creatine Kinase 171 H CK-MB (CK-2) 0.60 Troponin I 0.090 NT-Pro-B Natriuret Pep 550 01/16/17 01/16/17 01/16/17 04:05 04:05 10:10 Creatine Kinase 160 H 277 H CK-MB (CK-2) 0.49 Troponin I 0.082 NT-Pro-B Natriuret Pep 4470 H 01/16/17 10:10 Creatine Kinase CK-MB (CK-2) 1.45 Troponin I 0.043 NT-Pro-B Natriuret Pep Impressions: Abdomen/Pelvis CT 01/15/17 00:00 IMPRESSION: Postoperative ileus. Small-bowel obstruction considered less likely. Follow-up is recommended. Head CT 01/15/17 06:00 IMPRESSION: Technical limitations. Right parietal meningioma. No obvious significant interval change. KUB X-Ray 01/15/17 10:25 IMPRESSION: TIP OF THE NASOGASTRIC TUBE IN THE STOMACH. Renal Ultrasound 01/19/17 00:00 IMPRESSION: NORMAL RENAL ULTRASOUND. Venous Doppler Study 01/19/17 00:00 IMPRESSION: NO EVIDENCE DVT OR SVT IN THE RIGHT LEG. Chest X-Ray 01/21/17 06:00 IMPRESSION: No significant interval change. Assessment & Plan - Diagnosis (1) Acute kidney injury Is this a current diagnosis for this admission?: YesPlan: Nonoliguric currently. She has been dropping her urine output 2 days on Sunday and Sunday but with increasing Lasix this seems to be a benefit.No signs of central fluid overload.No signs of uremia. Elect lites are stable. I am going to continue on the Lasix bolus followed by infusions and see if we can get her to shed some of fluid that she has. No acute indications for renal replacements today. However discussed with Dr. De La Torre about the possibility of having to intervene with renal replacements in the next couple of days. Advised to get a temporary dialysis catheter in the groin. (2) Diverticulosis large intestine w/o perforation or abscess w/o bleeding Is this a current diagnosis for this admission?: YesPlan: Status post sigmoid colectomy with colostomy. High output colostomy. (3) Hypertension Is this a current diagnosis for this admission?: YesPlan: Stable at the moment. (4) Hypokalemia Is this a current diagnosis for this admission?: YesPlan: Currently stable. Monitor. (5) Sepsis Qualifiers: Sepsis type: Escherichia coli Qualified Code(s): A41.51 - Sepsis due to Escherichia coli [E. coli] Is this a current diagnosis for this admission?: Yes (6) Anemia Plan: Monitor.
--- NOTE | 2017-01-22 17:51 | Operative Report ---
Nonrecallable Operative Report DATE OF SURGERY: 01/22/17 PREOPERATIVE DIAGNOSIS: Acute renal failure POSTOPERATIVE DIAGNOSIS: Same OPERATION: 1. Focused ultrasound of the right neck to ultrasound directed insertion of dialysis catheter right internal jugular vein SURGEON: FRANK MARTE ANESTHESIA: Local TISSUE REMOVED OR ALTERED: None COMPLICATIONS: None ESTIMATED BLOOD LOSS: Scant INTRAOPERATIVE FINDINGS: See below PROCEDURE: Informed consent was obtained. The patient was placed in Trendelenburg the right neck and chest wall were exposed, and prepped and draped in a sterile fashion. Surgical plan and surgical timeout discussed. The right neck was anesthetized with 1% lidocaine without epinephrine. Using the variable frequency linear transducer, real time, a 18-gauge needle and wire were threaded into the right internal jugular vein. The tract was dilated up using the medium and large dilators, then to try dialysis catheter was threaded over the wire. It was threaded into its hub. There is excellent aspiration and flush. There was excellent aspiration and flush of saline through all 3 lumens. The catheter was affixed to the skin with a Biopatch and 2-0 silk suture; sterile dressing applied. At the conclusion of catheter insertion, all 3 lumens were loaded with concentrated heparin, approximately 1000 U/cc. The patient tolerated the procedure well. There were no complications. Portable upright chest x-ray pending at time of dictation.
--- NOTE | 2017-01-22 19:10 | RADIOLOGY REPORT (SQ) ---
EXAM DESCRIPTION: CHEST SINGLE VIEW COMPLETED DATE/TIME: 01/22/2017 6:21 pm REASON FOR STUDY: s/p right IJ catheter placment COMPARISON: 01/21/2017 EXAM PARAMETERS: NUMBER OF VIEWS: One view. TECHNIQUE: Single frontal radiographic view of the chest acquired. RADIATION DOSE: NA LIMITATIONS: None. FINDINGS: LUNGS AND PLEURA: The previously described mixed interstitial and alveolar opacity predomi nately in the right lower lobe appears essentially unchanged MEDIASTINUM AND HILAR STRUCTURES: No masses. Contour normal. HEART AND VASCULAR STRUCTURES: Heart normal in size. Normal vasculature. BONES: No acute findings. HARDWARE: Dual lumen central line is identified with its tip at the approximate junction of SVC and r ight atrium. Left-sided central line is unchanged in position. OTHER: No other significant finding. IMPRESSION: No significant interval change. Findings as noted above TECHNICAL DOCUMENTATION: JOB ID: [id number]
[2017-01-22] MEDS: OXYCODONE-ACETAMINOPHEN 5-325 MG TABLET PO PRN (20:39)
[2017-01-22] MEDS ORDERED: DIAZEPAM 5 MG TABLET PO SCH (22:00)
[2017-01-23] MEDS: DOXYCYCLINE HYCLATE 100 MG TABLET PO SCH ×3 (00:03→22:47)
[2017-01-23] MEDS: HYDRALAZINE HCL 25 MG TABLET PO SCH ×4 (00:04→22:48)
[2017-01-23] MEDS: BUDESONIDE/FORMOTEROL 160-4.5 MCG 60 PUFF/6 GM MDI IH SCH ×3 (00:04→22:47)
[2017-01-23] MEDS: ALBUMIN HUMAN 50 ML IV SCH ×4 (00:04→22:48)
[2017-01-23] MEDS: OXYCODONE-ACETAMINOPHEN 5-325 MG TABLET PO PRN ×3 (04:48→20:32)
[2017-01-23 05:29] LABS: HEMATOCRIT 23.7 % (36.0-47.0); HEMOGLOBIN 8.5 g/dL (12.0-15.5); HGB HCT DIFFERENCE 1.8; MEAN CORPUSCULAR HEMOGLOBIN 33.2 pg (27.0-33.4); MEAN CORPUSCULAR HGB CONC 35.8 g/dL (32.0-36.0); MEAN CORPUSCULAR VOLUME 93 fl (80-97); RED BLOOD COUNT 2.55 10^6/uL (3.72-5.28); RED CELL DISTRIBUTION WIDTH 13.5 % (11.5-14.0); WHITE BLOOD COUNT 6.9 10^3/uL (4.0-10.5)
[2017-01-23 05:32] LABS: ANION GAP 15 (5-19); BLOOD UREA NITROGEN 34 mg/dL (7-20); CALCIUM 7.7 mg/dL (8.4-10.2); CARBON DIOXIDE 17 mmol/L (22-30); CHLORIDE 100 mmol/L (98-107); CREATININE RESULT 7.68 mg/dL (0.52-1.25); GLUCOSE 85 mg/dL (75-110); POTASSIUM 3.9 mmol/L (3.6-5.0); SODIUM 132.2 mmol/L (137-145)
[2017-01-23 06:09] LABS: BASOPHILS % (MANUAL) 0 % (0-2); EOSINOPHILS % (MANUAL) 0 % (0-6); LYMPHOCYTES % (MANUAL) 11 % (13-45); TOTAL CELLS COUNTED 100
[2017-01-23 06:13] LABS: RBC MORPHOLOGY COMMENT NORMO-CYTIC/CHROMIC; TOXIC GRANULATION SLIGHT
[2017-01-23 06:15] LABS: PLATELET CLUMPS PRESENT
[2017-01-23] MEDS: NICOTINE 14 MG/24 HR PATCH.TD24 TD SCH (09:05)
[2017-01-23] MEDS: HYDROMORPHONE HCL INJ/PF 2 MG/ML AMPULE IV PRN (09:06)
[2017-01-23] MEDS: FERROUS SULFATE 325 MG TABLET PO SCH (09:06)
[2017-01-23] MEDS: THIAMINE HCL 100 MG TABLET PO SCH (09:06)
[2017-01-23] MEDS: ONDANSETRON HCL INJ/PF 4 MG/2 ML SDV IV PRN (13:59)
--- NOTE | 2017-01-23 15:26 | PDOC PROGRESS REPORT ---
Subjective Progress Note for:: 01/23/17 Subjective:: The patient was seen this morning. Pain well until this morning when she complains of some nausea. She is not able to eat Jell-O she has been given for breakfast had a scope with no worsening. She had been moving some yesterday with help of physical therapy and felt good after that. No history of any fever chills. Labs were reviewed with the patient which shows relatively stable numbers. However heartening to see that she has made more urine since I saw her yesterday morning. Post right IJ catheter placed yesterday by Dr. Pruett. Blood tenderness around the catheter or if she lays on the right side. Not complaining of any severe pain or swelling around the catheter site. Physical Exam Vital Signs: Temp Pulse Resp BP Pulse Ox 98.3 F 97 18 164/87 H 99 01/23/17 11:28 01/23/17 11:28 01/23/17 11:28 01/23/17 11:28 01/23/17 11:28 Intake & Output 01/22/17 01/23/17 01/24/17 06:59 06:59 06:59 Intake Total 149 1706 Output Total 800 1800 Balance -651 -94 Weight 114.5 kg 113.6 kg General appearance: PRESENT: no acute distress Respiratory exam: PRESENT: clear to auscultation elvira. ABSENT: crackles, rhonchi Cardiovascular exam: PRESENT: +S1, +S2 GI/Abdominal exam: PRESENT: hypoactive bowel sounds, normal bowel sounds, soft, tenderness. ABSENT: distended Extremities exam: PRESENT: +1 edema Neurological exam: PRESENT: alert, awake, oriented to person, oriented to place , oriented to time Skin exam: ABSENT: cyanosis, erythema, mottled Results Laboratory Results: 01/23/17 04:55 01/23/17 04:55 01/23/17 01/23/17 04:55 04:55 WBC 6.9 RBC 2.55 L Hgb 8.5 L Hct 23.7 L MCV 93 MCH 33.2 MCHC 35.8 RDW 13.5 Plt Count 425 Seg Neutrophils % Not Reportable Lymphocytes % Not Reportable Monocytes % Not Reportable Eosinophils % Not Reportable Basophils % Not Reportable Absolute Neutrophils Not Reportable Absolute Lymphocytes Not Reportable Absolute Monocytes Not Reportable Absolute Eosinophils Not Reportable Absolute Basophils Not Reportable Sodium 132.2 L Potassium 3.9 Chloride 100 Carbon Dioxide 17 L Anion Gap 15 BUN 34 H Creatinine 7.68 H Est GFR ( Amer) 7 L Est GFR (Non-Af Amer) 5 L Glucose 85 Calcium 7.7 L 01/14/17 01/15/17 01/15/17 05:10 22:07 22:07 Creatine Kinase 171 H CK-MB (CK-2) 0.60 Troponin I 0.090 NT-Pro-B Natriuret Pep 550 01/16/17 01/16/17 01/16/17 04:05 04:05 10:10 Creatine Kinase 160 H 277 H CK-MB (CK-2) 0.49 Troponin I 0.082 NT-Pro-B Natriuret Pep 4470 H 01/16/17 10:10 Creatine Kinase CK-MB (CK-2) 1.45 Troponin I 0.043 NT-Pro-B Natriuret Pep Impressions: Abdomen/Pelvis CT 01/15/17 00:00 IMPRESSION: Postoperative ileus. Small-bowel obstruction considered less likely. Follow-up is recommended. Head CT 01/15/17 06:00 IMPRESSION: Technical limitations. Right parietal meningioma. No obvious significant interval change. KUB X-Ray 01/15/17 10:25 IMPRESSION: TIP OF THE NASOGASTRIC TUBE IN THE STOMACH. Renal Ultrasound 01/19/17 00:00 IMPRESSION: NORMAL RENAL ULTRASOUND. Venous Doppler Study 01/19/17 00:00 IMPRESSION: NO EVIDENCE DVT OR SVT IN THE RIGHT LEG. Chest X-Ray 01/22/17 17:48 IMPRESSION: No significant interval change. Findings as noted above Assessment & Plan - Diagnosis (1) Acute kidney injury Is this a current diagnosis for this admission?: YesPlan: Please been making more urine progressively since we have adjusted her diuretics. She does not show any signs of overt congestive heart failure. No signs of uremia. Electrolytes are stable. I am going to continue on the Lasix infusions and see if we can get her to shed some of fluid that she has. No acute indications for renal replacements today. Continue on this and make a decision whether she would need dialysis tomorrow again. Labs and medications were reviewed with the patient (2) Diverticulosis large intestine w/o perforation or abscess w/o bleeding Is this a current diagnosis for this admission?: YesPlan: Status post sigmoid colectomy with colostomy. Working colostomy with less of output. (3) Hypertension Is this a current diagnosis for this admission?: YesPlan: Relatively uncontrolled at the moment. Monitor response to fluid removal (4) Hypokalemia Is this a current diagnosis for this admission?: YesPlan: Currently stable. Monitor. (5) Sepsis Qualifiers: Sepsis type: Escherichia coli Qualified Code(s): A41.51 - Sepsis due to Escherichia coli [E. coli] Is this a current diagnosis for this admission?: YesPlan: Status post surgery for diverticulitis with perforation/abscess.Hemodynamically stable. (6) Anemia Plan: Monitor. Iron deficiency. Will plan to administer IV iron today. This with her about iron infusion and the potential complications . Willing to proceed (7) Hypomagnesemia Plan: Monitor as low normal.
--- NOTE | 2017-01-23 17:30 | PDOC PROGRESS REPORT ---
Subjective Progress Note for:: 01/23/17 Subjective:: awake responsive c/o pain all over Physical Exam Vital Signs: Temp Pulse Resp BP Pulse Ox 98.2 F 95 18 163/79 H 98 01/23/17 07:25 01/23/17 07:25 01/23/17 07:25 01/23/17 07:25 01/23/17 07:25 Intake & Output 01/22/17 01/23/17 01/24/17 06:59 06:59 06:59 Intake Total 149 1706 Output Total 800 1800 Balance -651 -94 Weight 114.5 kg 113.6 kg General appearance: PRESENT: cooperative, disheveled, mild distress, obese, well -developed Head exam: PRESENT: atraumatic, normocephalic Eye exam: PRESENT: conjunctiva pale, EOMI Mouth exam: PRESENT: dry mucosa, neck supple, tongue midline Neck exam: ABSENT: carotid bruit, JVD, lymphadenopathy, thyromegaly Respiratory exam: PRESENT: decreased breath sounds, prolonged expiratory phas, rhonchi, symmetrical, unlabored Cardiovascular exam: PRESENT: RRR, +S1, +S2 Pulses: PRESENT: normal radial pulses GI/Abdominal exam: PRESENT: normal bowel sounds, soft. ABSENT: distended, guarding, mass, organolmegaly, rebound, tenderness Rectal exam: PRESENT: deferred Musculoskeletal exam: PRESENT: normal inspection Neurological exam: PRESENT: alert, awake Psychiatric exam: PRESENT: anxious Skin exam: PRESENT: dry, warm Results Laboratory Results: 01/23/17 04:55 01/23/17 04:55 01/23/17 01/23/17 04:55 04:55 WBC 6.9 RBC 2.55 L Hgb 8.5 L Hct 23.7 L MCV 93 MCH 33.2 MCHC 35.8 RDW 13.5 Plt Count 425 Seg Neutrophils % Not Reportable Lymphocytes % Not Reportable Monocytes % Not Reportable Eosinophils % Not Reportable Basophils % Not Reportable Absolute Neutrophils Not Reportable Absolute Lymphocytes Not Reportable Absolute Monocytes Not Reportable Absolute Eosinophils Not Reportable Absolute Basophils Not Reportable Sodium 132.2 L Potassium 3.9 Chloride 100 Carbon Dioxide 17 L Anion Gap 15 BUN 34 H Creatinine 7.68 H Est GFR ( Amer) 7 L Est GFR (Non-Af Amer) 5 L Glucose 85 Calcium 7.7 L 01/14/17 01/15/17 01/15/17 05:10 22:07 22:07 Creatine Kinase 171 H CK-MB (CK-2) 0.60 Troponin I 0.090 NT-Pro-B Natriuret Pep 550 01/16/17 01/16/17 01/16/17 04:05 04:05 10:10 Creatine Kinase 160 H 277 H CK-MB (CK-2) 0.49 Troponin I 0.082 NT-Pro-B Natriuret Pep 4470 H 01/16/17 10:10 Creatine Kinase CK-MB (CK-2) 1.45 Troponin I 0.043 NT-Pro-B Natriuret Pep Impressions: Abdomen/Pelvis CT 01/15/17 00:00 IMPRESSION: Postoperative ileus. Small-bowel obstruction considered less likely. Follow-up is recommended. Head CT 01/15/17 06:00 IMPRESSION: Technical limitations. Right parietal meningioma. No obvious significant interval change. KUB X-Ray 01/15/17 10:25 IMPRESSION: TIP OF THE NASOGASTRIC TUBE IN THE STOMACH. Renal Ultrasound 01/19/17 00:00 IMPRESSION: NORMAL RENAL ULTRASOUND. Venous Doppler Study 01/19/17 00:00 IMPRESSION: NO EVIDENCE DVT OR SVT IN THE RIGHT LEG. Chest X-Ray 01/22/17 17:48 IMPRESSION: No significant interval change. Findings as noted above Assessment & Plan - Diagnosis (1) Diverticulosis large intestine w/o perforation or abscess w/o bleeding Is this a current diagnosis for this admission?: Yes (2) Obesity (BMI 30.0-34.9) Is this a current diagnosis for this admission?: Yes (3) Sepsis Qualifiers: Sepsis type: Escherichia coli Qualified Code(s): A41.51 - Sepsis due to Escherichia coli [E. coli] Is this a current diagnosis for this admission?: Yes (4) Septic shock Is this a current diagnosis for this admission?: Yes (5) COPD (chronic obstructive pulmonary disease) Is this a current diagnosis for this admission?: Yes (6) Tobacco abuse Is this a current diagnosis for this admission?: Yes
--- NOTE | 2017-01-23 17:49 | PDOC PROGRESS REPORT ---
Subjective Progress Note for:: 01/23/17 Subjective:: Patient seen with nurse at bedside. Patient requests that I call her sister Jamila. Patient reports that Percocet makes her too nauseated, and would like to continue Dilaudid. She would like to continue to receive IV Dilaudid and IV Ativan. This request was denied. Physical Exam Vital Signs: Temp Pulse Resp BP Pulse Ox 98.5 F 94 18 135/65 H 98 01/23/17 04:00 01/23/17 07:00 01/23/17 04:00 01/23/17 04:00 01/23/17 04:00 Intake & Output 01/22/17 01/23/17 01/24/17 06:59 06:59 06:59 Intake Total 149 1706 Output Total 800 1800 Balance -651 -94 Weight 114.5 kg 113.6 kg Exam: GENERAL: No acute distress, A+Ox3 HEENT: Conjunctiva clear, nonicteric, moist mucous membranes, no JVD, midline trachea RESPIRATORY: Clear to auscultation bilaterally CARDIAC: Regular rate and rhythm, no murmurs/gallops/rubs ABDOMEN: Soft, left lower quadrant ostomy with good output, appropriately mildly tender to palpation, active bowel sounds, no rebound, no rigidity, no guarding EXTREMETIES: 4+ edema bilateral lower extremities, cyanosis, no clubbing NEUROLOGIC: Alert, oriented to person, place, time, CN's grossly intact, no focal deficits Results Laboratory Results: 01/23/17 04:55 01/23/17 04:55 01/23/17 01/23/17 04:55 04:55 WBC 6.9 RBC 2.55 L Hgb 8.5 L Hct 23.7 L MCV 93 MCH 33.2 MCHC 35.8 RDW 13.5 Plt Count 425 Seg Neutrophils % Not Reportable Lymphocytes % Not Reportable Monocytes % Not Reportable Eosinophils % Not Reportable Basophils % Not Reportable Absolute Neutrophils Not Reportable Absolute Lymphocytes Not Reportable Absolute Monocytes Not Reportable Absolute Eosinophils Not Reportable Absolute Basophils Not Reportable Sodium 132.2 L Potassium 3.9 Chloride 100 Carbon Dioxide 17 L Anion Gap 15 BUN 34 H Creatinine 7.68 H Est GFR ( Amer) 7 L Est GFR (Non-Af Amer) 5 L Glucose 85 Calcium 7.7 L 01/14/17 01/15/17 01/15/17 05:10 22:07 22:07 Creatine Kinase 171 H CK-MB (CK-2) 0.60 Troponin I 0.090 NT-Pro-B Natriuret Pep 550 01/16/17 01/16/17 01/16/17 04:05 04:05 10:10 Creatine Kinase 160 H 277 H CK-MB (CK-2) 0.49 Troponin I 0.082 NT-Pro-B Natriuret Pep 4470 H 01/16/17 10:10 Creatine Kinase CK-MB (CK-2) 1.45 Troponin I 0.043 NT-Pro-B Natriuret Pep Impressions: Abdomen/Pelvis CT 01/15/17 00:00 IMPRESSION: Postoperative ileus. Small-bowel obstruction considered less likely. Follow-up is recommended. Head CT 01/15/17 06:00 IMPRESSION: Technical limitations. Right parietal meningioma. No obvious significant interval change. KUB X-Ray 01/15/17 10:25 IMPRESSION: TIP OF THE NASOGASTRIC TUBE IN THE STOMACH. Renal Ultrasound 01/19/17 00:00 IMPRESSION: NORMAL RENAL ULTRASOUND. Venous Doppler Study 01/19/17 00:00 IMPRESSION: NO EVIDENCE DVT OR SVT IN THE RIGHT LEG. Chest X-Ray 01/22/17 17:48 IMPRESSION: No significant interval change. Findings as noted above Assessment & Plan - Diagnosis (1) ARF (acute renal failure) Qualifiers: Acute renal failure type: with acute tubular necrosis Qualified Code (s): N17.0 - Acute kidney failure with tubular necrosis Is this a current diagnosis for this admission?: YesPlan: Appreciate nephrology input Likely secondary to ATN. Patient's creatinine continues to rise mildly although not appreciably. Her urine output however has improved. No plans for dialysis today. Patient is quite grossly volume overloaded. (2) Encephalopathy acute Is this a current diagnosis for this admission?: YesPlan: Now resolved. Patient is back to baseline a and O 3. CT of the head reveals meningioma with mild associated edema. Do not believe this is because of the patient's encephalopathy. Patient has suffered with this meningioma for so long that it is now calcified. Most likely secondary to sepsis, alcohol withdrawal, and underlying untreated bipolar. (3) Alcohol withdrawal delirium Is this a current diagnosis for this admission?: Yes (4) Septic shock Is this a current diagnosis for this admission?: YesPlan: Improved. Secondary to perforated diverticulum. (5) Sepsis Qualifiers: Sepsis type: Escherichia coli Qualified Code(s): A41.51 - Sepsis due to Escherichia coli [E. coli] Is this a current diagnosis for this admission?: YesPlan: Patient with sepsis present on admission. 2/2 Diverticulitis. s/p partial colectomy. Criteria On admission tachycardia, 35% bands, source, and fever 101.3. Patient with E.Coli in peritoneal fluid. Patient has been treated and transitioned to doxycycline. (6) Diverticulitis Qualifiers: Diverticulitis site: large intestine Diverticulitis bleeding: without bleeding Diverticulitis complication: with perforation Qualified Code (s): K57.20 - Diverticulitis of large intestine with perforation and abscess without bleeding Is this a current diagnosis for this admission?: YesPlan: Thank surgery for their participation. (7) Impaired fasting blood sugar Is this a current diagnosis for this admission?: Yes (8) Alcoholism /alcohol abuse Is this a current diagnosis for this admission?: YesPlan: Continue oral thiamine and folic acid. Patient as well as side window for acute withdrawal. (9) Hypokalemia Is this a current diagnosis for this admission?: Yes (10) Hypophosphatemia Is this a current diagnosis for this admission?: Yes (11) Meningioma Is this a current diagnosis for this admission?: YesPlan: Patient will need to follow as an outpatient with neurosurgery if this is felt to be symptomatic. (12) Tobacco abuse Is this a current diagnosis for this admission?: YesPlan: nicotine replacement (13) Obesity (BMI 30.0-34.9) Is this a current diagnosis for this admission?: Yes (14) COPD (chronic obstructive pulmonary disease) Qualifiers: COPD type: unspecified COPD Qualified Code(s): J44.9 - Chronic obstructive pulmonary disease, unspecified Is this a current diagnosis for this admission?: YesPlan: Continue as needed nebulized treatments. (15) Hypertension Qualifiers: Hypertension type: unspecified Qualified Code(s): I10 - Essential ( primary) hypertension Is this a current diagnosis for this admission?: YesPlan: Add Norvasc 5 mg p.o. nightly. Continue hydralazine 25 mg p.o. 3 times daily. - Time Time Spent with patient: 25-34 minutes Medications reviewed and adjusted accordingly: Yes - Inpatient Certification Based on my medical assessment, after consideration of the patient's comorbidities, presenting symptoms, or acuity I expect that the services needed warrant INPATIENT care.: Yes I certify that my determination is in accordance with my understanding of Medicare's requirements for reasonable and necessary INPATIENT services [42 CFR 412.3e].: Yes Medical Necessity: Need For Continuous Telemetry Monitoring, Risk of Complication if Not Cared For in Hospital Post Hospital Care: D/C Occupational Therapy Instructor Documentation
[2017-01-23] MEDS ORDERED: FERUMOXYTOL 510 MG in NORMAL SALINE 100 ML IV ONE (18:00)
[2017-01-23] MEDS ORDERED: PHARMACY COMMUNICATION ORDER MC SCH (18:00)
[2017-01-23] MEDS: MAG HYDROX/AL HYDROX/SIMETH SUSP 30 ML UDCUP PO PRN (18:23)
--- NOTE | 2017-01-23 18:54 | PROGRESS NOTE E ---
Progress Note NAME: PRASANTH CASSIDY : 1960 AGE: 56Y DATE: 01/23/2017 ROOM: 409 SUBJECTIVE: Denies any pains and the colostomy is functioning well. There is urine output somehow increased in the past 24 hours and appears to have at least 800 mL. Her BUN and creatinine appears to have stabilized though they are still elevated. ASSESSMENT/PLAN: Patient is coming along well and the database programmer analyst is still deciding on whether patient needs dialysis or not at this time. DICTATING PHYSICIAN: KRISTINA WHELAN M.D. [id number] PHY#: [id number] ID: [id number] JOB#: [id number] ACCT: [id number] cc: >
[2017-01-23] MEDS ORDERED: AMLODIPINE BESYLATE 5 MG TABLET PO SCH (22:00)
[2017-01-23] MEDS: METOCLOPRAMIDE HCL INJ/PF 10 MG/2 ML SDV IV SCH (22:48)
[2017-01-24] MEDS: OXYCODONE-ACETAMINOPHEN 5-325 MG TABLET PO PRN ×2 (04:00→11:49)
[2017-01-24 04:37] LABS: ANION GAP 13 (5-19); BLOOD UREA NITROGEN 38 mg/dL (7-20); CARBON DIOXIDE 20 mmol/L (22-30); CHLORIDE 100 mmol/L (98-107); CREATININE RESULT 9.09 mg/dL (0.52-1.25); GLUCOSE 82 mg/dL (75-110); MAGNESIUM 1.4 mg/dL (1.6-2.3); POTASSIUM 3.8 mmol/L (3.6-5.0); SODIUM 133.3 mmol/L (137-145)
[2017-01-24 04:38] LABS: HEMATOCRIT 23.4 % (36.0-47.0); HEMOGLOBIN 8.3 g/dL (12.0-15.5); HGB HCT DIFFERENCE 1.5; MEAN CORPUSCULAR HEMOGLOBIN 32.7 pg (27.0-33.4); MEAN CORPUSCULAR HGB CONC 35.4 g/dL (32.0-36.0); MEAN CORPUSCULAR VOLUME 92 fl (80-97); RED BLOOD COUNT 2.53 10^6/uL (3.72-5.28); RED CELL DISTRIBUTION WIDTH 13.7 % (11.5-14.0); WHITE BLOOD COUNT 6.9 10^3/uL (4.0-10.5)
[2017-01-24 05:08] LABS: BAND NEUTROPHILS % (MANUAL) 1 % (3-5); BASOPHILS % (MANUAL) 1 % (0-2); EOSINOPHILS % (MANUAL) 4 % (0-6); LYMPHOCYTES % (MANUAL) 15 % (13-45); TOTAL CELLS COUNTED 100
[2017-01-24 05:09] LABS: RBC MORPHOLOGY COMMENT NORMO-CYTIC/CHROMIC; TOXIC GRANULATION SLIGHT
[2017-01-24] MEDS: HYDRALAZINE HCL 25 MG TABLET PO SCH ×2 (07:32→14:59)
[2017-01-24] MEDS: ALBUMIN HUMAN 50 ML IV SCH ×2 (07:32→15:00)
[2017-01-24] MEDS ORDERED: MAGNESIUM SULFATE INJ 8 MEQ/2 ML IV ONE (08:16)
[2017-01-24] MEDS ORDERED: MAGNESIUM SULFATE/D5W 1 GM/100 ML RTUPB IV ONE (08:30)
[2017-01-24] MEDS: METOCLOPRAMIDE HCL INJ/PF 10 MG/2 ML SDV IV SCH ×3 (08:55→16:46)
[2017-01-24] MEDS: THIAMINE HCL 100 MG TABLET PO SCH (10:11)
[2017-01-24] MEDS: DOXYCYCLINE HYCLATE 100 MG TABLET PO SCH (10:11)
[2017-01-24] MEDS: NICOTINE 14 MG/24 HR PATCH.TD24 TD SCH (10:11)
[2017-01-24] MEDS: FUROSEMIDE INJ/PF 20 MG/2 ML SDV IV SCH (10:12)
[2017-01-24] MEDS: BUDESONIDE/FORMOTEROL 160-4.5 MCG 60 PUFF/6 GM MDI IH SCH (10:12)
--- NOTE | 2017-01-24 13:08 | PROGRESS NOTE E ---
Progress Note NAME: PRASANTH CASSIDY : 1960 AGE: 56Y DATE: 01/24/2017 ROOM: 409 SUBJECTIVE: Patient remains afebrile; however, her kidney functions apparently remain the same. Dr. Cohen is apparently starting to start her on hemodialysis and hopefully on an urgent basis. DICTATING PHYSICIAN: KRISTINA WHELAN M.D. [id number] PHY#: [id number] ID: [id number] JOB#: [id number] ACCT: [id number] cc: >
[2017-01-24] MEDS ORDERED: HEPARIN SOD (PORCINE) 1,000 UNIT/ML 10 ML VIAL IV PRN (13:29)
[2017-01-24] MEDS ORDERED: EPOETIN ALFA 10,000 UNIT in SYRINGE, DISPOSABLE, 1 EACH IV PRN (15:00)
--- NOTE | 2017-01-24 16:11 | PDOC PROGRESS REPORT ---
Subjective Progress Note for:: 01/24/17 Subjective:: Patient seen in the hospital today. She feels rather sickly. She states she had a rough night. She still has some shortness of breath. Chest pains. No history of any fever chills. Appetite is slowly better this morning. Labs were reviewed with the patient which shows worsening renal numbers. However she has had a good urine output of approximately thousand 1500 cc on the current diuretic regimen . medications were reviewed. Physical Exam Vital Signs: Temp Pulse Resp BP Pulse Ox 98.6 F 115 H 17 166/81 H 97 01/24/17 11:18 01/24/17 14:00 01/24/17 11:18 01/24/17 11:18 01/24/17 11:18 Intake & Output 01/23/17 01/24/17 01/25/17 06:59 06:59 06:59 Intake Total 1706 1332 Output Total 1800 1550 Balance -94 -218 Weight 113.6 kg 113.6 kg General appearance: PRESENT: no acute distress Respiratory exam: PRESENT: clear to auscultation elvira. ABSENT: crackles, rhonchi , stridor Cardiovascular exam: PRESENT: +S1, +S2 GI/Abdominal exam: PRESENT: normal bowel sounds, soft, tenderness. ABSENT: distended Extremities exam: PRESENT: +1 edema Neurological exam: PRESENT: awake, oriented to person, oriented to place Results Laboratory Results: 01/24/17 04:11 01/24/17 04:11 01/24/17 01/24/17 04:11 04:11 WBC 6.9 RBC 2.53 L Hgb 8.3 L Hct 23.4 L MCV 92 MCH 32.7 MCHC 35.4 RDW 13.7 Plt Count 423 Seg Neutrophils % Not Reportable Lymphocytes % Not Reportable Monocytes % Not Reportable Eosinophils % Not Reportable Basophils % Not Reportable Absolute Neutrophils Not Reportable Absolute Lymphocytes Not Reportable Absolute Monocytes Not Reportable Absolute Eosinophils Not Reportable Absolute Basophils Not Reportable Sodium 133.3 L Potassium 3.8 Chloride 100 Carbon Dioxide 20 L Anion Gap 13 BUN 38 H Creatinine 9.09 H Est GFR ( Amer) 5 L Est GFR (Non-Af Amer) 4 L Glucose 82 Calcium 8.0 L Magnesium 1.4 L 01/14/17 01/15/17 01/15/17 05:10 22:07 22:07 Creatine Kinase 171 H CK-MB (CK-2) 0.60 Troponin I 0.090 NT-Pro-B Natriuret Pep 550 01/16/17 01/16/17 01/16/17 04:05 04:05 10:10 Creatine Kinase 160 H 277 H CK-MB (CK-2) 0.49 Troponin I 0.082 NT-Pro-B Natriuret Pep 4470 H 01/16/17 10:10 Creatine Kinase CK-MB (CK-2) 1.45 Troponin I 0.043 NT-Pro-B Natriuret Pep Impressions: Abdomen/Pelvis CT 01/15/17 00:00 IMPRESSION: Postoperative ileus. Small-bowel obstruction considered less likely. Follow-up is recommended. Head CT 01/15/17 06:00 IMPRESSION: Technical limitations. Right parietal meningioma. No obvious significant interval change. KUB X-Ray 01/15/17 10:25 IMPRESSION: TIP OF THE NASOGASTRIC TUBE IN THE STOMACH. Renal Ultrasound 01/19/17 00:00 IMPRESSION: NORMAL RENAL ULTRASOUND. Venous Doppler Study 01/19/17 00:00 IMPRESSION: NO EVIDENCE DVT OR SVT IN THE RIGHT LEG. Chest X-Ray 01/22/17 17:48 IMPRESSION: No significant interval change. Findings as noted above Assessment & Plan - Diagnosis (1) Acute kidney injury Is this a current diagnosis for this admission?: YesPlan: Looks to be an early uremia. In spite of her urine output her renal numbers have gotten much higher and the creatinine today is 9+. After discussions with the patient I have decided to initiate her on hemodialysis. I went through the procedure and its complications including infections, hypotension some very rare causes of cardiac arrest. Has a working right IJ catheter and will use that for dialysis today. Patient questions were answered to her satisfaction. Orders have been placed for initiation of hemodialysis with Luz the treating nurse. (2) Diverticulosis large intestine w/o perforation or abscess w/o bleeding Is this a current diagnosis for this admission?: YesPlan: Status post sigmoid colectomy with colostomy. Working colostomy with less of output. (3) Hypokalemia Is this a current diagnosis for this admission?: Yes (4) Hypertension Is this a current diagnosis for this admission?: YesPlan: Relatively uncontrolled at the moment. Monitor response to fluid removal (5) Sepsis Qualifiers: Sepsis type: Escherichia coli Qualified Code(s): A41.51 - Sepsis due to Escherichia coli [E. coli] Is this a current diagnosis for this admission?: YesPlan: Status post surgery for diverticulitis with perforation/abscess.Hemodynamically stable. (6) Anemia Plan: Status post IV iron yesterday. Today she is going to get erythropoietin 10,000 units on dialysis. Monitor.
--- NOTE | 2017-01-24 19:00 | PDOC PROGRESS REPORT ---
Subjective Progress Note for:: 01/24/17 Subjective:: Patient seen with dialysis nurse at bedside. Patient requests that I call her sister Jamila. Patient is receiving her first session of dialysis today. They report that they were only able to Remove 1 L of IV fluids. Patient denies chest pain, shortness of breath, abdominal pain, nausea, vomiting , fevers, chills, diarrhea, constipation, headache, new onset weakness. Physical Exam Vital Signs: Temp Pulse Resp BP Pulse Ox 98.6 F 93 17 148/79 H 100 01/24/17 03:38 01/24/17 07:00 01/24/17 03:38 01/24/17 03:38 01/24/17 03:38 Intake & Output 01/23/17 01/24/17 01/25/17 06:59 06:59 06:59 Intake Total 1706 1332 Output Total 1800 1550 Balance -94 -218 Weight 113.6 kg 113.6 kg Exam: GENERAL: No acute distress, A+Ox3 HEENT: Conjunctiva clear, nonicteric, moist mucous membranes, no JVD, midline trachea RESPIRATORY: Clear to auscultation bilaterally CARDIAC: Regular rate and rhythm, no murmurs/gallops/rubs ABDOMEN: Soft, left lower quadrant ostomy with good output, appropriately mildly tender to palpation, active bowel sounds, no rebound, no rigidity, no guarding EXTREMETIES: 2+ edema bilateral lower extremities, cyanosis, no clubbing NEUROLOGIC: Alert, oriented to person, place, time, CN's grossly intact, no focal deficits Results Laboratory Results: 01/24/17 04:11 01/24/17 04:11 01/24/17 01/24/17 04:11 04:11 WBC 6.9 RBC 2.53 L Hgb 8.3 L Hct 23.4 L MCV 92 MCH 32.7 MCHC 35.4 RDW 13.7 Plt Count 423 Seg Neutrophils % Not Reportable Lymphocytes % Not Reportable Monocytes % Not Reportable Eosinophils % Not Reportable Basophils % Not Reportable Absolute Neutrophils Not Reportable Absolute Lymphocytes Not Reportable Absolute Monocytes Not Reportable Absolute Eosinophils Not Reportable Absolute Basophils Not Reportable Sodium 133.3 L Potassium 3.8 Chloride 100 Carbon Dioxide 20 L Anion Gap 13 BUN 38 H Creatinine 9.09 H Est GFR ( Amer) 5 L Est GFR (Non-Af Amer) 4 L Glucose 82 Calcium 8.0 L Magnesium 1.4 L 01/14/17 01/15/17 01/15/17 05:10 22:07 22:07 Creatine Kinase 171 H CK-MB (CK-2) 0.60 Troponin I 0.090 NT-Pro-B Natriuret Pep 550 01/16/17 01/16/17 01/16/17 04:05 04:05 10:10 Creatine Kinase 160 H 277 H CK-MB (CK-2) 0.49 Troponin I 0.082 NT-Pro-B Natriuret Pep 4470 H 01/16/17 10:10 Creatine Kinase CK-MB (CK-2) 1.45 Troponin I 0.043 NT-Pro-B Natriuret Pep Impressions: Abdomen/Pelvis CT 01/15/17 00:00 IMPRESSION: Postoperative ileus. Small-bowel obstruction considered less likely. Follow-up is recommended. Head CT 01/15/17 06:00 IMPRESSION: Technical limitations. Right parietal meningioma. No obvious significant interval change. KUB X-Ray 01/15/17 10:25 IMPRESSION: TIP OF THE NASOGASTRIC TUBE IN THE STOMACH. Renal Ultrasound 01/19/17 00:00 IMPRESSION: NORMAL RENAL ULTRASOUND. Venous Doppler Study 01/19/17 00:00 IMPRESSION: NO EVIDENCE DVT OR SVT IN THE RIGHT LEG. Chest X-Ray 01/22/17 17:48 IMPRESSION: No significant interval change. Findings as noted above Assessment & Plan - Diagnosis (1) ARF (acute renal failure) Qualifiers: Acute renal failure type: with acute tubular necrosis Qualified Code (s): N17.0 - Acute kidney failure with tubular necrosis Is this a current diagnosis for this admission?: YesPlan: Appreciate nephrology input Likely secondary to ATN. Patient's creatinine continues to rise. Her urine output however has improved. Dialysis today. Patient is quite grossly volume overloaded. (2) Encephalopathy acute Is this a current diagnosis for this admission?: YesPlan: Now resolved. Patient is back to baseline a and O 3. CT of the head reveals meningioma with mild associated edema. Do not believe this is because of the patient's encephalopathy. Patient has suffered with this meningioma for so long that it is now calcified. Most likely secondary to sepsis, alcohol withdrawal, and underlying untreated bipolar. (3) Alcohol withdrawal delirium Is this a current diagnosis for this admission?: YesPlan: resolved (4) Septic shock Is this a current diagnosis for this admission?: YesPlan: Improved. Secondary to perforated diverticulum. (5) Sepsis Qualifiers: Sepsis type: Escherichia coli Qualified Code(s): A41.51 - Sepsis due to Escherichia coli [E. coli] Is this a current diagnosis for this admission?: YesPlan: Patient with sepsis present on admission. 2/2 Diverticulitis. s/p partial colectomy. Criteria On admission tachycardia, 35% bands, source, and fever 101.3. Patient with E.Coli in peritoneal fluid. Patient has been treated and transitioned to doxycycline. (6) Diverticulitis Qualifiers: Diverticulitis site: large intestine Diverticulitis bleeding: without bleeding Diverticulitis complication: with perforation Qualified Code (s): K57.20 - Diverticulitis of large intestine with perforation and abscess without bleeding Is this a current diagnosis for this admission?: Yes (7) Impaired fasting blood sugar Is this a current diagnosis for this admission?: Yes (8) Alcoholism /alcohol abuse Is this a current diagnosis for this admission?: YesPlan: Continue oral thiamine and folic acid. Patient as well as side window for acute withdrawal. (9) Hypokalemia Is this a current diagnosis for this admission?: Yes (10) Hypophosphatemia Is this a current diagnosis for this admission?: Yes (11) Meningioma Is this a current diagnosis for this admission?: Yes (12) Tobacco abuse Is this a current diagnosis for this admission?: Yes (13) Obesity (BMI 30.0-34.9) Is this a current diagnosis for this admission?: Yes (14) COPD (chronic obstructive pulmonary disease) Qualifiers: COPD type: unspecified COPD Qualified Code(s): J44.9 - Chronic obstructive pulmonary disease, unspecified Is this a current diagnosis for this admission?: Yes (15) Hypertension Qualifiers: Hypertension type: unspecified Qualified Code(s): I10 - Essential ( primary) hypertension Is this a current diagnosis for this admission?: YesPlan: Add Norvasc 5 mg p.o. nightly. Continue hydralazine 25 mg p.o. 3 times daily. Add IV hydralazine as needed - Time Time Spent with patient: 25-34 minutes Medications reviewed and adjusted accordingly: Yes - Is
[2017-01-24] MEDS: HYDROMORPHONE HCL 2 MG TABLET PO PRN (19:58)
[2017-01-25] MEDS: FUROSEMIDE INJ/PF 20 MG/2 ML SDV IV SCH ×3 (00:03→21:40)
[2017-01-25] MEDS: METOCLOPRAMIDE HCL INJ/PF 10 MG/2 ML SDV IV SCH ×3 (00:03→11:40)
[2017-01-25] MEDS: OXYCODONE-ACETAMINOPHEN 5-325 MG TABLET PO PRN (00:06)
[2017-01-25] MEDS: DOXYCYCLINE HYCLATE 100 MG TABLET PO SCH ×2 (00:13→11:40)
[2017-01-25] MEDS: BUDESONIDE/FORMOTEROL 160-4.5 MCG 60 PUFF/6 GM MDI IH SCH ×3 (00:13→21:40)
[2017-01-25] MEDS: HYDRALAZINE HCL 25 MG TABLET PO SCH ×4 (00:13→21:40)
[2017-01-25] MEDS: HYDROMORPHONE HCL 2 MG TABLET PO PRN ×3 (05:02→20:28)
[2017-01-25] MEDS: MAG HYDROX/AL HYDROX/SIMETH SUSP 30 ML UDCUP PO PRN (05:06)
[2017-01-25 06:13] LABS: HEMATOCRIT 24.3 % (36.0-47.0); HEMOGLOBIN 8.6 g/dL (12.0-15.5); HGB HCT DIFFERENCE 1.5; MEAN CORPUSCULAR HEMOGLOBIN 33.1 pg (27.0-33.4); MEAN CORPUSCULAR HGB CONC 35.3 g/dL (32.0-36.0); MEAN CORPUSCULAR VOLUME 94 fl (80-97); RED BLOOD COUNT 2.59 10^6/uL (3.72-5.28); RED CELL DISTRIBUTION WIDTH 13.6 % (11.5-14.0); WHITE BLOOD COUNT 6.8 10^3/uL (4.0-10.5)
[2017-01-25 06:33] LABS: ANION GAP 11 (5-19); BLOOD UREA NITROGEN 28 mg/dL (7-20); CALCIUM 7.8 mg/dL (8.4-10.2); CARBON DIOXIDE 24 mmol/L (22-30); CHLORIDE 99 mmol/L (98-107); CREATINE KINASE 31 U/L (30-135); CREATININE RESULT 6.73 mg/dL (0.52-1.25); GLUCOSE 89 mg/dL (75-110); MAGNESIUM 1.4 mg/dL (1.6-2.3); POTASSIUM 3.7 mmol/L (3.6-5.0); SODIUM 134.3 mmol/L (137-145)
[2017-01-25] MEDS: ONDANSETRON HCL INJ/PF 4 MG/2 ML SDV IV PRN (06:45)
[2017-01-25] MEDS ORDERED: MAGNESIUM OXIDE 400 MG TABLET PO ONE (07:40)
--- NOTE | 2017-01-25 09:17 | PDOC PROGRESS REPORT ---
Subjective Progress Note for:: 01/25/17 Subjective:: Tolerating diet well. No complaints. Physical Exam Vital Signs: Temp Pulse Resp BP Pulse Ox 98.5 F 101 H 16 165/75 H 96 01/25/17 07:33 01/25/17 07:33 01/25/17 07:33 01/25/17 07:33 01/25/17 07:33 Intake & Output 01/24/17 01/25/17 01/26/17 06:59 06:59 06:59 Intake Total 1332 880 Output Total 1550 3150 Balance -218 -2270 Weight 113.6 kg 113.6 kg General appearance: PRESENT: no acute distress, cooperative Respiratory exam: PRESENT: clear to auscultation elvira Cardiovascular exam: PRESENT: RRR GI/Abdominal exam: PRESENT: other - Soft, nondistended, nontender to palpation. Ostomy functioning well. Extremities exam: PRESENT: other - Diffuse edema Results Laboratory Results: 01/25/17 05:02 01/25/17 05:02 01/25/17 01/25/17 05:02 05:02 WBC 6.8 RBC 2.59 L Hgb 8.6 L Hct 24.3 L MCV 94 MCH 33.1 MCHC 35.3 RDW 13.6 Plt Count 438 Sodium 134.3 L Potassium 3.7 Chloride 99 Carbon Dioxide 24 Anion Gap 11 BUN 28 H Creatinine 6.73 H Est GFR ( Amer) 8 L Est GFR (Non-Af Amer) 6 L Glucose 89 Calcium 7.8 L Magnesium 1.4 L 01/14/17 01/15/17 01/15/17 05:10 22:07 22:07 Creatine Kinase 171 H CK-MB (CK-2) 0.60 Troponin I 0.090 NT-Pro-B Natriuret Pep 550 01/16/17 01/16/17 01/16/17 04:05 04:05 10:10 Creatine Kinase 160 H 277 H CK-MB (CK-2) 0.49 Troponin I 0.082 NT-Pro-B Natriuret Pep 4470 H 01/16/17 01/25/17 10:10 05:02 Creatine Kinase 31 CK-MB (CK-2) 1.45 Troponin I 0.043 NT-Pro-B Natriuret Pep Impressions: Abdomen/Pelvis CT 01/15/17 00:00 IMPRESSION: Postoperative ileus. Small-bowel obstruction considered less likely. Follow-up is recommended. Head CT 01/15/17 06:00 IMPRESSION: Technical limitations. Right parietal meningioma. No obvious significant interval change. KUB X-Ray 01/15/17 10:25 IMPRESSION: TIP OF THE NASOGASTRIC TUBE IN THE STOMACH. Renal Ultrasound 01/19/17 00:00 IMPRESSION: NORMAL RENAL ULTRASOUND. Venous Doppler Study 01/19/17 00:00 IMPRESSION: NO EVIDENCE DVT OR SVT IN THE RIGHT LEG. Chest X-Ray 01/22/17 17:48 IMPRESSION: No significant interval change. Findings as noted above Assessment & Plan - Diagnosis (1) Diverticulitis Qualifiers: Diverticulitis site: large intestine Diverticulitis bleeding: without bleeding Diverticulitis complication: with perforation Qualified Code (s): K57.20 - Diverticulitis of large intestine with perforation and abscess without bleeding Is this a current diagnosis for this admission?: Yes (2) Diverticulitis Qualifiers: Diverticulitis site: large intestine Diverticulitis complication: with perforation Is this a current diagnosis for this admission?: YesPlan: Status post sigmoid colon resection with colostomy. Complicated by acute renal failure. Creatinine appears to be coming down. Defer to nephrology management. Otherwise patient looks good.
[2017-01-25] MEDS: NICOTINE 14 MG/24 HR PATCH.TD24 TD SCH (10:01)
[2017-01-25] MEDS: THIAMINE HCL 100 MG TABLET PO SCH (10:01)
[2017-01-25] MEDS: MAGNESIUM OXIDE 400 MG TABLET PO SCH ×3 (10:01→17:49)
[2017-01-25] MEDS: CARVEDILOL 3.125 MG TABLET PO SCH ×2 (11:34→21:40)
--- NOTE | 2017-01-25 13:15 | PDOC PROGRESS REPORT ---
Subjective Progress Note for:: 01/25/17 Subjective:: Patient was lying in bed this morning complaining of abdominal pain due to the colostomy. Patient is producing stool into her bag.. She has no other complaints. She denies chest pain, shortness of breath, nausea and has not vomited recently. Magnesium levels were also low but she has no complaints of palpitations or muscle cramps. Physical Exam Vital Signs: Temp Pulse Resp BP Pulse Ox 97.9 F 101 H 16 185/85 H 100 01/25/17 12:00 01/25/17 12:00 01/25/17 12:00 01/25/17 12:00 01/25/17 12:00 Intake & Output 01/24/17 01/25/17 01/26/17 06:59 06:59 06:59 Intake Total 1332 880 Output Total 1550 3150 Balance -218 -2270 Weight 113.6 kg 113.6 kg General appearance: PRESENT: mild distress - due to pain, well-developed, well- nourished Head exam: PRESENT: atraumatic, normocephalic Mouth exam: PRESENT: moist, neck supple Neck exam: PRESENT: full ROM. ABSENT: JVD Respiratory exam: PRESENT: clear to auscultation elvira. ABSENT: accessory muscle use, chest wall tenderness, crackles, rales, rhonchi, tachypnea, wheezes Cardiovascular exam: PRESENT: +S1, +S2, tachycardia Vascular exam: PRESENT: normal capillary refill GI/Abdominal exam: PRESENT: normal bowel sounds, soft, tenderness. ABSENT: distended Extremities exam: PRESENT: pedal edema, +1 edema. ABSENT: calf tenderness Neurological exam: PRESENT: alert, awake, oriented to person, oriented to place , oriented to time, oriented to situation Skin exam: PRESENT: dry, intact, warm. ABSENT: cyanosis Results Laboratory Results: 01/25/17 05:02 01/25/17 05:02 01/25/17 01/25/17 05:02 05:02 WBC 6.8 RBC 2.59 L Hgb 8.6 L Hct 24.3 L MCV 94 MCH 33.1 MCHC 35.3 RDW 13.6 Plt Count 438 Sodium 134.3 L Potassium 3.7 Chloride 99 Carbon Dioxide 24 Anion Gap 11 BUN 28 H Creatinine 6.73 H Est GFR ( Amer) 8 L Est GFR (Non-Af Amer) 6 L Glucose 89 Calcium 7.8 L Magnesium 1.4 L 01/14/17 01/15/17 01/15/17 05:10 22:07 22:07 Creatine Kinase 171 H CK-MB (CK-2) 0.60 Troponin I 0.090 NT-Pro-B Natriuret Pep 550 01/16/17 01/16/17 01/16/17 04:05 04:05 10:10 Creatine Kinase 160 H 277 H CK-MB (CK-2) 0.49 Troponin I 0.082 NT-Pro-B Natriuret Pep 4470 H 01/16/17 01/25/17 10:10 05:02 Creatine Kinase 31 CK-MB (CK-2) 1.45 Troponin I 0.043 NT-Pro-B Natriuret Pep Impressions: Abdomen/Pelvis CT 01/15/17 00:00 IMPRESSION: Postoperative ileus. Small-bowel obstruction considered less likely. Follow-up is recommended. Head CT 01/15/17 06:00 IMPRESSION: Technical limitations. Right parietal meningioma. No obvious significant interval change. KUB X-Ray 01/15/17 10:25 IMPRESSION: TIP OF THE NASOGASTRIC TUBE IN THE STOMACH. Renal Ultrasound 01/19/17 00:00 IMPRESSION: NORMAL RENAL ULTRASOUND. Venous Doppler Study 01/19/17 00:00 IMPRESSION: NO EVIDENCE DVT OR SVT IN THE RIGHT LEG. Chest X-Ray 01/22/17 17:48 IMPRESSION: No significant interval change. Findings as noted above Assessment & Plan - Diagnosis (1) Acute kidney injury Is this a current diagnosis for this admission?: YesPlan: Patient is producing more urine now and creatinine has had a slight improvement. Will continue with dialysis tomorrow to further aid her kidneys in getting fluid off. (2) Anemia Plan: hemoglobin is trending up. Will continue to watch to see if it keeps trending up. (3) Hypertension Is this a current diagnosis for this admission?: YesPlan: Currently unstable may improve if more fluid is removed after dialysis tomorrow. (4) Hypokalemia Is this a current diagnosis for this admission?: YesPlan: stable (5) Hypomagnesemia Plan: currently low, now on 800mg of magnesium oxide PO TID. Will look to follow up on magnesium levels after a few times of having the magnesium oxide. If not able to tolerate PO magnesium would recommend 1g of magnesium IV. - Notes Notes: Due to inadequate fluid output, will continue dialysis tomorrow.
--- NOTE | 2017-01-25 14:57 | PDOC PROGRESS REPORT ---
Subjective Progress Note for:: 01/25/17 Subjective:: Patient reports she did not sleep well last night. Patient denies chest pain, shortness of breath, abdominal pain, nausea, vomiting , fevers, chills, diarrhea, constipation, headache, new onset weakness. Physical Exam Vital Signs: Temp Pulse Resp BP Pulse Ox 98.1 F 102 H 17 167/74 H 97 01/25/17 03:36 01/25/17 07:00 01/25/17 03:36 01/25/17 03:36 01/25/17 03:36 Intake & Output 01/24/17 01/25/17 01/26/17 06:59 06:59 06:59 Intake Total 1332 880 Output Total 1550 3150 Balance -218 -2270 Weight 113.6 kg 113.6 kg Exam: GENERAL: No acute distress, A+Ox3 HEENT: Conjunctiva clear, nonicteric, moist mucous membranes, no JVD, midline trachea RESPIRATORY: Clear to auscultation bilaterally CARDIAC: Regular rate and rhythm, no murmurs/gallops/rubs ABDOMEN: Soft, left lower quadrant ostomy with good output, appropriately mildly tender to palpation, active bowel sounds, no rebound, no rigidity, no guarding EXTREMETIES: 2+ edema bilateral lower extremities, cyanosis, no clubbing NEUROLOGIC: Alert, oriented to person, place, time, CN's grossly intact, no focal deficits PSYCH: mildly anxious Results Laboratory Results: 01/25/17 05:02 01/25/17 05:02 01/25/17 01/25/17 05:02 05:02 WBC 6.8 RBC 2.59 L Hgb 8.6 L Hct 24.3 L MCV 94 MCH 33.1 MCHC 35.3 RDW 13.6 Plt Count 438 Sodium 134.3 L Potassium 3.7 Chloride 99 Carbon Dioxide 24 Anion Gap 11 BUN 28 H Creatinine 6.73 H Est GFR ( Amer) 8 L Est GFR (Non-Af Amer) 6 L Glucose 89 Calcium 7.8 L Magnesium 1.4 L 01/14/17 01/15/17 01/15/17 05:10 22:07 22:07 Creatine Kinase 171 H CK-MB (CK-2) 0.60 Troponin I 0.090 NT-Pro-B Natriuret Pep 550 01/16/17 01/16/1717 04:05 04:05 10:10 Creatine Kinase 160 H 277 H CK-MB (CK-2) 0.49 Troponin I 0.082 NT-Pro-B Natriuret Pep 4470 H 01/16/17 01/25/17 10:10 05:02 Creatine Kinase 31 CK-MB (CK-2) 1.45 Troponin I 0.043 NT-Pro-B Natriuret Pep Impressions: Abdomen/Pelvis CT 01/15/17 00:00 IMPRESSION: Postoperative ileus. Small-bowel obstruction considered less likely. Follow-up is recommended. Head CT 01/15/17 06:00 IMPRESSION: Technical limitations. Right parietal meningioma. No obvious significant interval change. KUB X-Ray 01/15/17 10:25 IMPRESSION: TIP OF THE NASOGASTRIC TUBE IN THE STOMACH. Renal Ultrasound 01/19/17 00:00 IMPRESSION: NORMAL RENAL ULTRASOUND. Venous Doppler Study 01/19/17 00:00 IMPRESSION: NO EVIDENCE DVT OR SVT IN THE RIGHT LEG. Chest X-Ray 01/22/17 17:48 IMPRESSION: No significant interval change. Findings as noted above Assessment & Plan - Diagnosis (1) ARF (acute renal failure) Qualifiers: Acute renal failure type: with acute tubular necrosis Qualified Code (s): N17.0 - Acute kidney failure with tubular necrosis Is this a current diagnosis for this admission?: YesPlan: Appreciate nephrology input Likely secondary to ATN. Patient's creatinine has improved after HD. Her urine output continues to improved. First Dialysis 01/24/17. Patient remains volume overloaded. (2) Encephalopathy acute Is this a current diagnosis for this admission?: YesPlan: Now resolved. Patient is back to baseline a and O 3. Most likely secondary to sepsis, alcohol withdrawal, and underlying untreated bipolar.CT of the head reveals meningioma with mild associated edema. Do not believe this was because of the patient's encephalopathy. Patient has suffered with this meningioma for so long that it is now calcified. (3) Alcohol withdrawal delirium Is this a current diagnosis for this admission?: YesPlan: resolved (4) Septic shock Is this a current diagnosis for this admission?: YesPlan: Improved. Secondary to perforated diverticulum. (5) Sepsis Qualifiers: Sepsis type: Escherichia coli Qualified Code(s): A41.51 - Sepsis due to Escherichia coli [E. coli] Is this a current diagnosis for this admission?: YesPlan: Patient with sepsis present on admission. 2/2 Diverticulitis. s/p partial colectomy. Criteria On admission tachycardia, 35% bands, source, and fever 101.3. Patient with E.Coli in peritoneal fluid. Patient has been treated for 15 days and have stopped abx. (6) Diverticulitis Qualifiers: Diverticulitis site: large intestine Diverticulitis bleeding: without bleeding Diverticulitis complication: with perforation Qualified Code (s): K57.20 - Diverticulitis of large intestine with perforation and abscess without bleeding Is this a current diagnosis for this admission?: YesPlan: Thank surgery for their participation. (7) Impaired fasting blood sugar Is this a current diagnosis for this admission?: YesPlan: A1c of 5 (8) Alcoholism /alcohol abuse Is this a current diagnosis for this admission?: YesPlan: Continue oral thiamine and folic acid. Patient as well as side window for acute withdrawal. (9) Hypokalemia Is this a current diagnosis for this admission?: YesPlan: Improved (10) Hypophosphatemia Is this a current diagnosis for this admission?: Yes (11) Meningioma Is this a current diagnosis for this admission?: YesPlan: Patient will need to follow as an outpatient with neurosurgery if this is felt to be symptomatic. (12) Tobacco abuse Is this a current diagnosis for this admission?: YesPlan: nicotine replacement (13) Obesity (BMI 30.0-34.9) Is this a current diagnosis for this admission?: Yes (14) COPD (chronic obstructive pulmonary disease) Qualifiers: COPD type: unspecified COPD Qualified Code(s): J44.9 - Chronic obstructive pulmonary disease, unspecified Is this a current diagnosis for this admission?: Yes (15) Hypertension Qualifiers: Hypertension type: unspecified Qualified Code(s): I10 - Essential ( primary) hypertension Is this a current diagnosis for this admission?: YesPlan: Add Norvasc 5 mg p.o. nightly. Continue hydralazine 50 mg p.o. 3 times daily. Add IV hydralazine as needed At this time suspect a component of benzodiazepine withdrawal and will give klonopin 1mg po x1 - Time Time Spent with patient: 25-34 minutes Medications reviewed and adjusted accordingly: Yes Anticipated discharge: Home with Homehealth - Inpatient Certification Based on my medical assessment, after consideration of the patient's comorbidities, presenting symptoms, or acuity I expect that the services needed warrant INPATIENT care.: Yes I certify that my determination is in accordance with my understanding of Medicare's requirements for reasonable and necessary INPATIENT services [42 CFR 412.3e].: Yes Medical Necessity: Need For Continuous Telemetry Monitoring, Risk of Complication if Not Cared For in Hospital Post 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
[2017-01-25] MEDS ORDERED: CLONAZEPAM 1 MG TABLET PO ONE (15:00)
--- NOTE | 2017-01-25 17:15 | PDOC PROGRESS REPORT ---
Subjective Progress Note for:: 01/25/17 Subjective:: awake alert Physical Exam Vital Signs: Temp Pulse Resp BP Pulse Ox 97.9 F 101 H 16 185/85 H 100 01/25/17 12:00 01/25/17 12:00 01/25/17 12:00 01/25/17 12:00 01/25/17 12:00 Intake & Output 01/24/17 01/25/17 01/26/17 06:59 06:59 06:59 Intake Total 1332 880 Output Total 1550 3150 Balance -218 -2270 Weight 113.6 kg 113.6 kg General appearance: PRESENT: no acute distress, cooperative, disheveled, obese, well-developed Head exam: PRESENT: atraumatic, normocephalic Eye exam: PRESENT: conjunctiva pale, EOMI Mouth exam: PRESENT: dry mucosa, neck supple, tongue midline Neck exam: ABSENT: carotid bruit, JVD, lymphadenopathy, thyromegaly Respiratory exam: PRESENT: decreased breath sounds, prolonged expiratory phas, rhonchi, symmetrical, unlabored Cardiovascular exam: PRESENT: RRR, +S1, +S2 Pulses: PRESENT: normal radial pulses GI/Abdominal exam: PRESENT: normal bowel sounds, soft. ABSENT: distended, guarding, mass, organolmegaly, rebound, tenderness Rectal exam: PRESENT: deferred Musculoskeletal exam: PRESENT: normal inspection Neurological exam: PRESENT: alert, awake Psychiatric exam: PRESENT: normal mood Skin exam: PRESENT: dry, warm Results Laboratory Results: 01/25/17 05:02 01/25/17 05:02 01/25/17 01/25/17 05:02 05:02 WBC 6.8 RBC 2.59 L Hgb 8.6 L Hct 24.3 L MCV 94 MCH 33.1 MCHC 35.3 RDW 13.6 Plt Count 438 Sodium 134.3 L Potassium 3.7 Chloride 99 Carbon Dioxide 24 Anion Gap 11 BUN 28 H Creatinine 6.73 H Est GFR ( Amer) 8 L Est GFR (Non-Af Amer) 6 L Glucose 89 Calcium 7.8 L Magnesium 1.4 L 01/14/17 01/15/17 01/15/17 05:10 22:07 22:07 Creatine Kinase 171 H CK-MB (CK-2) 0.60 Troponin I 0.090 NT-Pro-B Natriuret Pep 550 01/16/17 01/16/17 01/16/17 04:05 04:05 10:10 Creatine Kinase 160 H 277 H CK-MB (CK-2) 0.49 Troponin I 0.082 NT-Pro-B Natriuret Pep 4470 H 01/16/17 01/25/17 10:10 05:02 Creatine Kinase 31 CK-MB (CK-2) 1.45 Troponin I 0.043 NT-Pro-B Natriuret Pep Impressions: Abdomen/Pelvis CT 01/15/17 00:00 IMPRESSION: Postoperative ileus. Small-bowel obstruction considered less likely. Follow-up is recommended. Head CT 01/15/17 06:00 IMPRESSION: Technical limitations. Right parietal meningioma. No obvious significant interval change. KUB X-Ray 01/15/17 10:25 IMPRESSION: TIP OF THE NASOGASTRIC TUBE IN THE STOMACH. Renal Ultrasound 01/19/17 00:00 IMPRESSION: NORMAL RENAL ULTRASOUND. Venous Doppler Study 01/19/17 00:00 IMPRESSION: NO EVIDENCE DVT OR SVT IN THE RIGHT LEG. Chest X-Ray 01/22/17 17:48 IMPRESSION: No significant interval change. Findings as noted above Assessment & Plan - Diagnosis (1) Diverticulosis large intestine w/o perforation or abscess w/o bleeding Is this a current diagnosis for this admission?: Yes (2) Obesity (BMI 30.0-34.9) Is this a current diagnosis for this admission?: Yes (3) Sepsis Qualifiers: Sepsis type: Escherichia coli Qualified Code(s): A41.51 - Sepsis due to Escherichia coli [E. coli] Is this a current diagnosis for this admission?: No (4) Septic shock Is this a current diagnosis for this admission?: No (5) COPD (chronic obstructive pulmonary disease) Qualifiers: COPD type: unspecified COPD Qualified Code(s): J44.9 - Chronic obstructive pulmonary disease, unspecified Is this a current diagnosis for this admission?: Yes (6) Tobacco abuse Is this a current diagnosis for this admission?: Yes (7) ARF (acute renal failure) Qualifiers: Acute renal failure type: with acute tubular necrosis Qualified Code (s): N17.0 - Acute kidney failure with tubular necrosis Is this a current diagnosis for this admission?: YesPlan: cr/bun remain elevated
[2017-01-25 19:37] LABS: HEPATITIS C QUANTITATION HCV Not Detected IU/mL (.)
[2017-01-25] MEDS: TRAZODONE HCL 50 MG TABLET PO SCH (21:40)
[2017-01-25] MEDS: CLONAZEPAM 1 MG TABLET PO PRN (23:33)
[2017-01-26] MEDS: HYDRALAZINE HCL 25 MG TABLET PO SCH ×2 (05:35→23:44)
[2017-01-26 05:54] LABS: HEMATOCRIT 24.2 % (36.0-47.0); HEMOGLOBIN 8.3 g/dL (12.0-15.5); HGB HCT DIFFERENCE 0.7; MEAN CORPUSCULAR HEMOGLOBIN 32.5 pg (27.0-33.4); MEAN CORPUSCULAR HGB CONC 34.5 g/dL (32.0-36.0); MEAN CORPUSCULAR VOLUME 94 fl (80-97); RED BLOOD COUNT 2.57 10^6/uL (3.72-5.28); WHITE BLOOD COUNT 7.2 10^3/uL (4.0-10.5)
[2017-01-26 06:07] LABS: ANION GAP 10 (5-19); BLOOD UREA NITROGEN 31 mg/dL (7-20); CALCIUM 8.1 mg/dL (8.4-10.2); CARBON DIOXIDE 25 mmol/L (22-30); CHLORIDE 99 mmol/L (98-107); CREATININE RESULT 7.89 mg/dL (0.52-1.25); GLUCOSE 88 mg/dL (75-110); POTASSIUM 3.7 mmol/L (3.6-5.0); SODIUM 134.3 mmol/L (137-145)
[2017-01-26 06:20] LABS: BAND NEUTROPHILS % (MANUAL) 7 % (3-5); BASOPHILS % (MANUAL) 0 % (0-2); EOSINOPHILS % (MANUAL) 6 % (0-6); LYMPHOCYTES % (MANUAL) 17 % (13-45); TOTAL CELLS COUNTED 100
[2017-01-26 06:21] LABS: RBC MORPHOLOGY COMMENT NORMO-CYTIC/CHROMIC
[2017-01-26] MEDS ORDERED: HEPARIN SOD (PORCINE) 1,000 UNIT/ML 10 ML VIAL IV PRN (09:40)
[2017-01-26] MEDS ORDERED: HYDRALAZINE HCL 25 MG TABLET PO ONE (10:15)
[2017-01-26] MEDS ORDERED: HEPARIN SOD (PORCINE) 1,000 UNIT/ML 10 ML VIAL IV ONE (11:00)
[2017-01-26] MEDS: BUDESONIDE/FORMOTEROL 160-4.5 MCG 60 PUFF/6 GM MDI IH SCH ×2 (11:14→22:02)
[2017-01-26] MEDS: NICOTINE 14 MG/24 HR PATCH.TD24 TD SCH (11:15)
[2017-01-26] MEDS: CARVEDILOL 3.125 MG TABLET PO SCH ×2 (11:17→22:02)
[2017-01-26] MEDS: MAGNESIUM OXIDE 400 MG TABLET PO SCH ×3 (11:18→17:46)
[2017-01-26] MEDS: THIAMINE HCL 100 MG TABLET PO SCH (11:18)
[2017-01-26] MEDS: FUROSEMIDE INJ/PF 20 MG/2 ML SDV IV SCH ×2 (11:22→22:02)
[2017-01-26] MEDS: CLONAZEPAM 1 MG TABLET PO PRN ×2 (11:24→22:02)
--- NOTE | 2017-01-26 13:48 | PDOC PROGRESS REPORT ---
Subjective Progress Note for:: 01/26/17 Subjective:: Patient reports that she is tired after dialysis today. At her request, I spoke to her sister at the bedside. Patient denies chest pain, shortness of breath, abdominal pain, nausea, vomiting , fevers, chills, diarrhea, constipation, headache. Physical Exam Vital Signs: Temp Pulse Resp BP Pulse Ox 97.8 F 95 19 162/83 H 99 01/26/17 05:20 01/26/17 05:20 01/26/17 05:20 01/26/17 05:20 01/26/17 05:20 Intake & Output 01/25/17 01/26/17 01/27/17 06:59 06:59 06:59 Intake Total 880 677 Output Total 3150 2553 Balance -2270 -1876 Weight 113.6 kg 113.6 kg Exam: GENERAL: No acute distress, A+Ox3 HEENT: Conjunctiva clear, nonicteric, moist mucous membranes, no JVD, midline trachea RESPIRATORY: Clear to auscultation bilaterally CARDIAC: Regular rate and rhythm, no murmurs/gallops/rubs ABDOMEN: Soft, left lower quadrant ostomy with good output, appropriately mildly tender to palpation, active bowel sounds, no rebound, no rigidity, no guarding EXTREMETIES: 3+ edema bilateral lower extremities, cyanosis, no clubbing NEUROLOGIC: Alert, oriented to person, place, time, CN's grossly intact, no focal deficits PSYCH: Normal mood and affect Results Laboratory Results: 01/26/17 05:35 01/26/17 05:35 01/26/17 01/26/17 05:35 05:35 WBC 7.2 RBC 2.57 L Hgb 8.3 L Hct 24.2 L MCV 94 MCH 32.5 MCHC 34.5 RDW 14.0 Plt Count 400 Seg Neutrophils % Not Reportable Lymphocytes % Not Reportable Monocytes % Not Reportable Eosinophils % Not Reportable Basophils % Not Reportable Absolute Neutrophils Not Reportable Absolute Lymphocytes Not Reportable Absolute Monocytes Not Reportable Absolute Eosinophils Not Reportable Absolute Basophils Not Reportable Sodium 134.3 L Potassium 3.7 Chloride 99 Carbon Dioxide 25 Anion Gap 10 BUN 31 H Creatinine 7.89 H Est GFR ( Amer) 6 L Est GFR (Non-Af Amer) 5 L Glucose 88 Calcium 8.1 L 0701/15/17 01/15/17 05:10 22:07 22:07 Creatine Kinase 171 H CK-MB (CK-2) 0.60 Troponin I 0.090 NT-Pro-B Natriuret Pep 550 01/16/17 01/16/17 01/16/17 04:05 04:05 10:10 Creatine Kinase 160 H 277 H CK-MB (CK-2) 0.49 Troponin I 0.082 NT-Pro-B Natriuret Pep 4470 H 01/16/17 01/25/17 10:10 05:02 Creatine Kinase 31 CK-MB (CK-2) 1.45 Troponin I 0.043 NT-Pro-B Natriuret Pep Impressions: Abdomen/Pelvis CT 01/15/17 00:00 IMPRESSION: Postoperative ileus. Small-bowel obstruction considered less likely. Follow-up is recommended. Head CT 01/15/17 06:00 IMPRESSION: Technical limitations. Right parietal meningioma. No obvious significant interval change. KUB X-Ray 01/15/17 10:25 IMPRESSION: TIP OF THE NASOGASTRIC TUBE IN THE STOMACH. Renal Ultrasound 01/19/17 00:00 IMPRESSION: NORMAL RENAL ULTRASOUND. Venous Doppler Study 01/19/17 00:00 IMPRESSION: NO EVIDENCE DVT OR SVT IN THE RIGHT LEG. Chest X-Ray 01/22/17 17:48 IMPRESSION: No significant interval change. Findings as noted above Assessment & Plan - Diagnosis (1) ARF (acute renal failure) Qualifiers: Acute renal failure type: with acute tubular necrosis Qualified Code (s): N17.0 - Acute kidney failure with tubular necrosis Is this a current diagnosis for this admission?: YesPlan: Appreciate nephrology input Likely secondary to ATN. Patient's creatinine has improved after HD. Her urine output continues to improve. First Dialysis 01/24/17. Patient is continuing on dialysis today. Patient remains volume overloaded. (2) Encephalopathy acute Is this a current diagnosis for this admission?: YesPlan: Now resolved. Patient is back to baseline a and O 3. Most likely secondary to sepsis, alcohol withdrawal, and underlying untreated bipolar.CT of the head reveals meningioma with mild associated edema. Do not believe this was because of the patient's encephalopathy. Patient has suffered with this meningioma for so long that it is now calcified. (3) Alcohol withdrawal delirium Is this a current diagnosis for this admission?: YesPlan: resolved (4) Septic shock Is this a current diagnosis for this admission?: YesPlan: Improved. Secondary to perforated diverticulum. (5) Sepsis Qualifiers: Sepsis type: Escherichia coli Qualified Code(s): A41.51 - Sepsis due to Escherichia coli [E. coli] Is this a current diagnosis for this admission?: YesPlan: Patient with sepsis present on admission. 2/2 Diverticulitis. s/p partial colectomy. Criteria On admission tachycardia, 35% bands, source, and fever 101.3. Patient with E.Coli in peritoneal fluid. Patient has been treated for 15 days and have stopped abx. (6) Diverticulitis Qualifiers: Diverticulitis site: large intestine Diverticulitis bleeding: without bleeding Diverticulitis complication: with perforation Qualified Code (s): K57.20 - Diverticulitis of large intestine with perforation and abscess without bleeding Is this a current diagnosis for this admission?: YesPlan: Thank surgery for their participation. (7) Impaired fasting blood sugar Is this a current diagnosis for this admission?: Yes (8) Alcoholism /alcohol abuse Is this a current diagnosis for this admission?: Yes (9) Hypokalemia Is this a current diagnosis for this admission?: YesPlan: Improved (10) Hypophosphatemia Is this a current diagnosis for this admission?: Yes (11) Meningioma Is this a current diagnosis for this admission?: YesPlan: Patient will need to follow as an outpatient with neurosurgery if this is felt to be symptomatic. (12) Tobacco abuse Is this a current diagnosis for this admission?: Yes (13) Obesity (BMI 30.0-34.9) Is this a current diagnosis for this admission?: Yes (14) COPD (chronic obstructive pulmonary disease) Qualifiers: COPD type: unspecified COPD Qualified Code(s): J44.9 - Chronic obstructive pulmonary disease, unspecified Is this a current diagnosis for this admission?: Yes (15) Hypertension Qualifiers: Hypertension type: unspecified Qualified Code(s): I10 - Essential ( primary) hypertension Is this a current diagnosis for this admission?: Yes
[2017-01-26] MEDS ORDERED: EPOETIN ALFA INJ 20000 UNIT/1 ML VIAL (RENAL) SUBCUT ONE (13:55)
[2017-01-26] MEDS ORDERED: HYDRALAZINE HCL 25 MG TABLET PO SCH (14:00)
[2017-01-26] MEDS: HYDROMORPHONE HCL 2 MG TABLET PO PRN ×2 (14:55→22:16)
--- NOTE | 2017-01-26 15:12 | PDOC PROGRESS REPORT ---
Subjective Progress Note for:: 01/26/17 Subjective:: Patient seen in the hospital on dialysis today. Is generally feeling better. No chest pains. No history of any fever chills. Appetite is better this morning. Labs were reviewed with the patient which shows worsening renal numbers. However she has had a good urine output of approximately thousand 2500 cc on the current diuretic regimen . medications were reviewed. Physical Exam Vital Signs: Temp Pulse Resp BP Pulse Ox 98.9 F 108 H 24 H 102/51 L 99 01/26/17 12:00 01/26/17 14:00 01/26/17 12:00 01/26/17 12:00 01/26/17 05:20 Intake & Output 01/25/17 01/26/17 01/27/17 06:59 06:59 06:59 Intake Total 880 677 Output Total 3150 2553 Balance -2270 -1876 Weight 113.6 kg 113.6 kg General appearance: PRESENT: no acute distress Respiratory exam: PRESENT: clear to auscultation elvira. ABSENT: crackles, rhonchi Cardiovascular exam: PRESENT: +S1, +S2, tachycardia GI/Abdominal exam: PRESENT: normal bowel sounds, soft, tenderness. ABSENT: distended Extremities exam: PRESENT: +2 edema Neurological exam: PRESENT: alert, awake, oriented to person, oriented to place Skin exam: ABSENT: dry, erythema, mottled, rash Results Laboratory Results: 01/26/17 05:35 01/26/17 05:35 01/26/17 01/26/17 01/26/17 05:35 05:35 05:35 WBC 7.2 RBC 2.57 L Hgb 8.3 L Hct 24.2 L MCV 94 MCH 32.5 MCHC 34.5 RDW 14.0 Plt Count 400 Seg Neutrophils % Not Reportable Lymphocytes % Not Reportable Monocytes % Not Reportable Eosinophils % Not Reportable Basophils % Not Reportable Absolute Neutrophils Not Reportable Absolute Lymphocytes Not Reportable Absolute Monocytes Not Reportable Absolute Eosinophils Not Reportable Absolute Basophils Not Reportable Sodium 134.3 L Potassium 3.7 Chloride 99 Carbon Dioxide 25 Anion Gap 10 BUN 31 H Creatinine 7.89 H Est GFR ( Amer) 6 L Est GFR (Non-Af Amer) 5 L Glucose 88 Calcium 8.1 L Magnesium 1.4 L 01/14/17 01/15/17 01/15/17 05:10 22:07 22:07 Creatine Kinase 171 H CK-MB (CK-2) 0.60 Troponin I 0.090 NT-Pro-B Natriuret Pep 550 01/16/17 01/16/17 01/16/17 04:05 04:05 10:10 Creatine Kinase 160 H 277 H CK-MB (CK-2) 0.49 Troponin I 0.082 NT-Pro-B Natriuret Pep 4470 H 01/16/17 01/25/17 10:10 05:02 Creatine Kinase 31 CK-MB (CK-2) 1.45 Troponin I 0.043 NT-Pro-B Natriuret Pep Impressions: Abdomen/Pelvis CT 01/15/17 00:00 IMPRESSION: Postoperative ileus. Small-bowel obstruction considered less likely. Follow-up is recommended. Head CT 01/15/17 06:00 IMPRESSION: Technical limitations. Right parietal meningioma. No obvious significant interval change. KUB X-Ray 01/15/17 10:25 IMPRESSION: TIP OF THE NASOGASTRIC TUBE IN THE STOMACH. Renal Ultrasound 01/19/17 00:00 IMPRESSION: NORMAL RENAL ULTRASOUND. Venous Doppler Study 01/19/17 00:00 IMPRESSION: NO EVIDENCE DVT OR SVT IN THE RIGHT LEG. Chest X-Ray 01/22/17 17:48 IMPRESSION: No significant interval change. Findings as noted above Assessment & Plan - Diagnosis (1) Acute kidney injury Is this a current diagnosis for this admission?: YesPlan: Today will be her second day of dialysis. Should she is doing well currently on dialysis.Is being supervised to ensure a safe and smooth procedure. Vital signs are stable. Orders were discussed with the treating nurse Luz.We will try to remove approximately between 2 and 3 L of fluid because of fluid overload situation.No overt signs and symptoms of congestive heart failure. (2) Diverticulosis large intestine w/o perforation or abscess w/o bleeding Is this a current diagnosis for this admission?: YesPlan: Status post sigmoid colectomy with colostomy. Working colostomy. (3) Hypokalemia Is this a current diagnosis for this admission?: YesPlan: Currently stable. Monitor. (4) Hypertension Is this a current diagnosis for this admission?: YesPlan: Titrate medications. See response to volume removal. (5) Sepsis Qualifiers: Sepsis type: Escherichia coli Qualified Code(s): A41.51 - Sepsis due to Escherichia coli [E. coli] Is this a current diagnosis for this admission?: YesPlan: Status post surgery for diverticulitis with perforation/abscess.Hemodynamically stable. (6) Anemia Plan: Status post IV iron . Today she is going to get erythropoietin 10,000 units on dialysis. Monitor. (7) Hypomagnesemia Plan: Monitor as low .On replacements
[2017-01-26] MEDS ORDERED: EPOETIN ALFA 10,000 UNIT in SYRINGE, DISPOSABLE, 1 EACH SUBCUT ONE (15:15)
[2017-01-26] MEDS: ONDANSETRON HCL INJ/PF 4 MG/2 ML SDV IV PRN (17:46)
[2017-01-26] MEDS: TRAZODONE HCL 50 MG TABLET PO SCH (22:02)
[2017-01-27] MEDS: HYDRALAZINE HCL 25 MG TABLET PO SCH ×3 (05:48→21:28)
[2017-01-27 06:35] LABS: HEMATOCRIT 23.5 % (36.0-47.0); HEMOGLOBIN 8.1 g/dL (12.0-15.5); HGB HCT DIFFERENCE 0.8; MEAN CORPUSCULAR HEMOGLOBIN 32.5 pg (27.0-33.4); MEAN CORPUSCULAR HGB CONC 34.4 g/dL (32.0-36.0); MEAN CORPUSCULAR VOLUME 94 fl (80-97); RED BLOOD COUNT 2.49 10^6/uL (3.72-5.28); RED CELL DISTRIBUTION WIDTH 13.8 % (11.5-14.0); WHITE BLOOD COUNT 5.9 10^3/uL (4.0-10.5)
[2017-01-27 06:42] LABS: ANION GAP 9 (5-19); BLOOD UREA NITROGEN 22 mg/dL (7-20); CALCIUM 7.7 mg/dL (8.4-10.2); CARBON DIOXIDE 28 mmol/L (22-30); CHLORIDE 98 mmol/L (98-107); CREATININE RESULT 5.62 mg/dL (0.52-1.25); GLUCOSE 93 mg/dL (75-110); POTASSIUM 3.5 mmol/L (3.6-5.0); SODIUM 134.7 mmol/L (137-145)
[2017-01-27] MEDS: BUDESONIDE/FORMOTEROL 160-4.5 MCG 60 PUFF/6 GM MDI IH SCH ×2 (09:18→21:28)
[2017-01-27] MEDS: NICOTINE 14 MG/24 HR PATCH.TD24 TD SCH (09:19)
[2017-01-27] MEDS: CARVEDILOL 3.125 MG TABLET PO SCH ×2 (09:20→21:28)
[2017-01-27] MEDS: THIAMINE HCL 100 MG TABLET PO SCH (09:21)
[2017-01-27] MEDS: HYDROMORPHONE HCL 2 MG TABLET PO PRN ×2 (09:22→21:28)
[2017-01-27] MEDS: FUROSEMIDE INJ/PF 20 MG/2 ML SDV IV SCH ×2 (09:25→21:28)
[2017-01-27] MEDS: MAGNESIUM OXIDE 400 MG TABLET PO SCH ×3 (09:28→17:28)
--- NOTE | 2017-01-27 10:07 | PROGRESS NOTE E ---
Progress Note NAME: PRASANTH CASSIDY : 1960 AGE: 56Y DATE: 01/27/2017 ROOM: 409 SUBJECTIVE: She had dialysis yesterday and they took about 3 L of fluid. Feels a little bit better this morning. The incision looks good and it is relatively dry. Colostomy is functioning well. PLAN: Continue with medical management. DICTATING PHYSICIAN: KRISTINA WHELAN M.D. [id number] PHY#: [id number] ID: [id number] JOB#: [id number] ACCT: [id number] cc: >
[2017-01-27] MEDS ORDERED: POTASSIUM CHLORIDE 10 MEQ TABLET.SA PO ONE (11:47)
--- NOTE | 2017-01-27 14:34 | PDOC PROGRESS REPORT ---
Subjective Progress Note for:: 01/27/17 Subjective:: Patient reports she slept well last night She does state she is slightly sleepy today Patient denies chest pain, shortness of breath, abdominal pain, nausea, vomiting , fevers, chills, diarrhea, constipation, headache, new onset weakness. Physical Exam Vital Signs: Temp Pulse Resp BP Pulse Ox 98.6 F 90 20 122/69 100 01/27/17 12:00 01/27/17 12:00 01/27/17 12:00 01/27/17 12:00 01/27/17 04:29 Intake & Output 01/26/17 01/27/17 01/28/17 06:59 06:59 06:59 Intake Total 677 1205 Output Total 2553 5300 Balance -1876 -4125 Weight 113.6 kg 113.6 kg Exam: GENERAL: No acute distress, A+Ox3 HEENT: Conjunctiva clear, nonicteric, moist mucous membranes, no JVD, midline trachea RESPIRATORY: Clear to auscultation bilaterally CARDIAC: Regular rate and rhythm, no murmurs/gallops/rubs ABDOMEN: Soft, left lower quadrant ostomy with good output, appropriately mildly tender to palpation, active bowel sounds, no rebound, no rigidity, no guarding EXTREMETIES: 2+ edema bilateral lower extremities, cyanosis, no clubbing NEUROLOGIC: Alert, oriented to person, place, time, CN's grossly intact, no focal deficits PSYCH: Normal mood and affect Results Laboratory Results: 01/27/17 06:12 01/27/17 06:12 01/27/17 01/27/17 06:12 06:12 WBC 5.9 RBC 2.49 L Hgb 8.1 L Hct 23.5 L MCV 94 MCH 32.5 MCHC 34.4 RDW 13.8 Plt Count 326 Sodium 134.7 L Potassium 3.5 L Chloride 98 Carbon Dioxide 28 Anion Gap 9 BUN 22 H Creatinine 5.62 H Est GFR ( Amer) 9 L Est GFR (Non-Af Amer) 8 L Glucose 93 Calcium 7.7 L 01/14/17 01/15/17 01/15/17 05:10 22:07 22:07 Creatine Kinase 171 H CK-MB (CK-2) 0.60 Troponin I 0.090 NT-Pro-B Natriuret Pep 550 01/16/17 01/16/17 01/16/17 04:05 04:05 10:10 Creatine Kinase 160 H 277 H CK-MB (CK-2) 0.49 Troponin I 0.082 NT-Pro-B Natriuret Pep 4470 H 01/16/17 01/25/17 10:10 05:02 Creatine Kinase 31 CK-MB (CK-2) 1.45 Troponin I 0.043 NT-Pro-B Natriuret Pep Impressions: Abdomen/Pelvis CT 01/15/17 00:00 IMPRESSION: Postoperative ileus. Small-bowel obstruction considered less likely. Follow-up is recommended. Head CT 01/15/17 06:00 IMPRESSION: Technical limitations. Right parietal meningioma. No obvious significant interval change. KUB X-Ray 01/15/17 10:25 IMPRESSION: TIP OF THE NASOGASTRIC TUBE IN THE STOMACH. Renal Ultrasound 01/19/17 00:00 IMPRESSION: NORMAL RENAL ULTRASOUND. Venous Doppler Study 01/19/17 00:00 IMPRESSION: NO EVIDENCE DVT OR SVT IN THE RIGHT LEG. Chest X-Ray 01/22/17 17:48 IMPRESSION: No significant interval change. Findings as noted above Assessment & Plan - Diagnosis (1) ARF (acute renal failure) Qualifiers: Acute renal failure type: with acute tubular necrosis Qualified Code (s): N17.0 - Acute kidney failure with tubular necrosis Is this a current diagnosis for this admission?: YesPlan: Appreciate nephrology input Likely secondary to ATN. Patient's creatinine has improved after HD. Her urine output continues to improve. First Dialysis 01/24/17. Continuing on MWF for now. Patient remains volume overloaded. (2) Encephalopathy acute Is this a current diagnosis for this admission?: YesPlan: Now resolved. Patient is back to baseline a and O 3. Most likely secondary to sepsis, alcohol withdrawal, and underlying untreated bipolar.CT of the head reveals meningioma with mild associated edema. Do not believe this was because of the patient's encephalopathy. Patient has suffered with this meningioma for so long that it is now calcified. (3) Alcohol withdrawal delirium Is this a current diagnosis for this admission?: YesPlan: resolved (4) Septic shock Is this a current diagnosis for this admission?: YesPlan: Improved. Secondary to perforated diverticulum. (5) Sepsis Qualifiers: Sepsis type: Escherichia coli Qualified Code(s): A41.51 - Sepsis due to Escherichia coli [E. coli] Is this a current diagnosis for this admission?: YesPlan: Patient with sepsis present on admission. 2/2 Diverticulitis. s/p partial colectomy. Criteria On admission tachycardia, 35% bands, source, and fever 101.3. Patient with E.Coli in peritoneal fluid. Patient has been treated for 15 days and have stopped abx. (6) Diverticulitis Qualifiers: Diverticulitis site: large intestine Diverticulitis bleeding: without bleeding Diverticulitis complication: with perforation Qualified Code (s): K57.20 - Diverticulitis of large intestine with perforation and abscess without bleeding Is this a current diagnosis for this admission?: YesPlan: Thank surgery for their participation. (7) Impaired fasting blood sugar Is this a current diagnosis for this admission?: YesPlan: A1c of 5 (8) Alcoholism /alcohol abuse Is this a current diagnosis for this admission?: YesPlan: Continue oral thiamine and folic acid. Patient outside the window for acute withdrawal. (9) Hypokalemia Is this a current diagnosis for this admission?: Yes (10) Hypophosphatemia Is this a current diagnosis for this admission?: Yes (11) Meningioma Is this a current diagnosis for this admission?: Yes (12) Tobacco abuse Is this a current diagnosis for this admission?: Yes (13) Obesity (BMI 30.0-34.9) Is this a current diagnosis for this admission?: Yes (14) COPD (chronic obstructive pulmonary disease) Qualifiers: COPD type: unspecified COPD Qualified Code(s): J44.9 - Chronic obstructive pulmonary disease, unspecified Is this a current diagnosis for this admission?: Yes (15) Hypertension Qualifiers: Hypertension type: unspecified Qualified Code(s): I10 - Essential ( primary) hypertension Is this a current diagnosis for this admission?: YesPlan: Add Norvasc 5 mg p.o. nightly. Continue hydralazine 25 mg p.o. 3 times daily. Add IV hydralazine as needed Has improved after re-addition of klonopin and with HD - Time Time Spent with patient: 25-34 minutes Medications reviewed and adjusted accordingly: Yes Anticipated discharge: Home with Homehealth Within: within 72 hours - Inpatient Certification Based on my medical assessment, after consideration of the patient's comorbidities, presenting symptoms, or acuity I expect that the services needed warrant INPATIENT care.: Yes I certify that my determination is in accordance with my understanding of Medicare's requirements for reasonable and necessary INPATIENT services [42 CFR 412.3e].: Yes Medical Necessity: Need For Continuous Telemetry Monitoring, Risk of Complication if Not Cared For in Hospital 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
--- NOTE | 2017-01-27 18:57 | PDOC PROGRESS REPORT ---
Subjective Progress Note for:: 01/26/17 Subjective:: awake alert Physical Exam Vital Signs: Temp Pulse Resp BP Pulse Ox 97.6 F 93 24 H 143/70 H 100 01/27/17 16:00 01/27/17 16:00 01/27/17 16:00 01/27/17 16:00 01/27/17 04:29 Intake & Output 01/26/17 01/27/17 01/28/17 06:59 06:59 06:59 Intake Total 677 1205 Output Total 6026 1720 Balance -1876 -4128 Weight 113.6 kg 113.6 kg General appearance: PRESENT: no acute distress, cooperative, obese, well- developed Head exam: PRESENT: atraumatic, normocephalic Eye exam: PRESENT: conjunctiva pale Mouth exam: PRESENT: dry mucosa, neck supple Neck exam: ABSENT: carotid bruit, JVD, lymphadenopathy, thyromegaly Respiratory exam: PRESENT: prolonged expiratory phas, rhonchi, symmetrical, unlabored Cardiovascular exam: PRESENT: RRR, +S1, +S2 Pulses: PRESENT: normal radial pulses GI/Abdominal exam: PRESENT: normal bowel sounds, soft. ABSENT: distended, guarding, mass, organolmegaly, rebound, tenderness Neurological exam: PRESENT: alert, awake Psychiatric exam: PRESENT: normal mood Skin exam: PRESENT: dry, warm Results Laboratory Results: 01/27/17 06:12 01/27/17 06:12 01/27/17 01/27/17 06:12 06:12 WBC 5.9 RBC 2.49 L Hgb 8.1 L Hct 23.5 L MCV 94 MCH 32.5 MCHC 34.4 RDW 13.8 Plt Count 326 Sodium 134.7 L Potassium 3.5 L Chloride 98 Carbon Dioxide 28 Anion Gap 9 BUN 22 H Creatinine 5.62 H Est GFR ( Amer) 9 L Est GFR (Non-Af Amer) 8 L Glucose 93 Calcium 7.7 L 01/14/17 01/15/17 01/15/17 05:10 22:07 22:07 Creatine Kinase 171 H CK-MB (CK-2) 0.60 Troponin I 0.090 NT-Pro-B Natriuret Pep 550 01/16/17 01/16/17 01/16/17 04:05 04:05 10:10 Creatine Kinase 160 H 277 H CK-MB (CK-2) 0.49 Troponin I 0.082 NT-Pro-B Natriuret Pep 4470 H 01/16/17 01/25/17 10:10 05:02 Creatine Kinase 31 CK-MB (CK-2) 1.45 Troponin I 0.043 NT-Pro-B Natriuret Pep Impressions: Abdomen/Pelvis CT 01/15/17 00:00 IMPRESSION: Postoperative ileus. Small-bowel obstruction considered less likely. Follow-up is recommended. Head CT 01/15/17 06:00 IMPRESSION: Technical limitations. Right parietal meningioma. No obvious significant interval change. KUB X-Ray 01/15/17 10:25 IMPRESSION: TIP OF THE NASOGASTRIC TUBE IN THE STOMACH. Renal Ultrasound 01/19/17 00:00 IMPRESSION: NORMAL RENAL ULTRASOUND. Venous Doppler Study 01/19/17 00:00 IMPRESSION: NO EVIDENCE DVT OR SVT IN THE RIGHT LEG. Chest X-Ray 01/22/17 17:48 IMPRESSION: No significant interval change. Findings as noted above Assessment & Plan - Diagnosis (1) Diverticulosis large intestine w/o perforation or abscess w/o bleeding Is this a current diagnosis for this admission?: Yes (2) Obesity (BMI 30.0-34.9) Is this a current diagnosis for this admission?: Yes (3) Sepsis Qualifiers: Sepsis type: Escherichia coli Qualified Code(s): A41.51 - Sepsis due to Escherichia coli [E. coli] Is this a current diagnosis for this admission?: No (4) Septic shock Is this a current diagnosis for this admission?: No (5) COPD (chronic obstructive pulmonary disease) Qualifiers: COPD type: unspecified COPD Qualified Code(s): J44.9 - Chronic obstructive pulmonary disease, unspecified Is this a current diagnosis for this admission?: Yes (6) Tobacco abuse Is this a current diagnosis for this admission?: Yes (7) ARF (acute renal failure) Qualifiers: Acute renal failure type: with acute tubular necrosis Qualified Code (s): N17.0 - Acute kidney failure with tubular necrosis Is this a current diagnosis for this admission?: Yes - Plan Summary Plan Summary: Currently, patient stable from respiratory standpoint of view we will sign off from now thank you very much for allowing me to see Ms. Dasilva and he will participate in her care please do not hesitate to call if I can be of additional service.
[2017-01-27] MEDS: ONDANSETRON HCL INJ/PF 4 MG/2 ML SDV IV PRN (20:07)
[2017-01-27] MEDS: CLONAZEPAM 1 MG TABLET PO PRN (21:28)
[2017-01-27] MEDS: TRAZODONE HCL 50 MG TABLET PO SCH (21:29)
[2017-01-28] MEDS: HYDRALAZINE HCL 25 MG TABLET PO SCH ×3 (05:44→22:17)
[2017-01-28 06:25] LABS: ANION GAP 8 (5-19); BLOOD UREA NITROGEN 25 mg/dL (7-20); CALCIUM 7.7 mg/dL (8.4-10.2); CARBON DIOXIDE 29 mmol/L (22-30); CHLORIDE 99 mmol/L (98-107); CREATININE RESULT 6.48 mg/dL (0.52-1.25); GLUCOSE 93 mg/dL (75-110); POTASSIUM 3.6 mmol/L (3.6-5.0); SODIUM 135.8 mmol/L (137-145)
[2017-01-28] MEDS: BUDESONIDE/FORMOTEROL 160-4.5 MCG 60 PUFF/6 GM MDI IH SCH ×2 (09:39→22:18)
[2017-01-28] MEDS: CARVEDILOL 3.125 MG TABLET PO SCH ×2 (09:40→22:18)
[2017-01-28] MEDS: THIAMINE HCL 100 MG TABLET PO SCH (09:40)
[2017-01-28] MEDS: FUROSEMIDE INJ/PF 20 MG/2 ML SDV IV SCH ×2 (09:41→22:18)
[2017-01-28] MEDS: MAGNESIUM OXIDE 400 MG TABLET PO SCH ×3 (09:41→18:41)
[2017-01-28] MEDS: NICOTINE 14 MG/24 HR PATCH.TD24 TD SCH (09:41)
--- NOTE | 2017-01-28 12:31 | PDOC PROGRESS REPORT ---
Subjective Progress Note for:: 01/28/17 Subjective:: Patient has no new complaints Reports she is feeling much better than yesterday. Patient denies chest pain, shortness of breath, abdominal pain, nausea, vomiting , fevers, chills, diarrhea, constipation, headache, new onset weakness. Physical Exam Vital Signs: Temp Pulse Resp BP Pulse Ox 98.5 F 82 16 129/64 H 99 01/28/17 03:21 01/28/17 03:21 01/28/17 03:21 01/28/17 03:21 01/28/17 03:21 Intake & Output 01/27/17 01/28/17 01/29/17 06:59 06:59 06:59 Intake Total 1205 420 Output Total 5330 850 Balance -4125 -430 Weight 113.6 kg Exam: GENERAL: No acute distress, A+Ox3 HEENT: Conjunctiva clear, nonicteric, moist mucous membranes, no JVD, midline trachea RESPIRATORY: Clear to auscultation bilaterally CARDIAC: Regular rate and rhythm, no murmurs/gallops/rubs ABDOMEN: Soft, left lower quadrant ostomy with good output, appropriately mildly tender to palpation, active bowel sounds, no rebound, no rigidity, no guarding EXTREMETIES: 2+ edema bilateral lower extremities to midshin, cyanosis, no clubbing NEUROLOGIC: Alert, oriented to person, place, time, CN's grossly intact, no focal deficits PSYCH: Normal mood and affect Results Laboratory Results: 01/27/17 06:12 01/28/17 05:40 01/28/17 05:40 Sodium 135.8 L Potassium 3.6 Chloride 99 Carbon Dioxide 29 Anion Gap 8 BUN 25 H Creatinine 6.48 H Est GFR ( Amer) 8 L Est GFR (Non-Af Amer) 7 L Glucose 93 Calcium 7.7 L 01/14/17 01/15/17 01/15/17 05:10 22:07 22:07 Creatine Kinase 171 H CK-MB (CK-2) 0.60 Troponin I 0.090 NT-Pro-B Natriuret Pep 550 01/16/17 01/16/17 01/16/17 04:05 04:05 10:10 Creatine Kinase 160 H 277 H CK-MB (CK-2) 0.49 Troponin I 0.082 NT-Pro-B Natriuret Pep 4470 H 01/16/17 01/25/17 10:10 05:02 Creatine Kinase 31 CK-MB (CK-2) 1.45 Troponin I 0.043 NT-Pro-B Natriuret Pep Impressions: Abdomen/Pelvis CT 01/15/17 00:00 IMPRESSION: Postoperative ileus. Small-bowel obstruction considered less likely. Follow-up is recommended. Head CT 01/15/17 06:00 IMPRESSION: Technical limitations. Right parietal meningioma. No obvious significant interval change. KUB X-Ray 01/15/17 10:25 IMPRESSION: TIP OF THE NASOGASTRIC TUBE IN THE STOMACH. Renal Ultrasound 01/19/17 00:00 IMPRESSION: NORMAL RENAL ULTRASOUND. Venous Doppler Study 01/19/17 00:00 IMPRESSION: NO EVIDENCE DVT OR SVT IN THE RIGHT LEG. Chest X-Ray 01/22/17 17:48 IMPRESSION: No significant interval change. Findings as noted above Assessment & Plan - Diagnosis (1) ARF (acute renal failure) Qualifiers: Acute renal failure type: with acute tubular necrosis Qualified Code (s): N17.0 - Acute kidney failure with tubular necrosis Is this a current diagnosis for this admission?: YesPlan: Appreciate nephrology input Likely secondary to ATN. Patient's creatinine has improved after HD. Her urine output continues to improve. First Dialysis 01/24/17. Continuing on MWF for now. Patient remains volume overloaded. Will likely need outpatient HD placement at least short term (2) Encephalopathy acute Is this a current diagnosis for this admission?: YesPlan: Now resolved. Patient is back to baseline a and O 3. Most likely secondary to sepsis, alcohol withdrawal, and underlying untreated bipolar.CT of the head reveals meningioma with mild associated edema. Do not believe this was because of the patient's encephalopathy. Patient has suffered with this meningioma for so long that it is now calcified. (3) Alcohol withdrawal delirium Is this a current diagnosis for this admission?: YesPlan: resolved encourage abstinence (4) Septic shock Is this a current diagnosis for this admission?: NoPlan: Improved. Secondary to perforated diverticulum. (5) Sepsis Qualifiers: Sepsis type: Escherichia coli Qualified Code(s): A41.51 - Sepsis due to Escherichia coli [E. coli] Is this a current diagnosis for this admission?: NoPlan: Patient with sepsis present on admission. 2/2 Diverticulitis. s/p partial colectomy. Criteria On admission tachycardia, 35% bands, source, and fever 101.3. Patient with E.Coli in peritoneal fluid. Patient has been treated for 15 days and have stopped abx. (6) Diverticulitis Qualifiers: Diverticulitis site: large intestine Diverticulitis bleeding: without bleeding Diverticulitis complication: with perforation Qualified Code (s): K57.20 - Diverticulitis of large intestine with perforation and abscess without bleeding Is this a current diagnosis for this admission?: Yes (7) Impaired fasting blood sugar Is this a current diagnosis for this admission?: YesPlan: A1c of 5 (8) Alcoholism /alcohol abuse Is this a current diagnosis for this admission?: YesPlan: Continue oral thiamine and folic acid. Patient outside the window for acute withdrawal. (9) Hypokalemia Is this a current diagnosis for this admission?: Yes (10) Hypophosphatemia Is this a current diagnosis for this admission?: Yes (11) Meningioma Is this a current diagnosis for this admission?: YesPlan: Patient will need to follow as an outpatient with neurosurgery if this is felt to be symptomatic. (12) Tobacco abuse Is this a current diagnosis for this admission?: YesPlan: nicotine replacement encourage cessation (13) Obesity (BMI 30.0-34.9) Is this a current diagnosis for this admission?: Yes (14) COPD (chronic obstructive pulmonary disease) Qualifiers: COPD type: unspecified COPD Qualified Code(s): J44.9 - Chronic obstructive pulmonary disease, unspecified Is this a current diagnosis for this admission?: YesPlan: Continue as needed nebulized treatments. (15) Hypertension Qualifiers: Hypertension type: unspecified Qualified Code(s): I10 - Essential ( primary) hypertension Is this a current diagnosis for this admission?: YesPlan: Patient doing well on hydralazine and coreg. PRN hydralazine Generic Name Dose Route Start Last Admin Trade Name Freq PRN Reason Stop Dose Admin Hydralazine HCl 10 mg 01/11/17 10:57 01/18/17 06:05 Apresoline Inj/Pf 20 Mg/1 Ml Sdv IV 02/08/17 18:24 10 mg Q4HP PRN sbp>165 Hydralazine HCl 25 mg 01/26/17 15:07 01/28/17 05:44 Apresoline 25 Mg Tablet PO 02/25/17 15:[address] [facility] Carvedilol 6.25 mg 01/25/17 10:00 01/28/17 09:40 Coreg 3.125 Mg Tablet PO 02/24/17 09:59 6.25 mg Q12 DORI - Time Time Spent with patient: 25-34 minutes - Inpatient Certification Based on my medical assessment, after consideration of the patient's comorbidities, presenting symptoms, or acuity I expect that the services needed warrant INPATIENT care.: Yes I certify that my determination is in accordance with my understanding of Medicare's requirements for reasonable and necessary INPATIENT services [42 CFR 412.3e].: Yes Medical Necessity: Need For Continuous Telemetry Monitoring, Risk of Complication if Not Cared For in Hospital Post Hospital Care: D/C Line Locator Documentation
--- NOTE | 2017-01-28 12:52 | PROGRESS NOTE E ---
Progress Note NAME: PRASANTH CASSIDY : 1960 AGE: 56Y DATE: 01/28/2017 ROOM: 409 She is undergoing hemodialysis. As far as the wound is concerned, it is noted to be healing well with a couple of areas with skin separation. All of the beth were then removed. The colostomy is functioning well. Continue with wet-to-dry dressings for the abdominal wound raw areas. She is going to resume her hemodialysis tomorrow. Her edema of both legs appears to be markedly subsided. DICTATING PHYSICIAN: KRISTINA WHELAN M.D. [id number] PHY#: [id number] ID: [id number] JOB#: [id number] ACCT: [id number] cc: >
[2017-01-28] MEDS: MAG HYDROX/AL HYDROX/SIMETH SUSP 30 ML UDCUP PO PRN (17:36)
[2017-01-28] MEDS: ONDANSETRON HCL INJ/PF 4 MG/2 ML SDV IV PRN (17:36)
[2017-01-28] MEDS: HYDROMORPHONE HCL 2 MG TABLET PO PRN (20:13)
[2017-01-28] MEDS: TRAZODONE HCL 50 MG TABLET PO SCH (22:00)
[2017-01-29] MEDS: HYDRALAZINE HCL 25 MG TABLET PO SCH ×3 (04:49→21:46)
[2017-01-29 05:53] LABS: HEMATOCRIT 23.3 % (36.0-47.0); HGB HCT DIFFERENCE 0.4; MEAN CORPUSCULAR VOLUME 94 fl (80-97); RED BLOOD COUNT 2.48 10^6/uL (3.72-5.28); RED CELL DISTRIBUTION WIDTH 13.7 % (11.5-14.0); WHITE BLOOD COUNT 6.4 10^3/uL (4.0-10.5)
[2017-01-29 06:09] LABS: HEMOGLOBIN 7.9 g/dL (12.0-15.5)
[2017-01-29 06:20] LABS: ANION GAP 8 (5-19); BLOOD UREA NITROGEN 29 mg/dL (7-20); CALCIUM 7.6 mg/dL (8.4-10.2); CARBON DIOXIDE 31 mmol/L (22-30); CHLORIDE 97 mmol/L (98-107); CREATININE RESULT 6.66 mg/dL (0.52-1.25); GLUCOSE 99 mg/dL (75-110); POTASSIUM 3.4 mmol/L (3.6-5.0); SODIUM 135.8 mmol/L (137-145)
[2017-01-29] MEDS ORDERED: EPOETIN ALFA INJ 20000 UNIT/1 ML VIAL (RENAL) IV PRN ×2 (07:00→10:00)
[2017-01-29] MEDS ORDERED: HEPARIN SOD (PORCINE) 1,000 UNIT/ML 10 ML VIAL IV PRN (07:00)
[2017-01-29] MEDS ORDERED: POTASSI CL 20 MEQ/50 ML RIDER 20 MEQ/50 ML RTUPB IV SCH (10:00)
--- NOTE | 2017-01-29 11:11 | PDOC PROGRESS REPORT ---
Subjective Progress Note for:: 01/29/17 Subjective:: reason for visit: f/u diverticulitis with perforation s/p resection and diverting ostomy, SWATI with ATN now dialysis dependent, COPD hospital course: per other's notes - "PRASANTH CASSIDY is a 56 year old female with a PMH of HTN, depression, asthma, and reported prior ischemic colitis who presents to the ED with with 1 week of increasing abdominal pain. She reports initially was crampy but tolerable. And subsequently developed increased nausea vomiting as well as alternating periods of sweating and chills. She reports she feels as though she has to void but nothing comes out. She reports she is currently not even passing any air. CAT scan of the abdomen revealed severe diverticulosis with possible diverticulitis. SMA is noted to be patent at this time. Patient reports that she has not been having any bloody or melanotic stools. She denies any hematochezia. Patient is referred to hospital service for colitis." she is now Status post sigmoid colectomy with Working colostomy. She developed ARF likely from an ATN and is requiring HD under watchful eye of the quality control director. she's had a long, complicated hospital course including the above as well as acute encephalopathy that was likely multifactorial with concern for acute ETOH withdrawal, numerous electrolyte abnormalities, weakness and ataxia due to prolonged illness. ROS: she reports a new sharp, stabbing Rt flank pain since last night "that feels like a big gas bubble that needs to move", comes in waves, worse with palpation, improved with position and with asc'td belching. she reports gas and stool in the ostomy bag. no asct'd nausea or vomiting and no fevers/chills , chest pain, palpitations. all systems reviewed, see above, remaining systems negative. Physical Exam Vital Signs: Temp Pulse Resp BP Pulse Ox 99.4 F 88 16 144/75 H 93 01/29/17 08:00 01/29/17 08:00 01/29/17 08:00 01/29/17 08:00 01/29/17 08:00 Intake & Output 01/28/17 01/29/17 01/30/17 06:59 06:59 06:59 Intake Total 540 620 Output Total 1350 1800 Balance -810 -1180 Weight 104.7 kg 103.2 kg General appearance: PRESENT: no acute distress, well-developed, well-nourished Head exam: PRESENT: atraumatic, normocephalic Eye exam: PRESENT: EOMI. ABSENT: conjunctival injection, scleral icterus Mouth exam: PRESENT: moist, neck supple Neck exam: PRESENT: full ROM. ABSENT: lymphadenopathy Respiratory exam: PRESENT: crackles - coarse at the bases, unlabored. ABSENT: accessory muscle use, rales, rhonchi, wheezes Cardiovascular exam: PRESENT: RRR. ABSENT: systolic murmur Pulses: PRESENT: normal radial pulses, normal dorsalis pedis pul GI/Abdominal exam: PRESENT: normal bowel sounds, soft, tenderness - Rt lateral abd wall along the mid axillary line with palpation gas filled loops of bowel, other - ostomy is beefy red with thin brown stool and scant amount of gas present.. ABSENT: distended, guarding Extremities exam: ABSENT: calf tenderness, joint swelling, pedal edema Musculoskeletal exam: PRESENT: ambulatory - with assistance, full ROM Neurological exam: PRESENT: alert, awake, oriented to person, oriented to place , oriented to time, oriented to situation Psychiatric exam: PRESENT: appropriate affect, normal mood Skin exam: PRESENT: dry, warm Results Laboratory Results: 01/29/17 04:45 01/29/17 04:45 01/29/17 01/29/17 01/29/17 04:45 04:45 04:45 WBC 6.4 RBC 2.48 L Hgb 7.9 L Hct 23.3 L MCV 94 MCH 32.0 MCHC 34.0 RDW 13.7 Plt Count 280 Sodium 135.8 L Potassium 3.4 L Chloride 97 L Carbon Dioxide 31 H Anion Gap 8 BUN 29 H Creatinine 6.66 H Est GFR ( Amer) 8 L Est GFR (Non-Af Amer) 6 L Glucose 99 Calcium 7.6 L Magnesium Iron 25.9 L TIBC 178 L % Saturation 15 Ferritin 330.00 H 01/29/17 04:45 WBC RBC Hgb Hct MCV MCH MCHC RDW Plt Count Sodium Potassium Chloride Carbon Dioxide Anion Gap BUN Creatinine Est GFR ( Amer) Est GFR (Non-Af Amer) Glucose Calcium Magnesium 1.4 L Iron TIBC % Saturation Ferritin 01/14/17 01/15/17 01/15/17 05:10 22:07 22:07 Creatine Kinase 171 H CK-MB (CK-2) 0.60 Troponin I 0.090 NT-Pro-B Natriuret Pep 550 01/16/17 01/16/17 01/16/17 04:05 04:05 10:10 Creatine Kinase 160 H 277 H CK-MB (CK-2) 0.49 Troponin I 0.082 NT-Pro-B Natriuret Pep 4470 H 01/16/17 01/25/17 10:10 05:02 Creatine Kinase 31 CK-MB (CK-2) 1.45 Troponin I 0.043 NT-Pro-B Natriuret Pep Assessment & Plan - Diagnosis (1) Perforation of sigmoid colon due to diverticulitis Is this a current diagnosis for this admission?: YesPlan: stable; s/p sigmoid colectomy with ostomy; wound care per surgery (2) ARF (acute renal failure) Qualifiers: Acute renal failure type: with acute tubular necrosis Qualified Code (s): N17.0 - Acute kidney failure with tubular necrosis Is this a current diagnosis for this admission?: YesPlan: stable but not back to baseline, Scr still quite high and hemodialysis ongoing. apparently will need outpt dialysis but not sure if those arrangements made as yet. (3) Alcohol withdrawal delirium Is this a current diagnosis for this admission?: YesPlan: resolved (4) Anemia Qualifiers: Anemia type: unspecified type Qualified Code(s): D64.9 - Anemia, unspecified Is this a current diagnosis for this admission?: YesPlan: H/H relatively stable, no evidence for ongoing blood loss, given IV iron and epo during dialysis, defer to nephrology and continue to monitor her H/H (5) COPD (chronic obstructive pulmonary disease) Qualifiers: COPD type: unspecified COPD Qualified Code(s): J44.9 - Chronic obstructive pulmonary disease, unspecified Is this a current diagnosis for this admission?: YesPlan: stable; (6) Generalized weakness Is this a current diagnosis for this admission?: YesPlan: not back to baseline, continue PT and will likely need either outpt assistance or placement for rehab and ongoing wound/ostomy care (7) Hypertension Qualifiers: Hypertension type: unspecified Qualified Code(s): I10 - Essential ( primary) hypertension Is this a current diagnosis for this admission?: YesPlan: well controlled (8) Hypokalemia Is this a current diagnosis for this admission?: YesPlan: still low and replace/address during dialysis (9) Hypomagnesemia Is this a current diagnosis for this admission?: YesPlan: still low; will replace during dialysis and ck again in am. (10) Sepsis Qualifiers: Sepsis type: Escherichia coli Qualified Code(s): A41.51 - Sepsis due to Escherichia coli [E. coli] Is this a current diagnosis for this admission?: NoPlan: resolved (11) Encephalopathy acute Is this a current diagnosis for this admission?: YesPlan: resolved; appears back to baseline - Time Time Spent with patient: 35 or more minutes Medications reviewed and adjusted accordingly: Yes Anticipated discharge: Home with Homehealth Within: within 48 hours - Plan Summary Plan Summary: she will need to establish with dialysis center as well, need to f/u with planners
[2017-01-29] MEDS ORDERED: POTASSIUM CHLORIDE 20 MEQ/50 ML RTU IV ONE (12:00)
[2017-01-29] MEDS: THIAMINE HCL 100 MG TABLET PO SCH (13:13)
[2017-01-29] MEDS: MAGNESIUM OXIDE 400 MG TABLET PO SCH ×3 (13:13→17:48)
[2017-01-29] MEDS: NICOTINE 14 MG/24 HR PATCH.TD24 TD SCH (13:14)
[2017-01-29] MEDS: BUDESONIDE/FORMOTEROL 160-4.5 MCG 60 PUFF/6 GM MDI IH SCH ×2 (13:14→21:46)
[2017-01-29] MEDS: ONDANSETRON HCL INJ/PF 4 MG/2 ML SDV IV PRN (13:19)
--- NOTE | 2017-01-29 13:55 | PDOC PROGRESS REPORT ---
Subjective Progress Note for:: 01/29/17 Subjective:: Patient seen in the hospital on dialysis today. Is generally feeling better. No chest pains. No history of any fever chills. Appetite is better this morning. Labs were reviewed with the patient which shows no real improvement in her renal numbers. However she has had a good urine output of approximately thousand 1800 cc on the current diuretic regimen . medications were reviewed. Physical Exam Vital Signs: Temp Pulse Resp BP Pulse Ox 99.4 F 88 16 144/75 H 93 01/29/17 08:00 01/29/17 08:00 01/29/17 08:00 01/29/17 08:00 01/29/17 08:00 Intake & Output 01/28/17 01/29/17 01/30/17 06:59 06:59 06:59 Intake Total 540 620 Output Total 1350 1800 Balance -810 -1180 Weight 104.7 kg 103.2 kg General appearance: PRESENT: no acute distress Respiratory exam: PRESENT: clear to auscultation elvira. ABSENT: crackles, rhonchi Cardiovascular exam: PRESENT: +S1, +S2, tachycardia GI/Abdominal exam: PRESENT: normal bowel sounds, soft, tenderness. ABSENT: distended Extremities exam: PRESENT: pedal edema Neurological exam: PRESENT: alert, awake, oriented to person, oriented to place Results Laboratory Results: 01/29/17 04:45 01/29/17 04:45 01/29/17 01/29/17 01/29/17 04:45 04:45 04:45 WBC 6.4 RBC 2.48 L Hgb 7.9 L Hct 23.3 L MCV 94 MCH 32.0 MCHC 34.0 RDW 13.7 Plt Count 280 Sodium 135.8 L Potassium 3.4 L Chloride 97 L Carbon Dioxide 31 H Anion Gap 8 BUN 29 H Creatinine 6.66 H Est GFR ( Amer) 8 L Est GFR (Non-Af Amer) 6 L Glucose 99 Calcium 7.6 L Magnesium Iron 25.9 L TIBC 178 L % Saturation 15 Ferritin 330.00 H 01/29/17 04:45 WBC RBC Hgb Hct MCV MCH MCHC RDW Plt Count Sodium Potassium Chloride Carbon Dioxide Anion Gap BUN Creatinine Est GFR ( Amer) Est GFR (Non-Af Amer) Glucose Calcium Magnesium 1.4 L Iron TIBC % Saturation Ferritin 01/14/17 01/15/17 01/15/17 05:10 22:07 22:07 Creatine Kinase 171 H CK-MB (CK-2) 0.60 Troponin I 0.090 NT-Pro-B Natriuret Pep 550 01/16/17 01/16/17 01/16/17 04:05 04:05 10:10 Creatine Kinase 160 H 277 H CK-MB (CK-2) 0.49 Troponin I 0.082 NT-Pro-B Natriuret Pep 4470 H 01/16/17 01/25/17 10:10 05:02 Creatine Kinase 31 CK-MB (CK-2) 1.45 Troponin I 0.043 NT-Pro-B Natriuret Pep Impressions: Abdomen/Pelvis CT 01/15/17 00:00 IMPRESSION: Postoperative ileus. Small-bowel obstruction considered less likely. Follow-up is recommended. Head CT 01/15/17 06:00 IMPRESSION: Technical limitations. Right parietal meningioma. No obvious significant interval change. KUB X-Ray 01/15/17 10:25 IMPRESSION: TIP OF THE NASOGASTRIC TUBE IN THE STOMACH. Renal Ultrasound 01/19/17 00:00 IMPRESSION: NORMAL RENAL ULTRASOUND. Venous Doppler Study 01/19/17 00:00 IMPRESSION: NO EVIDENCE DVT OR SVT IN THE RIGHT LEG. Chest X-Ray 01/22/17 17:48 IMPRESSION: No significant interval change. Findings as noted above Assessment & Plan - Diagnosis (1) Acute kidney injury Is this a current diagnosis for this admission?: YesPlan: She is nonoliguric now. She is doing well currently on dialysis.Is being supervised to ensure a safe and smooth procedure. Vital signs are stable. Orders were discussed with the treating nurse Luz.We will try to remove approximately between 1 and 2 L of fluid because of fluid overload situation.No overt signs and symptoms of congestive heart failure. (2) Diverticulosis large intestine w/o perforation or abscess w/o bleeding Is this a current diagnosis for this admission?: YesPlan: Status post sigmoid colectomy with colostomy. Working colostomy. (3) Hypokalemia Is this a current diagnosis for this admission?: YesPlan: Order around the clock replacements and monitor (4) Hypertension Is this a current diagnosis for this admission?: YesPlan: Stable. (5) Sepsis Qualifiers: Sepsis type: Escherichia coli Qualified Code(s): A41.51 - Sepsis due to Escherichia coli [E. coli] Is this a current diagnosis for this admission?: No (6) Anemia Qualifiers: Anemia type: unspecified type Qualified Code(s): D64.9 - Anemia, unspecified Is this a current diagnosis for this admission?: YesPlan: Erythropoietin. Monitor. (7) Hypomagnesemia Is this a current diagnosis for this admission?: YesPlan: Monitor as low .On replacements
[2017-01-29] MEDS: FUROSEMIDE INJ/PF 20 MG/2 ML SDV IV SCH ×2 (14:57→21:46)
[2017-01-29] MEDS: HYDROMORPHONE HCL 2 MG TABLET PO PRN (15:54)
[2017-01-29] MEDS: CARVEDILOL 6.25 MG TABLET PO SCH (21:46)
[2017-01-29] MEDS: TRAZODONE HCL 50 MG TABLET PO SCH (21:48)
[2017-01-30] MEDS: HYDRALAZINE HCL 25 MG TABLET PO SCH ×3 (05:09→22:25)
[2017-01-30] MEDS: ONDANSETRON HCL INJ/PF 4 MG/2 ML SDV IV PRN (05:58)
[2017-01-30 06:11] LABS: HEMATOCRIT 24.1 % (36.0-47.0); HEMOGLOBIN 8.4 g/dL (12.0-15.5); HGB HCT DIFFERENCE 1.1; MEAN CORPUSCULAR HEMOGLOBIN 32.7 pg (27.0-33.4); MEAN CORPUSCULAR HGB CONC 34.7 g/dL (32.0-36.0); MEAN CORPUSCULAR VOLUME 94 fl (80-97); RED BLOOD COUNT 2.55 10^6/uL (3.72-5.28); RED CELL DISTRIBUTION WIDTH 13.4 % (11.5-14.0); WHITE BLOOD COUNT 7.2 10^3/uL (4.0-10.5)
[2017-01-30 06:27] LABS: BAND NEUTROPHILS % (MANUAL) 2 % (3-5); BASOPHILS % (MANUAL) 2 % (0-2); EOSINOPHILS % (MANUAL) 1 % (0-6); LYMPHOCYTES % (MANUAL) 21 % (13-45); TOTAL CELLS COUNTED 100
[2017-01-30 06:31] LABS: POLYCHROMASIA SLIGHT
[2017-01-30 08:19] LABS: ANION GAP 7 (5-19); BLOOD UREA NITROGEN 16 mg/dL (7-20); CALCIUM 7.7 mg/dL (8.4-10.2); CARBON DIOXIDE 32 mmol/L (22-30); CHLORIDE 96 mmol/L (98-107); CREATININE RESULT 4.37 mg/dL (0.52-1.25); GLUCOSE 97 mg/dL (75-110); POTASSIUM 3.5 mmol/L (3.6-5.0); SODIUM 134.5 mmol/L (137-145)
[2017-01-30] MEDS: FUROSEMIDE INJ/PF 20 MG/2 ML SDV IV SCH ×2 (09:31→22:25)
[2017-01-30] MEDS: MAG HYDROX/AL HYDROX/SIMETH SUSP 30 ML UDCUP PO PRN (09:32)
[2017-01-30] MEDS: BUDESONIDE/FORMOTEROL 160-4.5 MCG 60 PUFF/6 GM MDI IH SCH ×2 (09:32→22:25)
[2017-01-30] MEDS: NICOTINE 14 MG/24 HR PATCH.TD24 TD SCH (10:23)
[2017-01-30] MEDS: CARVEDILOL 6.25 MG TABLET PO SCH ×2 (10:23→22:25)
[2017-01-30] MEDS: MAGNESIUM OXIDE 400 MG TABLET PO SCH ×3 (10:24→18:23)
[2017-01-30] MEDS: THIAMINE HCL 100 MG TABLET PO SCH (10:24)
[2017-01-30] MEDS: MAGNESIUM SULFATE/D5W 1 GM/100 ML RTUPB IV SCH ×2 (10:28→11:36)
--- NOTE | 2017-01-30 10:53 | PDOC PROGRESS REPORT ---
Subjective Progress Note for:: 01/30/17 Subjective:: reason for visit: f/u diverticulitis with perforation s/p resection and diverting ostomy, SWATI with ATN now dialysis dependent, COPD hospital course: per other's notes - "PRASANTH CASSIDY is a 56 year old female with a PMH of HTN, depression, asthma, and reported prior ischemic colitis who presents to the ED with with 1 week of increasing abdominal pain. She reports initially was crampy but tolerable. And subsequently developed increased nausea vomiting as well as alternating periods of sweating and chills. She reports she feels as though she has to void but nothing comes out. She reports she is currently not even passing any air. CAT scan of the abdomen revealed severe diverticulosis with possible diverticulitis. SMA is noted to be patent at this time. Patient reports that she has not been having any bloody or melanotic stools. She denies any hematochezia. Patient is referred to hospital service for colitis." she is now Status post sigmoid colectomy with Working colostomy. She developed ARF likely from an ATN and is requiring HD under watchful eye of the car repossessor. she's had a long, complicated hospital course including the above as well as acute encephalopathy that was likely multifactorial with concern for acute ETOH withdrawal, numerous electrolyte abnormalities, weakness and ataxia due to prolonged illness. ROS: she reports resolution of Rt flank pain since passing gas last night. she reports gas and stool in the ostomy bag. no asct'd nausea or vomiting and no fevers/chills, chest pain, palpitations. all systems reviewed, see above, remaining systems negative. Physical Exam Vital Signs: Temp Pulse Resp BP Pulse Ox 99.5 F 84 18 160/76 H 97 01/30/17 07:29 01/30/17 08:00 01/30/17 07:29 01/30/17 07:29 01/30/17 08:10 Intake & Output 01/29/17 01/30/17 01/31/17 06:59 06:59 06:59 Intake Total 620 1860 Output Total 1800 3650 Balance -1180 -1790 Weight 103.2 kg 101.5 kg General appearance: PRESENT: no acute distress, well-developed, well-nourished Head exam: PRESENT: atraumatic, normocephalic Eye exam: PRESENT: EOMI. ABSENT: conjunctival injection, scleral icterus Mouth exam: PRESENT: moist, neck supple Neck exam: PRESENT: full ROM. ABSENT: lymphadenopathy Respiratory exam: PRESENT: crackles - coarse at the bases, unlabored. ABSENT: accessory muscle use, rales, rhonchi, wheezes Cardiovascular exam: PRESENT: RRR. ABSENT: systolic murmur Pulses: PRESENT: normal radial pulses, normal dorsalis pedis pul GI/Abdominal exam: PRESENT: normal bowel sounds, soft, diffuse tenderness of abd wall, nonlocalizing; other - ostomy is beefy red with thin brown stool and scant amount of gas present.. ABSENT: distended, guarding Extremities exam: ABSENT: calf tenderness, joint swelling, pedal edema Musculoskeletal exam: PRESENT: ambulatory - with assistance, full ROM Neurological exam: PRESENT: alert, awake, oriented to person, oriented to place , oriented to time, oriented to situation Psychiatric exam: PRESENT: appropriate affect, normal mood Skin exam: PRESENT: dry, warm Results Laboratory Results: 01/30/17 05:12 01/30/17 05:12 01/29/17 01/30/17 01/30/17 04:45 05:12 05:12 WBC 7.2 RBC 2.55 L Hgb 8.4 L Hct 24.1 L MCV 94 MCH 32.7 MCHC 34.7 RDW 13.4 Plt Count 270 Seg Neutrophils % Not Reportable Lymphocytes % Not Reportable Monocytes % Not Reportable Eosinophils % Not Reportable Basophils % Not Reportable Absolute Neutrophils Not Reportable Absolute Lymphocytes Not Reportable Absolute Monocytes Not Reportable Absolute Eosinophils Not Reportable Absolute Basophils Not Reportable Sodium Potassium Chloride Carbon Dioxide Anion Gap BUN Creatinine Est GFR ( Amer) Est GFR (Non-Af Amer) Glucose Calcium Magnesium 1.4 L 1.3 L 01/30/17 05:12 WBC RBC Hgb Hct MCV MCH MCHC RDW Plt Count Seg Neutrophils % Lymphocytes % Monocytes % Eosinophils % Basophils % Absolute Neutrophils Absolute Lymphocytes Absolute Monocytes Absolute Eosinophils Absolute Basophils Sodium 134.5 L Potassium 3.5 L Chloride 96 L Carbon Dioxide 32 H Anion Gap 7 BUN 16 Creatinine 4.37 H Est GFR ( Amer) 13 L Est GFR (Non-Af Amer) 10 L Glucose 97 Calcium 7.7 L Magnesium 01/14/17 01/15/17 01/15/17 05:10 22:07 22:07 Creatine Kinase 171 H CK-MB (CK-2) 0.60 Troponin I 0.090 NT-Pro-B Natriuret Pep 550 01/16/17 01/16/17 01/16/17 04:05 04:05 10:10 Creatine Kinase 160 H 277 H CK-MB (CK-2) 0.49 Troponin I 0.082 NT-Pro-B Natriuret Pep 4470 H 01/16/17 01/25/17 10:10 05:02 Creatine Kinase 31 CK-MB (CK-2) 1.45 Troponin I 0.043 NT-Pro-B Natriuret Pep Assessment & Plan - Diagnosis (1) Perforation of sigmoid colon due to diverticulitis Is this a current diagnosis for this admission?: YesPlan: stable; s/p sigmoid colectomy with ostomy; wound care per surgery (2) ARF (acute renal failure) Qualifiers: Acute renal failure type: with acute tubular necrosis Qualified Code (s): N17.0 - Acute kidney failure with tubular necrosis Is this a current diagnosis for this admission?: YesPlan: stable but not back to baseline, Scr still high and hemodialysis ongoing. apparently will need outpt dialysis and referrals sent to [facility] per review of case finishing machine adjuster's notes (3) Alcohol withdrawal delirium Is this a current diagnosis for this admission?: YesPlan: resolved (4) Anemia Qualifiers: Anemia type: unspecified type Qualified Code(s): D64.9 - Anemia, unspecified Is this a current diagnosis for this admission?: YesPlan: H/H relatively stable, no evidence for ongoing blood loss, given IV iron and epo during dialysis, defer to nephrology and continue to monitor her H/H (5) Hypomagnesemia Is this a current diagnosis for this admission?: YesPlan: worse, replace again today and monitor for response (6) COPD (chronic obstructive pulmonary disease) Qualifiers: COPD type: unspecified COPD Qualified Code(s): J44.9 - Chronic obstructive pulmonary disease, unspecified Is this a current diagnosis for this admission?: Yes (7) Generalized weakness Is this a current diagnosis for this admission?: Yes (8) Hypertension Qualifiers: Hypertension type: unspecified Qualified Code(s): I10 - Essential ( primary) hypertension Is this a current diagnosis for this admission?: Yes (9) Hypokalemia Is this a current diagnosis for this admission?: Yes (10) Sepsis Qualifiers: Sepsis type: Escherichia coli Qualified Code(s): A41.51 - Sepsis due to Escherichia coli [E. coli] Is this a current diagnosis for this admission?: No (11) Encephalopathy acute Is this a current diagnosis for this admission?: Yes - Time Time Spent with patient: 25-34 minutes
[2017-01-30] MEDS: ACETAMINOPHEN 325 MG TABLET PO PRN ×2 (11:37→22:25)
[2017-01-30] MEDS: HYDROMORPHONE HCL INJ/PF 2 MG/ML AMPULE IV PRN ×2 (18:22→23:56)
--- NOTE | 2017-01-30 21:16 | PDOC PROGRESS REPORT ---
Subjective Progress Note for:: 01/30/17 Subjective:: Patient was seen today lying in her bed. Her only concern is that she had a low -grade fever. She was given Tylenol and the fever went away. Silva catheter was removed to prevent any further infection. She complained of no pain or discharge around dialysis catheter site. Produced 1800mL of urine yesterday. This morning she had a already produced 1000mL of urine when the silva catheter was removed. Patient had no other complaints or concerns. Physical Exam Vital Signs: Temp Pulse Resp BP Pulse Ox 97.9 F 80 17 144/77 H 99 01/30/17 15:22 01/30/17 15:22 01/30/17 15:22 01/30/17 15:22 01/30/17 15:22 Intake & Output 01/29/17 01/30/17 01/31/17 06:59 06:59 06:59 Intake Total 620 1860 490 Output Total 1800 3650 1200 Balance -1180 -1790 -710 Weight 103.2 kg 101.5 kg General appearance: PRESENT: no acute distress, well-developed, well-nourished Head exam: PRESENT: atraumatic, normocephalic Mouth exam: PRESENT: moist, neck supple Neck exam: PRESENT: full ROM. ABSENT: JVD, tracheal deviation Respiratory exam: PRESENT: clear to auscultation elvira. ABSENT: accessory muscle use, chest wall tenderness, crackles, rales, rhonchi, wheezes Cardiovascular exam: PRESENT: RRR, +S1, +S2 GI/Abdominal exam: PRESENT: normal bowel sounds, soft, tenderness. ABSENT: distended Extremities exam: PRESENT: pedal edema - -2/1+, tenderness - -shins were tender Musculoskeletal exam: PRESENT: tenderness. ABSENT: deformity, normal inspection Neurological exam: PRESENT: alert, awake, oriented to person, oriented to place , oriented to time, oriented to situation Psychiatric exam: PRESENT: appropriate affect, normal mood Skin exam: PRESENT: dry, intact, warm. ABSENT: cyanosis, rash Results Laboratory Results: 01/30/17 05:12 01/30/17 05:12 01/30/17 01/30/17 01/30/17 05:12 05:12 05:12 WBC 7.2 RBC 2.55 L Hgb 8.4 L Hct 24.1 L MCV 94 MCH 32.7 MCHC 34.7 RDW 13.4 Plt Count 270 Seg Neutrophils % Not Reportable Lymphocytes % Not Reportable Monocytes % Not Reportable Eosinophils % Not Reportable Basophils % Not Reportable Absolute Neutrophils Not Reportable Absolute Lymphocytes Not Reportable Absolute Monocytes Not Reportable Absolute Eosinophils Not Reportable Absolute Basophils Not Reportable Sodium 134.5 L Potassium 3.5 L Chloride 96 L Carbon Dioxide 32 H Anion Gap 7 BUN 16 Creatinine 4.37 H Est GFR ( Amer) 13 L Est GFR (Non-Af Amer) 10 L Glucose 97 Calcium 7.7 L Magnesium 1.3 L 01/14/17 01/15/17 01/15/17 05:10 22:07 22:07 Creatine Kinase 171 H CK-MB (CK-2) 0.60 Troponin I 0.090 NT-Pro-B Natriuret Pep 550 01/16/17 01/16/17 01/16/17 04:05 04:05 10:10 Creatine Kinase 160 H 277 H CK-MB (CK-2) 0.49 Troponin I 0.082 NT-Pro-B Natriuret Pep 4470 H 01/16/17 01/25/17 10:10 05:02 Creatine Kinase 31 CK-MB (CK-2) 1.45 Troponin I 0.043 NT-Pro-B Natriuret Pep Impressions: Abdomen/Pelvis CT 01/15/17 00:00 IMPRESSION: Postoperative ileus. Small-bowel obstruction considered less likely. Follow-up is recommended. Head CT 01/15/17 06:00 IMPRESSION: Technical limitations. Right parietal meningioma. No obvious significant interval change. KUB X-Ray 01/15/17 10:25 IMPRESSION: TIP OF THE NASOGASTRIC TUBE IN THE STOMACH. Renal Ultrasound 01/19/17 00:00 IMPRESSION: NORMAL RENAL ULTRASOUND. Venous Doppler Study 01/19/17 00:00 IMPRESSION: NO EVIDENCE DVT OR SVT IN THE RIGHT LEG. Chest X-Ray 01/22/17 17:48 IMPRESSION: No significant interval change. Findings as noted above Assessment & Plan - Diagnosis (1) Acute kidney injury Is this a current diagnosis for this admission?: YesPlan: Creatinine has decreased down into the 4's. Urine production is ranging around 1800 mL a day. Will continue IV Lasix at current dose and plan for dialysis tomorrow. If creatinine is down to low 3's or 2's will d/c dialysis tomorrow. (2) Anemia Qualifiers: Anemia type: unspecified type Qualified Code(s): D64.9 - Anemia, unspecified Is this a current diagnosis for this admission?: YesPlan: hemoglobin is trending up. Will continue to give Procrit at 20,000 units per a dialysis treatment. (3) Hypertension Is this a current diagnosis for this admission?: YesPlan: Would recommend home monitoring and outpatient medication adjustment. (4) Hypokalemia Is this a current diagnosis for this admission?: YesPlan: Will give 20 mEq IV of potassium chloride tomorrow postdialysis treatment. If dialysis is d/c tomorrow, we will plan to give potassium earlier. Will give potassium twice a day if urine production increases (5) Hypomagnesemia Is this a current diagnosis for this admission?: YesPlan: ordered 1 g of IV magnesium daily. Will also have daily magnesium checks (6) Fever Plan: Patient has been having low-grade fevers that are controlled by Tylenol. Has not produced an increasing white count. Due to the dialysis catheter patient is at high risk for infection. Catheter does not currently show signs of infection. Will draw blood cultures 2 and get a urinalysis.
[2017-01-31 05:37] LABS: HEMATOCRIT 23.8 % (36.0-47.0); HEMOGLOBIN 8.3 g/dL (12.0-15.5); HGB HCT DIFFERENCE 1.1; MEAN CORPUSCULAR HEMOGLOBIN 32.6 pg (27.0-33.4); MEAN CORPUSCULAR VOLUME 93 fl (80-97); RED BLOOD COUNT 2.56 10^6/uL (3.72-5.28); RED CELL DISTRIBUTION WIDTH 13.9 % (11.5-14.0); WHITE BLOOD COUNT 6.5 10^3/uL (4.0-10.5)
[2017-01-31] MEDS: MAG HYDROX/AL HYDROX/SIMETH SUSP 30 ML UDCUP PO PRN ×2 (05:59→17:19)
[2017-01-31] MEDS: HYDROMORPHONE HCL INJ/PF 2 MG/ML AMPULE IV PRN ×3 (05:59→18:59)
[2017-01-31] MEDS: HYDRALAZINE HCL 25 MG TABLET PO SCH ×3 (06:00→22:41)
[2017-01-31 06:02] LABS: ANION GAP 6 (5-19); BLOOD UREA NITROGEN 19 mg/dL (7-20); CARBON DIOXIDE 33 mmol/L (22-30); CHLORIDE 95 mmol/L (98-107); CREATININE RESULT 4.69 mg/dL (0.52-1.25); GLUCOSE 95 mg/dL (75-110); MAGNESIUM 1.9 mg/dL (1.6-2.3); POTASSIUM 3.4 mmol/L (3.6-5.0); SODIUM 134.1 mmol/L (137-145)
[2017-01-31] MEDS: ONDANSETRON HCL INJ/PF 4 MG/2 ML SDV IV PRN ×4 (06:24→22:41)
[2017-01-31] MEDS ORDERED: HEPARIN SOD (PORCINE) 1,000 UNIT/ML 10 ML VIAL IV PRN (07:00)
[2017-01-31] MEDS ORDERED: EPOETIN ALFA INJ 20000 UNIT/1 ML VIAL (RENAL) IV PRN (07:00)
[2017-01-31] MEDS: NICOTINE 14 MG/24 HR PATCH.TD24 TD SCH (09:16)
[2017-01-31] MEDS ORDERED: DIPHENHYDRAMINE HCL 50 MG CAPSULE PO PRN (10:05)
[2017-01-31] MEDS ORDERED: CLONIDINE HCL 0.1 MG TABLET PO ONE (11:00)
[2017-01-31] MEDS ORDERED: POTASSI CL 20 MEQ/50 ML RIDER 20 MEQ/50 ML RTUPB IV ONE (12:00)
[2017-01-31] MEDS ORDERED: MAGNESIUM SULFATE/D5W 1 GM/100 ML RTUPB IV PRN (12:00)
[2017-01-31] MEDS ORDERED: NYSTATIN TOPICAL POWDER 15 GM TP ONE (12:00)
[2017-01-31] MEDS: BUDESONIDE/FORMOTEROL 160-4.5 MCG 60 PUFF/6 GM MDI IH SCH ×2 (12:33→22:40)
[2017-01-31] MEDS: CARVEDILOL 6.25 MG TABLET PO SCH ×2 (12:33→22:40)
[2017-01-31] MEDS: THIAMINE HCL 100 MG TABLET PO SCH (12:34)
[2017-01-31] MEDS: FUROSEMIDE INJ/PF 20 MG/2 ML SDV IV SCH ×2 (12:35→22:41)
[2017-01-31] MEDS: MAGNESIUM OXIDE 400 MG TABLET PO SCH ×3 (12:35→17:19)
[2017-01-31] MEDS: HYDRALAZINE HCL INJ/PF 20 MG/1 ML SDV IV PRN (12:38)
[2017-01-31 14:01] LABS: APPEARANCE,URINE SLIGHTLY-CLOUDY; BILIRUBIN,URINE NEGATIVE (NEGATIVE); GLUCOSE, URINE NEGATIVE (NEGATIVE); KETONES,URINE NEGATIVE (NEGATIVE); LEUKOCYTE ESTERASE,URINE TRACE (NEGATIVE); NITRITE,URINE NEGATIVE (NEGATIVE); PROTEIN,URINE NEGATIVE (NEGATIVE); URINE SPECIFIC GRAVITY 1.005; UROBILINOGEN,URINE NEGATIVE mg/dL (<2.0)
--- NOTE | 2017-01-31 14:52 | PDOC PROGRESS REPORT ---
Subjective Progress Note for:: 01/31/17 Subjective:: reason for visit: f/u diverticulitis with perforation s/p resection and diverting ostomy, SWATI with ATN now dialysis dependent, COPD hospital course: per other's notes - "PRASANTH CASSIDY is a 56 year old female with a PMH of HTN, depression, asthma, and reported prior ischemic colitis who presents to the ED with with 1 week of increasing abdominal pain. She reports initially was crampy but tolerable. And subsequently developed increased nausea vomiting as well as alternating periods of sweating and chills. She reports she feels as though she has to void but nothing comes out. She reports she is currently not even passing any air. CAT scan of the abdomen revealed severe diverticulosis with possible diverticulitis. SMA is noted to be patent at this time. Patient reports that she has not been having any bloody or melanotic stools. She denies any hematochezia. Patient is referred to hospital service for colitis." she is now Status post sigmoid colectomy with Working colostomy due to ruptured diverticulae. 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 she's had a long, complicated hospital course including the above as well as acute encephalopathy that was likely multifactorial with concern for acute ETOH withdrawal, numerous electrolyte abnormalities, weakness and ataxia due to prolonged illness. ROS: she reports diffuse itching without rash. no asct'd nausea or vomiting and no fevers/chills, chest pain, palpitations. all systems reviewed, see above , remaining systems negative. Physical Exam Vital Signs: Temp Pulse Resp BP Pulse Ox 98.5 F 85 20 177/100 H 94 01/31/17 12:00 01/31/17 14:00 01/31/17 12:00 01/31/17 12:00 01/31/17 12:00 Intake & Output 01/30/17 01/31/17 02/01/17 06:59 06:59 06:59 Intake Total 1860 1330 Output Total 3650 1999 Balance -1790 -670 Weight 101.5 kg 97.8 kg General appearance: PRESENT: no acute distress, well-developed, well-nourished Head exam: PRESENT: atraumatic, normocephalic Eye exam: PRESENT: EOMI. ABSENT: conjunctival injection, scleral icterus Mouth exam: PRESENT: moist, neck supple Neck exam: PRESENT: full ROM, catheter in neck is c/d/i ABSENT: lymphadenopathy Respiratory exam: PRESENT: crackles - coarse at the bases, unlabored. ABSENT: accessory muscle use, rales, rhonchi, wheezes Cardiovascular exam: PRESENT: RRR. ABSENT: systolic murmur Pulses: PRESENT: normal radial pulses, normal dorsalis pedis pul GI/Abdominal exam: PRESENT: normal bowel sounds, soft, diffuse tenderness of abd wall, nonlocalizing; other - ostomy is beefy red with thin brown stool and gas present.. ABSENT: distended, guarding Extremities exam: ABSENT: calf tenderness, joint swelling, pedal edema Musculoskeletal exam: PRESENT: ambulatory - with assistance, full ROM Neurological exam: PRESENT: alert, awake, oriented to person, oriented to place , oriented to time, oriented to situation Psychiatric exam: PRESENT: appropriate affect, normal mood Skin exam: PRESENT: dry, warm without rash Results Laboratory Results: 01/31/17 05:15 01/31/17 05:15 01/31/17 01/31/17 01/31/17 05:15 05:15 12:30 WBC 6.5 RBC 2.56 L Hgb 8.3 L Hct 23.8 L MCV 93 MCH 32.6 MCHC 35.0 RDW 13.9 Plt Count 249 Sodium 134.1 L Potassium 3.4 L Chloride 95 L Carbon Dioxide 33 H Anion Gap 6 BUN 19 Creatinine 4.69 H Est GFR ( Amer) 12 L Est GFR (Non-Af Amer) 10 L Glucose 95 Calcium 8.0 L Magnesium 1.9 Urine Color YELLOW Urine Appearance SLIGHTLY-CLOUDY Urine pH 8.0 Ur Specific [place] 1.005 Urine Protein NEGATIVE Urine Glucose (UA) NEGATIVE Urine Ketones NEGATIVE Urine Blood NEGATIVE Urine Nitrite NEGATIVE Ur Leukocyte Esterase TRACE H Urine WBC (Auto) 13 Urine RBC (Auto) 3 01/14/17 01/15/17 01/15/17 05:10 22:07 22:07 Creatine Kinase 171 H CK-MB (CK-2) 0.60 Troponin I 0.090 NT-Pro-B Natriuret Pep 550 01/16/17 01/16/17 01/16/17 04:05 04:05 10:10 Creatine Kinase 160 H 277 H CK-MB (CK-2) 0.49 Troponin I 0.082 NT-Pro-B Natriuret Pep 4470 H 01/16/17 01/25/17 10:10 05:02 Creatine Kinase 31 CK-MB (CK-2) 1.45 Troponin I 0.043 NT-Pro-B Natriuret Pep Assessment & Plan - Diagnosis (1) Perforation of sigmoid colon due to diverticulitis Is this a current diagnosis for this admission?: YesPlan: stable; s/p sigmoid colectomy with ostomy; wound care per surgery (2) ARF (acute renal failure) Qualifiers: Acute renal failure type: with acute tubular necrosis Qualified Code (s): N17.0 - Acute kidney failure with tubular necrosis Is this a current diagnosis for this admission?: YesPlan: stable but not back to baseline, Scr still high and hemodialysis ongoing. apparently will need outpt dialysis and referrals sent to [facility] per review of field nurse case manager's notes (3) Alcohol withdrawal delirium Is this a current diagnosis for this admission?: Yes (4) Anemia Qualifiers: Anemia type: unspecified type Qualified Code(s): D64.9 - Anemia, unspecified Is this a current diagnosis for this admission?: YesPlan: H/H relatively stable, no evidence for ongoing blood loss, given IV iron and epo during dialysis, defer to nephrology and continue to monitor her H/H (5) Hypomagnesemia Is this a current diagnosis for this admission?: YesPlan: improved after replacement (6) COPD (chronic obstructive pulmonary disease) Qualifiers: COPD type: unspecified COPD Qualified Code(s): J44.9 - Chronic obstructive pulmonary disease, unspecified Is this a current diagnosis for this admission?: Yes (7) Generalized weakness Is this a current diagnosis for this admission?: Yes (8) Hypertension Qualifiers: Hypertension type: unspecified Qualified Code(s): I10 - Essential ( primary) hypertension Is this a current diagnosis for this admission?: YesPlan: worse, dr barba added clonidine, monitor for effect and continue to titrate as needed to goal <140/90 (9) Hypokalemia Is this a current diagnosis for this admission?: Yes (10) Sepsis Qualifiers: Sepsis type: Escherichia coli Qualified Code(s): A41.51 - Sepsis due to Escherichia coli [E. coli] Is this a current diagnosis for this admission?: No (11) Encephalopathy acute Is this a current diagnosis for this admission?: Yes - Time Time Spent with patient: 15-24 minutes
[2017-01-31] MEDS: ACETAMINOPHEN 325 MG TABLET PO PRN (16:05)
--- NOTE | 2017-01-31 16:48 | PDOC PROGRESS REPORT ---
Subjective Progress Note for:: 01/31/17 Subjective:: Patient seen in the hospital on dialysis today. Is generally feeling better. No chest pains. No history of any fever chills. Appetite is better this morning. Labs were reviewed with the patient which shows that she is probably reaching a steady state as far as renal numbers are concerned. labs were reviewed with the patient. She is complaining of some progression in her generalized itching over the last few days. Denies any history of skin rash. She does not have any history of chest pain shortness of breath or any swelling. Medications were reviewed. Dialyzing through a right temporary IJ catheter Physical Exam Vital Signs: Temp Pulse Resp BP Pulse Ox 98.5 F 99 20 151/82 H 94 01/31/17 12:00 01/31/17 14:56 01/31/17 12:00 01/31/17 14:56 01/31/17 12:00 Intake & Output 01/30/17 01/31/17 02/01/17 06:59 06:59 06:59 Intake Total 1860 1330 Output Total 3650 2000 200 Balance -1790 -670 -200 Weight 101.5 kg 97.8 kg General appearance: PRESENT: no acute distress Respiratory exam: PRESENT: clear to auscultation elvira. ABSENT: crackles, rhonchi Cardiovascular exam: PRESENT: RRR, +S1, +S2 GI/Abdominal exam: PRESENT: normal bowel sounds, soft, tenderness. ABSENT: distended Extremities exam: PRESENT: pedal edema, +1 edema Neurological exam: PRESENT: alert, awake, oriented to person, oriented to place Skin exam: ABSENT: erythema, mottled, rash Results Laboratory Results: 01/31/17 05:15 01/31/17 05:15 01/31/17 01/31/17 01/31/17 05:15 05:15 12:30 WBC 6.5 RBC 2.56 L Hgb 8.3 L Hct 23.8 L MCV 93 MCH 32.6 MCHC 35.0 RDW 13.9 Plt Count 249 Sodium 134.1 L Potassium 3.4 L Chloride 95 L Carbon Dioxide 33 H Anion Gap 6 BUN 19 Creatinine 4.69 H Est GFR ( Amer) 12 L Est GFR (Non-Af Amer) 10 L Glucose 95 Calcium 8.0 L Magnesium 1.9 Urine Color YELLOW Urine Appearance SLIGHTLY-CLOUDY Urine pH 8.0 Ur Specific [place] 1.005 Urine Protein NEGATIVE Urine Glucose (UA) NEGATIVE Urine Ketones NEGATIVE Urine Blood NEGATIVE Urine Nitrite NEGATIVE Ur Leukocyte Esterase TRACE H Urine WBC (Auto) 13 Urine RBC (Auto) 3 01/14/17 01/15/17 01/15/17 05:10 22:07 22:07 Creatine Kinase 171 H CK-MB (CK-2) 0.60 Troponin I 0.090 NT-Pro-B Natriuret Pep 550 01/16/17 01/16/17 01/16/17 04:05 04:05 10:10 Creatine Kinase 160 H 277 H CK-MB (CK-2) 0.49 Troponin I 0.082 NT-Pro-B Natriuret Pep 4470 H 01/16/17 01/25/17 10:10 05:02 Creatine Kinase 31 CK-MB (CK-2) 1.45 Troponin I 0.043 NT-Pro-B Natriuret Pep Impressions: Abdomen/Pelvis CT 01/15/17 00:00 IMPRESSION: Postoperative ileus. Small-bowel obstruction considered less likely. Follow-up is recommended. Head CT 01/15/17 06:00 IMPRESSION: Technical limitations. Right parietal meningioma. No obvious significant interval change. KUB X-Ray 01/15/17 10:25 IMPRESSION: TIP OF THE NASOGASTRIC TUBE IN THE STOMACH. Renal Ultrasound 01/19/17 00:00 IMPRESSION: NORMAL RENAL ULTRASOUND. Venous Doppler Study 01/19/17 00:00 IMPRESSION: NO EVIDENCE DVT OR SVT IN THE RIGHT LEG. Chest X-Ray 01/22/17 17:48 IMPRESSION: No significant interval change. Findings as noted above Assessment & Plan - Diagnosis (1) Acute kidney injury Is this a current diagnosis for this admission?: YesPlan: She is nonoliguric. She is doing well currently on dialysis.Is being supervised to ensure a safe and smooth procedure. Vital signs are stable. Orders were discussed with the treating nurse Luz.We will try to remove approximately between 1 and 2 L of fluid because of fluid overload situation.No overt signs and symptoms of congestive heart failure. Her renal numbers are relatively stable and I hope that over the next few days she would hopefully be entering to the diuretic phase and make renal recovery. Therefore I would recommend withholding the placement of a permanent IJ catheter until we see the labs and the clinical status over the next couple of days. Willing to proceed on those lines. (2) Diverticulosis large intestine w/o perforation or abscess w/o bleeding Is this a current diagnosis for this admission?: YesPlan: Status post sigmoid colectomy with colostomy. Working colostomy. (3) Hypokalemia Is this a current diagnosis for this admission?: YesPlan: Order around the clock replacements and monitor (4) Hypertension Is this a current diagnosis for this admission?: YesPlan: Currently uncontrolled and I believe that this could be because of her itching and she is getting rather irritated. Discussed with her treating nurse on the floor who is going to call the hospitalist to the cause of her itching. Do not see this as a cause of anything related to dialysis given the fact that she has been having this over the last few days which has slowly been progressively getting worse. (5) Sepsis Qualifiers: Sepsis type: Escherichia coli Qualified Code(s): A41.51 - Sepsis due to Escherichia coli [E. coli] Is this a current diagnosis for this admission?: No (6) Anemia Qualifiers: Anemia type: unspecified type Qualified Code(s): D64.9 - Anemia, unspecified Is this a current diagnosis for this admission?: YesPlan: She is on erythropoietin. She is due for a course of iron soon. (7) Hypomagnesemia Is this a current diagnosis for this admission?: Yes
[2017-01-31] MEDS: NYSTATIN TOPICAL POWDER 15 GM TP SCH (17:19)
[2017-01-31] MEDS: TRAZODONE HCL 50 MG TABLET PO PRN (22:41)
[2017-02-01] MEDS: HYDROMORPHONE HCL INJ/PF 2 MG/ML AMPULE IV PRN ×5 (00:21→22:18)
[2017-02-01 06:41] LABS: ALANINE AMINOTRANSFERASE 27 U/L (9-52); ALBUMIN 2.8 g/dL (3.5-5.0); ALKALINE PHOSPHATASE 68 U/L (38-126); ANION GAP 7 (5-19); ASPARTATE AMINO TRANSFERASE 25 U/L (14-36); BILIRUBIN,DIRECT 0.4 mg/dL (0.0-0.4); BILIRUBIN,TOTAL 0.5 mg/dL (0.2-1.3); BLOOD UREA NITROGEN 11 mg/dL (7-20); CALCIUM 8.2 mg/dL (8.4-10.2); CARBON DIOXIDE 33 mmol/L (22-30); CHLORIDE 96 mmol/L (98-107); CREATININE RESULT 3.48 mg/dL (0.52-1.25); GLUCOSE 96 mg/dL (75-110); POTASSIUM 3.7 mmol/L (3.6-5.0); SODIUM 136.4 mmol/L (137-145); TOTAL PROTEIN 5.8 g/dL (6.3-8.2)
[2017-02-01] MEDS: HYDRALAZINE HCL 25 MG TABLET PO SCH ×3 (06:55→22:10)
[2017-02-01 07:06] LABS: HEMATOCRIT 24.2 % (36.0-47.0); HEMOGLOBIN 8.3 g/dL (12.0-15.5); HGB HCT DIFFERENCE 0.7; MEAN CORPUSCULAR HEMOGLOBIN 32.1 pg (27.0-33.4); MEAN CORPUSCULAR HGB CONC 34.3 g/dL (32.0-36.0); MEAN CORPUSCULAR VOLUME 94 fl (80-97); RED BLOOD COUNT 2.59 10^6/uL (3.72-5.28); RED CELL DISTRIBUTION WIDTH 13.8 % (11.5-14.0); WHITE BLOOD COUNT 6.3 10^3/uL (4.0-10.5)
[2017-02-01 07:24] LABS: BAND NEUTROPHILS % (MANUAL) 1 % (3-5); BASOPHILS % (MANUAL) 2 % (0-2); EOSINOPHILS % (MANUAL) 0 % (0-6); LYMPHOCYTES % (MANUAL) 19 % (13-45); TOTAL CELLS COUNTED 100
[2017-02-01 07:26] LABS: POLYCHROMASIA 1+
[2017-02-01] MEDS ORDERED: POTASSI CL 20 MEQ/50 ML RIDER 20 MEQ/50 ML RTUPB IV ONE (10:00)
[2017-02-01] MEDS: BUDESONIDE/FORMOTEROL 160-4.5 MCG 60 PUFF/6 GM MDI IH SCH ×2 (10:45→22:09)
[2017-02-01] MEDS: CLONIDINE HCL 0.1 MG TABLET PO SCH (10:46)
[2017-02-01] MEDS: CARVEDILOL 6.25 MG TABLET PO SCH ×2 (10:46→22:10)
[2017-02-01] MEDS: MAG HYDROX/AL HYDROX/SIMETH SUSP 30 ML UDCUP PO PRN (10:47)
[2017-02-01] MEDS: FUROSEMIDE INJ/PF 20 MG/2 ML SDV IV SCH ×2 (10:47→22:10)
[2017-02-01] MEDS: ONDANSETRON HCL INJ/PF 4 MG/2 ML SDV IV PRN ×2 (10:47→17:46)
[2017-02-01] MEDS: THIAMINE HCL 100 MG TABLET PO SCH (10:49)
[2017-02-01] MEDS: MAGNESIUM OXIDE 400 MG TABLET PO SCH ×3 (10:49→17:27)
[2017-02-01] MEDS: NYSTATIN TOPICAL POWDER 15 GM TP SCH ×2 (10:49→17:27)
[2017-02-01] MEDS: NICOTINE 14 MG/24 HR PATCH.TD24 TD SCH (10:49)
--- NOTE | 2017-02-01 13:58 | PDOC PROGRESS REPORT ---
Subjective Progress Note for:: 02/01/17 Subjective:: reason for visit: f/u diverticulitis with perforation s/p resection and diverting ostomy, SWATI with ATN now dialysis dependent, COPD hospital course: per other's notes - "PRASANTH CASSIDY is a 56 year old female with a PMH of HTN, depression, asthma, and reported prior ischemic colitis who presents to the ED with with 1 week of increasing abdominal pain. She reports initially was crampy but tolerable. And subsequently developed increased nausea vomiting as well as alternating periods of sweating and chills. She reports she feels as though she has to void but nothing comes out. She reports she is currently not even passing any air. CAT scan of the abdomen revealed severe diverticulosis with possible diverticulitis. SMA is noted to be patent at this time. Patient reports that she has not been having any bloody or melanotic stools. She denies any hematochezia. Patient is referred to hospital service for colitis." she is now Status post sigmoid colectomy with Working colostomy due to ruptured diverticulae. She developed ARF likely from an ATN and is requiring HD under watchful eye of the cad intern. she's had a long, complicated hospital course including the above as well as acute encephalopathy that was likely multifactorial with concern for acute ETOH withdrawal, numerous electrolyte abnormalities, weakness and ataxia due to prolonged illness. She is making progress with less pain, improved mobility and increased appetite and her renal function is improving as well. Dr Cohen is hopeful that by Sunday she may not need ongoing dialysis. ROS: she reports diffuse itching resolved with benadryl and likely correlates with dilaudid use. no nausea or vomiting and no fevers/chills, chest pain, palpitations. all systems reviewed, see above, remaining systems negative. Physical Exam Vital Signs: Temp Pulse Resp BP Pulse Ox 98.9 F 78 18 141/70 H 97 02/01/17 08:11 02/01/17 08:11 02/01/17 08:11 02/01/17 08:11 02/01/17 08:17 Intake & Output 01/31/17 02/01/17 02/02/17 06:59 06:59 06:59 Intake Total 1330 1510 Output Total 1999 8376 Balance -934 -2547 Weight 97.8 kg 103.1 kg General appearance: PRESENT: no acute distress, well-developed, well-nourished Head exam: PRESENT: atraumatic, normocephalic Eye exam: PRESENT: EOMI. ABSENT: conjunctival injection, scleral icterus Mouth exam: PRESENT: moist, neck supple Neck exam: PRESENT: full ROM, catheter site in neck is c/d/i ABSENT: lymphadenopathy Respiratory exam: PRESENT: crackles - coarse at the bases, unlabored. ABSENT: accessory muscle use, rales, rhonchi, wheezes Cardiovascular exam: PRESENT: RRR. ABSENT: systolic murmur Pulses: PRESENT: normal radial pulses, normal dorsalis pedis pul GI/Abdominal exam: PRESENT: normal bowel sounds, soft; other - ostomy is beefy red with thin brown stool and gas present.. ABSENT: distended, guarding Extremities exam: ABSENT: calf tenderness, joint swelling, pedal edema Musculoskeletal exam: PRESENT: ambulatory - with assistance, full ROM Neurological exam: PRESENT: alert, awake, oriented to person, oriented to place , oriented to time, oriented to situation Psychiatric exam: PRESENT: appropriate affect, normal mood Skin exam: PRESENT: dry, warm without rash Results Laboratory Results: 02/01/17 05:45 02/01/17 05:45 01/31/17 02/01/17 02/01/17 12:30 05:45 05:45 WBC 6.3 RBC 2.59 L Hgb 8.3 L Hct 24.2 L MCV 94 MCH 32.1 MCHC 34.3 RDW 13.8 Plt Count 258 Seg Neutrophils % Not Reportable Lymphocytes % Not Reportable Monocytes % Not Reportable Eosinophils % Not Reportable Basophils % Not Reportable Absolute Neutrophils Not Reportable Absolute Lymphocytes Not Reportable Absolute Monocytes Not Reportable Absolute Eosinophils Not Reportable Absolute Basophils Not Reportable Sodium 136.4 L Potassium 3.7 Chloride 96 L Carbon Dioxide 33 H Anion Gap 7 BUN 11 Creatinine 3.48 H Est GFR ( Amer) 16 L Est GFR (Non-Af Amer) 14 L Glucose 96 Calcium 8.2 L Total Bilirubin 0.5 AST 25 ALT 27 Alkaline Phosphatase 68 Total Protein 5.8 L Albumin 2.8 L Urine Color YELLOW Urine Appearance SLIGHTLY-CLOUDY Urine pH 8.0 Ur Specific [place] 1.005 Urine Protein NEGATIVE Urine Glucose (UA) NEGATIVE Urine Ketones NEGATIVE Urine Blood NEGATIVE Urine Nitrite NEGATIVE Ur Leukocyte Esterase TRACE H Urine WBC (Auto) 13 Urine RBC (Auto) 3 01/14/17 01/15/17 01/15/17 05:10 22:07 22:07 Creatine Kinase 171 H CK-MB (CK-2) 0.60 Troponin I 0.090 NT-Pro-B Natriuret Pep 550 01/16/17 01/16/17 01/16/17 04:05 04:05 10:10 Creatine Kinase 160 H 277 H CK-MB (CK-2) 0.49 Troponin I 0.082 NT-Pro-B Natriuret Pep 4470 H 01/16/17 01/25/17 10:10 05:02 Creatine Kinase 31 CK-MB (CK-2) 1.45 Troponin I 0.043 NT-Pro-B Natriuret Pep Assessment & Plan - Diagnosis (1) Perforation of sigmoid colon due to diverticulitis Is this a current diagnosis for this admission?: Yes (2) ARF (acute renal failure) Qualifiers: Acute renal failure type: with acute tubular necrosis Qualified Code (s): N17.0 - Acute kidney failure with tubular necrosis Is this a current diagnosis for this admission?: Yes (3) Alcohol withdrawal delirium Is this a current diagnosis for this admission?: Yes (4) Anemia Qualifiers: Anemia type: unspecified type Qualified Code(s): D64.9 - Anemia, unspecified Is this a current diagnosis for this admission?: Yes (5) Hypomagnesemia Is this a current diagnosis for this admission?: Yes (6) COPD (chronic obstructive pulmonary disease) Qualifiers: COPD type: unspecified COPD Qualified Code(s): J44.9 - Chronic obstructive pulmonary disease, unspecified Is this a current diagnosis for this admission?: Yes (7) Generalized weakness Is this a current diagnosis for this admission?: Yes (8) Hypertension Qualifiers: Hypertension type: unspecified Qualified Code(s): I10 - Essential ( primary) hypertension Is this a current diagnosis for this admission?: Yes (9) Hypokalemia Is this a current diagnosis for this admission?: Yes (10) Sepsis Qualifiers: Sepsis type: Escherichia coli Qualified Code(s): A41.51 - Sepsis due to Escherichia coli [E. coli] Is this a current diagnosis for this admission?: No (11) Encephalopathy acute Is this a current diagnosis for this admission?: Yes - Time Time Spent with patient: 15-24 minutes - Plan Summary Plan Summary: continue current care, repeat HD tomorrow and nephro will re-eval in am
--- NOTE | 2017-02-01 16:14 | PDOC PROGRESS REPORT ---
Subjective Progress Note for:: 02/01/17 Subjective:: Patient was seen today lying in her bed. She produced 1300mL of urine yesterday with kidney function slowly improving. Patient had no other complaints or concerns. Physical Exam Vital Signs: Temp Pulse Resp BP Pulse Ox 98.8 F 80 17 158/80 H 99 02/01/17 12:00 02/01/17 12:00 02/01/17 12:00 02/01/17 12:00 02/01/17 12:00 Intake & Output 01/31/17 02/01/17 02/02/17 06:59 06:59 06:59 Intake Total 1330 1510 Output Total 1999 3675 Balance -670 -2165 Weight 97.8 kg 103.1 kg General appearance: PRESENT: no acute distress, well-developed, well-nourished Head exam: PRESENT: atraumatic, normocephalic Mouth exam: PRESENT: moist, neck supple Neck exam: ABSENT: JVD, tracheal deviation Respiratory exam: PRESENT: clear to auscultation elvira. ABSENT: accessory muscle use, chest wall tenderness, crackles, rales, rhonchi, tachypnea, wheezes Cardiovascular exam: PRESENT: RRR, +S1, +S2 Vascular exam: PRESENT: normal capillary refill GI/Abdominal exam: PRESENT: normal bowel sounds, soft, tenderness. ABSENT: distended Extremities exam: PRESENT: tenderness, +1 edema Musculoskeletal exam: PRESENT: tenderness - -shins are sore. ABSENT: deformity Neurological exam: PRESENT: alert, awake, oriented to person, oriented to place , oriented to time, oriented to situation Skin exam: PRESENT: dry, intact, warm. ABSENT: cyanosis Results Laboratory Results: 02/01/17 05:45 02/01/17 05:45 02/01/17 02/01/17 05:45 05:45 WBC 6.3 RBC 2.59 L Hgb 8.3 L Hct 24.2 L MCV 94 MCH 32.1 MCHC 34.3 RDW 13.8 Plt Count 258 Seg Neutrophils % Not Reportable Lymphocytes % Not Reportable Monocytes % Not Reportable Eosinophils % Not Reportable Basophils % Not Reportable Absolute Neutrophils Not Reportable Absolute Lymphocytes Not Reportable Absolute Monocytes Not Reportable Absolute Eosinophils Not Reportable Absolute Basophils Not Reportable Sodium 136.4 L Potassium 3.7 Chloride 96 L Carbon Dioxide 33 H Anion Gap 7 BUN 11 Creatinine 3.48 H Est GFR ( Amer) 16 L Est GFR (Non-Af Amer) 14 L Glucose 96 Calcium 8.2 L Total Bilirubin 0.5 AST 25 ALT 27 Alkaline Phosphatase 68 Total Protein 5.8 L Albumin 2.8 L 01/14/17 01/15/17 01/15/17 05:10 22:07 22:07 Creatine Kinase 171 H CK-MB (CK-2) 0.60 Troponin I 0.090 NT-Pro-B Natriuret Pep 550 01/16/17 01/16/17 01/16/17 04:05 04:05 10:10 Creatine Kinase 160 H 277 H CK-MB (CK-2) 0.49 Troponin I 0.082 NT-Pro-B Natriuret Pep 4470 H 01/16/17 01/25/17 10:10 05:02 Creatine Kinase 31 CK-MB (CK-2) 1.45 Troponin I 0.043 NT-Pro-B Natriuret Pep Impressions: Abdomen/Pelvis CT 01/15/17 00:00 IMPRESSION: Postoperative ileus. Small-bowel obstruction considered less likely. Follow-up is recommended. Head CT 01/15/17 06:00 IMPRESSION: Technical limitations. Right parietal meningioma. No obvious significant interval change. KUB X-Ray 01/15/17 10:25 IMPRESSION: TIP OF THE NASOGASTRIC TUBE IN THE STOMACH. Renal Ultrasound 01/19/17 00:00 IMPRESSION: NORMAL RENAL ULTRASOUND. Venous Doppler Study 01/19/17 00:00 IMPRESSION: NO EVIDENCE DVT OR SVT IN THE RIGHT LEG. Chest X-Ray 01/22/17 17:48 IMPRESSION: No significant interval change. Findings as noted above Assessment & Plan - Diagnosis (1) Acute kidney injury Is this a current diagnosis for this admission?: YesPlan: Creatinine has decreased down into the 3's. Urine production is ranging around 1800 mL a day. Will continue IV Lasix at current dose and plan for dialysis tomorrow. Recommend keeping patient over the weekend to make sure that kidney function does not get worse over a two day break from dialysis. (2) Anemia Qualifiers: Anemia type: unspecified type Qualified Code(s): D64.9 - Anemia, unspecified Is this a current diagnosis for this admission?: YesPlan: Disease treated with Procrit during dialysis. Will also order IV iron (3) Hypertension Is this a current diagnosis for this admission?: YesPlan: Recommend outpatient monitoring of blood pressure (4) Hypokalemia Is this a current diagnosis for this admission?: YesPlan: Receiving daily IV potassium replacement. Recommend daily replacement as her kidneys go into diuresis phase of healing. (5) Hypomagnesemia Is this a current diagnosis for this admission?: YesPlan: Recommend daily replacement and monitoring. (6) Fever Plan: No recent fevers. White count has not increased. Blood cultures showed growth of only 1 bottle still waiting for specific cultures
[2017-02-01] MEDS ORDERED: IRON SUCROSE COMPLEX INJ/PF 100 MG/5 ML SDV IV ONE (16:22)
[2017-02-01] MEDS ORDERED: PROMETHAZINE HCL INJ 25 MG/1 ML VIAL IV ONE (18:06)
--- NOTE | 2017-02-01 22:06 | RADIOLOGY REPORT (SQ) ---
EXAM DESCRIPTION: CT ABD/PELVIS ORAL ONLY COMPLETED DATE/TIME: 02/01/2017 9:48 pm REASON FOR STUDY: worsening pain; recent sigmoidectomy after perf COMPARISON: 01/15/2017 TECHNIQUE: CT scan of the abdomen and pelvis performed without intravenous or oral contrast. Images reviewed with lung, soft tissue, and bone windows. Reconstructed coronal and sagittal MPR images revi ewed. All images stored on PACS. All CT scanners at this facility use dose modulation, iterative reconstruction, and/or weight based d osing when appropriate to reduce radiation dose to as low as reasonably achievable (ALARA). [facility]: Dose Right [facility]: CareDose [facility]: Dose Right [facility]: Teradose 4D [facility]: [employer] RADIATION DOSE: Up-to-date CT equipment and radiation dose reduction techniques were employed. CTDIv ol: 15.2 mGy. DLP: 846 mGy-cm.mGy. LIMITATIONS: None. FINDINGS: LOWER CHEST: There are smaller moderate bilateral pleural effusions and basilar atelectasi s left greater than right. NON-CONTRASTED LIVER, SPLEEN, ADRENALS: Evaluation limited by lack of IV contrast. No identified sign ificant masses. PANCREAS: No masses. No peripancreatic inflammatory changes. GALLBLADDER: No identified stones by CT criteria. No inflammatory changes to suggest cholecystitis. RIGHT KIDNEY AND URETER: No suspicious masses. Assessment limited by lack of IV contrast. No signif icant calcifications. No hydronephrosis or hydroureter. LEFT KIDNEY AND URETER: No suspicious masses. Assessment limited by lack of IV contrast. No signifi cant calcifications. No hydronephrosis or hydroureter. AORTA AND RETROPERITONEUM: No aneurysm. No retroperitoneal masses or adenopathy. BOWEL AND PERITONEAL CAVITY: There are postsurgical changes. There is an ostomy site in the left low er quadrant. There is free fluid in the left aspect of the abdomen and pelvis. There is no bowel wa ll thickening or mesenteric edema. APPENDIX: Not visualized. PELVIS, BLADDER, AND ABDOMINAL WALL:There is free fluid in pelvis. Bladder is decompressed by a Fole y catheter. BONES: There are postsurgical changes in the spine. OTHER: No other significant finding. IMPRESSION: Free fluid in the left lower quadrant and pelvis. No focal inflammatory changes. There is diffuse subcutaneous edema. TECHNICAL DOCUMENTATION: JOB ID: [id number] Quality ID # [id number]: Final reports with documentation of one or more dose reduction techniques (e.g., Au tomated exposure control, adjustment of the mA and/or kV according to patient size, use of iterative reconstruction technique) 2010 [employer]- All Rights Reserved
[2017-02-02] MEDS: HYDROMORPHONE HCL INJ/PF 2 MG/ML AMPULE IV PRN ×2 (01:11→04:23)
[2017-02-02] MEDS: HYDRALAZINE HCL 25 MG TABLET PO SCH ×3 (05:19→22:12)
[2017-02-02 06:20] LABS: ABSOLUTE BASOPHILS # (AUTO) 0.1 10^3/uL (0.0-0.2); ABSOLUTE EOSINOPHILS # (AUTO) 0.3 10^3/uL (0.0-0.6); ABSOLUTE LYMPHOCYTES (AUTO) 1.8 10^3/uL (0.5-4.7); ABSOLUTE MONOCYTES (AUTO) 1.3 10^3/uL (0.1-1.4); ABSOLUTE NEUT (AUTO) 5.7 10^3/uL (1.7-8.2); BASOPHILS % (AUTO) 1.1 % (0-2); EOSINOPHILS % (AUTO) 3.2 % (0-6); HEMATOCRIT 24.8 % (36.0-47.0); HEMOGLOBIN 8.5 g/dL (12.0-15.5); HGB HCT DIFFERENCE 0.7; LYMPHOCYTES % (AUTO) 19.3 % (13-45); MEAN CORPUSCULAR HEMOGLOBIN 32.3 pg (27.0-33.4); MEAN CORPUSCULAR HGB CONC 34.3 g/dL (32.0-36.0); MEAN CORPUSCULAR VOLUME 94 fl (80-97); RED BLOOD COUNT 2.64 10^6/uL (3.72-5.28); SEGMENTED NEUTROPHILS % (AUTO) 62.4 % (42-78); WHITE BLOOD COUNT 9.1 10^3/uL (4.0-10.5)
[2017-02-02 06:36] LABS: ALANINE AMINOTRANSFERASE 27 U/L (9-52); ALKALINE PHOSPHATASE 73 U/L (38-126); ANION GAP 8 (5-19); ASPARTATE AMINO TRANSFERASE 26 U/L (14-36); BILIRUBIN,DIRECT 0.4 mg/dL (0.0-0.4); BILIRUBIN,TOTAL 0.6 mg/dL (0.2-1.3); BLOOD UREA NITROGEN 13 mg/dL (7-20); CALCIUM 8.3 mg/dL (8.4-10.2); CARBON DIOXIDE 33 mmol/L (22-30); CHLORIDE 93 mmol/L (98-107); CREATININE RESULT 3.92 mg/dL (0.52-1.25); GLUCOSE 93 mg/dL (75-110); MAGNESIUM 1.4 mg/dL (1.6-2.3); POTASSIUM 3.7 mmol/L (3.6-5.0); SODIUM 134.4 mmol/L (137-145); TOTAL PROTEIN 6.2 g/dL (6.3-8.2)
[2017-02-02] MEDS ORDERED: EPOETIN ALFA INJ 20000 UNIT/1 ML VIAL (RENAL) IV PRN (07:00)
[2017-02-02] MEDS ORDERED: HEPARIN SOD (PORCINE) 1,000 UNIT/ML 10 ML VIAL IV PRN (07:00)
--- NOTE | 2017-02-02 08:44 | PDOC PROGRESS REPORT ---
Subjective Progress Note for:: 02/02/17 Subjective:: reason for visit: f/u diverticulitis with perforation s/p resection and diverting ostomy, SWATI with ATN now dialysis dependent, COPD hospital course: per other's notes - "PRASANTH CASSIDY is a 56 year old female with a PMH of HTN, depression, asthma, and reported prior ischemic colitis who presents to the ED with with 1 week of increasing abdominal pain. She reports initially was crampy but tolerable. And subsequently developed increased nausea vomiting as well as alternating periods of sweating and chills. She reports she feels as though she has to void but nothing comes out. She reports she is currently not even passing any air. CAT scan of the abdomen revealed severe diverticulosis with possible diverticulitis. SMA is noted to be patent at this time. Patient reports that she has not been having any bloody or melanotic stools. She denies any hematochezia. Patient is referred to hospital service for colitis." she is now Status post sigmoid colectomy with Working colostomy due to ruptured diverticulae. She developed ARF likely from an ATN and is requiring HD under watchful eye of the clock repair technician. she's had a long, complicated hospital course including the above as well as acute encephalopathy that was likely multifactorial with concern for acute ETOH withdrawal, numerous electrolyte abnormalities, weakness and ataxia due to prolonged illness. She is making progress with improved mobility and increased appetite and her renal function/output is improving as well. Dr Cohen is hopeful that by Sunday she may not need ongoing dialysis. she reported worsening abdominal pain as the day wore on , not well controlled on IV dilaudid q6, described as sharp, stabbing pain across the lower abdomen without N/V and her ostomy continues to put out soft brown stool and liquid and gas; its nonradiating and improved with dilaudid but it wears off before next dose is due, worse with palpation and certain movements. she reports any pills, including analgesics, have been causing severe nausea and she afraid to vomit due to the pain. STAT ct abd/pelvis failed to reveal any new pathologic or worrisome finding that would explain her pain. ROS: she reports diffuse itching resolved with benadryl and likely correlates with dilaudid use. no nausea or vomiting and no fevers/chills, chest pain, palpitations. all systems reviewed, see above, remaining systems negative. Physical Exam Vital Signs: Temp Pulse Resp BP Pulse Ox 99.0 F 93 17 132/63 H 98 02/02/17 03:57 02/02/17 07:00 02/02/17 03:57 02/02/17 03:57 02/02/17 03:57 Intake & Output 02/01/17 02/02/17 02/03/17 06:59 06:59 06:59 Intake Total 1510 830 Output Total 3675 300 Balance -2165 530 Weight 103.1 kg 103 kg General appearance: PRESENT: no acute distress, well-developed, well-nourished Head exam: PRESENT: atraumatic, normocephalic Eye exam: PRESENT: EOMI. ABSENT: conjunctival injection, scleral icterus Mouth exam: PRESENT: moist, neck supple Neck exam: PRESENT: full ROM, catheter site in neck is c/d/i ABSENT: lymphadenopathy Respiratory exam: PRESENT: crackles - coarse at the bases, unlabored. ABSENT: accessory muscle use, rales, rhonchi, wheezes Cardiovascular exam: PRESENT: RRR. ABSENT: systolic murmur Pulses: PRESENT: normal radial pulses, normal dorsalis pedis pul GI/Abdominal exam: PRESENT:diminished bowel sounds, soft; other - ostomy with thin lite brown stool and gas present. diffuse tenderness across the lower abdomen, below the ostomy and surgical site, no masses and no tympany ABSENT: distended, guarding Extremities exam: ABSENT: calf tenderness, joint swelling, pedal edema Musculoskeletal exam: PRESENT: ambulatory - with assistance, full ROM Neurological exam: PRESENT: alert, awake, oriented to person, oriented to place , oriented to time, oriented to situation Psychiatric exam: PRESENT: appropriate affect, normal mood Skin exam: PRESENT: dry, warm without rash; wound is superficial and dry bed, no surrounding erythema Results Laboratory Results: 02/02/17 05:20 02/02/17 05:20 02/02/17 02/02/17 05:20 05:20 WBC 9.1 RBC 2.64 L Hgb 8.5 L Hct 24.8 L MCV 94 MCH 32.3 MCHC 34.3 RDW 14.0 Plt Count 301 Seg Neutrophils % 62.4 Lymphocytes % 19.3 Monocytes % 14.0 H Eosinophils % 3.2 Basophils % 1.1 Absolute Neutrophils 5.7 Absolute Lymphocytes 1.8 Absolute Monocytes 1.3 Absolute Eosinophils 0.3 Absolute Basophils 0.1 Sodium 134.4 L Potassium 3.7 Chloride 93 L Carbon Dioxide 33 H Anion Gap 8 BUN 13 Creatinine 3.92 H Est GFR ( Amer) 14 L Est GFR (Non-Af Amer) 12 L Glucose 93 Calcium 8.3 L Magnesium 1.4 L Total Bilirubin 0.6 AST 26 ALT 27 Alkaline Phosphatase 73 Total Protein 6.2 L Albumin 3.0 L 01/14/17 01/15/17 01/15/17 05:10 22:07 22:07 Creatine Kinase 171 H CK-MB (CK-2) 0.60 Troponin I 0.090 NT-Pro-B Natriuret Pep 550 01/16/17 01/16/17 01/16/17 04:05 04:05 10:10 Creatine Kinase 160 H 277 H CK-MB (CK-2) 0.49 Troponin I 0.082 NT-Pro-B Natriuret Pep 4470 H 01/16/17 01/25/17 10:10 05:02 Creatine Kinase 31 CK-MB (CK-2) 1.45 Troponin I 0.043 NT-Pro-B Natriuret Pep Impressions: Abdomen/Pelvis CT 02/01/17 00:00 IMPRESSION: Free fluid in the left lower quadrant and pelvis. No focal inflammatory changes. There is diffuse subcutaneous edema. Status: Imported from PACS Assessment & Plan - Diagnosis (1) Perforation of sigmoid colon due to diverticulitis Is this a current diagnosis for this admission?: YesPlan: stable; s/p sigmoid colectomy with ostomy; wound care per surgery (2) ARF (acute renal failure) Qualifiers: Acute renal failure type: with acute tubular necrosis Qualified Code (s): N17.0 - Acute kidney failure with tubular necrosis Is this a current diagnosis for this admission?: YesPlan: stable but not back to baseline, Scr still high and hemodialysis ongoing. continue current care through the weekend and re-eval renal function Sunday (3) Alcohol withdrawal delirium Is this a current diagnosis for this admission?: Yes (4) Anemia Qualifiers: Anemia type: unspecified type Qualified Code(s): D64.9 - Anemia, unspecified Is this a current diagnosis for this admission?: YesPlan: H/H relatively stable, no evidence for ongoing blood loss, given IV iron and epo during dialysis, defer to nephrology and continue to monitor her H/H (5) Hypomagnesemia Is this a current diagnosis for this admission?: YesPlan: improved after replacement; ck again in am (6) COPD (chronic obstructive pulmonary disease) Qualifiers: COPD type: unspecified COPD Qualified Code(s): J44.9 - Chronic obstructive pulmonary disease, unspecified Is this a current diagnosis for this admission?: Yes (7) Generalized weakness Is this a current diagnosis for this admission?: Yes (8) Hypertension Qualifiers: Hypertension type: unspecified Qualified Code(s): I10 - Essential ( primary) hypertension Is this a current diagnosis for this admission?: Yes (9) Hypokalemia Is this a current diagnosis for this admission?: Yes (10) Sepsis Qualifiers: Sepsis type: Escherichia coli Qualified Code(s): A41.51 - Sepsis due to Escherichia coli [E. coli] Is this a current diagnosis for this admission?: No (11) Encephalopathy acute Is this a current diagnosis for this admission?: Yes (12) Abdominal pain in female Is this a current diagnosis for this admission?: YesPlan: likely MSK, will trial oral hydrocodone and try to get her off the dilaudid - Time Time Spent with patient: 25-34 minutes
[2017-02-02] MEDS: FUROSEMIDE INJ/PF 20 MG/2 ML SDV IV SCH ×2 (08:56→22:12)
[2017-02-02] MEDS: THIAMINE HCL 100 MG TABLET PO SCH (08:56)
[2017-02-02] MEDS: CLONIDINE HCL 0.1 MG TABLET PO SCH (08:56)
[2017-02-02] MEDS: BUDESONIDE/FORMOTEROL 160-4.5 MCG 60 PUFF/6 GM MDI IH SCH ×2 (08:56→22:12)
[2017-02-02] MEDS: MAGNESIUM OXIDE 400 MG TABLET PO SCH ×3 (08:56→17:37)
[2017-02-02] MEDS: NYSTATIN TOPICAL POWDER 15 GM TP SCH ×2 (08:56→17:37)
[2017-02-02] MEDS: CARVEDILOL 6.25 MG TABLET PO SCH ×2 (08:56→22:12)
[2017-02-02] MEDS: NICOTINE 14 MG/24 HR PATCH.TD24 TD SCH (12:18)
[2017-02-02] MEDS: HYDROCOD/ACETAMIN 7.5-325 MG/15 ML ORAL SOLN UDCUP PO PRN ×2 (12:19→19:45)
[2017-02-02] MEDS: MAG HYDROX/AL HYDROX/SIMETH SUSP 30 ML UDCUP PO PRN (12:19)
--- NOTE | 2017-02-02 13:28 | PDOC PROGRESS REPORT ---
Subjective Progress Note for:: 02/02/17 Subjective:: Patient seen in the hospital on dialysis today. Feeling a whole lot better she says for the first time in the last couple weeks which is a good sign. No chest pains. No history of any fever chills. Appetite is better this morning. Labs were reviewed with the patient which shows that she is probably reaching a steady state as far as renal numbers are concerned. Dialysis orders were discussed with the treating nurse Myra. Vital signs are stable. She still has plenty of edema but they are seemingly getting somewhat better. Will try to remove between 1 and 2 L of fluid as tolerated. Physical Exam Vital Signs: Temp Pulse Resp BP Pulse Ox 99.2 F 91 20 148/86 H 98 02/02/17 12:00 02/02/17 12:00 02/02/17 12:00 02/02/17 12:00 02/02/17 12:00 Intake & Output 02/01/17 02/02/17 02/03/17 06:59 06:59 06:59 Intake Total 1510 830 Output Total 3675 300 Balance -2165 530 Weight 103.1 kg 103 kg General appearance: PRESENT: no acute distress Respiratory exam: PRESENT: clear to auscultation elvira. ABSENT: crackles, rhonchi Cardiovascular exam: PRESENT: RRR, +S1, +S2 GI/Abdominal exam: PRESENT: normal bowel sounds, soft, tenderness. ABSENT: distended Extremities exam: PRESENT: +1 edema Neurological exam: PRESENT: alert, awake, oriented to person, oriented to place , oriented to time Results Laboratory Results: 02/02/17 05:20 02/02/17 05:20 02/02/17 02/02/17 05:20 05:20 WBC 9.1 RBC 2.64 L Hgb 8.5 L Hct 24.8 L MCV 94 MCH 32.3 MCHC 34.3 RDW 14.0 Plt Count 301 Seg Neutrophils % 62.4 Lymphocytes % 19.3 Monocytes % 14.0 H Eosinophils % 3.2 Basophils % 1.1 Absolute Neutrophils 5.7 Absolute Lymphocytes 1.8 Absolute Monocytes 1.3 Absolute Eosinophils 0.3 Absolute Basophils 0.1 Sodium 134.4 L Potassium 3.7 Chloride 93 L Carbon Dioxide 33 H Anion Gap 8 BUN 13 Creatinine 3.92 H Est GFR ( Amer) 14 L Est GFR (Non-Af Amer) 12 L Glucose 93 Calcium 8.3 L Magnesium 1.4 L Total Bilirubin 0.6 AST 26 ALT 27 Alkaline Phosphatase 73 Total Protein 6.2 L Albumin 3.0 L 01/14/17 01/15/17 01/15/17 05:10 22:07 22:07 Creatine Kinase 171 H CK-MB (CK-2) 0.60 Troponin I 0.090 NT-Pro-B Natriuret Pep 550 01/16/17 01/16/17 01/16/17 04:05 04:05 10:10 Creatine Kinase 160 H 277 H CK-MB (CK-2) 0.49 Troponin I 0.082 NT-Pro-B Natriuret Pep 4470 H 01/16/17 01/25/17 10:10 05:02 Creatine Kinase 31 CK-MB (CK-2) 1.45 Troponin I 0.043 NT-Pro-B Natriuret Pep Impressions: Head CT 01/15/17 06:00 IMPRESSION: Technical limitations. Right parietal meningioma. No obvious significant interval change. KUB X-Ray 01/15/17 10:25 IMPRESSION: TIP OF THE NASOGASTRIC TUBE IN THE STOMACH. Renal Ultrasound 01/19/17 00:00 IMPRESSION: NORMAL RENAL ULTRASOUND. Venous Doppler Study 01/19/17 00:00 IMPRESSION: NO EVIDENCE DVT OR SVT IN THE RIGHT LEG. Chest X-Ray 01/22/17 17:48 IMPRESSION: No significant interval change. Findings as noted above Abdomen/Pelvis CT 02/01/17 00:00 IMPRESSION: Free fluid in the left lower quadrant and pelvis. No focal inflammatory changes. There is diffuse subcutaneous edema. Assessment & Plan - Diagnosis (1) Acute kidney injury Is this a current diagnosis for this admission?: YesPlan: She is nonoliguric. She is doing well currently on dialysis. It is being supervised to ensure a safe and smooth procedure. Vital signs are stable. Orders were discussed with the treating nurse Myra.We will try to remove approximately between 1 and 2 L of fluid because of fluid overload situation.No overt signs and symptoms of congestive heart failure. Her renal numbers are relatively stable and I hope that over the next few days she would hopefully be entering to the diuretic phase and make renal recovery. Therefore I would recommend withholding the placement of a permanent IJ catheter until we see the labs and the clinical status over the next couple of days. (2) Diverticulosis large intestine w/o perforation or abscess w/o bleeding Is this a current diagnosis for this admission?: YesPlan: Status post sigmoid colectomy with colostomy. Working colostomy. (3) Hypokalemia Is this a current diagnosis for this admission?: YesPlan: Order around the clock replacements and monitor (4) Hypertension Is this a current diagnosis for this admission?: YesPlan: Relatively well controlled. Monitor (5) Sepsis Qualifiers: Sepsis type: Escherichia coli Qualified Code(s): A41.51 - Sepsis due to Escherichia coli [E. coli] Is this a current diagnosis for this admission?: No (6) Anemia Qualifiers: Anemia type: unspecified type Qualified Code(s): D64.9 - Anemia, unspecified Is this a current diagnosis for this admission?: YesPlan: She is on erythropoietin. She is on intravenous iron (7) Hypomagnesemia Is this a current diagnosis for this admission?: YesPlan: Monitor as low .On replacements
[2017-02-03] MEDS: HYDROCOD/ACETAMIN 7.5-325 MG/15 ML ORAL SOLN UDCUP PO PRN ×3 (00:40→19:50)
[2017-02-03] MEDS: HYDRALAZINE HCL 25 MG TABLET PO SCH ×2 (05:36→14:46)
[2017-02-03 06:07] LABS: ANION GAP 9 (5-19); BLOOD UREA NITROGEN 9 mg/dL (7-20); CALCIUM 8.2 mg/dL (8.4-10.2); CARBON DIOXIDE 32 mmol/L (22-30); CHLORIDE 97 mmol/L (98-107); CREATININE RESULT 2.72 mg/dL (0.52-1.25); GLUCOSE 90 mg/dL (75-110); MAGNESIUM 1.5 mg/dL (1.6-2.3); SODIUM 137.5 mmol/L (137-145)
[2017-02-03 06:15] LABS: POTASSIUM 2.9 mmol/L (3.6-5.0)
[2017-02-03] MEDS ORDERED: MAGNESIUM SULFATE/D5W 100 ML IV ONE (06:52)
[2017-02-03] MEDS: POTASSIUM CHLORIDE 20 MEQ/15 ML UDCUP PO SCH ×2 (08:05→09:44)
--- NOTE | 2017-02-03 08:36 | PDOC PROGRESS REPORT ---
Subjective Progress Note for:: 02/03/17 Subjective:: reason for visit: f/u diverticulitis with perforation s/p resection and diverting ostomy, SWATI with ATN now dialysis dependent, COPD hospital course: per other's notes - "PRASANTH CASSIDY is a 56 year old female with a PMH of HTN, depression, asthma, and reported prior ischemic colitis who presents to the ED with with 1 week of increasing abdominal pain. She reports initially was crampy but tolerable. And subsequently developed increased nausea vomiting as well as alternating periods of sweating and chills. She reports she feels as though she has to void but nothing comes out. She reports she is currently not even passing any air. CAT scan of the abdomen revealed severe diverticulosis with possible diverticulitis. SMA is noted to be patent at this time. Patient reports that she has not been having any bloody or melanotic stools. She denies any hematochezia. Patient is referred to hospital service for colitis." she is now Status post sigmoid colectomy with Working colostomy due to ruptured diverticulae. She developed ARF likely from an ATN and is requiring HD under watchful eye of the servicer. she's had a long, complicated hospital course including the above as well as acute encephalopathy that was likely multifactorial with concern for acute ETOH withdrawal, numerous electrolyte abnormalities, weakness and ataxia due to prolonged illness. She is making progress with improved mobility and increased appetite and her renal function/output is improving as well. Dr Cohen is hopeful that by Sunday she may not need ongoing dialysis. she reported worsening abdominal pain as the day wore on , not well controlled on IV dilaudid q6, described as sharp, stabbing pain across the lower abdomen without N/V and her ostomy continues to put out soft brown stool and liquid and gas; its nonradiating and improved with dilaudid but it wears off before next dose is due, worse with palpation and certain movements. she reports any pills, including analgesics, have been causing severe nausea and she afraid to vomit due to the pain. STAT ct abd/pelvis failed to reveal any new pathologic or worrisome finding that would explain her pain. liquid norco added with good effect, decreasing her need for IV meds. ROS: she was sleeping soundly and asked not to be disturbed. Physical Exam Vital Signs: Temp Pulse Resp BP Pulse Ox 99.1 F 84 18 157/67 H 94 02/03/17 08:02 02/03/17 08:02 02/03/17 08:02 02/03/17 08:02 02/03/17 08:02 Intake & Output 02/02/17 02/03/17 02/04/17 06:59 06:59 06:59 Intake Total 830 492 Output Total 300 1900 Balance 530 -1408 Weight 103 kg 92.7 kg General appearance: PRESENT: no acute distress, well-developed, well-nourished Respiratory exam: PRESENT: unlabored. ABSENT: accessory muscle use, tachypnea Cardiovascular exam: PRESENT: RRR Extremities exam: PRESENT: pedal edema Musculoskeletal exam: PRESENT: ambulatory Neurological exam: ABSENT: awake Results Laboratory Results: 02/02/17 05:20 02/03/17 05:40 02/03/17 05:40 Sodium 137.5 Potassium 2.9 L* Chloride 97 L Carbon Dioxide 32 H Anion Gap 9 BUN 9 Creatinine 2.72 H Est GFR ( Amer) 22 L Est GFR (Non-Af Amer) 18 L Glucose 90 Calcium 8.2 L Magnesium 1.5 L 01/14/17 01/15/17 01/15/17 05:10 22:07 22:07 Creatine Kinase 171 H CK-MB (CK-2) 0.60 Troponin I 0.090 NT-Pro-B Natriuret Pep 550 01/16/17 01/16/17 01/16/17 04:05 04:05 10:10 Creatine Kinase 160 H 277 H CK-MB (CK-2) 0.49 Troponin I 0.082 NT-Pro-B Natriuret Pep 4470 H 01/16/17 01/25/17 10:10 05:02 Creatine Kinase 31 CK-MB (CK-2) 1.45 Troponin I 0.043 NT-Pro-B Natriuret Pep Assessment & Plan - Diagnosis (1) Perforation of sigmoid colon due to diverticulitis Is this a current diagnosis for this admission?: Yes (2) ARF (acute renal failure) Qualifiers: Acute renal failure type: with acute tubular necrosis Qualified Code (s): N17.0 - Acute kidney failure with tubular necrosis Is this a current diagnosis for this admission?: Yes (3) Alcohol withdrawal delirium Is this a current diagnosis for this admission?: Yes (4) Anemia Qualifiers: Anemia type: unspecified type Qualified Code(s): D64.9 - Anemia, unspecified Is this a current diagnosis for this admission?: Yes (5) Hypomagnesemia Is this a current diagnosis for this admission?: YesPlan: worse, IV mag infusing, will ck again in am (6) COPD (chronic obstructive pulmonary disease) Qualifiers: COPD type: unspecified COPD Qualified Code(s): J44.9 - Chronic obstructive pulmonary disease, unspecified Is this a current diagnosis for this admission?: Yes (7) Generalized weakness Is this a current diagnosis for this admission?: Yes (8) Hypertension Qualifiers: Hypertension type: unspecified Qualified Code(s): I10 - Essential ( primary) hypertension Is this a current diagnosis for this admission?: Yes (9) Hypokalemia Is this a current diagnosis for this admission?: YesPlan: worse, likely 2/2 lasix use and increasing urine output. KCL replacement and monitor again in am (10) Sepsis Qualifiers: Sepsis type: Escherichia coli Qualified Code(s): A41.51 - Sepsis due to Escherichia coli [E. coli] Is this a current diagnosis for this admission?: No (11) Encephalopathy acute Is this a current diagnosis for this admission?: Yes (12) Abdominal pain in female Is this a current diagnosis for this admission?: Yes - Time Time Spent with patient: Less than 15 minutes
[2017-02-03] MEDS: FUROSEMIDE INJ/PF 20 MG/2 ML SDV IV SCH ×2 (09:43→22:11)
[2017-02-03] MEDS: NICOTINE 14 MG/24 HR PATCH.TD24 TD SCH (09:43)
[2017-02-03] MEDS: ONDANSETRON HCL INJ/PF 4 MG/2 ML SDV IV PRN ×2 (09:43→18:38)
[2017-02-03] MEDS: MAGNESIUM OXIDE 400 MG TABLET PO SCH ×3 (09:44→17:17)
[2017-02-03] MEDS: CLONIDINE HCL 0.1 MG TABLET PO SCH (09:44)
[2017-02-03] MEDS: CARVEDILOL 6.25 MG TABLET PO SCH (09:44)
[2017-02-03] MEDS: BUDESONIDE/FORMOTEROL 160-4.5 MCG 60 PUFF/6 GM MDI IH SCH ×2 (09:45→22:17)
[2017-02-03] MEDS: THIAMINE HCL 100 MG TABLET PO SCH (09:46)
[2017-02-03] MEDS: NYSTATIN TOPICAL POWDER 15 GM TP SCH ×2 (09:46→17:17)
[2017-02-03 13:12] LABS: ANION GAP 9 (5-19); BLOOD UREA NITROGEN 9 mg/dL (7-20); CALCIUM 8.1 mg/dL (8.4-10.2); CARBON DIOXIDE 31 mmol/L (22-30); CHLORIDE 96 mmol/L (98-107); CREATININE RESULT 2.84 mg/dL (0.52-1.25); GLUCOSE 85 mg/dL (75-110); POTASSIUM 3.7 mmol/L (3.6-5.0); SODIUM 135.6 mmol/L (137-145)
[2017-02-04] MEDS: POTASSIUM CHLORIDE 20 MEQ/15 ML UDCUP PO SCH ×3 (01:00→21:43)
[2017-02-04] MEDS: CARVEDILOL 6.25 MG TABLET PO SCH ×3 (01:00→21:43)
[2017-02-04] MEDS: HYDRALAZINE HCL 25 MG TABLET PO SCH ×4 (01:00→21:43)
[2017-02-04] MEDS: HYDROCOD/ACETAMIN 7.5-325 MG/15 ML ORAL SOLN UDCUP PO PRN ×3 (05:01→21:43)
[2017-02-04 06:16] LABS: ANION GAP 10 (5-19); BLOOD UREA NITROGEN 12 mg/dL (7-20); CALCIUM 8.6 mg/dL (8.4-10.2); CARBON DIOXIDE 32 mmol/L (22-30); CHLORIDE 97 mmol/L (98-107); CREATININE RESULT 3.21 mg/dL (0.52-1.25); GLUCOSE 98 mg/dL (75-110); POTASSIUM 3.4 mmol/L (3.6-5.0); SODIUM 138.6 mmol/L (137-145)
[2017-02-04] MEDS: ACETAMINOPHEN 325 MG TABLET PO PRN (08:35)
[2017-02-04] MEDS: CLONIDINE HCL 0.1 MG TABLET PO SCH (11:20)
[2017-02-04] MEDS: FUROSEMIDE INJ/PF 20 MG/2 ML SDV IV SCH ×2 (11:20→21:43)
[2017-02-04] MEDS: MAGNESIUM OXIDE 400 MG TABLET PO SCH ×3 (11:20→17:48)
[2017-02-04] MEDS: THIAMINE HCL 100 MG TABLET PO SCH (11:20)
[2017-02-04] MEDS: BUDESONIDE/FORMOTEROL 160-4.5 MCG 60 PUFF/6 GM MDI IH SCH ×2 (11:20→21:44)
[2017-02-04] MEDS: NICOTINE 14 MG/24 HR PATCH.TD24 TD SCH (11:21)
[2017-02-04] MEDS: NYSTATIN TOPICAL POWDER 15 GM TP SCH ×2 (11:22→17:48)
--- NOTE | 2017-02-04 11:47 | PDOC PROGRESS REPORT ---
Subjective Progress Note for:: 02/04/17 Subjective:: reason for visit: f/u diverticulitis with perforation s/p resection and diverting ostomy, SWATI with ATN now dialysis dependent, COPD hospital course: per other's notes - "PRASANTH CASSIDY is a 56 year old female with a PMH of HTN, depression, asthma, and reported prior ischemic colitis who presents to the ED with with 1 week of increasing abdominal pain. She reports initially was crampy but tolerable. And subsequently developed increased nausea vomiting as well as alternating periods of sweating and chills. She reports she feels as though she has to void but nothing comes out. She reports she is currently not even passing any air. CAT scan of the abdomen revealed severe diverticulosis with possible diverticulitis. SMA is noted to be patent at this time. Patient reports that she has not been having any bloody or melanotic stools. She denies any hematochezia. Patient is referred to hospital service for colitis." she is now Status post sigmoid colectomy with Working colostomy due to ruptured diverticulae. She developed ARF likely from an ATN and is requiring HD under watchful eye of the wet finisher wool. she's had a long, complicated hospital course including the above as well as acute encephalopathy that was likely multifactorial with concern for acute ETOH withdrawal, numerous electrolyte abnormalities, weakness and ataxia due to prolonged illness. She is making progress with improved mobility and increased appetite and her renal function/output is improving as well. Dr Cohen is hopeful that by Sunday she may not need ongoing dialysis. she reported worsening abdominal pain as the day wore on , not well controlled on IV dilaudid q6, described as sharp, stabbing pain across the lower abdomen without N/V and her ostomy continues to put out soft brown stool and liquid and gas; its nonradiating and improved with dilaudid but it wears off before next dose is due, worse with palpation and certain movements. she reports any pills, including analgesics, have been causing severe nausea and she afraid to vomit due to the pain. STAT ct abd/pelvis failed to reveal any new pathologic or worrisome finding that would explain her pain. liquid norco added with good effect, decreasing her need for IV meds. we just cannot seem to get her better, she continues to complain bitterly of nausea with retching if we make her eat before she is ready, if she takes her pills on empty stomach or when we make her get out of bed to work with PT. Her lower abdominal pain persists and nothing I do seems to make it better. ROS: as above, denies chest pain, melena, hematochezia, hematuria, fevers/ chills, rash. states her itching has resolved- seems related to dilaudid use Physical Exam Vital Signs: Temp Pulse Resp BP Pulse Ox 98.8 F 78 12 155/79 H 92 02/04/17 07:45 02/04/17 07:45 02/04/17 07:45 02/04/17 07:45 02/04/17 07:45 Intake & Output 02/03/17 02/04/17 02/05/17 06:59 06:59 06:59 Intake Total 492 1266 Output Total 1900 100 Balance -1408 1166 Weight 92.7 kg 92.8 kg General appearance: PRESENT: mild distress - emotional, well-developed, well- nourished Head exam: PRESENT: atraumatic, normocephalic Eye exam: PRESENT: EOMI. ABSENT: conjunctival injection, scleral icterus Mouth exam: PRESENT: moist Throat exam: ABSENT: post pharyngeal erythema Neck exam: PRESENT: full ROM. ABSENT: JVD Respiratory exam: PRESENT: clear to auscultation elvira. ABSENT: accessory muscle use Cardiovascular exam: PRESENT: RRR. ABSENT: systolic murmur Pulses: PRESENT: normal radial pulses, normal dorsalis pedis pul GI/Abdominal exam: PRESENT: normal bowel sounds, soft, tenderness - diffuse but mostly across the lower abdomen, other - ostomy site is beefy red with soft brown stool and gas in bag. ABSENT: distended, firm Extremities exam: ABSENT: calf tenderness, pedal edema Musculoskeletal exam: PRESENT: ambulatory, full ROM Neurological exam: PRESENT: alert, awake, oriented to person, oriented to place , oriented to time, oriented to situation Psychiatric exam: PRESENT: agitated, anxious, depressed Focused psych exam: PRESENT: restlessness Skin exam: PRESENT: warm - moist Results Laboratory Results: 02/02/17 05:20 02/04/17 05:09 02/03/17 02/03/17 02/04/17 12:35 12:35 05:09 Sodium 135.6 L 138.6 Potassium 3.7 3.4 L Chloride 96 L 97 L Carbon Dioxide 31 H 32 H Anion Gap 9 10 BUN 9 12 Creatinine 2.84 H 3.21 H Est GFR ( Amer) 21 L 18 L Est GFR (Non-Af Amer) 17 L 15 L Glucose 85 98 Calcium 8.1 L 8.6 Magnesium 1.7 02/04/17 08:33 Sodium Potassium Chloride Carbon Dioxide Anion Gap BUN Creatinine Est GFR ( Amer) Est GFR (Non-Af Amer) Glucose Calcium Magnesium 1.5 L 01/31/17 05:15 Blood Blood Culture - Final Staphylococcus Epidermidis 01/14/17 01/15/17 01/15/17 05:10 22:07 22:07 Creatine Kinase 171 H CK-MB (CK-2) 0.60 Troponin I 0.090 NT-Pro-B Natriuret Pep 550 01/16/17 01/16/17 01/16/17 04:05 04:05 10:10 Creatine Kinase 160 H 277 H CK-MB (CK-2) 0.49 Troponin I 0.082 NT-Pro-B Natriuret Pep 4470 H 01/16/17 01/25/17 10:10 05:02 Creatine Kinase 31 CK-MB (CK-2) 1.45 Troponin I 0.043 NT-Pro-B Natriuret Pep Assessment & Plan - Diagnosis (1) Perforation of sigmoid colon due to diverticulitis Is this a current diagnosis for this admission?: YesPlan: stable; s/p sigmoid colectomy with ostomy; wound care per surgery (2) ARF (acute renal failure) Qualifiers: Acute renal failure type: with acute tubular necrosis Qualified Code (s): N17.0 - Acute kidney failure with tubular necrosis Is this a current diagnosis for this admission?: YesPlan: stable but not back to baseline, Scr still high and hemodialysis ongoing. continue current care through the weekend and re-eval renal function Sunday (3) Anemia Qualifiers: Anemia type: unspecified type Qualified Code(s): D64.9 - Anemia, unspecified Is this a current diagnosis for this admission?: YesPlan: H/H relatively stable, no evidence for ongoing blood loss, given IV iron and epo during dialysis, defer to nephrology and continue to monitor her H/H (4) Hypomagnesemia Is this a current diagnosis for this admission?: YesPlan: worse, replace, will ck again in am (5) COPD (chronic obstructive pulmonary disease) Qualifiers: COPD type: unspecified COPD Qualified Code(s): J44.9 - Chronic obstructive pulmonary disease, unspecified Is this a current diagnosis for this admission?: Yes (6) Generalized weakness Is this a current diagnosis for this admission?: Yes (7) Hypertension Qualifiers: Hypertension type: unspecified Qualified Code(s): I10 - Essential ( primary) hypertension Is this a current diagnosis for this admission?: Yes (8) Hypokalemia Is this a current diagnosis for this admission?: Yes (9) Sepsis Qualifiers: Sepsis type: Escherichia coli Qualified Code(s): A41.51 - Sepsis due to Escherichia coli [E. coli] Is this a current diagnosis for this admission?: No (10) Encephalopathy acute Is this a current diagnosis for this admission?: Yes (11) Abdominal pain in female Is this a current diagnosis for this admission?: Yes (12) Alcohol withdrawal delirium Is this a current diagnosis for this admission?: Yes - Time Time Spent with patient: 25-34 minutes - Plan Summary Plan Summary: dr cohen to re-eval Sunday and decide on continue HD or not
[2017-02-04] MEDS: MAG HYDROX/AL HYDROX/SIMETH SUSP 30 ML UDCUP PO PRN (12:41)
[2017-02-04] MEDS: ONDANSETRON HCL INJ/PF 4 MG/2 ML SDV IV PRN ×2 (12:41→21:46)
[2017-02-04] MEDS: MAGNESIUM SULFATE/D5W 100 ML IV SCH ×2 (12:41→14:15)
[2017-02-04] MEDS: ALBUTEROL SULFATE HFA (90 MCG/PUFF) 200 PUFF/8.5 GM MDI IH PRN (21:43)
[2017-02-04] MEDS: TRAZODONE HCL 50 MG TABLET PO PRN (22:47)
[2017-02-05] MEDS: HYDROMORPHONE HCL INJ/PF 2 MG/ML AMPULE IV PRN ×2 (01:15→05:14)
[2017-02-05] MEDS: HYDRALAZINE HCL 25 MG TABLET PO SCH ×3 (05:13→23:30)
[2017-02-05] MEDS: ONDANSETRON HCL INJ/PF 4 MG/2 ML SDV IV PRN ×3 (05:14→21:30)
[2017-02-05 06:05] LABS: HEMATOCRIT 24.3 % (36.0-47.0); HEMOGLOBIN 8.4 g/dL (12.0-15.5); HGB HCT DIFFERENCE 0.9; MEAN CORPUSCULAR HEMOGLOBIN 32.4 pg (27.0-33.4); MEAN CORPUSCULAR HGB CONC 34.5 g/dL (32.0-36.0); MEAN CORPUSCULAR VOLUME 94 fl (80-97); RED BLOOD COUNT 2.58 10^6/uL (3.72-5.28); RED CELL DISTRIBUTION WIDTH 13.8 % (11.5-14.0); WHITE BLOOD COUNT 7.6 10^3/uL (4.0-10.5)
[2017-02-05 06:17] LABS: ANION GAP 10 (5-19); BLOOD UREA NITROGEN 14 mg/dL (7-20); CALCIUM 8.6 mg/dL (8.4-10.2); CARBON DIOXIDE 31 mmol/L (22-30); CHLORIDE 95 mmol/L (98-107); CREATININE RESULT 2.99 mg/dL (0.52-1.25); GLUCOSE 114 mg/dL (75-110); POTASSIUM 3.2 mmol/L (3.6-5.0); SODIUM 135.5 mmol/L (137-145)
[2017-02-05] MEDS ORDERED: POTASSIUM CHLORIDE 10 MEQ TABLET.SA PO ONE (08:00)
[2017-02-05] MEDS ORDERED: TRAZODONE HCL 50 MG TABLET PO PRN (08:00)
[2017-02-05] MEDS ORDERED: HYDROXYZINE PAMOATE 50 MG CAPSULE PO PRN ×2 (08:01→14:05)
[2017-02-05] MEDS ORDERED: CLONAZEPAM 1 MG TABLET PO PRN ×2 (08:02→13:57)
[2017-02-05] MEDS ORDERED: HYDRALAZINE HCL 25 MG TABLET PO ONE (10:00)
[2017-02-05] MEDS: HYDROMORPHONE HCL 2 MG TABLET PO PRN ×2 (11:05→18:21)
[2017-02-05] MEDS: POTASSIUM CHLORIDE 20 MEQ/15 ML UDCUP PO SCH ×2 (11:05→21:30)
[2017-02-05] MEDS: MAGNESIUM OXIDE 400 MG TABLET PO SCH ×3 (11:05→18:21)
[2017-02-05] MEDS: CARVEDILOL 6.25 MG TABLET PO SCH ×2 (11:05→23:33)
[2017-02-05] MEDS: ALBUTEROL SULFATE HFA (90 MCG/PUFF) 200 PUFF/8.5 GM MDI IH PRN (11:06)
[2017-02-05] MEDS: BUDESONIDE/FORMOTEROL 160-4.5 MCG 60 PUFF/6 GM MDI IH SCH ×2 (11:06→23:34)
[2017-02-05] MEDS: THIAMINE HCL 100 MG TABLET PO SCH (11:06)
[2017-02-05] MEDS: NORMAL SALINE 1000 ML 1,000 ML IV PRN ×2 (11:07→23:35)
[2017-02-05] MEDS: NYSTATIN TOPICAL POWDER 15 GM TP SCH ×2 (11:07→18:21)
[2017-02-05] MEDS: FUROSEMIDE INJ/PF 20 MG/2 ML SDV IV SCH (11:12)
[2017-02-05] MEDS ORDERED: ZINC OXIDE 20% OINTMENT 28.35 GM TP PRN (13:44)
--- NOTE | 2017-02-05 13:56 | PDOC PROGRESS REPORT ---
Subjective Progress Note for:: 02/05/17 Subjective:: Patient has no new complaints. Reports she is feeling much better than this weekend. Reports she has been up out of bed and ambulating. Reports nausea has improved. Patient denies chest pain, shortness of breath, abdominal pain, nausea, vomiting , fevers, chills, diarrhea, constipation, headache, new onset weakness. Understands the need to wean narcotics. Physical Exam Vital Signs: Temp Pulse Resp BP Pulse Ox 97.4 F 59 L 18 130/99 H 100 02/05/17 04:00 02/05/17 04:00 02/05/17 04:00 02/05/17 04:00 02/05/17 04:00 Intake & Output 02/04/17 02/05/17 02/06/17 06:59 06:59 06:59 Intake Total 1266 930 Output Total 100 Balance 1166 930 Weight 92.8 kg 91.2 kg Exam: GENERAL: No acute distress, A+Ox3 HEENT: Conjunctiva clear, nonicteric, moist mucous membranes, no JVD, midline trachea RESPIRATORY: Clear to auscultation bilaterally CARDIAC: Regular rate and rhythm, no murmurs/gallops/rubs ABDOMEN: Soft, left lower quadrant ostomy with good output, NTTP, active bowel sounds, no rebound, no rigidity, no guarding EXTREMETIES: 1+ edema bilateral lower extremities to midshin, no cyanosis, no clubbing NEUROLOGIC: Alert, oriented to person, place, time, CN's grossly intact, no focal deficits PSYCH: Normal mood and affect Results Laboratory Results: 02/05/17 04:21 02/05/17 04:21 02/05/17 02/05/17 04:21 04:21 WBC 7.6 RBC 2.58 L Hgb 8.4 L Hct 24.3 L MCV 94 MCH 32.4 MCHC 34.5 RDW 13.8 Plt Count 273 Sodium 135.5 L Potassium 3.2 L Chloride 95 L Carbon Dioxide 31 H Anion Gap 10 BUN 14 Creatinine 2.99 H Est GFR ( Amer) 20 L Est GFR (Non-Af Amer) 16 L Glucose 114 H Calcium 8.6 01/31/17 06:40 Blood Blood Culture - Final NO GROWTH IN 5 DAYS 01/14/17 01/15/17 01/15/17 05:10 22:07 22:07 Creatine Kinase 171 H CK-MB (CK-2) 0.60 Troponin I 0.090 NT-Pro-B Natriuret Pep 550 01/16/17 01/16/17 01/16/17 04:05 04:05 10:10 Creatine Kinase 160 H 277 H CK-MB (CK-2) 0.49 Troponin I 0.082 NT-Pro-B Natriuret Pep 4470 H 01/16/17 01/25/17 10:10 05:02 Creatine Kinase 31 CK-MB (CK-2) 1.45 Troponin I 0.043 NT-Pro-B Natriuret Pep Impressions: Head CT 01/15/17 06:00 IMPRESSION: Technical limitations. Right parietal meningioma. No obvious significant interval change. KUB X-Ray 01/15/17 10:25 IMPRESSION: TIP OF THE NASOGASTRIC TUBE IN THE STOMACH. Renal Ultrasound 01/19/17 00:00 IMPRESSION: NORMAL RENAL ULTRASOUND. Venous Doppler Study 01/19/17 00:00 IMPRESSION: NO EVIDENCE DVT OR SVT IN THE RIGHT LEG. Chest X-Ray 01/22/17 17:48 IMPRESSION: No significant interval change. Findings as noted above Abdomen/Pelvis CT 02/01/17 00:00 IMPRESSION: Free fluid in the left lower quadrant and pelvis. No focal inflammatory changes. There is diffuse subcutaneous edema. Assessment & Plan - Diagnosis (1) ARF (acute renal failure) Qualifiers: Acute renal failure type: with acute tubular necrosis Qualified Code (s): N17.0 - Acute kidney failure with tubular necrosis Is this a current diagnosis for this admission?: YesPlan: Appreciate nephrology input Likely secondary to ATN/ septic shock. Patient's creatinine has improved after HD. Her urine output continues to improve. First Dialysis 01/24/17. No plans for ongoing HD per nephrology. Patient on NS@ 100mL/hr per nephology with Lasix 20mg IV q12. (2) Encephalopathy acute Is this a current diagnosis for this admission?: YesPlan: Now resolved. Patient is back to baseline a and O 3. Most likely secondary to sepsis, alcohol withdrawal, and underlying untreated bipolar.CT of the head reveals meningioma with mild associated edema. Do not believe this was because of the patient's encephalopathy. Patient has suffered with this meningioma for so long that it is now calcified. (3) Alcohol withdrawal delirium Is this a current diagnosis for this admission?: YesPlan: resolved encourage abstinence (4) Septic shock Is this a current diagnosis for this admission?: YesPlan: Improved. Secondary to perforated diverticulum. (5) Sepsis Qualifiers: Sepsis type: Escherichia coli Qualified Code(s): A41.51 - Sepsis due to Escherichia coli [E. coli] Is this a current diagnosis for this admission?: YesPlan: Patient with sepsis present on admission. 2/2 Diverticulitis. s/p partial colectomy. Criteria On admission tachycardia, 35% bands, source, and fever 101.3. Patient with E.Coli in peritoneal fluid. Patient has been treated for 15 days and have stopped abx. (6) Diverticulitis Qualifiers: Diverticulitis site: large intestine Diverticulitis bleeding: without bleeding Diverticulitis complication: with perforation Qualified Code (s): K57.20 - Diverticulitis of large intestine with perforation and abscess without bleeding Is this a current diagnosis for this admission?: YesPlan: Thank surgery for their participation. (7) Impaired fasting blood sugar Is this a current diagnosis for this admission?: YesPlan: A1c of 5 (8) Alcoholism /alcohol abuse Is this a current diagnosis for this admission?: YesPlan: Continue oral thiamine and folic acid. Patient outside the window for acute withdrawal. (9) Hypokalemia Is this a current diagnosis for this admission?: YesPlan: Improved Continue to monitor. (10) Hypophosphatemia Is this a current diagnosis for this admission?: Yes (11) Meningioma Is this a current diagnosis for this admission?: YesPlan: Patient will need to follow as an outpatient with neurosurgery if this is felt to be symptomatic. (12) Tobacco abuse Is this a current diagnosis for this admission?: YesPlan: decrease nicotine replacement to 7mg TD daily encourage cessation (13) Obesity (BMI 30.0-34.9) Is this a current diagnosis for this admission?: YesPlan: Has improved Continue to encourage good weight (14) COPD (chronic obstructive pulmonary disease) Qualifiers: COPD type: unspecified COPD Qualified Code(s): J44.9 - Chronic obstructive pulmonary disease, unspecified Is this a current diagnosis for this admission?: YesPlan: Place on albuterol inh prn symbicort bid (15) Hypertension Qualifiers: Hypertension type: unspecified Qualified Code(s): I10 - Essential ( primary) hypertension Is this a current diagnosis for this admission?: YesPlan: Currently well controlled Generic Name Dose Route Start Last Admin Trade Name Glynn PRN Reason Stop Dose Admin Hydralazine HCl 50 mg 02/05/17 14:00 Apresoline 25 Mg Tablet PO 03/07/17 13:59 Q8 DORI Carvedilol 6.25 mg 01/29/17 22:00 02/05/17 11:05 Coreg 6.25 Mg Tablet PO 02/28/17 21:59 6.25 mg Q12 DORI Furosemide 20 mg 01/24/17 10:00 02/05/17 11:12 Lasix Inj/Pf 20 Mg/2 Ml Sdv IV 02/23/17 09:59 Not Given Q12 DORI Hydralazine HCl 10 mg 01/11/17 10:57 01/31/17 12:38 Apresoline Inj/Pf 20 Mg/1 Ml Sdv IV 02/08/17 18:24 10 mg Q4HP PRN sbp>165 - Time Time Spent with patient: 25-34 minutes Medications reviewed and adjusted accordingly: Yes Anticipated discharge: Home with Homehealth Within: within 48 hours - Inpatient Certification Based on my medical assessment, after consideration of the patient's comorbidities, presenting symptoms, or acuity I expect that the services needed warrant INPATIENT care.: Yes I certify that my determination is in accordance with my understanding of Medicare's requirements for reasonable and necessary INPATIENT services [42 CFR 412.3e].: Yes Medical Necessity: Need For IV Fluids Post Hospital Care: D/C Pulling Unit Floorhand Documentation
[2017-02-05] MEDS ORDERED: ALBUTEROL SULFATE HFA (90 MCG/PUFF) 200 PUFF/8.5 GM MDI IH PRN (14:02)
--- NOTE | 2017-02-05 14:35 | PDOC PROGRESS REPORT ---
Subjective Progress Note for:: 02/05/17 Subjective:: Patient seen this morning. She had a bad weekend with nausea vomiting and some abdominal pains. She has had some constipation and gas problems. She understands that this could be related to the narcotics that she is on. She is trying to wean herself and requests less of the same. This morning she feels a whole lot better. Appetite is improved and she is planning to have breakfast. No complaints of nausea vomiting. No history of chest pain shortness of breath. She has made good amounts of urine output. Her Robert catheter has been removed last week. She has a stable creatinine at 2.9. Her last dialysis was last Sunday. Physical Exam Vital Signs: Temp Pulse Resp BP Pulse Ox 97.4 F 59 L 18 130/99 H 100 02/05/17 04:00 02/05/17 04:00 02/05/17 04:00 02/05/17 04:00 02/05/17 04:00 Intake & Output 02/04/17 02/05/17 02/06/17 06:59 06:59 06:59 Intake Total 1266 930 Output Total 100 Balance 1166 930 Weight 92.8 kg 91.2 kg General appearance: PRESENT: no acute distress Respiratory exam: PRESENT: clear to auscultation elvira. ABSENT: crackles, rhonchi Cardiovascular exam: PRESENT: RRR, +S1, +S2 GI/Abdominal exam: PRESENT: normal bowel sounds, soft, tenderness. ABSENT: distended Extremities exam: ABSENT: pedal edema Neurological exam: PRESENT: alert, awake, oriented to person, oriented to place , oriented to time Results Laboratory Results: 02/05/17 04:21 02/05/17 04:21 02/05/17 02/05/17 02/05/17 04:21 04:21 04:21 WBC 7.6 RBC 2.58 L Hgb 8.4 L Hct 24.3 L MCV 94 MCH 32.4 MCHC 34.5 RDW 13.8 Plt Count 273 Sodium 135.5 L Potassium 3.2 L Chloride 95 L Carbon Dioxide 31 H Anion Gap 10 BUN 14 Creatinine 2.99 H Est GFR ( Amer) 20 L Est GFR (Non-Af Amer) 16 L Glucose 114 H Calcium 8.6 Magnesium 2.0 01/31/17 06:40 Blood Blood Culture - Final NO GROWTH IN 5 DAYS 07/23/17 07/24/17 07/24/17 05:10 22:07 22:07 Creatine Kinase 171 H CK-MB (CK-2) 0.60 Troponin I 0.090 NT-Pro-B Natriuret Pep 550 01/16/17 01/16/17 01/16/17 04:05 04:05 10:10 Creatine Kinase 160 H 277 H CK-MB (CK-2) 0.49 Troponin I 0.082 NT-Pro-B Natriuret Pep 4470 H 01/16/17 01/25/17 10:10 05:02 Creatine Kinase 31 CK-MB (CK-2) 1.45 Troponin I 0.043 NT-Pro-B Natriuret Pep Impressions: Head CT 01/15/17 06:00 IMPRESSION: Technical limitations. Right parietal meningioma. No obvious significant interval change. KUB X-Ray 01/15/17 10:25 IMPRESSION: TIP OF THE NASOGASTRIC TUBE IN THE STOMACH. Renal Ultrasound 01/19/17 00:00 IMPRESSION: NORMAL RENAL ULTRASOUND. Venous Doppler Study 01/19/17 00:00 IMPRESSION: NO EVIDENCE DVT OR SVT IN THE RIGHT LEG. Chest X-Ray 01/22/17 17:48 IMPRESSION: No significant interval change. Findings as noted above Abdomen/Pelvis CT 02/01/17 00:00 IMPRESSION: Free fluid in the left lower quadrant and pelvis. No focal inflammatory changes. There is diffuse subcutaneous edema. Assessment & Plan - Diagnosis (1) Acute kidney injury Is this a current diagnosis for this admission?: YesPlan: He is making good amounts of urine. Lites are stable. No evidences of uremia. Her renal labs are stable. Discussed with patient. Hold off on dialysis for today. Patient clinically dry as intake suffered on the weekend because of her nausea vomiting and constipation. Advised her to wean off the narcotics. I will start her on normal saline and cut back on the diuretics and monitor. No indications for renal replacements today. Patient renal numbers are stable and if that continues to be stable or better by tomorrow she could be discharged from a renal point of view and follow-up with me as an outpatient (2) Diverticulosis large intestine w/o perforation or abscess w/o bleeding Is this a current diagnosis for this admission?: YesPlan: Status post sigmoid colectomy with colostomy. Working colostomy. Constipation from narcotics. discussed about weaning off narcotics. (3) Hypokalemia Is this a current diagnosis for this admission?: YesPlan: Stable. (4) Hypertension Is this a current diagnosis for this admission?: YesPlan: Controlled. (5) Sepsis Qualifiers: Sepsis type: Escherichia coli Qualified Code(s): A41.51 - Sepsis due to Escherichia coli [E. coli] Is this a current diagnosis for this admission?: Yes (6) Anemia Qualifiers: Anemia type: unspecified type Qualified Code(s): D64.9 - Anemia, unspecified Is this a current diagnosis for this admission?: YesPlan: Plan for Iron replacement (7) Hypomagnesemia Is this a current diagnosis for this admission?: YesPlan: Stable
[2017-02-05] MEDS ORDERED: IRON SUCROSE COMPLEX 200 MG in NORMAL SALINE 250 ML IV ONE (15:00)
[2017-02-05] MEDS ORDERED: MAG HYDROX/AL HYDROX/SIMETH SUSP 30 ML UDCUP PO ONE (18:00)
[2017-02-05] MEDS: TRAZODONE HCL 50 MG TABLET PO PRN (23:35)
[2017-02-06] MEDS: HYDRALAZINE HCL 25 MG TABLET PO SCH ×3 (07:04→22:56)
[2017-02-06 07:13] LABS: HEMATOCRIT 23.1 % (36.0-47.0); HGB HCT DIFFERENCE 0.6; MEAN CORPUSCULAR HEMOGLOBIN 31.6 pg (27.0-33.4); MEAN CORPUSCULAR HGB CONC 34.3 g/dL (32.0-36.0); MEAN CORPUSCULAR VOLUME 92 fl (80-97); RED BLOOD COUNT 2.51 10^6/uL (3.72-5.28); RED CELL DISTRIBUTION WIDTH 13.7 % (11.5-14.0); WHITE BLOOD COUNT 6.1 10^3/uL (4.0-10.5)
[2017-02-06 07:17] LABS: HEMOGLOBIN 7.9 g/dL (12.0-15.5)
[2017-02-06 07:26] LABS: ANION GAP 9 (5-19); BLOOD UREA NITROGEN 13 mg/dL (7-20); CALCIUM 8.5 mg/dL (8.4-10.2); CARBON DIOXIDE 29 mmol/L (22-30); CHLORIDE 103 mmol/L (98-107); CREATININE RESULT 2.89 mg/dL (0.52-1.25); GLUCOSE 95 mg/dL (75-110); POTASSIUM 3.5 mmol/L (3.6-5.0); SODIUM 140.5 mmol/L (137-145)
[2017-02-06] MEDS ORDERED: CLONAZEPAM 1 MG TABLET PO ONE (09:10)
[2017-02-06] MEDS ORDERED: PROCHLORPERAZINE MALEATE 10 MG TABLET PO PRN (09:18)
[2017-02-06] MEDS ORDERED: NORMAL SALINE 1000 ML 1,000 ML IV PRN (09:20)
--- NOTE | 2017-02-06 09:48 | RADIOLOGY REPORT (SQ) ---
EXAM DESCRIPTION: KUB/ABDOMEN (SINGLE VIEW) COMPLETED DATE/TIME: 02/06/2017 9:37 am REASON FOR STUDY: ?constipation COMPARISON: 01/11/2017 and 01/15/2017 NUMBER OF VIEWS: One view. TECHNIQUE: Supine radiographic image of the abdomen acquired. LIMITATIONS: None. FINDINGS: BOWEL GAS PATTERN: No bowel dilatation. Small to moderate fecal material. Ostomy on the left. CALCIFICATIONS: No suspicious calcifications. SOFT TISSUES: No gross mass or suggestion of organomegaly. HARDWARE: Surgical clips of the anatomic pelvis and hardware in the lumbar spine. BONES: Nothing acute. OTHER: No other significant finding. IMPRESSION: No bowel dilatation. Nonobstructive appearance TECHNICAL DOCUMENTATION: JOB ID: [id number] [employer]- All Rights Reserved
[2017-02-06] MEDS ORDERED: PROCHLORPERAZINE MALEATE 25 MG SUPP.RECT PR ONE (10:00)
[2017-02-06] MEDS ORDERED: NICOTINE 7 MG/24 HR PATCH.TD24 TD SCH ×2 (12:00)
[2017-02-06] MEDS: CARVEDILOL 6.25 MG TABLET PO SCH ×2 (12:17→22:56)
[2017-02-06] MEDS: MAGNESIUM OXIDE 400 MG TABLET PO SCH ×3 (12:17→17:27)
[2017-02-06] MEDS: THIAMINE HCL 100 MG TABLET PO SCH (12:18)
[2017-02-06] MEDS: FUROSEMIDE INJ/PF 20 MG/2 ML SDV IV SCH (12:18)
[2017-02-06] MEDS: HYDRALAZINE HCL INJ/PF 20 MG/1 ML SDV IV PRN (12:18)
[2017-02-06] MEDS: POTASSIUM CHLORIDE 20 MEQ/15 ML UDCUP PO SCH ×2 (12:19→22:56)
[2017-02-06] MEDS: BUDESONIDE/FORMOTEROL 160-4.5 MCG 60 PUFF/6 GM MDI IH SCH ×2 (12:19→22:56)
[2017-02-06] MEDS: NYSTATIN TOPICAL POWDER 15 GM TP SCH ×2 (12:24→17:27)
--- NOTE | 2017-02-06 12:25 | PDOC PROGRESS REPORT ---
Subjective Progress Note for:: 02/06/17 Subjective:: Seen today. She is complaining of intermittent nausea with intermittent vague abdominal pains. She states that food intake is therefore suffered over the last 24 hours again. She admits to intermittent anxiety. She also has had some issues with constipation and yesterday I had therefore taken off the clonidine and instead increased hydralazine. No complaints of any fever or chills. Labs were reviewed with the patient and shows stable renal numbers. Blood pressure is fluctuant and labile. I also had a lengthy discussion with Dr. Ruiz. Physical Exam Vital Signs: Temp Pulse Resp BP Pulse Ox 99.1 F 81 20 174/89 H 91 L 02/06/17 07:40 02/06/17 07:40 02/06/17 07:40 02/06/17 07:40 02/06/17 07:40 Intake & Output 02/05/17 02/06/17 02/07/17 06:59 06:59 06:59 Intake Total 930 3220 Output Total 150 Balance 930 3070 Weight 91.2 kg 91.2 kg General appearance: PRESENT: no acute distress Respiratory exam: PRESENT: clear to auscultation elvira. ABSENT: crackles, rhonchi Cardiovascular exam: PRESENT: RRR, +S1, +S2 GI/Abdominal exam: PRESENT: normal bowel sounds, soft, tenderness. ABSENT: distended, organomegaly Extremities exam: ABSENT: pedal edema Neurological exam: PRESENT: alert, awake, oriented to person, oriented to place , oriented to time Results Laboratory Results: 02/06/17 06:55 02/06/17 06:55 02/06/17 02/06/17 06:55 06:55 WBC 6.1 RBC 2.51 L Hgb 7.9 L Hct 23.1 L MCV 92 MCH 31.6 MCHC 34.3 RDW 13.7 Plt Count 264 Sodium 140.5 Potassium 3.5 L Chloride 103 Carbon Dioxide 29 Anion Gap 9 BUN 13 Creatinine 2.89 H Est GFR ( Amer) 20 L Est GFR (Non-Af Amer) 17 L Glucose 95 Calcium 8.5 01/14/17 01/15/17 01/15/17 05:10 22:07 22:07 Creatine Kinase 171 H CK-MB (CK-2) 0.60 Troponin I 0.090 NT-Pro-B Natriuret Pep 550 07/25/17 07/25/17 07/25/17 04:05 04:05 10:10 Creatine Kinase 160 H 277 H CK-MB (CK-2) 0.49 Troponin I 0.082 NT-Pro-B Natriuret Pep 4470 H 01/16/17 01/25/17 10:10 05:02 Creatine Kinase 31 CK-MB (CK-2) 1.45 Troponin I 0.043 NT-Pro-B Natriuret Pep Impressions: Head CT 01/15/17 06:00 IMPRESSION: Technical limitations. Right parietal meningioma. No obvious significant interval change. Renal Ultrasound 01/19/17 00:00 IMPRESSION: NORMAL RENAL ULTRASOUND. Venous Doppler Study 01/19/17 00:00 IMPRESSION: NO EVIDENCE DVT OR SVT IN THE RIGHT LEG. Chest X-Ray 01/22/17 17:48 IMPRESSION: No significant interval change. Findings as noted above Abdomen/Pelvis CT 02/01/17 00:00 IMPRESSION: Free fluid in the left lower quadrant and pelvis. No focal inflammatory changes. There is diffuse subcutaneous edema. KUB X-Ray 02/06/17 00:00 IMPRESSION: No bowel dilatation. Nonobstructive appearance Assessment & Plan - Diagnosis (1) Acute kidney injury Is this a current diagnosis for this admission?: YesPlan: She is making good amounts of urine. Lites are stable. No evidences of uremia. Her renal labs are stable. Discussed with patient. Continues to be clinically dry because of poor intake. Therefore will reorder IV fluids. No indications for renal replacements and will revisit her again tomorrow. She is unfortunately having these vague abdominal symptoms and unable to therefore go home. Discussed with Dr. Ruiz (2) Diverticulosis large intestine w/o perforation or abscess w/o bleeding Is this a current diagnosis for this admission?: YesPlan: Status post sigmoid colectomy with colostomy. Working colostomy. Constipation from narcotics. discussed about weaning off narcotics. (3) Hypokalemia Is this a current diagnosis for this admission?: YesPlan: Stable. (4) Hypertension Is this a current diagnosis for this admission?: YesPlan: Uncontrolled. Will increase Coreg to 12.5 3 times daily. Some of her symptoms could be related either from withdrawal to the benzodiazepines that she has been taking at home or from some of the vague abdominal symptoms that is at the moment rather unexplainable. Wonder if anxiety/panic attacks might also be playing a role. Discussed with Dr. Ruiz. She is planning to reintroduce Klonopin that she used to take as needed at home for anxiety attacks (5) Sepsis Qualifiers: Sepsis type: Escherichia coli Qualified Code(s): A41.51 - Sepsis due to Escherichia coli [E. coli] Is this a current diagnosis for this admission?: Yes (6) Anemia Qualifiers: Anemia type: unspecified type Qualified Code(s): D64.9 - Anemia, unspecified Is this a current diagnosis for this admission?: YesPlan: He is on iron IV replacement monitor hemoglobin status. (7) Hypomagnesemia Is this a current diagnosis for this admission?: YesPlan: Stable
[2017-02-06 13:05] LABS: ABSOLUTE BASOPHILS # (AUTO) 0.1 10^3/uL (0.0-0.2); ABSOLUTE EOSINOPHILS # (AUTO) 0.1 10^3/uL (0.0-0.6); ABSOLUTE LYMPHOCYTES (AUTO) 1.3 10^3/uL (0.5-4.7); ABSOLUTE MONOCYTES (AUTO) 0.9 10^3/uL (0.1-1.4); ABSOLUTE NEUT (AUTO) 4.3 10^3/uL (1.7-8.2); BASOPHILS % (AUTO) 0.8 % (0-2); EOSINOPHILS % (AUTO) 1.1 % (0-6); HEMATOCRIT 25.2 % (36.0-47.0); HEMOGLOBIN 8.3 g/dL (12.0-15.5); HGB HCT DIFFERENCE -0.3; LYMPHOCYTES % (AUTO) 20.1 % (13-45); MEAN CORPUSCULAR HEMOGLOBIN 31.1 pg (27.0-33.4); MEAN CORPUSCULAR VOLUME 94 fl (80-97); MONOCYTES % (AUTO) 12.9 % (3-13); RED BLOOD COUNT 2.67 10^6/uL (3.72-5.28); RED CELL DISTRIBUTION WIDTH 13.6 % (11.5-14.0); SEGMENTED NEUTROPHILS % (AUTO) 65.1 % (42-78); WHITE BLOOD COUNT 6.6 10^3/uL (4.0-10.5)
--- NOTE | 2017-02-06 16:22 | PDOC PROGRESS REPORT ---
Subjective Progress Note for:: 02/06/17 Subjective:: Patient complains of nausea and reports she has not had a good BM since Sunday. Patient denies chest pain, shortness of breath, abdominal pain, fevers, chills, diarrhea, headache, new onset weakness. Physical Exam Vital Signs: Temp Pulse Resp BP Pulse Ox 99.1 F 81 20 174/89 H 91 L 02/06/17 07:40 02/06/17 07:40 02/06/17 07:40 02/06/17 07:40 02/06/17 07:40 Intake & Output 02/05/17 02/06/17 02/07/17 06:59 06:59 06:59 Intake Total 930 3220 Output Total 150 Balance 930 3070 Weight 91.2 kg 91.2 kg Exam: GENERAL: mild distress, A+Ox3 HEENT: Conjunctiva clear, nonicteric, moist mucous membranes, no JVD, midline trachea RESPIRATORY: Clear to auscultation bilaterally CARDIAC: Regular rate and rhythm, no murmurs/gallops/rubs ABDOMEN: Soft, left lower quadrant ostomy with small amount of brown liquid stool, NTTP, active bowel sounds, no rebound, no rigidity, no guarding EXTREMETIES: trace edema bilateral lower extremities, no cyanosis, no clubbing NEUROLOGIC: Alert, oriented to person, place, time, CN's grossly intact, no focal deficits PSYCH: Normal mood and affect Results Laboratory Results: 02/06/17 12:31 02/06/17 06:55 02/06/17 02/06/17 02/06/17 06:55 06:55 12:31 WBC 6.1 6.6 RBC 2.51 L 2.67 L Hgb 7.9 L 8.3 L Hct 23.1 L 25.2 L MCV 92 94 MCH 31.6 31.1 MCHC 34.3 33.0 RDW 13.7 13.6 Plt Count 264 281 Seg Neutrophils % 65.1 Lymphocytes % 20.1 Monocytes % 12.9 Eosinophils % 1.1 Basophils % 0.8 Absolute Neutrophils 4.3 Absolute Lymphocytes 1.3 Absolute Monocytes 0.9 Absolute Eosinophils 0.1 Absolute Basophils 0.1 Sodium 140.5 Potassium 3.5 L Chloride 103 Carbon Dioxide 29 Anion Gap 9 BUN 13 Creatinine 2.89 H Est GFR ( Amer) 20 L Est GFR (Non-Af Amer) 17 L Glucose 95 Calcium 8.5 01/14/17 01/15/17 01/15/17 05:10 22:07 22:07 Creatine Kinase 171 H CK-MB (CK-2) 0.60 Troponin I 0.090 NT-Pro-B Natriuret Pep 550 01/16/17 01/16/17 01/16/17 04:05 04:05 10:10 Creatine Kinase 160 H 277 H CK-MB (CK-2) 0.49 Troponin I 0.082 NT-Pro-B Natriuret Pep 4470 H 01/16/17 01/25/17 10:10 05:02 Creatine Kinase 31 CK-MB (CK-2) 1.45 Troponin I 0.043 NT-Pro-B Natriuret Pep Impressions: Head CT 01/15/17 06:00 IMPRESSION: Technical limitations. Right parietal meningioma. No obvious significant interval change. Renal Ultrasound 01/19/17 00:00 IMPRESSION: NORMAL RENAL ULTRASOUND. Venous Doppler Study 01/19/17 00:00 IMPRESSION: NO EVIDENCE DVT OR SVT IN THE RIGHT LEG. Chest X-Ray 01/22/17 17:48 IMPRESSION: No significant interval change. Findings as noted above Abdomen/Pelvis CT 02/01/17 00:00 IMPRESSION: Free fluid in the left lower quadrant and pelvis. No focal inflammatory changes. There is diffuse subcutaneous edema. KUB X-Ray 02/06/17 00:00 IMPRESSION: No bowel dilatation. Nonobstructive appearance Assessment & Plan - Diagnosis (1) Nausea & vomiting Qualifiers: Vomiting type: unspecified Vomiting Intractability: non-intractable Qualified Code(s): R11.2 - Nausea with vomiting, unspecified Is this a current diagnosis for this admission?: YesPlan: Patient has not had a BM since sunday and this is likely the cause. Stop dilaudid. Wean [place]. (2) ARF (acute renal failure) Qualifiers: Acute renal failure type: with acute tubular necrosis Qualified Code (s): N17.0 - Acute kidney failure with tubular necrosis Is this a current diagnosis for this admission?: YesPlan: Appreciate nephrology input Likely secondary to ATN/ septic shock. Patient's creatinine has improved after HD. Her urine output continues to improve. First Dialysis 01/24/17. No plans for ongoing HD per nephrology. Patient on NS@ 100mL/hr per nephology with Lasix 20mg IV q12. (3) Encephalopathy acute Is this a current diagnosis for this admission?: YesPlan: Now resolved. Patient is back to baseline a and O 3. Most likely secondary to sepsis, alcohol withdrawal, and underlying untreated bipolar.CT of the head reveals meningioma with mild associated edema. Do not believe this was because of the patient's encephalopathy. Patient has suffered with this meningioma for so long that it is now calcified. (4) Alcohol withdrawal delirium Is this a current diagnosis for this admission?: YesPlan: resolved encourage abstinence (5) Septic shock Is this a current diagnosis for this admission?: YesPlan: Improved. Secondary to perforated diverticulum. (6) Sepsis Qualifiers: Sepsis type: Escherichia coli Qualified Code(s): A41.51 - Sepsis due to Escherichia coli [E. coli] Is this a current diagnosis for this admission?: YesPlan: Patient with sepsis present on admission. 2/2 Diverticulitis. s/p partial colectomy. Criteria On admission tachycardia, 35% bands, source, and fever 101.3. Patient with E.Coli in peritoneal fluid. Patient has been treated for 15 days and have stopped abx. (7) Diverticulitis Qualifiers: Diverticulitis site: large intestine Diverticulitis bleeding: without bleeding Diverticulitis complication: with perforation Qualified Code (s): K57.20 - Diverticulitis of large intestine with perforation and abscess without bleeding Is this a current diagnosis for this admission?: YesPlan: Thank surgery for their participation. (8) Impaired fasting blood sugar Is this a current diagnosis for this admission?: Yes (9) Alcoholism /alcohol abuse Is this a current diagnosis for this admission?: Yes (10) Hypokalemia Is this a current diagnosis for this admission?: Yes (11) Hypophosphatemia Is this a current diagnosis for this admission?: Yes (12) Meningioma Is this a current diagnosis for this admission?: Yes (13) Tobacco abuse Is this a current diagnosis for this admission?: Yes (14) Obesity (BMI 30.0-34.9) Is this a current diagnosis for this admission?: Yes (15) COPD (chronic obstructive pulmonary disease) Qualifiers: COPD type: unspecified COPD Qualified Code(s): J44.9 - Chronic obstructive pulmonary disease, unspecified Is this a current diagnosis for this admission?: Yes (16) Hypertension Qualifiers: Hypertension type: unspecified Qualified Code(s): I10 - Essential ( primary) hypertension Is this a current diagnosis for this admission?: Yes - Time Time Spent with patient: 25-34 minutes Medications reviewed and adjusted accordingly: Yes Anticipated discharge: Home with Homehealth Within: within 24 hours - Inpatient Certification Based on my medical assessment, after consideration of the patient's comorbidities, presenting symptoms, or acuity I expect that the services needed warrant INPATIENT care.: Yes I certify that my determination is in accordance with my understanding of Medicare's requirements for reasonable and necessary INPATIENT services [42 CFR 412.3e].: Yes Medical Necessity: Need For IV Fluids Post Hospital Care: D/C Family Service Counselor Documentation
[2017-02-06] MEDS ORDERED: BISACODYL 5 MG TABEC PO ONE (17:30)
[2017-02-06 21:35] LABS: APPEARANCE,URINE CLEAR; BILIRUBIN,URINE NEGATIVE (NEGATIVE); GLUCOSE, URINE NEGATIVE (NEGATIVE); KETONES,URINE NEGATIVE (NEGATIVE); LEUKOCYTE ESTERASE,URINE NEGATIVE (NEGATIVE); NITRITE,URINE NEGATIVE (NEGATIVE); PROTEIN,URINE NEGATIVE (NEGATIVE); URINE SPECIFIC GRAVITY 1.005; UROBILINOGEN,URINE NEGATIVE mg/dL (<2.0)
[2017-02-06] MEDS: TRAZODONE HCL 50 MG TABLET PO PRN (22:56)
[2017-02-07 03:52] LABS: ANION GAP 7 (5-19); BLOOD UREA NITROGEN 13 mg/dL (7-20); CALCIUM 8.2 mg/dL (8.4-10.2); CARBON DIOXIDE 29 mmol/L (22-30); CHLORIDE 103 mmol/L (98-107); CREATININE RESULT 2.63 mg/dL (0.52-1.25); GLUCOSE 102 mg/dL (75-110); POTASSIUM 3.5 mmol/L (3.6-5.0); SODIUM 139.4 mmol/L (137-145)
[2017-02-07] MEDS: HYDRALAZINE HCL 25 MG TABLET PO SCH (05:51)
[2017-02-07] MEDS: ACETAMINOPHEN 325 MG TABLET PO PRN (08:54)
[2017-02-07] MEDS: CARVEDILOL 6.25 MG TABLET PO SCH (09:40)
[2017-02-07] MEDS: FUROSEMIDE INJ/PF 20 MG/2 ML SDV IV SCH (09:40)
[2017-02-07] MEDS: BUDESONIDE/FORMOTEROL 160-4.5 MCG 60 PUFF/6 GM MDI IH SCH (09:41)
[2017-02-07] MEDS ORDERED: POTASSIUM CHLORIDE 10 MEQ TABLET.SA PO ONE (10:30)
[2017-02-07] MEDS: MAGNESIUM OXIDE 400 MG TABLET PO SCH (11:42)
[2017-02-07] MEDS: THIAMINE HCL 100 MG TABLET PO SCH (11:42)
[2017-02-07 12:09] VITALS: BP 162/87
--- NOTE | 2017-02-07 13:48 | OPERATIVE REPORT E ---
Operative Report NAME: PRASANTH CASSIDY : 1960 AGE: 56Y DATE OF SURGERY: 02/07/2017 ROOM: 409 PREOPERATIVE DIAGNOSIS: Patient recovered from acute renal failure and, therefore, dialysis catheter not needed. POSTOPERATIVE DIAGNOSIS: Patient recovered from acute renal failure and, therefore, dialysis catheter not needed. PROCEDURE: Removal of dialysis catheter from the right internal jugular vein. SURGEON: KRISTINA WHELAN M.D. DESCRIPTION OF PROCEDURE: Patient was placed in semi-erect position and the right neck extended to the left. The suture on the dialysis catheter was then cut and released the catheter. The catheter was subsequently pulled out while patient was asked to take a deep breath, and on expiratory phase the catheter was pulled out fast and the area subsequently pressed with a sterile gauze. Pressure was applied to the insertion site for a few minutes and then a sterile dressing placed. The nurse came and held pressure for a minute or so but when she took her hand off the dressing the dressing got soaked with blood. Because of this the old dressing was removed and a new sterile dressing with 4 x 4 and sterile transparent dressing placed over the 4 x 4. Again, pressure was applied at the entry site for about 2 minutes and after this no bleeding noted. The patient tolerated the procedure well. DICTATING PHYSICIAN: KRISTINA WHELAN M.D. [id number] PHY#: [id number] ID: [id number] JOB#: [id number] ACCT: [id number] cc:KRISTINA WHELAN M.D. >
--- NOTE | 2017-02-07 18:39 | PDOC DISCHARGE SUMMARY ---
General - Admit/Disc Date/PCP Admission Date/Primary Care Provider: 01/09/17 18:19 [place] Discharge Date: 02/07/17 - Discharge Diagnosis (1) Septic shock Is this a current diagnosis for this admission?: Yes (2) Sepsis Is this a current diagnosis for this admission?: Yes (3) ARF (acute renal failure) Is this a current diagnosis for this admission?: Yes (4) Encephalopathy acute Is this a current diagnosis for this admission?: Yes (5) Alcohol withdrawal delirium Is this a current diagnosis for this admission?: Yes (6) Diverticulitis Is this a current diagnosis for this admission?: Yes (7) Impaired fasting blood sugar Is this a current diagnosis for this admission?: Yes (8) Alcoholism /alcohol abuse Is this a current diagnosis for this admission?: Yes (9) Hypokalemia Is this a current diagnosis for this admission?: Yes (10) Hypophosphatemia Is this a current diagnosis for this admission?: Yes (11) Meningioma Is this a current diagnosis for this admission?: Yes (12) Tobacco abuse Is this a current diagnosis for this admission?: Yes (13) Obesity (BMI 30.0-34.9) Is this a current diagnosis for this admission?: Yes (14) COPD (chronic obstructive pulmonary disease) Is this a current diagnosis for this admission?: Yes (15) Hypertension Is this a current diagnosis for this admission?: Yes (16) Nausea & vomiting Is this a current diagnosis for this admission?: Yes (17) Acute kidney injury Is this a current diagnosis for this admission?: Yes (18) Hypomagnesemia Is this a current diagnosis for this admission?: Yes (19) Perforation of sigmoid colon due to diverticulitis Is this a current diagnosis for this admission?: Yes (20) Pneumonia Is this a current diagnosis for this admission?: Yes - Additional Information Resuscitation Status: Full Code Discharge Diet: Cardiac Discharge Activity: Activity As Tolerated, Slowly Increase Activity, Supervised Activity Home Medications: Clonazepam [Klonopin 1 mg Tablet] 0.5 mg PO DAILY 01/10/17 Trazodone HCl [Desyrel] 100 mg PO HSP PRN 01/10/17 Albuterol Sulfate [Proair HFA Inhalation Aerosol 8.5 gm MDI] 2 puff IH Q4HP PRN #1 hfa.aer.ad 02/07/17 Budesonide/Formoterol Fumarate [Symbicort HFA 160-4.5 mcg Inhaler 6 gm] 2 puff IH Q12 inhaler 02/07/17 Carvedilol [Coreg 12.5 mg Tablet] 12.5 mg PO Q12 #60 tablet 02/07/17 Clonazepam [Klonopin 1 mg Tablet] 0.5 mg PO Q8HP PRN #10 tablet 02/07/17 Hydralazine HCl [Apresoline 50 mg Tablet] 50 mg PO TID #90 tablet 02/07/17 Hydrocodone/Acetaminophen [Vicodin 5-300 mg Tablet] 1 each PO Q8HP PRN #5 tablet 02/07/17 Magnesium Oxide [Mag-Ox 400 mg Tablet] 800 mg PO TID #15 tablet 02/07/17 Nicotine [Nicoderm 7 mg/24 Hr Transdermal Patch] 1 each TD NOON #14 patch.td24 02/07/17 Ostomy Adhesive [Coloplast Paste Strip] 1 each ASDIR PRN #1 paste..gm. Ostomy Barrier Seal [Jose Cohesive Stomawrap] 1 each MC ASDIR PRN 30 Days each 02/07/17 Ostomy Lubricating Deodorant [Sani-Zone Ostomy Deodorant] 59 ml ASDIR PRN #1 liquid 02/07/17 Ostomy Supply [Skin-Prep] 1 each ASDIR PRN #1 box 02/07/17 Potassium Chloride [Kaon-Cl 20 Meq/15 ml Udcup] 20 meq PO Q12 #10 udc 02/07/17 Prochlorperazine Maleate [Compazine 10 mg Tablet] 10 mg PO Q6HP PRN #10 tablet 02/07/17 Thiamine HCl [Thiamine 100 mg Tablet] 100 mg PO DAILY #90 tablet 02/07/17 Zinc Oxide [Zinc Oxide 20% Ointment 28.35 gm] 1 applic TP TIDP PRN #1 tube 02/07 History of Present Illness History of Present Illness: PRASANTH CASSIDY is a 56 year old female with a PMH of HTN, depression, asthma, and reported prior ischemic colitis who presents to the ED with with 1 week of increasing abdominal pain. She reports initially was crampy but tolerable. And subsequently developed increased nausea vomiting as well as alternating periods of sweating and chills. She reports she feels as though she has to void but nothing comes out. She reports she is currently not even passing any air. CAT scan of the abdomen revealed severe diverticulosis with possible diverticulitis. SMA is noted to be patent at this time. Patient reports that she has not been having any bloody or melanotic stools. She denies any hematochezia. Patient is referred to hospital service for colitis. Patient's medications are currently unavailable And being reconciled. Current list is automatically generated by [employer] and does not reflect an accurate list. Patient can recall all but a few of her medications and include as follows Norvasc, lisinopril, metoprolol, omeprazole, albuterol, Symbicort, Cymbalta, Klonopin, trazodone. Hospital Course Hospital Course: Patient was admitted and placed on Cipro and Flagyl and seen by surgery. Patient was quite dehydrated and IV rehydration was initiated for this patient. She continued to decline and developed a surgical abdomen and went to the OR on 01/11/2017 for a sigmoid colectomy and washout and subsequent ostomy. At this time, patient was transitioned to the ICU due to septic shock. She remained intubated and sedated at that time. Patient then struggled with what was thought to be aspiration pneumonia. Patient's peritoneal fluid grew out E. coli, Bacteroides, and strep viridans. Her blood cultures grew out Peptostreptococcus and corynebacterium. Patient continued to be difficult to extubate due to acute alcohol withdrawal which was treated with benzodiazepines. Pulmonology was consulted for this patient. Patient continued to improve and was ultimately extubated on 01/15/17. Prior to extubation patient was weaned from pressors and required diuresis secondary to iatrogenic volume overload. Patient was found to be encephalopathic at this time and CT of the head was preformed revealing a calcified meningioma. Patient continued to improve neurologically, but her renal function declined at this time. This was felt to be secondary to her septic shock and ATN. Nephrology was consulted and trialysis catheter was placed. Patient underwent several sessions of HD and ultimately was able to regain some kidney function prior to discharge which did not require hemodialysis. Patient had significant difficulty with pain control, narcotic use and getting her bowels to move. This was improved and patient self weaned from narcotics. Patient blood pressure medications were changed in accordance with her renal function. Patient was doing well and worked with PT. Home health was established for this patient prior to discharged. She was counselled against drinking alcohol, smoking, and missing follow up appointments. She is to see nephrology in 10 days with lab prior to that. Patient was doing well and requesting discharge. Physical Exam Vital Signs: Temp Pulse Resp BP Pulse Ox 97.9 F 80 18 162/87 H 95 02/07/17 12:21 02/07/17 12:21 02/07/17 12:21 02/07/17 12:21 02/07/17 12:21 Intake & Output 02/06/17 02/07/17 02/08/17 06:59 06:59 06:59 Intake Total 3220 1830 Output Total 150 400 Balance 3070 1430 Weight 91.2 kg 91.8 kg Exam: GENERAL: no acute distress, A+Ox3 HEENT: Conjunctiva clear, nonicteric, moist mucous membranes, no JVD, midline trachea RESPIRATORY: Clear to auscultation bilaterally CARDIAC: Regular rate and rhythm, no murmurs/gallops/rubs ABDOMEN: Soft, left lower quadrant ostomy with brown liquid stool, NTTP, active bowel sounds, no rebound, no rigidity, no guarding EXTREMETIES: trace edema bilateral lower extremities, no cyanosis, no clubbing NEUROLOGIC: Alert, oriented to person, place, time, CN's grossly intact, no focal deficits PSYCH: Normal mood and affect Results Laboratory Results: 02/06/17 12:31 02/07/17 03:20 02/06/17 02/07/17 21:12 03:20 Sodium 139.4 Potassium 3.5 L Chloride 103 Carbon Dioxide 29 Anion Gap 7 BUN 13 Creatinine 2.63 H Est GFR ( Amer) 23 L Est GFR (Non-Af Amer) 19 L Glucose 102 Calcium 8.2 L Urine Color YELLOW Urine Appearance CLEAR Urine pH 7.0 Ur Specific [place] 1.005 Urine Protein NEGATIVE Urine Glucose (UA) NEGATIVE Urine Ketones NEGATIVE Urine Blood NEGATIVE Urine Nitrite NEGATIVE Ur Leukocyte Esterase NEGATIVE Urine WBC (Auto) 6 Urine RBC (Auto) 2 01/14/17 01/15/17 01/15/17 05:10 22:07 22:07 Creatine Kinase 171 H CK-MB (CK-2) 0.60 Troponin I 0.090 NT-Pro-B Natriuret Pep 550 01/16/17 01/16/17 01/16/17 04:05 04:05 10:10 Creatine Kinase 160 H 277 H CK-MB (CK-2) 0.49 Troponin I 0.082 NT-Pro-B Natriuret Pep 4470 H 01/16/17 01/25/17 10:10 05:02 Creatine Kinase 31 CK-MB (CK-2) 1.45 Troponin I 0.043 NT-Pro-B Natriuret Pep Impressions: Head CT 01/15/17 06:00 IMPRESSION: Technical limitations. Right parietal meningioma. No obvious significant interval change. Renal Ultrasound 01/19/17 00:00 IMPRESSION: NORMAL RENAL ULTRASOUND. Venous Doppler Study 01/19/17 00:00 IMPRESSION: NO EVIDENCE DVT OR SVT IN THE RIGHT LEG. Chest X-Ray 01/22/17 17:48 IMPRESSION: No significant interval change. Findings as noted above Abdomen/Pelvis CT 02/01/17 00:00 IMPRESSION: Free fluid in the left lower quadrant and pelvis. No focal inflammatory changes. There is diffuse subcutaneous edema. KUB X-Ray 02/06/17 00:00 IMPRESSION: No bowel dilatation. Nonobstructive appearance Qualifiers PATEINT BEING DISCHARGED WITH ANY OF THE FOLLOWING DIAGNOSIS?: No Plan Time Spent: Greater than 30 Minutes
== END 2017-02-07 14:35 | disposition home health service (06) | DRG 853 ==
LOC: ER 14:42 → EH 18:19 → UNDOADMIN 18:23 → EH 18:23 → 4N 20:25 → ICU 01-11 21:51 → 4N 01-18 16:37
PROVIDERS: ADMIT Family Medicine; ATTEND Family Medicine
PROC: 0D1M0Z4 Bypass Descending Colon to Cutaneous, Open Approach (ICD-10-PCS; 2017-01-11)
PROC: 0DTN0ZZ Resection of Sigmoid Colon, Open Approach (ICD-10-PCS; principal; 2017-01-11 17:45)
PROC: 05HM33Z Insertion of Infusion Device into Right Internal Jugular Vein, Percutaneous Approach (ICD-10-PCS; 2017-01-22)
PROC: B543ZZA Ultrasonography of Right Jugular Veins, Guidance (ICD-10-PCS; 2017-01-22)
PROC: 5A1D00Z (ICD-10-PCS; 2017-01-24)
PROC: 5A1D00Z (ICD-10-PCS; 2017-01-26)
PROC: 5A1D00Z (ICD-10-PCS; 2017-01-29)
PROC: 5A1D00Z (ICD-10-PCS; 2017-01-31)
PROC: 5A1D00Z (ICD-10-PCS; 2017-02-02)
PROC: 05PYX3Z Removal of Infusion Device from Upper Vein, External Approach (ICD-10-PCS; 2017-02-07)
DX: A41.51 Sepsis due to Escherichia coli [E. coli] (principal); R65.21 Severe sepsis with septic shock; G93.40 Encephalopathy, unspecified; N17.0 Acute kidney failure with tubular necrosis; J69.0 Pneumonitis due to inhalation of food and vomit; K57.20 Diverticulitis of large intestine with perforation and abscess without bleeding; F10.231 Alcohol dependence with withdrawal delirium; J44.0 Chronic obstructive pulmonary disease with (acute) lower respiratory infection; E87.6 Hypokalemia; D64.9 Anemia, unspecified; E86.0 Dehydration; E83.39 Other disorders of phosphorus metabolism; D32.9 Benign neoplasm of meninges, unspecified; I10 Essential (primary) hypertension; E83.42 Hypomagnesemia; F32.9 Major depressive disorder, single episode, unspecified; E78.5 Hyperlipidemia, unspecified; K21.9 Gastro-esophageal reflux disease without esophagitis; E66.9 Obesity, unspecified; Z79.899 Other long term (current) drug therapy; F17.210 Nicotine dependence, cigarettes, uncomplicated; Z88.8 Allergy status to other drugs, medicaments and biological substances
CPT/HCPCS: 00790; 36415; 36600; 51701; 70450; 71010; 74000; 74176; 74177; 76775; 80048; 80053; 80061; 80202; 80307; 81001; 82140; 82550; 82553; 82565; 82607; 82728; 82746; 82803; 82962; 83036; 83540; 83550; 83605; 83690; 83735; 83880; 84100; 84132; 84134; 84466; 84478; 84484; 85025; 85027; 85045; 85610; 85730; 86317; 86704; 86850; 86900; 86901; 87040; 87070; 87075; 87077; 87086; 87186; 87205; 87340; 87493; 87522; 88307; 93005; 93010; 93971; 94002; 94003; 94640; 94799; 96374; 96375; 96376; 99285; C1751; J0131; J0171; J0360; J0500; J0744; J1100; J1170; J1200; J1610; J1630; J1644; J1756; J1885; J1940; J1956; J2060; J2250; J2310; J2405; J2543; J2550; J2704; J2765; J3010; J3370; J3411; J3475; J3480; J3490; J7030; J7040; J7050; J7060; J7620; P9047; Q0138; Q4081; S0164; S0183

== ENCOUNTER → 2017-02-14 | Outpatient (CLI) | payer OTHER ==
[2017-02-14 17:32] LABS: ANION GAP 11 (5-19); BLOOD UREA NITROGEN 8 mg/dL (7-20); CALCIUM 8.7 mg/dL (8.4-10.2); CARBON DIOXIDE 27 mmol/L (22-30); CHLORIDE 102 mmol/L (98-107); CREATININE RESULT 1.15 mg/dL (0.52-1.25); GLUCOSE 107 mg/dL (75-110); POTASSIUM 3.4 mmol/L (3.6-5.0); SODIUM 140.1 mmol/L (137-145)
[2017-02-14 18:45] LABS: MAGNESIUM 1.1 mg/dL (1.6-2.3)
== END ==
LOC: OD 15:59
PROVIDERS: ATTEND Internal Medicine Nephrology
DX: E83.42 Hypomagnesemia (principal); N18.5 Chronic kidney disease, stage 5
CPT/HCPCS: 36415; 80048; 83735

== ENCOUNTER → 2017-02-19 | Outpatient (CLI) | payer OTHER | LOC: OD 10:13 | PROVIDERS: ATTEND Internal Medicine Nephrology | DX: E83.42 Hypomagnesemia (principal) | CPT/HCPCS: 36415; 83735 ==

== ENCOUNTER → 2017-02-22 | Outpatient (CLI) | payer OTHER ==
[2017-02-22 11:11] LABS: HEMATOCRIT 27.2 % (36.0-47.0); HEMOGLOBIN 9.4 g/dL (12.0-15.5); MEAN CORPUSCULAR HEMOGLOBIN 31.3 pg (27.0-33.4); MEAN CORPUSCULAR HGB CONC 34.7 g/dL (32.0-36.0); RED BLOOD COUNT 3.01 10^6/uL (3.72-5.28); RED CELL DISTRIBUTION WIDTH 13.7 % (11.5-14.0); WHITE BLOOD COUNT 5.5 10^3/uL (4.0-10.5)
[2017-02-22 11:15] LABS: MEAN CORPUSCULAR VOLUME 90 fl (80-97)
[2017-02-22 11:40] LABS: ANION GAP 14 (5-19); BLOOD UREA NITROGEN 12 mg/dL (7-20); CALCIUM 9.8 mg/dL (8.4-10.2); CARBON DIOXIDE 24 mmol/L (22-30); CHLORIDE 106 mmol/L (98-107); CREATININE RESULT 1.13 mg/dL (0.52-1.25); GLUCOSE 175 mg/dL (75-110); MAGNESIUM 1.6 mg/dL (1.6-2.3); SODIUM 143.8 mmol/L (137-145)
== END ==
LOC: OD 10:17
PROVIDERS: ATTEND Internal Medicine Nephrology
DX: N17.9 Acute kidney failure, unspecified (principal); E87.6 Hypokalemia; D64.9 Anemia, unspecified; I12.9 Hypertensive chronic kidney disease with stage 1 through stage 4 chronic kidney disease, or unspecified chronic kidney disease
CPT/HCPCS: 36415; 80048; 83735; 85027

== ENCOUNTER → 2017-03-01 | Outpatient (CLI) | payer OTHER ==
[2017-03-01 10:35] LABS: HEMATOCRIT 29.6 % (36.0-47.0); HEMOGLOBIN 9.8 g/dL (12.0-15.5); HGB HCT DIFFERENCE -0.2; MEAN CORPUSCULAR HEMOGLOBIN 30.6 pg (27.0-33.4); MEAN CORPUSCULAR HGB CONC 33.1 g/dL (32.0-36.0); MEAN CORPUSCULAR VOLUME 93 fl (80-97); RED CELL DISTRIBUTION WIDTH 13.9 % (11.5-14.0); WHITE BLOOD COUNT 5.2 10^3/uL (4.0-10.5)
[2017-03-01 10:39] LABS: ANION GAP 12 (5-19); BLOOD UREA NITROGEN 11 mg/dL (7-20); CALCIUM 10.1 mg/dL (8.4-10.2); CARBON DIOXIDE 25 mmol/L (22-30); CHLORIDE 106 mmol/L (98-107); CREATININE RESULT 1.04 mg/dL (0.52-1.25); GLUCOSE 105 mg/dL (75-110); MAGNESIUM 1.6 mg/dL (1.6-2.3); PHOSPHORUS 5.8 mg/dL (2.5-4.5); POTASSIUM 4.8 mmol/L (3.6-5.0); SODIUM 142.8 mmol/L (137-145)
== END ==
LOC: OD 08:58
PROVIDERS: ATTEND Internal Medicine Nephrology
DX: N17.9 Acute kidney failure, unspecified (principal); D64.9 Anemia, unspecified; E87.6 Hypokalemia
CPT/HCPCS: 36415; 80048; 82728; 83540; 83550; 83735; 84100; 85027

== ENCOUNTER → 2017-04-13 | Outpatient (CLI) | payer OTHER ==
[2017-04-13 16:17] LABS: HEMATOCRIT 31.2 % (36.0-47.0); HEMOGLOBIN 11.2 g/dL (12.0-15.5); HGB HCT DIFFERENCE 2.4; MEAN CORPUSCULAR HEMOGLOBIN 32.4 pg (27.0-33.4); MEAN CORPUSCULAR HGB CONC 35.9 g/dL (32.0-36.0); MEAN CORPUSCULAR VOLUME 90 fl (80-97); RED BLOOD COUNT 3.46 10^6/uL (3.72-5.28); RED CELL DISTRIBUTION WIDTH 14.5 % (11.5-14.0); WHITE BLOOD COUNT 5.3 10^3/uL (4.0-10.5)
[2017-04-13 16:33] LABS: ANION GAP 11 (5-19); BLOOD UREA NITROGEN 20 mg/dL (7-20); CALCIUM 9.2 mg/dL (8.4-10.2); CARBON DIOXIDE 27 mmol/L (22-30); CHLORIDE 103 mmol/L (98-107); CREATININE RESULT 0.92 mg/dL (0.52-1.25); GLUCOSE 78 mg/dL (75-110); MAGNESIUM 1.9 mg/dL (1.6-2.3); POTASSIUM 4.2 mmol/L (3.6-5.0); SODIUM 140.7 mmol/L (137-145)
== END ==
LOC: OD 15:18
PROVIDERS: ATTEND Internal Medicine Nephrology
DX: N18.3 Chronic kidney disease, stage 3 (moderate) (principal); E87.6 Hypokalemia; D64.9 Anemia, unspecified; E83.42 Hypomagnesemia
CPT/HCPCS: 36415; 80048; 83735; 85027

== ENCOUNTER → 2017-10-26 | Outpatient (CLI) | payer OTHER ==
[2017-10-26 10:40] LABS: HEMATOCRIT 40.8 % (36.0-47.0); HEMOGLOBIN 14.2 g/dL (12.0-15.5); MEAN CORPUSCULAR HEMOGLOBIN 32.4 pg (27.0-33.4); MEAN CORPUSCULAR HGB CONC 34.8 g/dL (32.0-36.0); MEAN CORPUSCULAR VOLUME 93 fl (80-97); PLATELET COUNT 238 10^3/uL (150-450); RED BLOOD COUNT 4.39 10^6/uL (3.72-5.28); WHITE BLOOD COUNT 7.1 10^3/uL (4.0-10.5)
[2017-10-26 11:02] LABS: ANION GAP 10 (5-19); BLOOD UREA NITROGEN 16 mg/dL (7-20); CALCIUM 9.8 mg/dL (8.4-10.2); CARBON DIOXIDE 33 mmol/L (22-30); CHLORIDE 102 mmol/L (98-107); GLUCOSE 94 mg/dL (75-110); POTASSIUM 4.5 mmol/L (3.6-5.0); SODIUM 144.9 mmol/L (137-145)
== END ==
LOC: OD 09:46
PROVIDERS: ATTEND Internal Medicine Nephrology
DX: I12.9 Hypertensive chronic kidney disease with stage 1 through stage 4 chronic kidney disease, or unspecified chronic kidney disease (principal); N18.9 Chronic kidney disease, unspecified; E87.5 Hyperkalemia; E83.42 Hypomagnesemia; D64.9 Anemia, unspecified
CPT/HCPCS: 36415; 80048; 83735; 85027

== ENCOUNTER 2017-11-29 21:24 | Emergency (ER) | payer OTHER ==
[2017-11-29] MEDS ORDERED: ONDANSETRON HCL INJ/PF 4 MG/2 ML SDV IV ONE (23:01)
[2017-11-29] MEDS ORDERED: HYDROMORPHONE HCL INJ/PF 2 MG/ML AMPULE IV ONE (23:01)
[2017-11-29 23:02] LABS: APPEARANCE,URINE CLEAR; BILIRUBIN,URINE NEGATIVE (NEGATIVE); COLOR,URINE STRAW; GLUCOSE, URINE NEGATIVE (NEGATIVE); KETONES,URINE NEGATIVE (NEGATIVE); LEUKOCYTE ESTERASE,URINE NEGATIVE (NEGATIVE); NITRITE,URINE NEGATIVE (NEGATIVE); PROTEIN,URINE NEGATIVE (NEGATIVE); URINE SPECIFIC GRAVITY 1.003; UROBILINOGEN,URINE NEGATIVE mg/dL (<2.0)
--- NOTE | 2017-11-29 23:03 | ER Document Report ---
ED Headache - General Chief Complaint: Headache Stated Complaint: HEADACHE Time Seen by Provider: 11/29/17 22:56 Notes: Patient is a 57-year-old female with a history of a right-sided brain tumor that comes emergency department for chief complaint of a headache and nausea. She states her headache has been intermittent and worse over the past couple of weeks, it occasionally gets this bad but not usually. She denies fever chills, focal numbness or weakness, loss of vision, speech difficulties, or any other noted neurological deficits. She has a consultation with neurosurgery on Sunday in [place]. She follows with neurology Dr. Kauffman. She states she was told to take aspirin for her headaches but aspirin upsets her stomach too much. TRAVEL OUTSIDE OF THE [place] IN LAST 30 DAYS: No - Related Data Allergies/Adverse Reactions: morphine [Morphine] Allergy (Intermediate, Verified 01/09/17 14:44) UNCONTROLLED VOMITING Past Medical History - General Information source: Patient - Social History Smoking Status: Never Smoker Frequency of alcohol use: None Drug Abuse: None Lives with: Family Family History: Malignancy, Other - Past Medical History Cardiac Medical History: Reports: Hx Hypercholesterolemia, Hx Hypertension Denies: Hx Coronary Artery Disease, Hx Heart Attack Pulmonary Medical History: Reports: Hx Asthma, Hx Bronchitis Denies: Hx COPD, Hx Pneumonia Neurological Medical History: Denies: Hx Cerebrovascular Accident, Hx Seizures Renal/ Medical History: Denies: Hx Peritoneal Dialysis GI Medical History: Reports: Hx Gastroesophageal Reflux Disease Musculoskeltal Medical History: Reports Hx Arthritis - DEGENERATIVE ARTHRITIS BACK/HANDS Psychiatric Medical History: Reports: Hx Depression Past Surgical History: Reports: Hx Appendectomy, Hx Orthopedic Surgery - back surgery, Hx Tubal Ligation. Denies: Hx Hysterectomy - Immunizations Hx Diphtheria, Pertussis, Tetanus Vaccination: No Review of Systems - Review of Systems Constitutional: No symptoms reported EENT: No symptoms reported Cardiovascular: No symptoms reported Respiratory: No symptoms reported Gastrointestinal: No symptoms reported Genitourinary: No symptoms reported Female Genitourinary: No symptoms reported Musculoskeletal: No symptoms reported Skin: No symptoms reported Hematologic/Lymphatic: No symptoms reported Neurological/Psychological: See HPI Physical Exam - Vital signs Vitals: Temp Pulse Resp BP Pulse Ox 98.6 F 95 22 H 159/96 H 97 11/29/17 22:06 11/29/17 22:06 11/29/17 22:06 11/29/17 22:06 11/29/17 22:06 - Notes Notes: GENERAL: Alert, interacts well. Patient holding her head, tearful, appears to be in pain HEAD: Normocephalic, atraumatic. EYES: Pupils equal, round, and reactive to light. Extraocular movements intact. ENT: Oral mucosa moist, tongue midline. NECK: Full range of motion. Supple. Trachea midline. LUNGS: Clear to auscultation bilaterally, no wheezes, rales, or rhonchi. No respiratory distress. HEART: Regular rate and rhythm. No murmur ABDOMEN: Soft, non-tender. Non-distended. Bowel sounds present in all 4 quadrants. EXTREMITIES: Moves all 4 extremities spontaneously. No edema, normal radial and dorsalis pedis pulses bilaterally. No cyanosis. BACK: no cervical, thoracic, lumbar midline tenderness. No saddle anesthesia, normal distal neurovascular exam. NEUROLOGICAL: Alert and oriented x3. Normal speech. [cranial nerves II through XII grossly intact]. PSYCH: Tearful SKIN: Warm, dry, normal turgor. No rashes or lesions noted. Course - Re-evaluation Re-evalutation: Patient initially very uncomfortable, tearful, no neurological deficits, however after discussion decision was made to perform CAT scan to rule out intracranial hemorrhage from the mass or any other apparent changes from the previous scan. 11/30/17 01:05 CT shows stable mass with no growth, no bleed, no obvious abnormality or change. On reevaluation patient relaxed, calm states she feels much improved and her headache is almost gone. Distress is gone. She asks for a little bit of additional medication. After additional medication symptoms resolved. Responsive intracranial hemorrhage, subarachnoid hemorrhage, meningitis, or venous sinus thrombosis based on resolution of symptoms and patient's normal appearance after medications. She has had this before. Patient is requesting to leave. Provided with a copy of her exam, she has good close neurological follow-up, discussed return precautions in detail, patient states satisfaction and agreement with plan. - Vital Signs Vital signs: Temp Pulse Resp BP Pulse Ox 98.5 F 95 20 139/86 H 94 11/30/17 02:39 11/29/17 22:06 11/30/17 02:39 11/30/17 02:39 11/30/17 02:39 Discharge - Discharge Clinical Impression: Right parietal lobe mass Headache Qualifiers: Headache type: unspecified Headache chronicity pattern: unspecified pattern Intractability: not intractable Qualified Code(s): R51 - Headache Condition: Stable Disposition: HOME, SELF-CARE Additional Instructions: Your neurological exam and your CAT scan imaging did not show any concerning change. Take medication provider for headache if needed, follow closely with neurosurgery as planned. Return for any concerning or worsening symptoms including return severe headache, vomiting, numbness or weakness on side of her body, vision changes, or any other concerning symptoms. Prescriptions: Hydrocodone/Acetaminophen [[place] 5-325 mg Tablet] 1 - 2 tab PO ASDIR #12 tablet Referrals: Yousuf IBARRA MD [Primary Care Provider] - Follow up as needed
--- NOTE | 2017-11-30 00:54 | RADIOLOGY REPORT (SQ) ---
EXAM DESCRIPTION: CT HEAD WITHOUT IV CONTRAST CLINICAL HISTORY: 57 years Female, hx mass, severe headache, ?bleeding COMPARISON: None. TECHNIQUE: No contrast. Axial images only. This exam was performed according to our departmental dose-optimization program, which includes automated exposure control, adjustment of the mA and/or kV according to patient size and/or use of iterative reconstruction technique. FINDINGS: 3.7 x 3.0 cm calcified mass of the right posterior parietal lobe with moderate vasogenic edema without significant interval change. No mass effect and no midline shift. Normal ventricles. No acute hemorrhage or infarct. 1.6 and a right maxillary retention cyst-mucocele. Atherosclerosis.Brain and extra-axial structures appear otherwise intact. IMPRESSION: No significant change. Stable 3.7 cm right posterior parietal, calcified mass.
[2017-11-30] MEDS ORDERED: HYDROMORPHONE HCL INJ/PF 2 MG/ML AMPULE IV ONE (01:04)
[2017-11-30] MEDS ORDERED: DIPHENHYDRAMINE HCL 50 MG/ML VIAL IV ONE (01:05)
[2017-11-30] MEDS ORDERED: METOCLOPRAMIDE HCL INJ/PF 10 MG/2 ML SDV IV ONE (01:05)
[2017-11-30 02:41] VITALS: BP 139/86
== END 2017-11-30 03:19 | disposition home or self-care (01) ==
LOC: ER 21:24
DX: R91.8 Other nonspecific abnormal finding of lung field (principal); R51 Headache; R11.0 Nausea; I10 Essential (primary) hypertension; J45.909 Unspecified asthma, uncomplicated
CPT/HCPCS: 96376; 99284; 96374; 96375; 81001; 70450; J1200; J2765; J1170 ×2; J2405

== ENCOUNTER 2018-01-22 01:59 | Emergency (ER) | payer OTHER ==
--- NOTE | 2018-01-22 02:24 | ER Document Report ---
ED General - General Chief Complaint: Overdose Stated Complaint: POSSIBLE OVERDOSE Time Seen by Provider: 01/22/18 02:11 Notes: Patient is 57-year-old female presents with complaints of an overdose. She took 14 Lunesta tablets. She will not tell me exactly times a day she took them. We do not know the dose at this time. She told the paramedics that she was "just trying to hurt self". She initially tells me that she was not suicidal. I asked her why she then would take 14 of these tablets. She then goes on to say that she is just sick of everything in association with her healthcare. She has a colostomy. She says she is supposed to have surgery to have a colostomy reversed but then the anesthesiologist refused to be part of the surgery because of her history of a benign brain tumor. This made her upset and therefore she took the medications. She currently is somnolent but denies any other symptoms or complaints at this time. She denies any vomiting. TRAVEL OUTSIDE OF THE [place] IN LAST 30 DAYS: No - Related Data Allergies/Adverse Reactions: morphine [Morphine] Allergy (Intermediate, Verified 01/09/17 14:44) UNCONTROLLED VOMITING Past Medical History - Social History Smoking Status: Unknown if Ever Smoked Frequency of alcohol use: None Drug Abuse: None Family History: Malignancy, Other - Past Medical History Cardiac Medical History: Reports: Hx Hypercholesterolemia, Hx Hypertension Denies: Hx Coronary Artery Disease, Hx Heart Attack Pulmonary Medical History: Reports: Hx Asthma, Hx Bronchitis Denies: Hx COPD, Hx Pneumonia Neurological Medical History: Denies: Hx Cerebrovascular Accident, Hx Seizures Renal/ Medical History: Denies: Hx Peritoneal Dialysis GI Medical History: Reports: Hx Gastroesophageal Reflux Disease Musculoskeletal Medical History: Reports Hx Arthritis - DEGENERATIVE ARTHRITIS BACK/HANDS Psychiatric Medical History: Reports: Hx Depression Past Surgical History: Reports: Hx Appendectomy, Hx Orthopedic Surgery - back surgery, Hx Tubal Ligation. Denies: Hx Hysterectomy - Immunizations Hx Diphtheria, Pertussis, Tetanus Vaccination: No Review of Systems - Review of Systems Notes: My Normal Review Basic REVIEW OF SYSTEMS: CONSTITUTIONAL : Denies fever, chills, or sweats. Denies recent illness. EENT: Denies eye, ear, throat, or mouth pain or symptoms. Denies nasal or sinus congestion. CARDIOVASCULAR: Denies chest pain. RESPIRATORY: Denies cough, cold, or chest congestion. Denies shortness of breath, difficulty breathing, or wheezing. GASTROINTESTINAL: Denies abdominal pain. Denies nausea, vomiting, or diarrhea. Denies constipation. Last BM: MUSCULOSKELETAL: Denies neck or back pain or joint pain or swelling. SKIN: Denies rash or skin lesions. NEUROLOGICAL: Denies altered mental status or loss of consciousness. Chronic headache. Denies weakness or paralysis or loss of use of either side. Denies problems with gait or speech. Denies sensory or motor loss. PSYCHIATRIC: Initial overdose ALL OTHER SYSTEMS REVIEWED AND NEGATIVE. Physical Exam - Vital signs Vitals: Resp Pulse Ox 20 97 01/22/18 02:16 01/22/18 02:16 - Notes Notes: General Appearance: Well nourished, somnolent, cooperative, no acute distress, no obvious discomfort. Vitals: reviewed, See vital signs table. Head: no swelling or tenderness to the head Eyes: PERRL, EOMI, Conjuctiva clear Mouth: No decreasd moisture Lungs: No wheezing, No rales, No rhonci, No accessory muscle use, good air exchange bilaterally. Heart: Normal rate, Regular rythm, No murmur, no rub Abdomen: Normal BS, soft, No rigidity, No abdominal tenderness, No guarding, no rebound, no abdominal masses, no organomegaly. Patient has large ventral scar over the abdomen. Patient has colostomy bag left lower quadrant is normal appearing stool without gross blood. Extremities: strength 5/5 in all extremities, good pulses in all extremities, no swelling or tenderness in the extremities, no edema. Skin: warm, dry, appropriate color, no rash Neuro: speech slurred, oriented x 2, somnolent affect, responds appropriately to questions. Patient has good movement of all 4 extremities. Distal sensation intact. Cranial nerves II through XII are intact except for slurring of her speech related to her overdose. Course - Re-evaluation Re-evalutation: 01/22/18 06:00 Somnolence is improved but she still is a little bit somnolent from her overdose. When she falls asleep she snores and her oxygen drops. Will wait until she is fully awake and showing no further signs of effect from her overdose before she is medically cleared for psychiatric evaluation. Dictation of this chart was performed using voice recognition software; therefore, there may be some unintended grammatical errors. - Vital Signs Vital signs: Temp Pulse Resp BP Pulse Ox 97.8 F 24 H 101/65 98 01/22/18 02:29 01/22/18 04:31 01/22/18 04:31 01/22/18 04:31 - Laboratory Result Diagrams: 01/22/18 02:50 01/22/18 02:50 Laboratory results interpreted by me: 01/22/18 01/22/18 02:50 02:50 Hct 35.1 L Total Protein 6.0 L Albumin 3.3 L Salicylates < 1.0 L Acetaminophen < 10 L - EKG Interpretation by Me Additional EKG results interpreted by me: 01/22/18 02:20 EKG is reviewed and interpreted by me. EKG shows sinus rhythm with a rate of [address] segment elevation or depression. No ischemic T-wave inversions. UT interval, QRS duration are within normal range. QT interval is borderline. Old EKG for comparison is from January 09, 2017. Discharge - Discharge Referrals: Yousuf IBARRA MD [Primary Care Provider] - Follow up as needed
[2018-01-22 03:12] LABS: ABSOLUTE EOSINOPHILS # (AUTO) 0.2 10^3/uL (0.0-0.6); ABSOLUTE LYMPHOCYTES (AUTO) 3.5 10^3/uL (0.5-4.7); ABSOLUTE MONOCYTES (AUTO) 0.6 10^3/uL (0.1-1.4); ABSOLUTE NEUT (AUTO) 4.6 10^3/uL (1.7-8.2); BASOPHILS % (AUTO) 0.5 % (0-2); EOSINOPHILS % (AUTO) 2.5 % (0-6); HEMATOCRIT 35.1 % (36.0-47.0); HEMOGLOBIN 12.2 g/dL (12.0-15.5); LYMPHOCYTES % (AUTO) 39.1 % (13-45); MEAN CORPUSCULAR HEMOGLOBIN 31.7 pg (27.0-33.4); MEAN CORPUSCULAR HGB CONC 34.8 g/dL (32.0-36.0); MEAN CORPUSCULAR VOLUME 91 fl (80-97); MONOCYTES % (AUTO) 6.6 % (3-13); PLATELET COUNT 192 10^3/uL (150-450); RED BLOOD COUNT 3.86 10^6/uL (3.72-5.28); RED CELL DISTRIBUTION WIDTH 12.8 % (11.5-14.0); SEGMENTED NEUTROPHILS % (AUTO) 51.3 % (42-78); TOTAL CELLS COUNTED % (AUTO) 100 %; WHITE BLOOD COUNT 9.1 10^3/uL (4.0-10.5)
[2018-01-22 03:23] LABS: APPEARANCE,URINE CLEAR; BILIRUBIN,URINE NEGATIVE (NEGATIVE); COLOR,URINE STRAW; GLUCOSE, URINE NEGATIVE (NEGATIVE); KETONES,URINE NEGATIVE (NEGATIVE); LEUKOCYTE ESTERASE,URINE NEGATIVE (NEGATIVE); NITRITE,URINE NEGATIVE (NEGATIVE); PROTEIN,URINE NEGATIVE (NEGATIVE); URINE SPECIFIC GRAVITY 1.002; UROBILINOGEN,URINE NEGATIVE mg/dL (<2.0)
[2018-01-22 03:43] LABS: ALANINE AMINOTRANSFERASE 25 U/L (9-52); ALBUMIN 3.3 g/dL (3.5-5.0); ALCOHOL 209 mg/dL (NONE DETECTED); ALKALINE PHOSPHATASE 75 U/L (38-126); ANION GAP 11 (5-19); ASPARTATE AMINO TRANSFERASE 18 U/L (14-36); BILIRUBIN,DIRECT 0.2 mg/dL (0.0-0.4); BILIRUBIN,TOTAL 0.5 mg/dL (0.2-1.3); BLOOD UREA NITROGEN 16 mg/dL (7-20); CALCIUM 8.5 mg/dL (8.4-10.2); CARBON DIOXIDE 25 mmol/L (22-30); CHLORIDE 103 mmol/L (98-107); GLUCOSE 89 mg/dL (75-110); POTASSIUM 3.6 mmol/L (3.6-5.0); SODIUM 139.4 mmol/L (137-145)
[2018-01-22 03:44] LABS: ACETAMINOPHEN < 10 ug/mL (10-30); SALICYLATE < 1.0 mg/dL (2.0-20.0)
[2018-01-22 03:51] LABS: URINE AMPHETAMINES SCREEN NEGATIVE; URINE BARBITURATES SCREEN NEGATIVE; URINE BENZODIAZEPINES SCREEN NEGATIVE; URINE COCAINE SCREEN NEGATIVE; URINE MARIJUANA (THC) SCREEN NEGATIVE; URINE METHADONE SCREEN NEGATIVE; URINE PHENCYCLIDINE SCREEN NEGATIVE
--- NOTE | 2018-01-22 09:22 | EKG REPORT ---
SEVERITY:- BORDERLINE ECG - SINUS RHYTHM BORDERLINE PROLONGED QT INTERVAL : Confirmed by: Jarvis Quezada 22-Jan-2018 09:21:51
--- NOTE | 2018-01-22 09:45 | ER Document Report ---
Doctor's Note Notes: 01/22/18 09:45 As the rounding physician for our psychiatric patients, I have reviewed the chart, vitals, lab work. Patient has been examined and noted to be drowsy, pt is on oxygen satting 97% while sleeping. I am awaiting mental health in [place]. 01/22/18 09:58
--- NOTE | 2018-01-22 16:47 | PSYCHOLOGICAL NOTE ---
Psych Note - Psych Note Psych Note: Reason for Consult: Intentional Overdose Consent Permissions: Katharina and Blake, family friends Patient is 57-year-old female presents with complaints of an overdose. She took 14 Lunesta tablets. She will not tell me exactly times a day she took them. We do not know the dose at this time. She told the paramedics that she was "just trying to hurt self". Patient disclosed that she does not remember how she arrived to [facility] however has been told that she arrived via EMS. She reports that she took too many pills but states "I do not know if I was trying to kill myself of how she is trying to go to sleep." Patient does not remember how many she took however she knows there was 14 left in the bottle of Lunesta that she just counted them. She reports she counted her medication because she had to email her provider for a refill. She disclosed that last Sunday she had a "major letdown" found out that she was unable to have surgery; "it was devastating." She confirms that she was drinking that evening "I used to drink every day honestly however after my emergency surgery a year ago I stopped for about 6 months. But around Ramila time I started drinking again and I drink about once a month now. But last night I had either 8-9 maybe even more beers." She is unsure of what her trigger was however she believes it may have been from emailing her provider because she was typing about all the events that happened over the past week. She states that she was doing this because she was started on amitriptyline for 10 days and the provider wanted to know how she was feeling with the new medication; "I was telling her that I was not able to really tell if the amitriptyline worked because it was such a bad week and then started to tell her about everything." Patient denies current suicidal ideation but feels her medications need to be adjusted. She has mental health services through the [place] and reports being diagnosed with "PTSD, clinical depression, and anxiety. " Patient reports one previous suicide attempt "many years ago" when she was in her 40s but did not need medical attention. Clinician spoke with patient's friends Katharina and Blake. They disclose concern the patient has been having multiple stressors to include being denied having surgery which she was looking forward to. They report the patient has been trying to get surgery for long time however she was denied because of the benign brain tumor that has been recently found also. Patient's car has recently broke down so she has been isolated in her home unless they go and pick her up to take her to the grocery store or doctor's appointments. They report they are unaware of any previous attempts and they have known her for over 30 years. Patient is alert and orientated to person, place, time and circumstance. Mood is euthymic with congruent affect. Patient endorses intentional overdose but denies current suicidal ideation. Patient denies homicidal ideation. Delusions are absent behaviors congruent with an intact reality based presentation i.e. organized and linear thought process. Eye contact was well- maintained. Conversational speech was within normal rate, tone and prosody. Intellectual abilities appear to be within the average range. Attention and concentration are fair. Insight, judgment, impulse control are poor. Diagnosis 292.20 (F32.9) major depressive mood disorder; unspecified per history provided by patient 300.00 (F41.9) unspecified anxiety disorder per history provided by patient 309.81 (F43.10) posttraumatic stress disorder per history provided by patient Impression/Plan: Patient is recommend for IVC. Patient intentional overdosed. She identifies multiple medical and emotional stressors in addition to a medication change (adding amitriptyline) 10 days ago. Patient will be re- evaluated. Dr. Acosta was consulted on the care and management of this patient ; attending physician is in agreement with recommendations and disposition.
[2018-01-22] MEDS ORDERED: (PENDING PHARMACY ID) (Eszopiclone [Lunesta] 2 MG) PO PRN (22:53)
[2018-01-22] MEDS ORDERED: CLONAZEPAM 1 MG TABLET PO PRN (23:19)
[2018-01-22] MEDS ORDERED: LISINOPRIL 10 MG TABLET PO ONE (23:30)
[2018-01-22] MEDS ORDERED: BUDESONIDE/FORMOTEROL 160-4.5 MCG 60 PUFF/6 GM MDI IH ONE ×2 (23:30→23:43)
[2018-01-22] MEDS ORDERED: LANSOPRAZOLE 30 MG TAB.RAP.DR PO ONE (23:30)
[2018-01-22] MEDS: ALBUTEROL SULFATE HFA (90 MCG/PUFF) 8 GM MDI (1 MDI/ER DISP) IH SCH (23:44)
[2018-01-23] MEDS: BUDESONIDE/FORMOTEROL 160-4.5 MCG 60 PUFF/6 GM MDI IH SCH ×2 (09:28→22:24)
[2018-01-23] MEDS ORDERED: DULOXETINE HCL 30 MG CAPSULE.DR PO SCH (10:00)
[2018-01-23] MEDS ORDERED: ASPIRIN 81 MG TABLET, CHEWABLE PO SCH (10:00)
[2018-01-23] MEDS: VENLAFAXINE HCL 37.5 MG CAP.SR.24H PO SCH ×2 (10:29→17:33)
[2018-01-23] MEDS: BUSPIRONE HCL 10 MG TABLET PO SCH ×2 (10:29→17:33)
--- NOTE | 2018-01-23 12:51 | PSYCHOLOGICAL NOTE ---
Psych Note - Psych Note Psych Note: Reason for Consult: Intentional Overdose Consent Permissions: Katharina and Blake, family friends Patient is 57-year-old female presents with complaints of an overdose. She took 14 Lunesta tablets. She will not tell me exactly times a day she took them. We do not know the dose at this time. She told the paramedics that she was "just trying to hurt self". Clinician conducted check-in with patient Patient disclosed that she is glad she did not harm herself and denies continued suicidal ideation. Patient states "I just want to go home." Clinician discussed medication recommendation changes. Patient agrees and would like continued assistance. Patient openly engaged with clinician continue discuss her thoughts surrounding her stressors. Medication recommendations per [facility]'s contracted psychiatrist Dr. Salma PELAEZ are as follows: Please discontinue home medications of Cymbalta, Lunesta, Klonopin, and amitriptyline 1. Please start Effexor 37.5 mg twice daily 2. Please start BuSpar 10 mg twice daily 3. Please start clonidine 0.1 mg nightly while in the hospital then discontinue and replace with a prescription for Prazosin 2mg nightly Diagnosis 292.20 (F32.9) major depressive mood disorder; unspecified per history provided by patient 300.00 (F41.9) unspecified anxiety disorder per history provided by patient 309.81 (F43.10) posttraumatic stress disorder per history provided by patient Impression/Plan: Patient is recommend for continued IVC. She identifies multiple medical and emotional stressors in addition to a medication change ( adding amitriptyline) 10 days ago. Medication recommendations have been provided. Patient will be observed during this medication change and then re- evaluated. Dr. Acosta was consulted on the care and management of this patient ; attending physician is in agreement with recommendations and disposition.
[2018-01-23] MEDS: ALBUTEROL SULFATE HFA (90 MCG/PUFF) 8 GM MDI (1 MDI/ER DISP) IH SCH ×3 (13:42→22:28)
--- NOTE | 2018-01-23 21:47 | ER Document Report ---
Doctor's Note Notes: 01/23/18 21:45 Medical rounds: Earlier this date, the chart was reviewed and patient was interviewed briefly. Vital signs are remarkable for a mild persistent tachypnea , however, there is no tachycardia, blood pressure is normal, and oxygen saturation on room air is satisfactory. There is nothing to suggest a cardiopulmonary cause for her tachypnea. Laboratory values are satisfactory. Patient is alert, oriented, and cooperative. She is medically stable. She remains on involuntary commitment papers until resolution and/or disposition can be obtained.
[2018-01-23] MEDS ORDERED: LANSOPRAZOLE 30 MG TAB.RAP.DR PO SCH (22:00)
[2018-01-23] MEDS ORDERED: CLONIDINE HCL 0.1 MG TABLET PO SCH (22:00)
[2018-01-23] MEDS ORDERED: LISINOPRIL 10 MG TABLET PO SCH (22:00)
[2018-01-24] MEDS: ALBUTEROL SULFATE HFA (90 MCG/PUFF) 8 GM MDI (1 MDI/ER DISP) IH SCH (00:22)
[2018-01-24] MEDS ORDERED: ZOLPIDEM TARTRATE 5 MG TABLET PO PRN (08:53)
[2018-01-24] MEDS: BUSPIRONE HCL 10 MG TABLET PO SCH (09:58)
[2018-01-24] MEDS: BUDESONIDE/FORMOTEROL 160-4.5 MCG 60 PUFF/6 GM MDI IH SCH (09:59)
[2018-01-24] MEDS ORDERED: VENLAFAXINE HCL 37.5 MG CAP.SR.24H PO SCH (10:00)
[2018-01-24 10:02] VITALS: BP 171/103
--- NOTE | 2018-01-24 10:16 | ER Document Report ---
Doctor's Note Notes: 01/24/18 10:14 Rounds: Chart reviewed and patient interviewed. Patient being evaluated for suicidal thoughts, denies feeling that way at this time. Patient's initial labs showed an alcohol level of 209, but otherwise labs were essentially normal. Vital signs showed the patient to be hypertensive throughout her stay, with her highest levels being last night at 22:19, when her blood pressure was 216/107. This morning her blood pressure is 171/103. Patient says that she has medications for her blood pressure and has been taking them. Patient appears to be medically stable for transfer or discharge. Charisse Apodaca MD
[2018-01-24] MEDS ORDERED: LANSOPRAZOLE 30 MG TAB.RAP.DR PO SCH (22:00)
== END 2018-01-24 10:00 | disposition home or self-care (01) ==
LOC: ER 01:59
DX: T42.6X1A Poisoning by other antiepileptic and sedative-hypnotic drugs, accidental (unintentional), initial encounter (principal); Y92.009 Unspecified place in unspecified non-institutional (private) residence as the place of occurrence of the external cause; E78.00 Pure hypercholesterolemia, unspecified; I10 Essential (primary) hypertension; Z88.6 Allergy status to analgesic agent; Z93.3 Colostomy status; Z98.51 Tubal ligation status
CPT/HCPCS: 93005; 99285; 36415; 80307 ×4; 85025; 80053; 81001; 93010; J3490 ×3